=== PATIENT | female | born 1950 | race Caucasian/White ===

== ENCOUNTER 2019-07-03 11:23 | Outpatient (CLI) | payer MEDICARE, MEDICAID, SELFPAY ==
[2019-07-03 11:39] LABS: Basophils Absolute Auto 0.1 K/mm3 (0.0-0.1); Basophils Percent Auto 0.6 % (0.2-1.2); Eosinophils Absolute Auto 0.3 K/mm3 (0-0.3); Eosinophils Percent Auto 3.9 % (0-4.4); Hematocrit 25.2 % (37.0-47.0); Hemoglobin 7.4 g/dL (12.0-15.0); Immature Granulocyte Absolute 0.06 K/mm3 (0.00-0.031); Immature Granulocyte Percent A 0.7 % (0-0.5); Lymphocytes Absolute Auto 2.39 K/mm3 (0.9-3.2); Lymphocytes Percent Auto 29.3 % (18.3-44.2); Mean Corpuscular HGB Conc 29.4 g/dl (32-36); Mean Corpuscular Hemoglobin 26.8 pg (26-34); Mean Corpuscular Volume 91.3 fl (80-100); Mean Platelet Volume 10.4 fl (7.4-10.4); Monocytes Absolute Auto 0.8 K/mm3 (0.1-0.6); Monocytes Percent Auto 9.6 % (2.6-8.5); Neutrophils Absolute Auto 4.6 K/mm3 (1.3-6.7); Neutrophils Percent Auto 55.9 % (45.5-73.1); Platelet Count Result 430 k/mm3 (150-375); Red Blood Count 2.76 M/mm3 (4.2-5.4); Red Cell Distribution Width 15.6 % (11.5-14.5); White Blood Count 8.2 K/mm3 (4.5-10.0)
[2019-07-03 14:07] LABS: Iron 124 ug/dL (37-170)
[2019-07-03 14:17] LABS: Percent Iron Saturation 27 % (20-50)
== END 2019-07-03 11:24 | disposition home or self-care (01) ==
PROVIDERS: PCP Internal Medicine; Visit Provider Internal Medicine Hematology & Oncology
DX: D64.9 Anemia, unspecified (principal)
CPT/HCPCS: 36415; 82728; 83540; 83550; 84443; 85025

== ENCOUNTER 2021-10-27 08:57 | Outpatient (CLI) | payer MEDICARE, MEDICAID, SELFPAY ==
[2021-10-27 09:20] LABS: Hematocrit 37.2 % (37.0-47.0); Hemoglobin 11.4 g/dL (12.0-15.0); Mean Corpuscular HGB Conc 30.6 g/dl (32-36); Mean Corpuscular Hemoglobin 26.5 pg (26-34); Mean Corpuscular Volume 86.5 fl (80-100); Mean Platelet Volume 10.6 fl (7.4-10.4); Platelet Count Result 356 k/mm3 (150-375); White Blood Count 11.6 K/mm3 (4.5-10.0)
[2021-10-27 16:48] LABS: Anion Gap 11 mmol/L (8-16); Blood Urea Nitrogen 18 mg/dL (7-17); Calcium 9.7 mg/dL (8.4-10.2); Carbon Dioxide 27 mmol/L (22-30); Chloride 100 mmol/L (98-107); Estimated Glomerular Filt Rate > 60; Glucose 113 mg/dL (65-110); Potassium 4.6 mmol/L (3.4-5.0); Sodium 138 mmol/L (137-145)
[2021-10-27 16:52] LABS: Iron 73 ug/dL (37-170)
[2021-10-27 17:22] LABS: Percent Iron Saturation 16 % (20-50)
[2021-10-27 17:47] LABS: Ferritin 9.76 ng/mL (11.1-264)
== END 2021-10-27 08:58 | disposition home or self-care (01) ==
LOC: ANHLAB 09:00
PROVIDERS: Visit Provider Internal Medicine Hematology & Oncology
DX: D50.9 Iron deficiency anemia, unspecified (principal)
CPT/HCPCS: 36415; 80048; 82607; 82728; 83540; 83550; 85027

== ENCOUNTER 2023-06-07 16:57 | Emergency (ER) | payer MEDICARE, MEDICAID, SELFPAY ==
[2023-06-07] VITALS (8 sets, daily range): BP systolic 105–129; BP diastolic 63–98; PULSE 68–77; RESP 15–24; TEMP 36.6; O2SAT 95–99
--- NOTE | 2023-06-07 17:13 | ED.GENADULT ---
HPI - General Adult General Chief complaint: Unspecified <Patricia Henao PA-C - Last Filed: 06/07/23 17:18> Stated complaint: shaky <Patricia Henao PA-C - Last Filed: 06/07/23 17:18> Time Seen by Provider: 06/07/23 17:13 <Patricia Henao PA-C - Last Filed: 06/07/23 17:18> Focused HPI: 72 y/o F reports for evaluation for hand tremulousness for the past few weeks, worsening today. Pt states her hands tremble when she attempts to use her hands i.e. picking up objects, but do not tremble when she is resting. She reports intermittent numbness in her L 4th and 5th digits, otherwise denies numbness, vision changes, focal weakness, chest pain. Reports chronic dyspnea that is unchanged from baseline. States her PCP sent her here due to concerns for a stroke. GENERAL: Well-appearing, well-nourished, and in no acute distress. HEAD: Normocephalic, atraumatic. CHEST: Clear to auscultation. ?No respiratory distress. HEART: Regular rate and rhythm.? NEURO: ?Alert and oriented x3. CN 2-12 intact. No pronator drift. Intention tremors present when performing finger to nose testing. No tremors at rest. Strength 5/5 throughout. Patient screened in triage and initial orders placed.? ?Additional care and disposition to be based upon?diagnostic testing and treatment. <Patricia Henao PA-C - Last Filed: 06/07/23 17:18> Related Data Home medications: Home Medications Medication Instructions Recorded Confirmed alendronate 70 mg tablet 70 mg PO WEEKLY 03/03/19 09/06/22 aspirin 81 mg tablet,delayed 81 mg PO DAILY 03/03/19 09/06/22 release (Aspir-) atorvastatin 40 mg tablet 40 mg PO DAILY 03/03/19 09/06/22 docusate sodium 100 mg capsule 100 mg PO DAILY 03/03/19 09/06/22 (Dulcolax Stool Softener (docusate)) duloxetine 60 mg capsule,delayed 60 mg PO DAILY 03/03/19 09/06/22 release icosapent ethyl 1 gram capsule 2 g PO BID 03/03/19 09/06/22 (Vascepa) levothyroxine 150 mcg tablet 150 mcg PO DAILY 03/03/19 09/06/22 (Synthroid) lisinopril 10 mg tablet 20 mg PO DAILY 03/03/19 09/06/22 metformin 500 mg tablet 1,000 mg PO BID 03/03/19 09/06/22 ascorbic acid (vitamin C) 500 mg 1,000 mg PO DAILY 03/10/19 09/06/22 tablet acetaminophen 500 mg tablet 1,000 mg PO DAILY PRN Pain 09/06/22 09/06/22 (Acetaminophen Extra Strength) albuterol sulfate 90 mcg/actuation 2 puff inhalation QID PRN 09/06/22 09/06/22 aerosol inhaler Shortness Of Breath cholecalciferol (vitamin D3) 125 125 mcg PO DAILY 09/06/22 09/06/22 mcg (5,000 unit) tablet (Vitamin D3) cyanocobalamin (vitamin B-12) 1,000 mcg PO DAILY 09/06/22 09/06/22 1,000 mcg tablet,extended release (Vitamin B-12 ER) dapagliflozin propanediol 10 mg 10 mg PO DAILY 09/06/22 09/06/22 tablet exenatide microspheres 2 mg/0.85 2 mg subcut WEEKLY 09/06/22 09/06/22 mL subcutaneous auto-injector insulin degludec 200 unit/mL (3 unit subcut 09/06/22 mL) subcutaneous pen magnesium oxide 400 mg PO DAILY 09/06/22 09/06/22 mirabegron 50 mg tablet,extended 50 mg PO DAILY 09/06/22 09/06/22 release 24 hr pregabalin 100 mg capsule 100 mg PO TID 09/06/22 09/06/22 rivaroxaban 2.5 mg tablet 2.5 mg PO BID 09/06/22 09/06/22 <Patricia Henao PA-C - Last Filed: 06/07/23 17:18> Allergies/adverse reactions: Allergies Allergy/AdvReac Type Severity Reaction Status Date / Time No Known Allergies Allergy Mild Verified 06/07/23 17:12 <Patricia Henao PA-C - Last Filed: 06/07/23 17:18> [facility] Family History Family History: Family History (Updated 07/27/16 @ 23:56 by DOCTOR UNKNOWN) Father Acute myocardial infarction, Onset Age: 60 Patient's father is Mother Patient's mother is <Patricia Henao PA-C - Last Filed: 06/07/23 17:18> Social History Social History: Social History Smoking packs per day: 3 Smoking cigarettes per day: 60.0 Smoking status: Former smoker Tobacco type: cig
[2023-06-07 17:25] LABS: Basophils Absolute Auto 0.1 K/mm3 (0.0-0.1); Basophils Percent Auto 0.7 % (0.2-1.2); Eosinophils Absolute Auto 0.3 K/mm3 (0-0.3); Eosinophils Percent Auto 3.1 % (0-4.4); Hematocrit 34.9 % (37.0-47.0); Hemoglobin 10.7 g/dL (12.0-15.0); Immature Granulocyte Absolute 0.09 K/mm3 (0.00-0.031); Immature Granulocyte Percent A 0.9 % (0-0.5); Lymphocytes Absolute Auto 2.41 K/mm3 (0.9-3.2); Lymphocytes Percent Auto 25.2 % (18.3-44.2); Mean Corpuscular HGB Conc 30.7 g/dl (32-36); Mean Corpuscular Hemoglobin 28.1 pg (26-34); Mean Corpuscular Volume 91.6 fl (80-100); Mean Platelet Volume 11.6 fl (7.4-10.4); Monocytes Absolute Auto 1.1 K/mm3 (0.1-0.6); Monocytes Percent Auto 11.7 % (2.6-8.5); Neutrophils Absolute Auto 5.6 K/mm3 (1.3-6.7); Neutrophils Percent Auto 58.4 % (45.5-73.1); Platelet Count Result 317 k/mm3 (150-375); Red Blood Count 3.81 M/mm3 (4.2-5.4); Red Cell Distribution Width 14.6 % (11.5-14.5); White Blood Count 9.6 K/mm3 (4.5-10.0)
[2023-06-07 17:35] LABS: Alanine Aminotransferase 22 U/L (6-35); Albumin Level 4.5 g/dL (3.5-5.1); Alkaline Phosphatase 77 U/L (38-126); Anion Gap 9 mmol/L (8-16); Aspartate Amino Transferase 27 U/L (14-36); Bilirubin,Total 0.4 mg/dL (0.2-1.3); Blood Urea Nitrogen 21 mg/dL (7-17); Calcium 9.1 mg/dL (8.4-10.2); Carbon Dioxide 23 mmol/L (22-30); Chloride 106 mmol/L (98-107); Estimated CRCL calculation 34 ml/min; Estimated Glomerular Filt Rate 44; Glucose 147 mg/dL (65-110); Magnesium 2.5 mg/dL (1.6-2.3); Potassium 5.4 mmol/L (3.4-5.0); Sodium 138 mmol/L (137-145)
[2023-06-07] MEDS: SODIUM CHLORIDE 0.9% IV 1,000 ML 999 ML IV CONT (23:05)
== END 2023-06-08 00:36 | disposition home or self-care (01) ==
PROVIDERS: Physician Assistant; Emergency Provider Emergency Medicine; PCP Internal Medicine
DX: R25.1 Tremor, unspecified (principal); Z87.891 Personal history of nicotine dependence
CPT/HCPCS: 36415; 80053; 83735; 85025; 96360; 99284; J7030

== ENCOUNTER 2024-08-13 10:56 | Outpatient (CLI) | payer MEDICARE, MEDICAID, SELFPAY ==
--- NOTE | ~2024-08-13 | XR_ITS ---
[id number] Ordering provider: Mckenna Carroll, History: . STAT READ . Comparison: None. FINDINGS: VERTEBRAL BODIES: Minimal anterolisthesis at the level of C4-C5. Otherwise, Normal height and alignme nt. No visible fracture or subluxation. The dens is intact. Degenerative changes of the spine. DISK SPACES: Well maintained. Multilevel facet degenerative disease. Multilevel uncovertebral joint o steoarthritic changes. PARASPINOUS SOFT TISSUES: No prevertebral soft tissue swelling. IMPRESSION: No acute osseous abnormality cervical spine. Multilevel degenerative disc disease. Reviewed, dictated and finalized at location A.
--- NOTE | ~2024-08-13 | XR_ITS ---
3 VIEWS THORACIC SPINE Ordering provider: Mckenna Carroll, History: . STAT READ, FALL, PAIN IN BACK . Comparison: None. FINDINGS: VERTEBRAL BODIES: Compression fracture with loss of volume of about 50% and T9 and T11 which may be a cute or chronic. MRI evaluation advised. Otherwise, Normal height and alignment. No visible fracture or subluxation. Degenerative changes of the spine. DISK SPACES: Multilevel degenerative disc disease. SOFT TISSUES: Atherosclerotic changes of the aorta. IMPRESSION: Compression fracture of T9 and T11 which may be acute or chronic. MRI evaluation advised. Otherwise, No acute osseous abnormality of the thoracic spine. Reviewed, dictated and finalized at location A. IMPRESSION: Compression fracture of T9 and T11 which may be acute or chronic. MRI evaluatio n advised. Otherwise, No acute osseous abnormality of the thoracic spine.
--- OUTSIDE RECORDS SUMMARY | 2024-08-13 12:31 | XMS_ITS | Clinical Summary ---
Author Organization [facility] Address [address] [place] [id number] Care Team Providers Care Registered Nurse Hh Case Manager Name Role Phone Ashleigh Carroll MD Primary Care Provide r Allergies No known active allergies Medications atorvastatin (LIPITOR) 40 mg tablet atorvastatin 40 mg tablet take one tablet by mouth once a day Active DULoxetine DR (CYMBALTA) 60 mg capsule duloxetine 60 mg capsule,delayed release take one capsule by mouth once a day Active cholecalcifero l (VITAMIN D3) 5,000 unit tablet vitamin d 5000 iu Ac tive acetaminophen 500 mg capsule acetaminophen 500 mg Active docusate sodium (COLACE) 100 mg capsule Active alendronate (FOSAMAX) 70 mg tablet alendronate 70 mg tablet take one tablet by mouth once a week Active albuterol HFA (VENTOLIN HFA) 90 mcg/actuation inhaler every 4 hours Active umeclidinium-v ilanterol (ANORO ELLIPTA) 62.5-25 mcg/actuation blister with device Active ferrous sulfate 325 mg (65 mg of elemental iron) tabletIndicati ons:Iron Deficiency Anemia Take 1 tablet (325 mg total) by mouth daily with breakfast Active Farxiga 10 mg tablet Take 1 tablet (10 mg total) by mouth daily 12/10/19 20 Active dihydroergotam ine (MIGRANAL) 0.5 mg/pump act. (4 mg/mL) nasal spray Active TRESIBA 200 unit/mL (3 mL) pen for injection Inject 0.17 mL (34 Units total) under the skin every evening 05/21/19 23 Active insulin degludec (TRESIBA) 100 unit/mL (3 mL) pen for injection Inject 0.34 mL (34 Units total) under the skin every evening 10/08/19 Active Xarelto 2.5 mg tablet Take 1 tablet (2.5 mg total) by mouth 2 (two) times a day 10/08/19 Active vitamins A and D capsule 01/21/20 Active Alcohol Pads pads, medicated TEST 2 TIMES A DAY A ctive aspirin 81 mg enteric coated tablet 04/22/18 70 Active OneTouch Ultra Test strip Active OneTouch Ultra2 Meter misc as directed Active carboxymethylc ellulose sodium (THERATEARS) 0.25 % ophthalmic solution Active clotrimazole 1 % cream Active diflorasone (PSORCON) 0.05 % ointment Active econazole 1 % cream econazole 1% cream 06/30/19 Active Safety Lancets 28 gauge misc TEST 2 TIMES A DAY Active lancing device misc 10/14/19 Active mirabegron ER (Myrbetriq) 50 mg tablet extended release 24 hr Take 1 tablet (50 mg total) by mouth every morning Active BD Ultra-Fine Short Pen Needle 31 gauge x 5/16 needle USE WITH TRESIBA ONCE DAILY 04/19/20 23 Active pen needle, diabetic 31 gauge x 3/16 needle BD Ultra-Fine Mini Pen Needle 31 gauge x 3/16 Active True Comfort Safety Pen Needle 32 gauge x 5/32 needle USE TO INJECT ONCE DAILY 05/17/19 24 Active solifenacin (VESIcare) 5 mg tablet Take 1 tablet (5 mg total) by mouth daily Active albuterol HFA (PROVENTIL HFA,VENTOLIN HFA,PROAIR HFA) 90 mcg/actuation inhaler Inhale 2 puffs every 4 (four) hours as needed Active umeclidinium-v ilanteroL (ANORO ELLIPTA) 62.5-25 mcg/actuation blister with device daily Active Dexcom G7 Sensor deviceIndicati ons:Type 2 diabetes mellitus with hyperglycemia, with long-term current use of insulin (HCC) Change sensor every 10 days 9 each 3 01/30/20 24 Active levothyroxine (SYNTHROID) 150 mcg tablet 1 tablet 6 days a week 90 tablet 06/10/19 25 Active glipiZIDE (GLUCOTROL) 5 mg tabletIndicati ons:Type 2 diabetes mellitus with hyperglycemia, with long-term current use of insulin ([facility]) TAKE ONE (1) TABLET BY MOUTH TWICE DAILY (BEFORE BREAKFAST AT 9AM & LUNCH AT NOON) *NEW PRESCRIPTION REQUEST* 180 tablet 07/09/19 25 Active Bydureon BCise 2 mg/0.85 mL auto-injectorI ndications:Typ e 2 diabetes mellitus with hyperglycemia, with long-term current use of insulin ([facility]) INJECT 2MG SUBCUTANEOUSLY ONCE WEEKLY ON SATURDAY *NEW PRESCRIPTION REQUEST* 10.2 mL 07/09/19 25 Active Vascepa 1 gram capsule TAKE TWO (2) CAPSULES BY MOUTH TWICE DAILY *NEW PRESCRIPTION REQUEST* 360 capsule 07/09/19 25 Active metFORMIN XR (GLUCOPHAGE XR) 500 mg 24 hr tabletIndicati ons:Type 2 diabetes mellitus with hyperglycemia, with long-term current use of insulin ([facility]) TAKE ONE (1) TABLET BY MOUTH TWICE DAILY (AFTER BREAKFAST @ 9AM & DINNER AT 5PM) *NEW PRESCRIPTION REQUEST* 180 tablet 07/09/19 25 Active azithromycin (ZITHROMAX) 250 mg tablet TAKE 2 TABLETS BY MOUTH TODAY, THEN TAKE 1 TABLET DAILY FOR 4 DAYS DIRECTED 06/12/19 25 Active lisinopriL (PRINIVIL,ZEST RIL) 20 mg tablet TAKE ONE TABLET BY MOUTH IN THE MORNING DAILY AT 9 AM 07/04/19 25 Active pregabalin (LYRICA) 150 mg capsule Take 1 capsule (150 mg total) by mouth nightly 90 capsule 2 07/16/19 25 Active pregabalin (LYRICA) 150 mg capsule Take 1 capsule (150 mg total) by mouth nightly 90 capsule 2 07/11/19 25 025 Discontin ued(Reord er) Active Problems Problem Noted Date Diagnosed Date Hypertension associated with type 2 diabetes doroteo litus 01/20/2024 Assessment & Plan (07/14/2024 3:24 PM CDT): Chronic problem. Controlled on current lisinopril 20mg daily. Assessment & Plan (05/11/2024 12:57 PM PHYTOPATHOLOGIST): Chronic problem. Controlled on current lisinopril 10mg daily. Assessment & Plan (01/20/2024 3:10 PM CDT): Chronic problem. Controlled on current lisinopril 10mg daily. Will update labs today. Does not mychart. Verified phone #/address to contact re: results. Hyperlipidemia associated with type 2 diabetes elisha hong 01/20/2024 Assessment & Plan (07/14/2024 3:24 PM CDT): Chronic problem. Currently taking Atorvastatin 80mg & vascepa 2gm bid Last lipid panel: 01/20/24 LDL=51, SP=291. Assessment & Plan (05/11/2024 12:57 PM PHYTOPATHOLOGIST): Chronic problem. Currently taking Atorvastatin 40mg & vascepa 2gm bid Last lipid panel: 01/20/24 LDL=51, ZL=701. Assessment & Plan (01/20/2024 3:11 PM CDT): Chronic problem. Currently taking Atorvastatin 40mg & vascepa 2gm bid No lipid panel on file. Will update labs today. Does not mychart. Verified phone #/address to contact re: results. Type 2 diabetes mellitus wit h hyperglycemia, with long-term current use of insulin 07/18/2023 Assessment & Plan (07/14/2024 3:38 PM CDT): Chronic problem. A1c uncontrolled but improved from 10.1% 05/11/24 to now 8.2%. Increase Tresiba from 29 units to 32 units daily. Current medications: Metformin XR 1000mg twice daily with meals (increased by Dr Bustillos [facility]) Glipizide 5mg twice daily with meals Farxiga 10mg daily Bydureon 2mg weekly Tresiba 32 units daily UTD on labs. DM eye exam JENNIFER fall 2022; 02/2024 appt [facility] in [place] on [address] 2nd request letter sent to get copy of report from last year. Discussed with Leah Mariee: Strive for regular exercise (30min most days) and diet (get at least 4-5 servings of fruit and veggies daily, avoid processed foods, increase lean protein intake and decrease carb portions as well as fruit juices, regular soda & desserts). Watch carbs and simple sugars. Check the blood sugar: Dexcom G7. Check the feet daily for skin breakdown and infection. Assessment & Plan (05/11/2024 1:57 PM PHYTOPATHOLOGIST): Chronic problem. A1c uncontrolled & greatly worsened from 6.1% 01/20/24 to now 10.1%. Too high. Will make below changes: -increase tresiba from 24 units to 29 units. -add metformin XR 500mg twice daily with meals Current medications: Metformin XR 500mg twice daily with meals Glipizide 5mg twice daily with meals Farxiga 10mg daily Bydureon 2mg weekly UTD on labs. DM eye exam JENNIFER fall 2022; 02/2024 appt [facility] [place] [facility]. Letter sent to get copy of report from last year. Discussed with Leah Mariee: Strive for regular exercise (30min most days) and diet (get at least 4-5 servings of fruit and veggies daily, avoid processed foods, increase lean protein intake and decrease carb portions as well as fruit juices, regular soda & desserts). Watch carbs and simple sugars. Check the blood sugar: Dexcom G7. Check the feet daily for skin breakdown and infection. Assessment & Plan (01/20/2024 3:29 PM CDT): Chronic problem. A1c at goal & greatly improved from 9.5% 07/18/23 to now 6.1%. Too many lows. Will make below changes: -decrease tresiba from 34 units to 29 units. -glimepiride only once daily Current medications: Metformin XR 1000mg twice daily with meals Glimepiride 5mg with breakfast Bydureon 2mg weekly Tresiba 29 units daily Will update labs today. Will update labs today. Does not mychart. Verified phone #/address to contact re: results. DM eye exam JENNIFER fall 2022; 02/2024 appt [facility] in [place] on [address] Letter sent to get copy of report from last year. Discussed with Leah Mariee: Strive for regular exercise (30min most days) and diet (get at least 4-5 servings of fruit and veggies daily, avoid processed foods, increase lean protein intake and decrease carb portions as well as fruit juices, regular soda & desserts). Watch carbs and simple sugars. Check the blood sugar: Dexcom G. Check the feet daily for skin breakdown and infection. Assessment & Plan (07/18/2023 4:51 PM CDT): Chronic, uncontrolled, worsening Restart Bydureon 2 mg weekly Restart metformin a 1000 mg twice a day Restart glimepiride 5 mg Lower Tresiba to 40 units daily I advised the patient to call me in 2 weeks to let us know how glucoses are doing Continue CGM with Dexcom Tremor 06/19/2023 Diabetic polyneuropathy asso ciated with type 2 diabetes mellitus 02/22/2023 Assessment & Plan (07/14/2024 3:23 PM CDT): Chronic problem. Currently taking Lyrica 150mg qhs. Reviewed foot care; needs to lotion daily. Aware to check feet nightly, not to go barefoot. Assessment & Plan (05/11/2024 12:57 PM PHYTOPATHOLOGIST): Chronic problem. Currently taking Lyrica 150mg qhs. Reviewed foot care; needs to lotion daily. Aware to check feet nightly, not to go barefoot. Assessment & Plan (01/20/2024 3:29 PM CDT): Chronic problem. Currently taking Lyrica 150mg qhs. Reviewed foot care; needs to lotion daily. Aware to check feet nightly, not to go barefoot. Assessment & Plan (02/22/2023 10:25 AM CDT): Foot care was discussed Continue Lyrica Low back pain 01/15/2023 Leukocytosis 10/16/2022 Pain in joint of left shoulder 10/16/2022 Foot callus 09/11/2022 Increased frequency of urination 09/10/2022 Hyperkalemia 08/10/2022 Proteinuria 06/18/2022 Dystrophia unguium 06/11/2022 Pain in toe 06/11/2022 Lesion of bladder 03/18/2022 Urinary incontinence 03/18/2022 Glycosuria 02/05/2022 Urge incontinence of urine 02/05/2022 Primary localized osteoarthrosis of shoulder reg ion 01/24/2022 Chronic hepatitis C virus infection 07/17/2021 Neuropathy 06/25/2021 Contusion of left shoulder 05/29/2021 Impingement syndrome of left shoulder region 10/2021 Osteoarthritis 05/29/2021 Dry skin 03/23/2021 Ganglion cyst of right foot 12/20/2020 Pain in right foot 12/16/2020 Change in voice 06/21/2020 Nicotine dependence 06/21/2020 Chronic obstructive pulmonary disease 12/10/2019 Lung mass 12/10/2019 Vitamin D deficiency 12/10/2019 Iron deficiency anemia 03/03/2019 Overview (07/01/2023): b12 normal Anemia 07/28/2018 Sleep apnea 07/21/2018 Shortness of breath 07/21/2018 Hypertriglyceridemia 07/21/2018 Primary hypertension 07/21/2018 Hypothyroidism 07/21/2018 Assessment & Plan (07/14/2024 3:27 PM CDT): Chronic problem. Currently taking levothyroxine 150 mcg 6 days/wk since 01/2024. Aware to take 1st thing in morning, 30-60 minutes before food/drink/other medications. Assessment & Plan (05/11/2024 12:58 PM PHYTOPATHOLOGIST): Chronic problem. Currently taking levothyroxine 150 mcg 6 days/wk since 01/2024. Aware to take 1st thing in morning, 30-60 minutes before food/drink/other medications. will repeat TFTs today. Will update labs today. Does not mychart. Verified phone #/address to contact re: results. Assessment & Plan (01/21/2024 3:50 PM CDT): Chronic problem. Currently taking levothyroxine 150 mcg daily. Aware to take 1st thing in morning, 30-60 minutes before food/drink/other medications. Last TSH=13.40. will repeat TFTs today. Will update labs today. Does not mychart. Verified phone #/address to contact re: results. Assessment & Plan (07/18/2023 4:52 PM CDT): Chronic, stable Update TFTs Continue levothyroxine Obesity 07/21/2018 Coronary artery disease invo lving [place] coronary artery of [place] heart without angina pectoris 07/14/2018 Resolved Problems Problem Noted Date Diagnosed Date Resolved Date Neuropathy due to type 2 diabetes mellitus 06/24/2019 01/20/2024 Type 2 diabetes mellitus without complication 07/22/19 19 01/20/2024 Assessment & Plan (02/22/2023 10:25 AM CDT): Hba1c was Lab Results Component Value Date HGBA1C 6.6 02/21/2023 today, indicating adequate DM control with hypoglycemia Goal Hba1c and blood glucose explained Diet and exercise were advised Prevention and treatment of hyypoglcyemia were discussed with the patient Blood glucose monitoring : start CGM with DEXCOM G7 Adjustment to medications: Lower the Tresiba to 45 units at bedtime Stay on Metformin, Glucotrol , Bydureon and Farxiga, same . Encounters Date Type Department Care Team Description 07/15/2024 Telephone [facility] [address] [phone] Patito Oglesby NP 07/14/2024 3:00 PM CDT Office Visit [facility] Diabetes and Endocrinology [address] [place] [phone] Patito Oglesby NP Type 2 diabetes mellitus with hyperglycemia, with long-term current use of insulin (HCC) (Primary Dx); Hypertension associated with type 2 diabetes mellitus (HCC); Hyperlipidemia associated with type 2 diabetes mellitus (HCC); Diabetic polyneuropathy associated with type 2 diabetes mellitus (HCC); Hypothyroidism, unspecified type 07/09/2024 Telephone [facility] Diabetes and Endocrinology [address] [place] [phone] Patito Oglesby NP Med Refill (Pregabalin ) 06/09/2024 Telephone [facility] Diabetes and Endocrinology [address] [place] [phone] Patito Oglesby NP Med Management ([facility]) 06/02/2024 Telephone [facility] Group Diabetes and Endocrinology [facility] [place] [address] Patito Oglesby NP [facility] new Rx request from Last 3 Months Immunizations Immunization Administration Dates Next Due Influenza, Trivalent, High D ose, Split, Preservative Free, Intramuscular 01/25/2018 Pneumococcal Conjugate PCV 13 01/27/2018 Surgical History Surgery Date Site/Laterality Comments HYSTERECTOMY COLONOSCOPY BLADDER SURGERY Medical History Medical History Date Comments Diabetes mellitus (HCC) Bronchitis Asthma Anemia Arthritis Osteoporosis Hypertension Osteoarthritis Hyperlipidemia Family History Medical History Relation Name Comments Lung cancer Brother Heart attack Father No Known Problems Mother No Known Problems Sister Relation Name Status Comments Brother Alive Father Mother Alive Sister Alive Social History Tobacco Use Types Packs/Day Years Used Date Smoking Tobacco: Former Cigarettes 3 35 0 07/01/1968 - 07/02/2003 Smokeless Tobacco: Never Tobacco Cessation:Counseling Given: Not Answered Alcohol Use Standard Drinks/Week Comments Not Currently 0 (1 standard drink = 0.6 oz pur e alcohol) Comments Unknown Sex and Gender Information Value Date Recorded Sex Assigned at Not on file Legal Sex Female 9:38 AM PHYTOPATHOLOGIST Gender Identity Not on file Sexual Orientation Not on file 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 Not on file Not o n file Not on file Obstetrics History Last Filed Vital Signs Vital Sign Reading Time Taken Comments Blood Pressure 118/60 07/14/2024 3:14 PM CDT Pulse 80 07/14/2024 3:14 PM CDT Temperature 37 C (98.6 F) 05/11/2024 2:47 PM PHYTOPATHOLOGIST Respiratory Rate 18 07/14/2024 3:14 PM CDT Oxygen Saturation 97% 05/11/2024 2:47 PM PHYTOPATHOLOGIST Inhaled Oxygen Concentration - - Weight 76.2 kg (168 lb) 07/14/2024 3:14 PM CDT Height 149.9 cm (4' 11.02 ) 07/14/2024 3:14 PM C DT Body Mass Index 33.91 07/14/2024 3:14 PM CDT Plan of Treatment Health Maintenance Due Date Last Done Comments Colon Cancer Screening-Colonoscopy 1948 Depression Screening 1948 Fall Risk Assessment 1950 Dilated Eye Exam 1948 Hepatitis B Screening 1966 Well Visit 65+ 2013 Covid-19 Vaccine (2023-2 5 season) 2023 01/22/2023, 03/25/2021, 07/31/2020, Additional history exists Hemoglobin A1C 01/14/2025 07/14/2024, 04/23, 01/20/2024, Additional history exists Albumin Creatinine Ratio, Urine 01/19/2025 Foot Exam 01/19/2025 01/20/2024 Lipid Panel 01/19/2025 01/20/2024 eGFR 01/19/2025 01/20/2024 Osteoporosis Screening-Bone Density Scan 02/28/2025 02/28/2023, 12/12/2020 DTaP/Tdap/Td Vaccine (3 - Td or Tdap) 03/20/2028 03/20/2018, 09/07/2013 Pneumococcal vaccine 65+ Completed 018, 03/20/2018, 01/27/2018, Additional history exists Hepatitis C Screening Completed 07/17/2021 Zoster Vaccine Completed 10/14/2023, 07/21, 03/11/2013 Influenza Vaccine Completed 01/21/2024, , 02/01/2022, Additional history exists Procedures Procedure Name Priority Date/Time Associated Diagnosis Comments POCT GLUCOSE Routine 07/14/2024 3:18 PM CDT Type 2 diabetes mellitus with hyperglycemia, with long-term current use of insulin (HCC) POCT HEMOGLOBIN A1C Routine 07/14/2024 3 :18 PM CDT Type 2 diabetes mellitus with hyperglycemia, with long-term current use of insulin (HCC) EGFR Routine 01/20/2024 12:00 PM CDT Type 2 diabetes mellitus with hyperglycemia, with long-term current use of insulin (HCC) Hypertension associated with type 2 diabetes mellitus (HCC) LIPID PANEL Routine 01/20/2024 12:00 PM CDT Type 2 diabetes mellitus with hyperglycemia, with long-term current use of insulin (HCC) Hyperlipidemia associated with type 2 diabetes mellitus (HCC) ALBUMIN CREATININE RATIO, URINE Routine 01/20/2024 12:00 PM CDT Type 2 diabetes mellitus with hyperglycemia, with long-term current use of insulin (HCC) from Last 3 Months or Most Recently Relevant to Health Maintenance Results * (ABNORMAL) POCT hemoglobin A1c (07/14/2024 3:18 PM CDT) Hemoglobin A1C, POC 8.2 4.0 - 5.6 % Blood 07/14/2024 3:18 PM CDT us Patito Oglesby NP POINT OF CARE TEST ORDERA BLES Final Result * (ABNORMAL) POCT glucose (07/14/2024 3:18 PM CDT) Glucose Blood, POC 184 mg/dL Blood 07/14/2024 3:18 PM CDT us Patito Oglesby NP POINT OF CARE TEST ORDERA BLES Final Result * (ABNORMAL) eGFR (01/20/2024 12:00 PM CDT) eGFR 38(L) >=60 mL/min/1. 73 m2 Comment: Interpretive Data Reference Interval Normal >/= 90 mL/min/1.73m2 Mildly decreased* 60 - 89 mL/min/1.73m2 Mildly to moderately decreased 45 - 59 mL/min/1.73m2 Moderately to severely decreased 30 - 44 mL/min/1.73m2 Severely decreased 15 - 29 mL/min/1.73m2 Kidney Failure < 15 mL/min/1.73m2 *Relative to young adult level Estimated glomerular filtration rate is determined by the 2020 CKD-EPI equation recommended by the National Kidney Foundation (A Unifying Approach to GFR Estimation: Recommendations of the NKF-ASK Task Force on Reassessing the Inclusion of Race in Diagnosing Kidney Disease, JASN 2020). The CKD-EPI equation should not be used for patients with unstable renal function and has not been validated in children and those over 70. Current interpretive data was last reviewed 2021. Blood 01/20/2024 12:0 0 PM CDT 01/20/2024 9:28 PM CDT Patito Oglesby CLOCK AND WATCH ASSEMBLER LAB BLOOD ORDERABLES Yennifer l Result Performing Organization Address [facility] de Phone Number MAIDA [id number] [address] [place] [address] * Albumin Creatinine Ratio, Urine (01/20/2024 12:00 PM CDT) Albumin Ur 20.1 mg/L Comment: Interpretive Data No reference range established. Current interpretive data was last revised 2018. Creatinine Ur 83.1 mg/dL [facility] Comment: Interpretive Data No reference range established. Current interpretive data was last revised 2018. Albumin Creatinine Ratio, Ur 24 1 - 29 mg/g [facility] Urine 01/20/2024 12:0 0 PM CDT 01/20/2024 9:21 PM CDT Patito Oglesby NP LAB URINE ORDERABLES Yennifer l Result Performing Organization Address [facility] de Phone Number [facility] [id number] [place] [address] * (ABNORMAL) Lipid panel (01/20/2024 12:00 PM CDT) Cholesterol 110 30 - 199 mg/dL Comment: Interpretive Data Ages < or = 19 years Acceptable: <170 mg/dL Borderline high: 170-199 mg/dL High: >or= 200 mg/dL Ages > or = 20 years Desirable: <200 mg/dL Borderline high: 200-239 mg/dL High: >or= 240 mg/dL Literature References: 1. Expert Panel on Integrated Guidelines for Cardiovascular Health and Risk Reduction in Children and Adolescents. Pediatrics 2011;128:S213 2. NCEP Expert Panel. Circulation 2004;110:227 Current Interpretive Data was last revised on 2017. Triglycerides 180(H) <=149 mg/dL [facility] Comment: Interpretive Data Ages < or = 9 years Acceptable: <75 mg/dL Borderline high: 75-99 mg/dL High: >or= 100 mg/dL Ages 10 to 20 years Acceptable: <90 mg/dL Borderline high: 90-129 mg/dL High: >or= 130 mg/dL Ages > or = 20 years Desirable: <150 mg/dL Borderline high: 150-199 mg/dL High: 200-499 mg/dL Very high: >or= 499 mg/dL Literature References: 1. Expert Panel on Integrated Guidelines for Cardiovascular Health and Risk Reduction in Children and Adolescents. Pediatrics 2011;128:S213 2. NCEP Expert Panel. Circulation 2004;110:227 Current Interpretive Data was last revised on 2017. HDL 29(L) >=40 mg/dL [facility] Comment: Interpretive Data Ages < or = 19 years Acceptable: >45 mg/dL Borderline low: 40-45 mg/dL Low: <40 mg/dL Ages > or = 20 years Desirable: >or= 60 mg/dL Low: <40 mg/dL Literature References: 1. Expert Panel on Integrated Guidelines for Cardiovascular Health and Risk Reduction in Children and Adolescents. Pediatrics 2011;128:S213 2. NCEP Expert Panel. Circulation 2003;110:227 Current Interpretive Data was last revised on 2017. LDL, calculated 51 <=129 mg/dL [facility] Comment: Interpretive Data Ages < or = 19 years Acceptable: <110 mg/dL Borderline high: 110-129 mg/dL High: >or= 130 mg/dL Ages > or = 20 years Optimal: <100 mg/dL Near optimal: 100-129 mg/dL Borderline high: 130-159 mg/dL High: >160 mg/dL Calculated using the Hammad LDL-C estimating equation. This equation was implemented on 2023. Prior to this date LDL-C was estimated using the Friedewald equation. Literature References: 1. Expert Panel on Integrated Guidelines for Cardiovascular Health and Risk Reduction in Children and Adolescents. Pediatrics 2011;128:S213 2. NCEP Expert Panel. Circulation 2004;110:227 3. Hammad Hugo et al. MYESHA Cardiol. 2019August 20;5(5):540-548. doi: 10.1001/[email or web address] Current Interpretive Data was last revised on 2023. Non-HDL Cholesterol 81 mg/dL [facility] Comment: Interpretive Data Ages < or = 19 years Acceptable: <120 mg/dL Borderline high: 120-144 mg/dL High: >145 mg/dL Ages > or = 20 years When triglycerides are >200 mg/dL, Non-HDL cholesterol is a secondary target of therapy with treatment goals that are 30 mg/dL greater than the LDL cholesterol target. Literature References: 1. Expert Panel on Integrated Guidelines for Cardiovascular Health and Risk Reduction in Children and Adolescents. Pediatrics 2011;128:S213 2. NCEP Expert Panel. Circulation 2004;110:227 Current Interpretive Data was last revised on 2017. Chol/HDL ratio 4 [facility] CONTR[facility]AS Blood 01/20/2024 12:0 0 PM CDT 01/20/2024 9:21 PM CDT us Patito Oglesby NP LAB BLOOD ORDERABLES Yennifer l Result [facility] [id number] [address] Department [place] [address] from Last 3 Months or Most Recently Relevant to Health Maintenance Insurance [employer] MEDICARE PPO [facility] Address: [address] [address] [place] [address] [facility] Care Teams Registered Nurse Hh Case Manager Relationship Specialty Start Date End Date Ashleigh Carroll MD PCP - General Internal Medicine 07/14/18
--- OUTSIDE RECORDS SUMMARY | 2024-08-13 12:31 | XMS_ITS | CONTINUITY OF CARE DOCUMENT ---
Author Name john lopez Address Unknown Organization [facility] Address [address] [address] [place] [address] Phone [phone] Care Team Providers Care Clinical Immunologist Name Role Phone Everton MULLIGAN, Juanpablo Unavailable [phone] MARY WARE MD Unavailable MARY WARE MD Unavailable PROBLEMS Condition Status Date Provider Notes Hypertriglyceridemia active Nazario De Luna Anemia, iron deficiency active Nazario jimenez MD b12 normal Shortness of breath active Amanda Barry NP Orthopnea completed - Nazario Collier MD Diabetes mellitus active Juanpablo Toscano MD Hypercholesterolemia active Juanpablo Toscano MD Tobacco use quit active Juanpablo Toscano MD Sleep apnea - on CPAP active Juanpablo Toscano MD Claudication completed - Juanpablo Toscano MD Obesity active Juanpablo Toscano MD Abnormal EKG completed - Nazario Collier MD Hypertension active Juanpablo Toscano MD Hypothyroidism active Juanpablo Toscano MD CAD - PCI/SO dRCA 08/2018 active Juanpablo mackay MD PVD active Juanpablo Toscano MD Preoperative cardiovascular examination completed - Nazario Collier MD COPD active Nazario Collier MD covid 19;pos igg active Nazario Collier MD Diastolic dysfunction completed - Juanpablo Toscano MD Vitamin D deficiency active Nazario De Luna Lung nodule active Nazario Collier MD Screening completed - Juanpablo Toscano MD 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 completed - Juanpablo Toscano MD Abnormal cardiovascular stre ss test completed - Juanpablo Toscano MD ENCOUNTERS Date Type Provider Location Encounter Diag nosis - In-person encounter Office Visit Juanpablo Toscano MD [facility] - In-person encounter Office Visit Juanpablo Toscano MD [facility] - In-person encounter Office Visit Juanpablo Toscano MD [facility] - In-person encounter Office Visit Juanpablo Toscano MD [facility] CAD - PCI/SO dRCA 08/2018 - In-person encounter Office Visit Juanpablo Toscano MD [facility] - In-person encounter Office Visit Juanpablo Toscano MD [facility] - In-person encounter Office Visit Juanpablo Toscano MD [facility] - In-person encounter Office Visit Juanpablo Toscano MD [facility] - In-person encounter Office Visit Juanpablo Toscano MD [facility] Abnormal cardiovascular stress test - In-person encounter Office Visit Juanpablo Toscano MD [facility] Diastolic dysfunctionScreeningOther senior care (current) drug therapy - In-person encounter Office Visit Nazario Collier MD [facility] Shortness of breath - In-person encounter Office Visit Nazario Collier MD [facility] Shortness of breathOrthopneaAbnormal EKGPreoperative cardiovascular examinationCOPDcovid 19;pos iggVitamin D deficiencyLung nodule - In-person encounter Office Visit Nazario Collier MD [facility] - In-person encounter Office Visit Juanpablo Toscano MD [facility] ClaudicationPVD - In-person encounter Office Visit Juanpablo Toscano MD [facility] - In-person encounter Office Visit Juanpablo Toscano MD [facility] Diabetes mellitusHypercholesterolemiaTobacco use quitSleep apnea - on CPAPObesityHypertensionHypothyroidism VITAL SIGNS Date Observation Value Provider Body Mass Index (Ratio) 33.59 kg/m2 Shady Wong blood pressure, diastolic 70 mm[Hg] Christina fantasma Cole blood pressure, systolic 124 mm[Hg] Bibi castillo Cole oxygen saturation, oximetry 96 % Jovanna Cole pulse rate 85 /min Jovanna Cole respiratory rate E&M 14 /min Jovanna Cole weight E&M 172 [lb_av] Jovanna Cole height E&M 60 [in_i] Jovanna Cole blood pressure, cuff size regular An fantasma Cole Body Mass Index (Ratio) 35.11 kg/m2 Shady Wong blood pressure, cuff size regular Gene Sargent blood pressure, diastolic 66 mm[Hg] Ta bitha Sargent blood pressure, systolic 118 mm[Hg] Tab itha Arie oxygen saturation, oximetry 96 % Kailey Sargent respiratory rate E&M 12 /min Kailey Sargent pulse rate 91 /min Kailey Sargent weight E&M 179.8 [lb_av] Kailey Sargent height E&M 60 [in_i] Kailey Sargent Body Mass Index (Ratio) 34.17 kg/m2 Chasidy Toscano MD blood pressure, diastolic 60 mm[Hg] Monik hewittLogkeon blood pressure, systolic 124 mm[Hg] Mila Machucaogkeon blood pressure, cuff size regular Ja rret blood pressure, diastolic 60 mm[Hg] Ja rret blood pressure, systolic 124 mm[Hg] Jar ret pulse rate 78 /min Perez y oxygen saturation, oximetry 96 % Perez respiratory rate E&M 16 /min Perez weight E&M 175 [lb_av] Perez y height E&M 60 [in_i] Perez y Body Mass Index (Ratio) 34.37 kg/m2 Chasidy Toscano MD blood pressure, cuff size regular Ke rri Enrriqueuenenfeldsherif blood pressure, diastolic 70 mm[Hg] Ke rri Gruenenfelder blood pressure, systolic 122 mm[Hg] Ker ri Isaaknecubaeldsherif oxygen saturation, oximetry 97 % Rocio Jenna respiratory rate E&M 12 /min Rocio G shellyenecubaeldsherif pulse rate 83 /min Rocio Gruenenfe lder weight E&M 176 [lb_av] Rocio Enrriqueuenenfe lder height E&M 60 [in_i] Rocio Enrriqueuenenfe lder Body Mass Index (Ratio) 33.90 kg/m2 Chasidy Toscano MD blood pressure, diastolic -1 mm[Hg] Monik hewittLogkeon blood pressure, systolic 120 mm[Hg] Mila Machucaogic blood pressure, diastolic 61 mm[Hg] St kylie Hernandez blood pressure, systolic 120 mm[Hg] Judit garcia David oxygen saturation, oximetry 97 % Jerilyn David pulse rate 89 /min Jerilyn David respiratory rate E&M 16 /min Jerilyn Ellie michel weight E&M 173.6 [lb_av] Jerilyn David height E&M 60 [in_i] Jerilyn David Body Mass Index (Ratio) 33.20 kg/m2 Chasidy Toscano MD blood pressure, cuff size large Fl lenore Hernandez blood pressure, diastolic 70 mm[Hg] Perla grover Hernandez blood pressure, systolic 136 mm[Hg] [facility] marty David oxygen saturation, oximetry 96 % Yanet Hernandez pulse rate 90 /min Yanet de luna respiratory rate E&M 16 /min Juana Hernandez weight E&M 170 [lb_av] Yanet de luna height E&M 60 [in_i] Yanet de luna Body Mass Index (Ratio) 33.20 kg/m2 Chasidy Toscano MD blood pressure, cuff size regular Pa ris [place] blood pressure, diastolic 67 mm[Hg] Pa ris Leland blood pressure, systolic 115 mm[Hg] Par is [place] oxygen saturation, oximetry 96 % Jyoti [place] respiratory rate E&M 16 /min Jyoti H driss pulse rate 95 /min Jyoti [place]eland weight E&M 170 [lb_av] Jyoti [place] height E&M 60 [in_i] Jyoti Leland Body Mass Index (Ratio) 33.20 kg/m2 Shady Wong blood pressure, diastolic 70 mm[Hg] Monik nkLogic blood pressure, systolic 138 mm[Hg] Mila kLogic blood pressure, cuff size regular Cy fern Davis blood pressure, diastolic 70 mm[Hg] Easton Davis blood pressure, systolic 138 mm[Hg] Marianne pitt Davis oxygen saturation, oximetry 93 % Amanda Davis pulse rate 88 /min Amandayoandy mcpherson respiratory rate E&M 16 /min Amanda Davis weight E&M 170 [lb_av] Amanda Greco [place] height E&M 60 [in_i] Amanda Greco [place] Body Mass Index (Ratio) 34.56 kg/m2 Chasidy Toscano MD blood pressure, cuff size regular Easton shirley Davis blood pressure, diastolic 70 mm[Hg] Easton shirley Davis blood pressure, systolic 134 mm[Hg] Marianne pitt Davis oxygen saturation, oximetry 96 % Amanda Davis pulse rate 61 /min Amandayoandy [place] respiratory rate E&M 16 /min Amanda Davis weight E&M 177 [lb_av] Amanda [place] height E&M 60 [in_i] Amanda Angus ky Body Mass Index (Ratio) 33.98 kg/m2 Chasidy Toscano MD blood pressure, cuff size regular Cy fern Ryan blood pressure, diastolic 77 mm[Hg] Easton shirley Davis blood pressure, systolic 142 mm[Hg] Marianne yoandy Ryan oxygen saturation, oximetry 94 % Amanda Ryan pulse rate 90 /min Amanda Angus ky respiratory rate E&M 90 /min Amanda Davis weight E&M 174 [lb_av] Amanda Campbel l height E&M 60 [in_i] Amanda Campbel l Body Mass Index (Ratio) 34.95 kg/m2 Get Collier MD blood pressure, cuff size large Ke rri Enrriqueuenecody blood pressure, diastolic 80 mm[Hg] Ke rri Enrriqueuenenfeldsherif blood pressure, systolic 160 mm[Hg] Yolande ri Jenna oxygen saturation, oximetry 97 % Rocio Jenna respiratory rate E&M 16 /min Rocio Samy matteldsherif pulse rate 86 /min Rocio Yamila lder weight E&M 179 [lb_av] Rocio Isaaknecubae lder height E&M 60 [in_i] Rocio Isaaknenfe lder Body Mass Index (Ratio) 34.95 kg/m2 Get rob Collier MD blood pressure, diastolic 67 mm[Hg] To nsha Senior blood pressure, systolic 138 mm[Hg] Ton sha Senior oxygen saturation, oximetry 94 % Tonsha Senior respiratory rate E&M 16 /min Tonsha Senior pulse rate 98 /min Tonsha Senior weight E&M 179 [lb_av] Tonsha Senior height E&M 60 [in_i] Tonsha Senior Body Mass Index (Ratio) 34.37 kg/m2 Get Collier MD blood pressure, diastolic 67 mm[Hg] Cy fern Davis blood pressure, systolic 131 mm[Hg] Marianne thitony Davis pulse rate 83 /min Amanda Selwynbel l oxygen saturation, oximetry 97 % Amanda Davis respiratory rate E&M 16 /min Amanda Davis blood pressure, cuff size regular Cy fern Davis weight E&M 176 [lb_av] Amandayoandy Greco l height E&M 60 [in_i] Amanda Greco l temperature site temporal Honey Tank sley temperature E&M 96.4 [degF] Honey Tanks arron Body Mass Index (Ratio) 36.32 kg/m2 Chasidy Toscano MD blood pressure, diastolic 60 mm[Hg] Er ica Jaun blood pressure, systolic 110 mm[Hg] Kasie brooks Jaun blood pressure, resting Yes Juan C Zamorano oxygen saturation, oximetry 98 % Annmarie Zamorano pulse rate 104 /min Annmarie Horn weight E&M 186 [lb_av] Annmarie Horn height E&M 60 [in_i] Annmarie Horn Body Mass Index (Ratio) 33.59 kg/m2 Chasidy Toscano MD blood pressure, cuff size regular Cr ирина Diaz blood pressure, diastolic 80 mm[Hg] Cr ирина Diaz blood pressure, systolic 130 mm[Hg] Cry filipe Diaz oxygen saturation, oximetry 97 % Madina Diaz respiratory rate E&M 17 /min Madina Diaz pulse rate 93 /min Madina alston weight E&M 172 [lb_av] Madina alston height E&M 60 [in_i] Madina alston Body Mass Index (Ratio) 34.37 kg/m2 Darren Singh blood pressure, cuff size regular Cy ntmariano Davis blood pressure, diastolic 70 mm[Hg] Cy ntrachaela Ryan blood pressure, systolic 122 mm[Hg] Marianne yoandy Davis oxygen saturation, oximetry 98 % Amanda Davis respiratory rate E&M 16 /min Amandayoandy Davis pulse rate 89 /min Amanda mcpherson height E&M 60 [in_i] Amanda mcpherson weight E&M 176 [lb_av] Amanda mcpherson ALLERGIES No Known Drug Allergies RESULTS Date Observation Value Provider Reference Range Interpretation Location prothrombin time (patient) 11.1 s [facility] 9.1-12.0 5 international normalized ratio (INR) 1.0 [facility] 0.9-1.2 5 lipoprotein, beta, serum, point, quantitative, calculated 63 mg/dL [facility] 0-99 5 HDL cholesterol, serum 40 mg/dL [facility] >39 5 triglyceride, serum, random 124 mg/dL [facility] 0-149 5 cholesterol, serum 125 mg/dL [facility] [phone]/02/0 5 calcium, serum 10.8 mg/dL [facility] 8.7-10.3 High 5 carbon dioxide, venous blood 23 mmol/L [facility] 20-29 5 chloride, serum 97 mmol/L [facility] 96-106 5 potassium, serum 4.6 mmol/L [facility] 3.5-5.2 5 sodium, serum 140 mmol/L [facility] [phone]/02/0 5 urea nitrogen/creatinine ratio, serum 21 [facility] 12-28 5 eGFR if 85 mL/min/{1 .73_m2} [facility] >59 5 eGFR if not 73 mL/min/{1 .73_m2} [facility] >59 5 creatinine, serum 0.81 mg/dL [facility] 0.57-1.00 5 urea nitrogen, blood 17 mg/dL [facility] 8-27 5 blood glucose, random 142 mg/dL [facility] 65-99 High 5 basophil count, absolute 0.1 x10E3/uL [facility] 0.0-0.2 5 Eosinophil Absolute Count 0.3 X10E3/UL [facility] 0.0-0.4 5 monocyte count, blood, automated 1.3 X10E3/UL [facility] 0.1-0.9 High 5 lymphocyte count, blood, automated 3.5 X10E3/UL [facility] 0.7-3.1 High 5 Absolute Neutrophils 9.6 X10E3/UL [facility] 1.4-7.0 High 5 basophils as percent of blood leukocytes 1 % [facility] Not Estab. 5 eosinophils as percent of blood leukocytes 2 % [facility] Not Estab. 5 monocytes as percent of blood leukocytes 9 % [facility] Not Estab. 5 lymphocytes as percent of blood leukocytes 23 % [facility] Not Estab. 5 neutrophils as percent of blood leukocytes 64 % [facility] Not Estab. 5 platelet count 526 X10E3/UL [facility] 150-450 High 5 red blood cell distribution width 13.1 % [facility] 11.7-15.4 5 mean corpuscular hemoglobin concentration, RBC 32.1 G/DL [facility] 31.5-35.7 5 mean corpuscular hemoglobin, RBC 26.6 pg [facility] 26.6-33.0 5 mean corpuscular volume, RBC 83 fL [facility] 79-97 5 hematocrit, blood 34.6 % [facility] 34.0-46.6 5 hemoglobin, blood 11.1 g/dL [facility] 11.1-15.9 5 erythrocyte (RBC) count 4.18 X10E6/UL [facility] 3.77-5.28 5 leukocyte count, blood 14.9 X10E3/UL [facility] 3.4-10.8 High 4 ferritin, serum 16 ng/mL [facility] 15-150 4 iron saturation percent, serum 11 % [facility] 15-55 Low 4 iron, serum 43 ug/dL [facility] 27-139 4 iron binding capacity, unsaturated 335 ug/dL [facility] [phone]/01/1 4 iron binding capacity, total 378 ug/dL [facility] 659-097 1350/01/1 4 lipoprotein, beta, serum, point, quantitative, calculated 51 mg/dL [facility] 0-99 4 HDL cholesterol, serum 32 mg/dL [facility] >39 Low 4 triglyceride, serum, random 286 mg/dL [facility] 0-149 High 4 cholesterol, serum 127 mg/dL [facility] 134-164 9128/01/1 4 basophil count, absolute 0.1 x10E3/uL [facility] 0.0-0.2 4 Eosinophil Absolute Count 0.3 X10E3/UL [facility] 0.0-0.4 4 monocyte count, blood, automated 1.1 X10E3/UL [facility] 0.1-0.9 High 4 lymphocyte count, blood, automated 2.7 X10E3/UL [facility] 0.7-3.1 4 Absolute Neutrophils 7.0 X10E3/UL [facility] 1.4-7.0 4 basophils as percent of blood leukocytes 1 % [facility] Not Estab. 4 eosinophils as percent of blood leukocytes 3 % [facility] Not Estab. 4 monocytes as percent of blood leukocytes 9 % [facility] Not Estab. 4 lymphocytes as percent of blood leukocytes 24 % [facility] Not Estab. 4 neutrophils as percent of blood leukocytes 62 % [facility] Not Estab. 4 platelet count 390 X10E3/UL [facility] 110-299 8760/01/1 4 red blood cell distribution width 13.3 % [facility] 11.7-15.4 4 mean corpuscular hemoglobin concentration, RBC 32.1 G/DL [facility] 31.5-35.7 4 mean corpuscular hemoglobin, RBC 27.3 pg [facility] 26.6-33.0 4 mean corpuscular volume, RBC 85 fL [facility] 79-97 4 hematocrit, blood 32.4 % [facility] 34.0-46.6 Low 4 hemoglobin, blood 10.4 g/dL [facility] 11.1-15.9 Low 4 erythrocyte (RBC) count 3.81 X10E6/UL [facility] 3.77-5.28 4 leukocyte count, blood 11.1 X10E3/UL [facility] 3.4-10.8 High 4 alanine aminotransferase (SGPT), serum 19 1/L [facility] 0-32 4 aspartate aminotransferase (SGOT), serum 21 1/L [facility] 0-40 4 alkaline phosphatase, serum 85 1/L [facility] 39-117 4 bilirubin, serum, total 0.2 mg/dL [facility] 0.0-1.2 4 albumin/globulin ratio, serum 1.3 [facility] 1.2-2.2 4 globulin, serum 3.1 [facility] 1.5-4.5 4 albumin, serum 4.1 g/dL [facility] 3.7-4.7 4 protein, total, serum 7.2 g/dL [facility] 6.0-8.5 4 calcium, serum 9.6 mg/dL [facility] 8.7-10.3 4 carbon dioxide, venous blood 24 mmol/L [facility] 20-29 4 chloride, serum 99 mmol/L [facility] 96-106 4 potassium, serum 3.9 mmol/L [facility] 3.5-5.2 4 sodium, serum 142 mmol/L [facility] 302-554 4203/01/1 4 urea nitrogen/creatinine ratio, serum 18 [facility] 12-28 4 eGFR if 105 mL/min/{1 .73_m2} [facility] >59 4 eGFR if not 92 mL/min/{1 .73_m2} [facility] >59 4 creatinine, serum 0.61 mg/dL [facility] 0.57-1.00 4 urea nitrogen, blood 11 mg/dL [facility] 8-27 4 blood glucose, random 134 mg/dL [facility] 65-99 High 1 ferritin, serum 27 ng/mL [facility] 15-150 1 B-12, serum 833 pg/mL [facility] 232-1245 1 iron saturation percent, serum 14 % [facility] 15-55 Low 1 iron, serum 69 ug/dL [facility] 27-139 1 iron binding capacity, unsaturated 426 ug/dL [facility] 118-369 High 1 iron binding capacity, total 495 ug/dL [facility] 250-450 High 1 lipoprotein, beta, serum, point, quantitative, calculated 66 mg/dL [facility] 0-99 1 very low density lipoproteins 68 mg/dL [facility] 5-40 High 1 HDL cholesterol, serum 33 mg/dL [facility] >39 Low 1 triglyceride, serum, random 340 mg/dL [facility] 0-149 High 1 cholesterol, serum 167 mg/dL [facility] 091-585 7914/08/2 1 alanine aminotransferase (SGPT), serum 14 1/L [facility] 0-32 1 aspartate aminotransferase (SGOT), serum 11 1/L [facility] 0-40 1 alkaline phosphatase, serum 58 1/L [facility] 39-117 1 bilirubin, serum, total <0.2 mg/dL [facility] 0.0-1.2 1 albumin/globulin ratio, serum 1.5 [facility] 1.2-2.2 1 globulin, serum 3.0 [facility] 1.5-4.5 1 albumin, serum 4.6 g/dL [facility] 3.7-4.7 1 protein, total, serum 7.6 g/dL [facility] 6.0-8.5 1 calcium, serum 10.3 mg/dL [facility] 8.7-10.3 1 carbon dioxide, venous blood 24 mmol/L [facility] 20-29 1 chloride, serum 92 mmol/L [facility] 96-106 Low 1 potassium, serum 4.6 mmol/L [facility] 3.5-5.2 1 sodium, serum 135 mmol/L [facility] 343-105 5446/08/2 1 urea nitrogen/creatinine ratio, serum 21 [facility] 12-28 1 eGFR if 71 mL/min/{1 .73_m2} [facility] >59 1 eGFR if not 61 mL/min/{1 .73_m2} [facility] >59 1 creatinine, serum 0.94 mg/dL [facility] 0.57-1.00 1 urea nitrogen, blood 20 mg/dL [facility] 8-27 1 blood glucose, random 292 mg/dL [facility] 65-99 High 1 basophil count, absolute 0.1 x10E3/uL [facility] 0.0-0.2 1 Eosinophil Absolute Count 0.4 X10E3/UL [facility] 0.0-0.4 1 monocyte count, blood, automated 1.0 X10E3/UL [facility] 0.1-0.9 High 1 lymphocyte count, blood, automated 3.0 X10E3/UL [facility] 0.7-3.1 1 Absolute Neutrophils 6.1 X10E3/UL [facility] 1.4-7.0 1 basophils as percent of blood leukocytes 1 % [facility] Not Estab. 1 eosinophils as percent of blood leukocytes 4 % [facility] Not Estab. 1 monocytes as percent of blood leukocytes 9 % [facility] Not Estab. 1 lymphocytes as percent of blood leukocytes 28 % [facility] Not Estab. 1 neutrophils as percent of blood leukocytes 56 % [facility] Not Estab. 1 platelet count 448 X10E3/UL [facility] 368-867 7349/08/2 1 red blood cell distribution width 13.7 % [facility] 11.7-15.4 1 mean corpuscular hemoglobin concentration, RBC 31.5 G/DL [facility] 31.5-35.7 1 mean corpuscular hemoglobin, RBC 27.5 pg [facility] 26.6-33.0 1 mean corpuscular volume, RBC 87 fL [facility] 79-97 1 hematocrit, blood 33.7 % [facility] 34.0-46.6 Low 1 hemoglobin, blood 10.6 g/dL [facility] 11.1-15.9 Low 1 erythrocyte (RBC) count 3.86 X10E6/UL [facility] 3.77-5.28 1 leukocyte count, blood 10.6 X10E3/UL [facility] 3.4-10.8 2 prothrombin time (patient) 10.9 s [facility] 9.1-12.0 2 international normalized ratio (INR) 1.0 [facility] 0.8-1.2 2 basophil count, absolute 0.1 x10E3/uL [facility] 0.0-0.2 2 Eosinophil Absolute Count 0.3 X10E3/UL [facility] 0.0-0.4 2 monocyte count, blood, automated 1.1 X10E3/UL [facility] 0.1-0.9 High 2 lymphocyte count, blood, automated 2.7 X10E3/UL [facility] 0.7-3.1 2 Absolute Neutrophils 5.3 X10E3/UL [facility] 1.4-7.0 2 basophils as percent of blood leukocytes 1 % [facility] Not Estab. 2 eosinophils as percent of blood leukocytes 3 % [facility] Not Estab. 2 monocytes as percent of blood leukocytes 12 % [facility] Not Estab. 2 lymphocytes as percent of blood leukocytes 28 % [facility] Not Estab. 2 neutrophils as percent of blood leukocytes 56 % [facility] Not Estab. 2 platelet count 387 X10E3/UL [facility] 150-379 High 2 red blood cell distribution width 18.0 % [facility] 12.3-15.4 High 2 mean corpuscular hemoglobin concentration, RBC 28.7 G/DL [facility] 31.5-35.7 Low 2 mean corpuscular hemoglobin, RBC 23.6 pg [facility] 26.6-33.0 Low 2 mean corpuscular volume, RBC 82 fL [facility] 79-97 2 hematocrit, blood 34.1 % [facility] 34.0-46.6 2 hemoglobin, blood 9.8 g/dL [facility] 11.1-15.9 Low 2 erythrocyte (RBC) count 4.15 X10E6/UL [facility] 3.77-5.28 2 leukocyte count, blood 9.5 X10E3/UL [facility] 3.4-10.8 2 pro brain natriuretic peptide 17 pg/mL [facility] 0-301 2 D-dimer quantitative mcg/mL 0.34 MG/L FEU [facility] 0.00-0.49 HISTORY OF MEDICATION USE Medication Status Instructions Dates Provider Indications Com ments Xarelto 2.5 mg tablet active TAKE 1 TABLET BY MOUTH TW[facility] XARELTO 2.5 MG TABLET completed TAKE 1 TABLET BY MOUTH TWICE A DAY - Hermes Morales Faralyssaga 10 mg tablet active TAKE 1 TABLET BY MOUTH EVERY DAY Tereza Brenner atorvastatin 40 mg tablet active TAKE 1 TABLET BY MOUTH EVERY DAY Rosa Elena Carmichael icosapent ethyl 1 gram capsule active TAKE 2 CAPSULES BY MOUTH TWICE DAILY Marla Fierro RN icosapent ethyl 1 gram capsule completed Take 2 capsule by mouth twice a day - Marla Fierro RN icosapent ethyl 1 gram capsule completed TAKE 2 CAPSULES BY MOUTH TWICE DAILY - Rocio West atorvastatin 40 mg tablet completed Take 1 tablet by mouth once a day - Tereza Brenner Bydureon BCise 2 mg/0.85 mL auto-injector active Amanda Davis lisinopril 20 mg tablet active Take 1 tablet by mouth once a day Amanda Davis naproxen 375 mg tablet active Take 1 tablet by mouth twice a day Amanda Davis Vascepa 1 gram capsule completed Take 2 capsule by mouth twice a day - Chastity Nathan Ventolin HFA 90 mcg/actuation HFA aerosol inhaler active as directed Rocio Osunajoselo Alavert 10 mg tablet,disintegra ting active once a day Rocio Jenna DERMAREST PSORIASIS SHAMPOO active as needed Rocio Osunaangelessherif VASCEPA 1 GM ORAL CAPSULE completed 2 capsules by mouth twice daily [facility] Coupon Code: BIN# [id number], PCN# [id number], GRP# [id number], ID# [id number] - Juanpablo Toscano MD Farxiga 10 mg tablet completed Take 1 tablet by mouth once a day - Tereza Walteriz VASCEPA 1 GM ORAL CAPSULE completed 2 capsules by mouth twice daily [facility] Coup[employer] Code: BIN# [id number], PCN# [id number], GRP# [id number], ID# [id number] - Nazario Collier MD Xarelto 2.5 mg tablet completed Take 1 tablet by mouth twice a day TAKE 1 TABLET BY MOUTH TWICE A DAY - Rosa Elena Carmichael VITAMIN C PLUS 1000 MG TABS active Take 1 tablet once a day Amanda Davis TRESIBA FLEXTOUCH SOLUTION PEN-INJECTOR active Inject 60 unit once a day Rocio West VANCOMYCIN HCL 250 MG ORAL CAPSULE completed take 1 cap daily - Nazario Collier MD #180, 30 days supply, Filled 06/30/2019 econazole 1% cream active Apply as needed Amanda Davis #850, 35 days supply, Filled 06/30/2019 oxybutynin chloride 5 mg tablet extended release 24hr active 1 tablet once a day Mikkifrancisco Michellehold Synthroid 150 mcg tablet active 1 tablet once a day Mikki hold CLOPIDOGREL BISULFATE 75 MG ORAL TABLET completed TAKE ONE TABLET DAILY - Juanpablo Toscano MD #90, 90 days supply, Prescribed by DALE RAMIREZ, Filled 09/11/2018 aspirin 81 mg tablet,delayed release (DR/EC) active Take 1 tablet by mouth once a day Mikki Barbara #2, 30 days supply, Filled 09/16/2018 VICTOZA SOLUTION PEN-INJECTOR completed Inject 12 mg once a day - Rocio West atorvastatin 40 mg tablet completed Take 1 tablet once a day - Amanda Barry NP FENOFIBRATE 160 MG ORAL TABLET completed ONE TAB. DAILY - Nazario Collier MD Stool Softener (docusate autumn) 240 mg capsule active Take 1 tablet once a day as needed Amanda Davis ferrous sulfate 325 mg (65 mg iron) tablet active 3 once a day Rocio eWst metformin 500 mg tablet active 2 twice a day Rocio West cholecalciferol (vitamin D3) 25 mcg (1,000 unit) capsule active Take 1 tablet once a day Amanda Davis gabapentin 300 mg capsule active Take 1 capsule three times a day Amanda Davis alendronate 70 mg tablet active Take 1 tablet once a week Amanda Daivs Anoro Ellipta 62.5-25 mcg/actuation blister with device active Take 1 puff once a day Amanda Davis LEVOXYL 125 MCG ORAL TABLET completed TAke 1 tablet once a day - Amanda Davis lisinopril 2.5 mg tablet completed Take 1 tablet once a day - Amanda Davis duloxetine 60 mg capsule,delayed release(DR/EC) active Take 1 capsule once a day Amanda Davis cyanocobalamin (vitamin B-12) 1,000 mcg capsule active Take 1 tablet once a day Amanda Davis LANTUS SOLOSTAR 100 UNIT/ML SUBCUTANEOUS SOLUTION PEN-INJECTOR completed Inject 46 units daily - Rocio West acetaminophen 500 mg tablet active Take 1 tablet once a day Amanda Davis SOCIAL HISTORY Date Observation Value Provider smoking, year quit 2003 Nicolás formerly [facility] smoking history, tot al pack/day 3 Nicolás Hall cigarette use yes Nicolás Hall smoking status Former smoker Nicolás Hall smoking, year quit 2003 Nicolás formerly [facility] smoking history, tot al pack/day 3 Nicolás Hallt cigarette use yes Nicolás Wong smoking status Former smoker Nicolás Wong smoking, year quit 2003 Juanpablo pagan MD smoking history, tot al pack/day 3 Juanpablo Toscano MD cigarette use yes Juanpablo Toscano MD smoking status Former smoker Juanpablo Galarza ra, MD social history reviewed E&M revi ewed - no changes required Juanpablo Toscano MD social history E&M S moking History: Lynne reyes is a former smoker. Juanpablo Toscano MD social history reviewed E&M revi ewed - no changes required Juanpablo Toscano MD smoking, year quit 2003 Rocio young smoking history, tot al pack/day 3 Rocio West cigarette use yes Rocio Jean elder smoking status Former smoker Rocio brinkelder social history E&M S moking History: Lynne reyes is a former smoker. Juanpablo Toscano MD social history reviewed E&M revi ewed - no changes required Juanpablo Toscano MD smoking, year quit 2003 Jerilyn Tai is smoking history, tot al pack/day 3 Jerilyn Hernandez cigarette use yes Jerilyn Hernandez smoking status Former smoker Jerilyn Hernandez social history E&M S moking History: Lynne reyes is a former smoker. Juanpablo Toscano MD social history reviewed E&M revi ewed - no changes required Juanpablo Toscano MD smoking, year quit 2003 Yanet David smoking history, tot al pack/day 3 Yanet Hernandez cigarette use yes Yanet Cheema shayy smoking status Former smoker Yanet pizarro social history reviewed E&M revi ewed - no changes required Juanpablo Toscano MD smoking, year quit 2003 Jyoti beckham smoking history, tot al pack/day 3 Jyoti Riversron cigarette use yes Jyoti Riversron smoking status Former smoker Jyoti Riversron social history E&M S moking History: Lynne reyes is a former smoker. Nicolás Wong social history reviewed E&M revi ewed - no changes required Nicolás Wong smoking status Former smoker Juanpablo Galarza ra, MD smoking, year quit 2003 Amanda burgos smoking history, tot al pack/day 3 Amanda Davis cigarette use yes Amanda fermin social history E&M S moking History: Lynne reyes is a former smoker. Juanpablo Toscano MD social history reviewed E&M revi ewed - no changes required Juanpablo Toscano MD smoking, year quit 2003 Amanda burgos smoking history, tot al pack/day 3 Amanda Davis cigarette use yes Amandatony fermin smoking status Former smoker Amanda Selwyn steward social history E&M S moking History: Lynne reyes is a former smoker. Juanpablo Toscano MD social history reviewed E&M revi ewed - no changes required Juanpablo Toscano MD smoking, year quit 2003 Amanda burgos smoking history, tot al pack/day 3 Amanda Davis cigarette use yes Amanda fermin smoking status Former smoker Amanda Selwyn steward smoking, year quit 2003 Rocio Keron young smoking history, tot al pack/day 3 Rocio Isaaknenfelder cigarette use yes Rocio Osunamaria luisanf elder smoking status Former smoker Rocio Osunamaria luisa nfelder quit smoking, stage quit Nazario lebron MD social history E&M S moking History: Lynne reyes is a former smoker. Nazario Collier MD smoking, year quit 2004 Tonsha Mo ss smoking history, tot al pack/day 3 Tonsha Senior cigarette use yes Tonsha Senior smoking status Former smoker Tonsha Senior smoking, year quit 2004 Amanda burgos smoking history, tot al pack/day 3 Amanda Davis cigarette use yes Amanda fermin smoking status Former smoker Amanda Selwyn steward number of grandchildren Juanpablo Toscano MD social history E&M S moking History: Lynne reyes is a former smoker. Juanpablo Toscano MD smoking, year quit 2003 Annmarie Pak smoking history, tot al pack/day 3 Annmarie MarshallMakedaKory cigarette use yes Annmarie AshfordKory smoking status Former smoker Annmarie mendoza-Kory social history reviewed E&M revi ewed - no changes required Annmarie CarlosKory social history E&M S moking History: Lynne reyes is a former smoker. Juanpablo Toscano MD social history reviewed E&M revi ewed - no changes required Juanpablo Toscano MD cigarette use yes Madina Berg ms smoking status Former smoker Madina Aragon iams social history reviewed E&M revi ewed - no changes required Juanpablo Toscano MD social history E&M Smoking Histo ry: Lynne reyes is a former smoker. Juanpablo Toscano MD smoking history, tot al pack/day 3 Juanpablo Toscano MD smoking, year quit 2004 Amanda burgos cigarette use yes Amanda Thomas smoking status Former smoker Amanda steward FUNCTIONAL STATUS Date Observation Value Provider HRA, CV Assess/Plan, Angina (inactive) Management Plan continue current therapy Nicolás Wong HRA, CV Assess/Plan, Angina (inactive) Management Plan continue current therapy Nicolás Wong HRA, CV Assess/Plan, Angina (inactive) Management Plan continue current therapy Juanpablo Toscano MD HRA, CV Assess/Plan, Angina (inactive) Management Plan continue current therapy Juanpablo Toscano MD HRA, CV Assess/Plan, Angina (inactive) Management Plan continue current therapy Juanpablo Toscano MD HRA, CV Assess/Plan, Angina (inactive) Management Plan continue current therapy Juanpablo Toscano MD HRA, CV Assess/Plan, Angina (inactive) Management Plan continue current therapy Nicolás Wong HRA, CV Assess/Plan, Angina (inactive) Management Plan continue current therapy Juanpalbo Toscano MD HRA, CV Assess/Plan, Angina (inactive) Management Plan continue current therapy Juanpablo Toscano MD HRA, CV Assess/Plan, Angina (inactive) Management Plan continue current therapy Nazario Collier MD HRA, CV Assess/Plan, Angina (inactive) Management Plan continue current therapy Juanpablo Toscano MD HRA, CV Assess/Plan, Angina (inactive) Management Plan continue current therapy Juanpablo Toscano MD FAMILY HISTORY Family Member Condition Father Family History of Co ngestive Heart Failure: Father Family History of CV A or Stroke: Mother Family History of Hy pertension: Mother Family History of CV A or Stroke: INSURANCE PROVIDERS Payer name Policy type / Coverage type Rice red republican ID [employer] COMPLETE CARE [id number] (PPO C-SNP) [employer] insurance [email or web address] [id number] [facility] Medicaid 1 [id number] ADVANCE DIRECTIVES Name Date DISCUSSED - NO DECISION MADE TREATMENT PLAN Date Name Performer [id number],S, H er updated medication list for this problem includes: Icosapent Ethyl 1 Gram Capsule (Icosapent ethyl) ..... Take 2 capsules by mouth twice daily Atorvastatin 40 Mg Tablet (Atorvastatin) ..... Take 1 tablet by mouth once a day Juanpablo Toscano MD [id number],S, T he patient is using CPAP on a regular basis. The patient has been benefiting from therapy and should continue use. Juanpablo Toscano MD [id number],S, Juanpablo Galarza ra, MD [id number],S, B P today: 124/60 P rior BP: 122/70 (08/27/2022) H er updated medication list for this problem includes: Lisinopril 20 Mg Tablet (Lisinopril) ..... Take 1 tablet by mouth once a day Aspirin 81 Mg Tablet,delayed Release (dr/ec) (Aspirin) ..... Take 1 tablet by mouth once a day Juanpablo Toscano MD [id number],B, Juanpablo Galarza ra, MD [id number],S, Juanpablo Galarza ra, MD [id number],S, H er updated medication list for this problem includes: Lisinopril 20 Mg Tablet (Lisinopril) ..... Take 1 tablet by mouth once a day Aspirin 81 Mg Tablet,delayed Release (dr/ec) (Aspirin) ..... Take 1 tablet by mouth once a day Juanpablo Toscano MD [id number],S, Juanpablo Galarza ra, MD [id number],S, Juanpablo Galarza ra, MD [id number],S, Juanpablo Galarza ra, MD [id number],S, Juanpablo Galarza ra, MD [id number],S, H er updated medication list for this problem includes: Atorvastatin 40 Mg Tablet (Atorvastatin) ..... Take 1 tablet by mouth once a day Icosapent Ethyl 1 Gram Capsule (Icosapent ethyl) ..... Take 2 capsule by mouth twice a day Juanpablo Toscano MD [id number],S, T he patient is using CPAP on a regular basis. The patient has been benefiting from therapy and should continue use. Juanpablo Toscano MD [id number],S, B P today: 122/70 P rior BP: 120/-1 (02/26/2022) Her updated medication list for this problem includes: Lisinopril 20 Mg Tablet (Lisinopril) ..... Take 1 tablet by mouth once a day Aspirin 81 Mg Tablet,delayed Release (dr/ec) (Aspirin) ..... Take 1 tablet by mouth once a day Juanpablo Toscano MD [id number],S, H er updated medication list for this problem includes: Lisinopril 20 Mg Tablet (Lisinopril) ..... Take 1 tablet by mouth once a day Aspirin 81 Mg Tablet,delayed Release (dr/ec) (Aspirin) ..... Take 1 tablet by mouth once a day Juanpablo Toscano MD [id number],W, Juanpablo Galarza ra, MD [id number],S, Juanpablo Galarza ra, MD [id number],S, H er updated medication list for this problem includes: Icosapent Ethyl 1 Gram Capsule (Icosapent ethyl) ..... Take 2 capsules by mouth twice daily Atorvastatin 40 Mg Tablet (Atorvastatin) ..... Take 1 tablet by mouth once a day Juanpablo Toscano MD [id number],S, H er updated medication list for this problem includes: Lisinopril 20 Mg Tablet (Lisinopril) ..... Take 1 tablet by mouth once a day Aspirin 81 Mg Tablet,delayed Release (dr/ec) (Aspirin) ..... Take 1 tablet by mouth once a day Juanpablo Toscano MD [id number],S, H er updated medication list for this problem includes: Lisinopril 20 Mg Tablet (Lisinopril) ..... Take 1 tablet by mouth once a day Aspirin 81 Mg Tablet,delayed Release (dr/ec) (Aspirin) ..... Take 1 tablet by mouth once a day BP today: 120/61 P rior BP: 136/70 (11/27/2021) Juanpablo Toscano MD [id number],S, H er updated medication list for this problem includes: Farxiga 10 Mg Tablet (Dapagliflozin) ..... Take 1 tablet by mouth once a day Bydureon Bcise 2 Mg/0.85 Ml Auto-injector (Exenatide microspheres) Lisinopril 20 Mg Tablet (Lisinopril) ..... Take 1 tablet by mouth once a day Aspirin 81 Mg Tablet,delayed Release (dr/ec) (Aspirin) ..... Take 1 tablet by mouth once a day Metformin 500 Mg Tablet (Metformin) ..... 2 twice a day Juanpablo Toscano MD [id number],S, H er updated medication list for this problem includes: Ventolin Hfa 90 Mcg/actuation Hfa Aerosol Inhaler (Albuterol sulfate) ..... As directed Anoro Ellipta 62.5-25 Mcg/actuation Blister With Device (Umeclidinium-vilanterol) ..... Take 1 puff once a day Juanpablo Toscano MD [id number],SJuanpablo ra, MD [id number],S, H er updated medication list for this problem includes: Farxiga 10 Mg Tablet (Dapagliflozin) ..... Take 1 tablet by mouth once a day Bydureon Bcise 2 Mg/0.85 Ml Auto-injector (Exenatide microspheres) Lisinopril 20 Mg Tablet (Lisinopril) ..... Take 1 tablet by mouth once a day Aspirin 81 Mg Tablet,delayed Release (dr/ec) (Aspirin) ..... Take 1 tablet by mouth once a day Metformin 500 Mg Tablet (Metformin) ..... 2 twice a day Juanpablo Toscano MD [id number],SJuanpablo ra, MD [id number],S, B P today: 136/70 P rior BP: 115/67 (06/05/2021) Her updated medication list for this problem includes: Lisinopril 20 Mg Tablet (Lisinopril) ..... Take 1 tablet by mouth once a day Aspirin 81 Mg Tablet,delayed Release (dr/ec) (Aspirin) ..... Take 1 tablet by mouth once a day Juanpablo Toscano MD [id number],S, H er updated medication list for this problem includes: Lisinopril 20 Mg Tablet (Lisinopril) ..... Take 1 tablet by mouth once a day Aspirin 81 Mg Tablet,delayed Release (dr/ec) (Aspirin) ..... Take 1 tablet by mouth once a day Juanpablo Toscano MD [id number],S, H er updated medication list for this problem includes: Icosapent Ethyl 1 Gram Capsule (Icosapent ethyl) ..... Take 2 capsules by mouth twice daily Atorvastatin 40 Mg Tablet (Atorvastatin) ..... Take 1 tablet by mouth once a day Juanpablo Toscano MD [id number],S, T he patient is using CPAP on a regular basis. The patient has been benefiting from therapy and should continue use. Juanpablo Toscano MD [id number],S, H er updated medication list for this problem includes: Farxiga 10 Mg Tablet (Dapagliflozin) ..... Take 1 tablet by mouth once a day Bydureon Bcise 2 Mg/0.85 Ml Auto-injector (Exenatide microspheres) Lisinopril 20 Mg Tablet (Lisinopril) ..... Take 1 tablet by mouth once a day Aspirin 81 Mg Tablet,delayed Release (dr/ec) (Aspirin) ..... Take 1 tablet by mouth once a day Metformin 500 Mg Tablet (Metformin) ..... 2 twice a day Juanpalbo Toscano MD [id number],S, H er updated medication list for this problem includes: Atorvastatin 40 Mg Tablet (Atorvastatin) ..... Take 1 tablet once a day Vascepa 1 Gram Capsule (Icosapent ethyl) ..... Take 2 capsule by mouth twice a day Juanpablo Toscano MD [id number],S, Juanpablo Galarza ra, MD [id number],B, H er updated medication list for this problem includes: Lisinopril 20 Mg Tablet (Lisinopril) ..... Take 1 tablet by mouth once a day Aspirin 81 Mg Tablet,delayed Release (dr/ec) (Aspirin) ..... Take 1 tablet by mouth once a day BP today: 115/67 P rior BP: 138/70 (02/27/2021) Labs Reviewed: C reat: 0.81 (05/27/2020) C hol: 125 (05/27/2020) HDL: 40 (05/27/2020) Juanpablo Toscano MD [id number],S, H er updated medication list for this problem includes: Synthroid 150 Mcg Tablet (Levothyroxine) ..... 1 tablet once a day Juanpablo Toscano MD [id number],S, H er updated medication list for this problem includes: Lisinopril 20 Mg Tablet (Lisinopril) ..... Take 1 tablet by mouth once a day Aspirin 81 Mg Tablet,delayed Release (dr/ec) (Aspirin) ..... Take 1 tablet by mouth once a day Juanpablo Toscano MD [id number],S, Juanpablo Galarza ra, MD [id number],S, Juanpablo Galarza ra, MD [id number],B, H er updated medication list for this problem includes: Lisinopril 20 Mg Tablet (Lisinopril) ..... Take 1 tablet by mouth once a day Aspirin 81 Mg Tablet,delayed Release (dr/ec) (Aspirin) ..... Take 1 tablet by mouth once a day Juanpablo Toscano MD [id number],S, T he following medications were removed from the medication list: Lisinopril 2.5 Mg Tablet (Lisinopril) ..... Take 1 tablet once a day Her updated medication list for this problem includes: Lisinopril 2.5 Mg Tablet (Lisinopril) ..... Take 1 tablet once a day Aspirin 81 Mg Tablet,delayed Release (dr/ec) (Aspirin) ..... Take 1 tablet by mouth once a day Nicolás Wong [id number],S, H er updated medication list for this problem includes: Ventolin Hfa 90 Mcg/actuation Hfa Aerosol Inhaler (Albuterol sulfate) ..... As directed Anoro Ellipta 62.5-25 Mcg/actuation Blister With Device (Umeclidinium-vilanterol) ..... Take 1 puff once a day Nicolás Wong [id number],S, H er updated medication list for this problem includes: Lisinopril 2.5 Mg Tablet (Lisinopril) ..... Take 1 tablet once a day Aspirin 81 Mg Tablet,delayed Release (dr/ec) (Aspirin) ..... Take 1 tablet by mouth once a day BP today: 138/70 P rior BP: 134/70 (07/25/2020) Nicolás Hall [id number],S, Nicolás [facility] [id number],S, T he following medications were removed from the medication list: Lisinopril 2.5 Mg Tablet (Lisinopril) ..... Take 1 tablet once a day Her updated medication list for this problem includes: Lisinopril 2.5 Mg Tablet (Lisinopril) ..... Take 1 tablet once a day Aspirin 81 Mg Tablet,delayed Release (dr/ec) (Aspirin) ..... Take 1 tablet by mouth once a day Nicolás Hall [id number],S, Nicolás [facility] Cardiology:This visi t has been a part of the consistent, comprehensive, and ongoing management of the chronic medical condition(s) listed above for the patient. Her updated medication list for this problem includes: Atorvastatin 40 Mg Tablet (Atorvastatin) ..... Take 1 tablet by mouth every day Icosapent Ethyl 1 Gram Capsule (Icosapent ethyl) ..... Take 2 capsules by mouth twice daily Nicolás [facility]: B P today: 124/70 P rior BP: 118/66 (08/26/2023) Labs Reviewed: C reat: 0.81 (05/27/2020) C hol: 125 (05/27/2020) HDL: 40 (05/27/2020) LDL: 63 (05/27/2020) T (05/27/2020) Her updated medication list for this problem includes: Lisinopril 20 Mg Tablet (Lisinopril) ..... Take 1 tablet by mouth once a day Aspirin 81 Mg Tablet,delayed Release (dr/ec) (Aspirin) ..... Take 1 tablet by mouth once a day Nicolás [facility] Nicolás [facility]:This visi t has been a part of the consistent, comprehensive, and ongoing management of the chronic medical condition(s) listed above for the patient. Her updated medication list for this problem includes: Atorvastatin 40 Mg Tablet (Atorvastatin) ..... Take 1 tablet by mouth every day Icosapent Ethyl 1 Gram Capsule (Icosapent ethyl) ..... Take 2 capsules by mouth twice daily [facility]:This visi t has been a part of the consistent, comprehensive, and ongoing management of the chronic medical condition(s) listed above for the patient. Her updated medication list for this problem includes: Lisinopril 20 Mg Tablet (Lisinopril) ..... Take 1 tablet by mouth once a day Aspirin 81 Mg Tablet,delayed Release (dr/ec) (Aspirin) ..... Take 1 tablet by mouth once a day [facility]: H er updated medication list for this problem includes: Farxiga 10 Mg Tablet (Dapagliflozin propanediol) ..... Take 1 tablet by mouth every day Bydureon Bcise 2 Mg/0.85 Ml Auto-injector (Exenatide microspheres) Lisinopril 20 Mg Tablet (Lisinopril) ..... Take 1 tablet by mouth once a day Aspirin 81 Mg Tablet,delayed Release (dr/ec) (Aspirin) ..... Take 1 tablet by mouth once a day Metformin 500 Mg Tablet (Metformin) ..... 2 twice a day [facility]iology: H er updated medication list for this problem includes: Atorvastatin 40 Mg Tablet (Atorvastatin) ..... Take 1 tablet by mouth every day Icosapent Ethyl 1 Gram Capsule (Icosapent ethyl) ..... Take 2 capsules by mouth twice daily [facility]: B P today: 118/66 P rior BP: 124/60 (02/25/2023) Labs Reviewed: C reat: 0.81 (05/27/2020) C hol: 125 (05/27/2020) HDL: 40 (05/27/2020) LDL: 63 (05/27/2020) T (05/27/2020) Her updated medication list for this problem includes: Lisinopril 20 Mg Tablet (Lisinopril) ..... Take 1 tablet by mouth once a day Aspirin 81 Mg Tablet,delayed Release (dr/ec) (Aspirin) ..... Take 1 tablet by mouth once a day Nicolás Wong Cardiology: H er updated medication list for this problem includes: Lisinopril 20 Mg Tablet (Lisinopril) ..... Take 1 tablet by mouth once a day Aspirin 81 Mg Tablet,delayed Release (dr/ec) (Aspirin) ..... Take 1 tablet by mouth once a day Nicolás Wong Cardiology: H er updated medication list for this problem includes: Icosapent Ethyl 1 Gram Capsule (Icosapent ethyl) ..... Take 2 capsules by mouth twice daily Atorvastatin 40 Mg Tablet (Atorvastatin) ..... Take 1 tablet by mouth once a day Juanpablo Toscano MD Cardiology: T he patient is using CPAP on a regular basis. The patient has been benefiting from therapy and should continue use. Juanpablo Toscano MD Cardiology [facility]: B P today: 124/60 P rior BP: 122/70 (08/27/2022) H er updated medication list for this problem includes: Lisinopril 20 Mg Tablet (Lisinopril) ..... Take 1 tablet by mouth once a day Aspirin 81 Mg Tablet,delayed Release (dr/ec) (Aspirin) ..... Take 1 tablet by mouth once a day Juanpablo Toscano MD Cardiology [facility]: H er updated medication list for this problem includes: Lisinopril 20 Mg Tablet (Lisinopril) ..... Take 1 tablet by mouth once a day Aspirin 81 Mg Tablet,delayed Release (dr/ec) (Aspirin) ..... Take 1 tablet by mouth once a day Juanpablo Toscano MD Cardiology [facility]: H er updated medication list for this problem includes: Atorvastatin 40 Mg Tablet (Atorvastatin) ..... Take 1 tablet by mouth once a day Icosapent Ethyl 1 Gram Capsule (Icosapent ethyl) ..... Take 2 capsule by mouth twice a day Juanpablo Toscano MD Cardiology: T he patient is using CPAP on a regular basis. The patient has been benefiting from therapy and should continue use. Juanpablo Toscano MD Cardiology: B P today: 122/70 P rior BP: 120/-1 (02/26/2022) Her updated medication list for this problem includes: Lisinopril 20 Mg Tablet (Lisinopril) ..... Take 1 tablet by mouth once a day Aspirin 81 Mg Tablet,delayed Release (dr/ec) (Aspirin) ..... Take 1 tablet by mouth once a day Juanpablo Toscano MD Cardiology: H er updated medication list for this problem includes: Lisinopril 20 Mg Tablet (Lisinopril) ..... Take 1 tablet by mouth once a day Aspirin 81 Mg Tablet,delayed Release (dr/ec) (Aspirin) ..... Take 1 tablet by mouth once a day Juanpablo Toscano MD Cardiology [facility] Cardiology: H er updated medication list for this problem includes: Icosapent Ethyl 1 Gram Capsule (Icosapent ethyl) ..... Take 2 capsules by mouth twice daily Atorvastatin 40 Mg Tablet (Atorvastatin) ..... Take 1 tablet by mouth once a day Juanpablo Toscano MD Cardiology: H er updated medication list for this problem includes: Lisinopril 20 Mg Tablet (Lisinopril) ..... Take 1 tablet by mouth once a day Aspirin 81 Mg Tablet,delayed Release (dr/ec) (Aspirin) ..... Take 1 tablet by mouth once a day Juanpablo Toscano MD Cardiology: H er updated medication list for this problem includes: Lisinopril 20 Mg Tablet (Lisinopril) ..... Take 1 tablet by mouth once a day Aspirin 81 Mg Tablet,delayed Release (dr/ec) (Aspirin) ..... Take 1 tablet by mouth once a day BP today: 120/61 P rior BP: 136/70 (11/27/2021) Juanpablo Toscano MD Cardiology: H er updated medication list for this problem includes: Farxiga 10 Mg Tablet (Dapagliflozin) ..... Take 1 tablet by mouth once a day Bydureon Bcise 2 Mg/0.85 Ml Auto-injector (Exenatide microspheres) Lisinopril 20 Mg Tablet (Lisinopril) ..... Take 1 tablet by mouth once a day Aspirin 81 Mg Tablet,delayed Release (dr/ec) (Aspirin) ..... Take 1 tablet by mouth once a day Metformin 500 Mg Tablet (Metformin) ..... 2 twice a day Juanpablo Toscano MD Cardiology: H er updated medication list for this problem includes: Ventolin Hfa 90 Mcg/actuation Hfa Aerosol Inhaler (Albuterol sulfate) ..... As directed Anoro Ellipta 62.5-25 Mcg/actuation Blister With Device (Umeclidinium-vilanterol) ..... Take 1 puff once a day Juanpablo Toscano MD Cardiology [facility] Cardiology: H er updated medication list for this problem includes: Farxiga 10 Mg Tablet (Dapagliflozin) ..... Take 1 tablet by mouth once a day Bydureon Bcise 2 Mg/0.85 Ml Auto-injector (Exenatide microspheres) Lisinopril 20 Mg Tablet (Lisinopril) ..... Take 1 tablet by mouth once a day Aspirin 81 Mg Tablet,delayed Release (dr/ec) (Aspirin) ..... Take 1 tablet by mouth once a day Metformin 500 Mg Tablet (Metformin) ..... 2 twice a day Juanpablo Toscano MD Cardiology [facility] Cardiology: B P today: 136/70 P rior BP: 115/67 (06/05/2021) Her updated medication list for this problem includes: Lisinopril 20 Mg Tablet (Lisinopril) ..... Take 1 tablet by mouth once a day Aspirin 81 Mg Tablet,delayed Release (dr/ec) (Aspirin) ..... Take 1 tablet by mouth once a day Juanpablo Toscano MD Cardiology: H er updated medication list for this problem includes: Lisinopril 20 Mg Tablet (Lisinopril) ..... Take 1 tablet by mouth once a day Aspirin 81 Mg Tablet,delayed Release (dr/ec) (Aspirin) ..... Take 1 tablet by mouth once a day Juanpablo Toscano MD Cardiology: H er updated medication list for this problem includes: Icosapent Ethyl 1 Gram Capsule (Icosapent ethyl) ..... Take 2 capsules by mouth twice daily Atorvastatin 40 Mg Tablet (Atorvastatin) ..... Take 1 tablet by mouth once a day Juanpablo Toscano MD Cardiology: T he patient is using CPAP on a regular basis. The patient has been benefiting from therapy and should continue use. Juanpablo Toscano MD Cardiology: H er updated medication list for this problem includes: Farxiga 10 Mg Tablet (Dapagliflozin) ..... Take 1 tablet by mouth once a day Bydureon Bcise 2 Mg/0.85 Ml Auto-injector (Exenatide microspheres) Lisinopril 20 Mg Tablet (Lisinopril) ..... Take 1 tablet by mouth once a day Aspirin 81 Mg Tablet,delayed Release (dr/ec) (Aspirin) ..... Take 1 tablet by mouth once a day Metformin 500 Mg Tablet (Metformin) ..... 2 twice a day Juanpablo Toscano MD Cardiology: H er updated medication list for this problem includes: Atorvastatin 40 Mg Tablet (Atorvastatin) ..... Take 1 tablet once a day Vascepa 1 Gram Capsule (Icosapent ethyl) ..... Take 2 capsule by mouth twice a day Juanpablo Toscano MD Cardiology Juanpablo De Luna Cardiology: H er updated medication list for this problem includes: Lisinopril 20 Mg Tablet (Lisinopril) ..... Take 1 tablet by mouth once a day Aspirin 81 Mg Tablet,delayed Release (dr/ec) (Aspirin) ..... Take 1 tablet by mouth once a day BP today: 115/67 P rior BP: 138/70 (02/27/2021) Labs Reviewed: C reat: 0.81 (05/27/2020) C hol: 125 (05/27/2020) HDL: 40 (05/27/2020) Juanpablo Toscano MD Cardiology: H er updated medication list for this problem includes: Synthroid 150 Mcg Tablet (Levothyroxine) ..... 1 tablet once a day Juanpablo Toscano MD Cardiology: H er updated medication list for this problem includes: Lisinopril 20 Mg Tablet (Lisinopril) ..... Take 1 tablet by mouth once a day Aspirin 81 Mg Tablet,delayed Release (dr/ec) (Aspirin) ..... Take 1 tablet by mouth once a day Juanpablo Toscano MD Cardiology Juanpablo De Luna Cardiology Juanpablo De Luna Cardiology: H er updated medication list for this problem includes: Lisinopril 20 Mg Tablet (Lisinopril) ..... Take 1 tablet by mouth once a day Aspirin 81 Mg Tablet,delayed Release (dr/ec) (Aspirin) ..... Take 1 tablet by mouth once a day Juanpablo Toscano MD Cardiology follow up : T he following medications were removed from the medication list: Lisinopril 2.5 Mg Tablet (Lisinopril) ..... Take 1 tablet once a day Her updated medication list for this problem includes: Lisinopril 2.5 Mg Tablet (Lisinopril) ..... Take 1 tablet once a day Aspirin 81 Mg Tablet,delayed Release (dr/ec) (Aspirin) ..... Take 1 tablet by mouth once a day Nicolás Wong Cardiology follow up : H er updated medication list for this problem includes: Ventolin Hfa 90 Mcg/actuation Hfa Aerosol Inhaler (Albuterol sulfate) ..... As directed Anoro Ellipta 62.5-25 Mcg/actuation Blister With Device (Umeclidinium-vilanterol) ..... Take 1 puff once a day Nicolás Wong Cardiology follow up : H er updated medication list for this problem includes: Lisinopril 2.5 Mg Tablet (Lisinopril) ..... Take 1 tablet once a day Aspirin 81 Mg Tablet,delayed Release (dr/ec) (Aspirin) ..... Take 1 tablet by mouth once a day BP today: 138/70 P rior BP: 134/70 (07/25/2020) Nicolás Wong Cardiology follow up Nicolás Wong Cardiology follow up : T he following medications were removed from the medication list: Lisinopril 2.5 Mg Tablet (Lisinopril) ..... Take 1 tablet once a day Her updated medication list for this problem includes: Lisinopril 2.5 Mg Tablet (Lisinopril) ..... Take 1 tablet once a day Aspirin 81 Mg Tablet,delayed Release (dr/ec) (Aspirin) ..... Take 1 tablet by mouth once a day Nicolás Wong Cardiology follow up Nicolás Wong Cardiology follow up : H er updated medication list for this problem includes: Vascepa 1 Gm Oral Capsule (Icosapent ethyl) ..... 2 capsules by mouth twice daily universal coupon code: bin# [id number], pcn# cn, grp# [email or web address], id# [id number] Atorvastatin Calcium 40 Mg Oral Tablet (Atorvastatin calcium) ..... Take 1 tablet daily Juanpablo Toscano MD Cardiology follow up : T he patient is using CPAP on a regular basis. The patient has been benefiting from therapy and should continue use. Juanpablo Toscano MD Cardiology follow up : A 1c 6.4%. per PCP Her updated medication list for this problem includes: Farxiga 10 Mg Oral Tablet (Dapagliflozin propanediol) ..... One tab by mouth daily reduces cardiovascular and heart failure hospitalizations Tresiba Flextouch Solution Pen-injector (Insulin degludec sopn) ..... Inject 60 units daily Aspirin Ec Low Dose 81 Mg Oral Tablet Delayed Release (Aspirin) ..... Take one tablet by mouth once daily Victoza Solution Pen-injector (Liraglutide sopn) ..... Inject 12 mg once daily Metformin Hcl 500 Mg Oral Tablet (Metformin hcl) ..... 2 [place] twice a day Lisinopril 2.5 Mg Oral Tablet (Lisinopril) ..... Take 1 tab daily Juanpablo Toscano MD Cardiology follow up : L DL 63, TG 124 may 2020 Her updated medication list for this problem includes: Vascepa 1 Gm Oral Capsule (Icosapent ethyl) ..... 2 capsules by mouth twice daily universal coupon code: bin# [id number], pcn# cn, grp# [email or web address], id# [id number] Atorvastatin Calcium 40 Mg Oral Tablet (Atorvastatin calcium) ..... Take 1 tablet daily Juanpablo Toscano MD Cardiology follow up : p er PCP o n oral iron supps Juanpabol Toscano MD Cardiology follow up : B P today: 134/70 P rior BP: 142/77 (05/23/2020) Her updated medication list for this problem includes: Aspirin Ec Low Dose 81 Mg Oral Tablet Delayed Release (Aspirin) ..... Take one tablet by mouth once daily Lisinopril 2.5 Mg Oral Tablet (Lisinopril) ..... Take 1 tab daily Juanpablo Toscano MD Cardiology follow up : C ATH CONCLUSIONS 05/2020 1 . Atherosclerotic coronary artery disease with mild calcification without significant obstruction of the LAD, mild plaque in the circumflex artery, widely patent distal RCA stent without any new high grade obstructive stenoses. 2 . Normal LV systolic function EF 60%. 3 . Trace MR. 4 . Elevated LVEDP consistent with diastolic dysfunction or noncompliant left ventricle. Her updated medication list for this problem includes: Aspirin Ec Low Dose 81 Mg Oral Tablet Delayed Release (Aspirin) ..... Take one tablet by mouth once daily Lisinopril 2.5 Mg Oral Tablet (Lisinopril) ..... Take 1 tab daily Juanpablo Toscano MD Cardiology follow up : H er updated medication list for this problem includes: Farxiga 10 Mg Oral Tablet (Dapagliflozin propanediol) ..... One tab by mouth daily reduces cardiovascular and heart failure hospitalizations Tresiba Flextouch Solution Pen-injector (Insulin degludec sopn) ..... Inject 60 units daily Aspirin Ec Low Dose 81 Mg Oral Tablet Delayed Release (Aspirin) ..... Take one tablet by mouth once daily Victoza Solution Pen-injector (Liraglutide sopn) ..... Inject 12 mg once daily Metformin Hcl 500 Mg Oral Tablet (Metformin hcl) ..... 2 [place] twice a day Lisinopril 2.5 Mg Oral Tablet (Lisinopril) ..... Take 1 tab daily Juanpablo Toscano MD Cardiology follow up Juanpablo mcnulty MD Cardiology follow up Juanpablo mcnulty MD Cardiology follow up : T he patient is using CPAP on a regular basis. The patient has been benefiting from therapy and should continue use. Juanpablo Toscano MD Cardiology follow up : B P today: 142/77 P rior BP: 160/80 (05/04/2020) Her updated medication list for this problem includes: Aspirin Ec Low Dose 81 Mg Oral Tablet Delayed Release (Aspirin) ..... Take one tablet by mouth once daily Lisinopril 2.5 Mg Oral Tablet (Lisinopril) ..... Take 1 tab daily Juanpablo Toscano MD Cardiology follow up Juanpablo mcnulty MD Cardiology follow up : H er updated medication list for this problem includes: Aspirin Ec Low Dose 81 Mg Oral Tablet Delayed Release (Aspirin) ..... Take one tablet by mouth once daily Lisinopril 2.5 Mg Oral Tablet (Lisinopril) ..... Take 1 tab daily Juanpablo Toscano MD chart maintenance Nazario Collier MD :nml d Nazario Collier MD Cardiology Nazario Collier MD Cardiology: H er updated medication list for this problem includes: Aspirin Ec Low Dose 81 Mg Oral Tablet Delayed Release (Aspirin) ..... Take one tablet by mouth once daily Lisinopril 2.5 Mg Oral Tablet (Lisinopril) ..... Take 1 tab daily Nazario Collier MD Cardiology Nazario Collier MD Cardiology:start farxoxgta Getemmanuel urrutia Amira MULLIGAN Cardiology: T he following medications were removed from the medication list: Vascepa 1 Gm Oral Capsule (Icosapent ethyl) ..... 2 capsules by mouth twice daily universal coupon code: bin# [id number], pcn# [email or web address], grp# [email or web address], id# [id number] Her updated medication list for this problem includes: Atorvastatin Calcium 40 Mg Oral Tablet (Atorvastatin calcium) ..... Take 1 tablet daily Nazario Collier MD Cardiology: H er updated medication list for this problem includes: Synthroid 150 Mcg Oral Tablet (Levothyroxine sodium) ..... One tab. daily Nazario Collier MD Cardiology:old stents for comple te, fu nuc neg Nazario Collier MD Cardiology Nazario Collier MD Cardiology:mild byu shira Nazario lebron MD Cardiology:7 Nazario Collier MD Cardiology:The patie nt is between 55-77 years old and has smoked at least 30 pack years. The patient is either a current smoker or has quit within the past 15 years. T he patient is recommended to have low dose CT scan for lung cancer screening. Has been counseled regarding the importance of tobacco cessation and abstinence. Shared decision making during this office visit included discussion of the benefits and harms of screening, possible future recommendations of follow-up diagnostic testing, and total amount of radiation exposure. The patient was recommended to have annual low dose CT scan for lung cancer screening and is willing to undergo diagnosis and treatment. Nazario Collier MD Cardiology:Check PFTs Amanda vo NP Cardiology:BP is con trolled H er updated medication list for this problem includes: Aspirin Ec Low Dose 81 Mg Oral Tablet Delayed Release (Aspirin) ..... Take one tablet by mouth once daily Lisinopril 2.5 Mg Oral Tablet (Lisinopril) ..... Take 1 tab daily Amanda Woods NP Cardiology:Stable. H er updated medication list for this problem includes: Aspirin Ec Low Dose 81 Mg Oral Tablet Delayed Release (Aspirin) ..... Take one tablet by mouth once daily Lisinopril 2.5 Mg Oral Tablet (Lisinopril) ..... Take 1 tab daily W ill add Vascepa and Xarelto 2.5mg bid Amanda Woods NP Cardiology:HgA1C at 6.0. PCP manages. H er updated medication list for this problem includes: Tresiba Flextouch Solution Pen-injector (Insulin degludec sopn) ..... Inject 52 units daily Aspirin Ec Low Dose 81 Mg Oral Tablet Delayed Release (Aspirin) ..... Take one tablet by mouth once daily Victoza Solution Pen-injector (Liraglutide sopn) ..... Inject 1.2 mg once daily Metformin Hcl 500 Mg Oral Tablet (Metformin hcl) ..... Take 1 tablet 2 times a day Lisinopril 2.5 Mg Oral Tablet (Lisinopril) ..... Take 1 tab daily Lantus Solostar 100 Unit/ml Subcutaneous Solution Pen-injector (Insulin glargine) ..... Inject 46 units daily Amanda Woods NP Cardiology:6 Nazario Collier MD Cardiology: ellie yun claudication sxs Juanpablo Toscano MD Cardiology: L DL 56. on lipitor 40mg daily Juanpablo Toscano MD Cardiology Juanpablo De Luna Cardiology: B P today: 110/60 P rior BP: 130/80 (09/30/2018) Her updated medication list for this problem includes: Aspirin Ec Low Dose 81 Mg Oral Tablet Delayed Release (Aspirin) ..... Take one tablet by mouth once daily Lisinopril 10 Mg Oral Tablet (Lisinopril) ..... Take 1 tablet once a day Juanpablo Toscano MD Cardiology: S /p SO dRCA on 09/10 for 90% stenosis found on cath after positive stress test. may stop plavix as she is 6 months out from procedure c ontinue ASA ellie yun CP. SOB going <50 ft or going up 1-2 flights of stairs c heck stress test Her updated medication list for this problem includes: Clopidogrel Bisulfate 75 Mg Oral Tablet (Clopidogrel bisulfate) ..... Take one tablet daily Aspirin Ec Low Dose 81 Mg Oral Tablet Delayed Release (Aspirin) ..... Take one tablet by mouth once daily Lisinopril 10 Mg Oral Tablet (Lisinopril) ..... Take 1 tablet once a day Juanpablo Toscano MD Cardiology: c heck regadenoson stress test prior to clearance. pt is SOB Juanpablo Toscano MD Cardiology: P t. complains of cramping in calf with ambulation. SHIRA BLE on 08/06 showed very mild disease above the knees bilaterally, mild-possibly moderate disease of right PIER MASTER. Unlikely the cause of leg pain. Advised to increase exercise. Juanpablo Toscano MD Cardiology: L DL 56. on lipitor 40mg daily Juanpablo Toscano MD Cardiology: A 1c 7. Her updated medication list for this problem includes: Aspirin Ec Low Dose 81 Mg Oral Tablet Delayed Release (Aspirin) ..... Take one tablet by mouth once daily Victoza Solution Pen-injector (Liraglutide sopn) ..... Inject 1.2 mg once daily Metformin Hcl 500 Mg Oral Tablet (Metformin hcl) ..... Take 1 tablet 4 times daily Lisinopril 10 Mg Oral Tablet (Lisinopril) ..... Take 1 tablet once a day Lantus Solostar 100 Unit/ml Subcutaneous Solution Pen-injector (Insulin glargine) ..... Inject 46 units daily Juanpablo Toscano MD Cardiology: Echo 08/08 revealed EF 55%, stage 1 diastolic dysfunction, no significant valvular disease. Juanpablo Toscano MD Cardiology: B P today: 130/80 P rior BP: 122/70 (07/21/2018) Her updated medication list for this problem includes: Aspirin Ec Low Dose 81 Mg Oral Tablet Delayed Release (Aspirin) ..... Take one tablet by mouth once daily Lisinopril 10 Mg Oral Tablet (Lisinopril) ..... Take 1 tablet once a day Juanpablo Toscano MD Cardiology: S /p SO dRCA on 09/10 for 90% stenosis found on cath after positive stress test. Continues on ASA/plavix. She remains mildly fatigued but denies CP, SOB. Juanpablo Toscano MD Cardiology: H as hx of sleep apnea and uses a CPAP. Juanpablo Toscano MD Cardiology New Patient :3 PPD sm oking hx. Quit in 2003. Juanpablo Toscano MD Cardiology New Patie nt :On Metformin, Victoza and Lantus. Will request recent bloodwork results from her primary care physician. Juanpablo Toscano MD Cardiology New Patie nt :Atorvastatin was recently increased per patient. Will request recent bloodwork results from her primary care physician. Juanpablo Toscano MD Cardiology New Patie nt :Has hx of sleep apnea and uses a CPAP. Juanpablo Toscano MD Cardiology New Patie nt :She is scheduled for PFT's and to see a claims account manager. Recent chest CT showed coronary artery calcifications. Will check proBNP, DDimer and schedule echo and regadenosine myoview scan. Juanpablo Toscano MD Cardiology New Patie nt :Complains of pain in her calves after walking about half a block. Will check arterial duplex. Juanpablo Toscano MD Date Name LIPID PANEL Complete Echo PROTHROMBIN TIME WIT H INR LIPID PANEL CBC (INCLUDES DIFF/P LT) BASIC METABOLIC PANE L W/EGFR Cardiac Cath - Left - [facility] Stress Regadenoson Low Dose Lung CT COMPREHENSIVE METABO LIC PANEL, W/EGFR IRON AND TOTAL IRON BINDING CAPACITY FERRITIN CBC (INCLUDES DIFF/P LT) D-DIMER, QUANTITATIV E PROBNP, N TERMINAL Complete Echo CT Chest without con trast CXR- PA/Lat VITAMIN B12 Vitamin D, 25-Hydrox y COMPREHENSIVE METABO LIC PANEL, W/EGFR CBC (INCLUDES DIFF/P LT) IRON AND TOTAL IRON BINDING CAPACITY FERRITIN Covid Antibody Igg LIPID PANEL Carotid Duplex Bilat eral DLCO - 85636 FRC - 37564 FVC - 65392 DLCO - 84929 FRC - 36015 FVC - 32822 Carotid Duplex Bilat eral Stress Regadenoson PROTHROMBIN TIME WIT H INR CBC (INCLUDES DIFF/P LT) D-DIMER, QUANTITATIV E PROBNP, N TERMINAL D-DIMER, QUANTITATIV E TSH, 3RD GENERATION W/REFLEX TO FT4 PROBNP, N TERMINAL LIPID PANEL CBC (INCLUDES DIFF/P LT) BASIC METABOLIC PANE L W/EGFR Arterial Duplex Bi-L ower EX Stress Regadenoson Complete Echo HISTORY OF PROCEDURES Procedure Date Procedure Name Provider Procedure Notes S tatus Complex e/m visit add on Juanpablo Toscano MD completed EKG Juanpablo Toscano MD complet ed EKG Juanpablo Toscano MD complet ed EKG Juanpablo Toscano MD complet ed Spirometry Juanpablo Toscano MD complet ed FVC / MVV with bronchodilator - 24970 Juanpablo Toscano MD completed FRC - 06114 Juanpablo Toscano MD comple heather SpO2 w/o 6min walk/titration Juanpablo Toscano MD completed SVC - 67267 Juanpablo Toscano MD comple heather DLCO - 17810 Juanpablo Toscano MD compl eted Counseling LDCT Nazario Collier MD com pleted FVC / MVV with bronchodilator - 47999 Nazario Collier MD completed BLOOD COUNT HEMOGLOBIN aNzario Collier MD completed FRC - 21447 Nazario Collier MD complet ed SpO2 w/o 6min walk/titration Nazario Collier MD completed DLCO - 26687 Nazario Collier MD comple heather EKG Nazario Collier MD complete d Regadenoson, 4 units Juanpablo Toscano MD completed Cardiolite, 2 units Juanpablo Toscano MD completed SPECT Images Juanpablo Toscano MD compl eted Stress EKG Juanpablo Toscano MD complet ed Regadenoson, 4 units Juanpablo Toscano MD completed Cardiolite, 2 units Juanpablo Toscano MD completed SPECT Images Mikel Waddell MD compl eted Stress EKG Mikel Waddell MD complet ed EKG Juanpablo Toscano MD complet ed
--- OUTSIDE RECORDS SUMMARY | 2024-08-13 12:32 | XMS_ITS | Referral Summary ---
Author Organization [facility] Address [address] [place] [phone] Care Team Providers Care Industrial Garage Servicer Name Role Phone Ashleigh Carroll MD Primary Care Provide r Encounters Date Type Department Care Team Description 07/15/2024 Telephone [facility] [address] [phone] Patito Oglesby NP 07/14/2024 3:00 PM CDT Office Visit [facility] Diabetes and Endocrinology [address] [place] [phone] Patito Oglesby NP Type 2 diabetes mellitus with hyperglycemia, with long-term current use of insulin (HCC) (Primary Dx); Hypertension associated with type 2 diabetes mellitus (HCC); Hyperlipidemia associated with type 2 diabetes mellitus (HCC); Diabetic polyneuropathy associated with type 2 diabetes mellitus (HCC); Hypothyroidism, unspecified type 07/09/2024 Telephone [facility] Diabetes [facility] Endocrinology [address] [place] [phone] Patito Oglesby NP Med Refill (Pregabalin ) 06/09/2024 Telephone [facility] Diabetes and Endocrinology [address] [place] [phone] Patito Oglesby NP Med Management (SelectRx) 06/02/2024 Telephone [facility] Diabetes and Endocrinology [address] [place] [phone] Schleeper, Patito R., MODEL MAKER FIREARMS Select Rx new Rx request from Last 3 Months Allergies No known active allergies Medications atorvastatin [...] total) under the skin every evening 10/08/19 20 Active Xarelto 2.5 mg tablet Take 1 tablet (2.5 mg total) by mouth 2 (two) times a day 10/08/19 20 Active vitamins A and D capsule 01/21/20 19 Active Alcohol Pads pads, medicated TEST 2 TIMES A DAY A ctive aspirin 81 mg enteric coated tablet 04/22/18 70 Active OneTouch Ultra Test strip Active OneTouch Ultra2 Meter mis as directed Active carboxymethylc ellulose sodium (THERATEARS) 0.25 % ophthalmic solution Active clotrimazole 1 % cream Active diflorasone (PSORCON) 0.05 % ointment Active econazole 1 % cream econazole 1% cream 06/30/19 Active Safety Lancets 28 gauge misc TEST 2 TIMES A DAY Active lancing device misc 10/14/19 20 Active mirabegron ER (Myrbetriq) 50 mg tablet [...] with long-term current use of insulin (HCC) TAKE ONE (1) TABLET BY MOUTH TWICE DAILY (BEFORE BREAKFAST AT 9AM & LUNCH AT NOON) *NEW PRESCRIPTION REQUEST* 180 tablet 07/09/19 25 Active Bydureon BCise 2 mg/0.85 mL auto-injectorI ndications:Typ e 2 diabetes mellitus with hyperglycemia, with long-term current use of insulin (HCC) INJECT 2MG SUBCUTANEOUSLY ONCE WEEKLY ON SATURDAY *NEW PRESCRIPTION REQUEST* 10.2 mL 07/09/19 25 Active Vascepa 1 gram capsule TAKE TWO (2) CAPSULES BY MOUTH TWICE DAILY *NEW PRESCRIPTION REQUEST* 360 capsule 07/09/19 25 Active metFORMIN XR (GLUCOPHAGE XR) 500 mg 24 hr tabletIndicati ons:Type 2 diabetes mellitus with hyperglycemia, with long-term current use of insulin (HCC) TAKE ONE (1) TABLET BY MOUTH TWICE DAILY (AFTER BREAKFAST @ 9AM & DINNER AT 5PM) *NEW PRESCRIPTION REQUEST* 180 tablet 10 07/09/19 25 Active azithromycin (ZITHROMAX) 250 mg [...] Hypertension associated with type 2 diabetes doroteo kim 01/20/2024 Assessment & Plan (07/14/2024 3:24 PM CDT): Chronic problem. Controlled on current lisinopril 20mg daily. Assessment & Plan (05/11/2024 12:57 PM CONTACT LENS TECHNICIAN): Chronic problem. Controlled on current lisinopril 10mg daily. Assessment & Plan (01/20/2024 3:10 PM CDT): Chronic problem. Controlled on current lisinopril 10mg daily. Will update labs today. [facility] phone #/address to contact re: results. Hyperlipidemia associated with type 2 diabetes elisha hong 01/20/2024 Assessment & Plan (07/14/2024 3:24 PM CDT): Chronic problem. Currently taking Atorvastatin 80mg & vascepa 2gm bid Last lipid panel: 01/20/24 LDL=51, CF=940. Assessment & Plan (05/11/2024 12:57 PM CONTACT LENS TECHNICIAN): Chronic problem. Currently taking Atorvastatin 40mg & vascepa 2gm bid Last lipid panel: 01/20/24 LDL=51, TF=477. Assessment & Plan (01/20/2024 3:11 PM CDT): [...] twice daily with meals (increased by Dr Apollo marley) Glipizide 5mg twice daily with meals Farxiga 10mg daily Bydureon 2mg weekly Tresiba 32 units daily UTD on labs. DM eye exam JENNIFER fall 2022; 02/2024 appt [facility] in [address] 2nd request letter sent to get [...] infection. Assessment & Plan (05/11/2024 1:57 PM CONTACT LENS TECHNICIAN): Chronic problem. A1c uncontrolled & greatly worsened [...] eye exam JENNIFER fall 2022; 02/2024 appt [facility] in [address] Letter sent to get copy of [...] exam JENNIFER fall 2022; 02/2024 appt [facility] [place] [facility]. Letter sent to get copy of report [...] barefoot. Assessment & Plan (05/11/2024 12:57 PM CONTACT LENS TECHNICIAN): Chronic problem. Currently taking Lyrica 150mg qhs. [...] medications. Assessment & Plan (05/11/2024 12:58 PM CONTACT LENS TECHNICIAN): Chronic problem. Currently taking levothyroxine 150 mcg [...] Obesity 07/21/2018 Coronary artery disease invo lving pic[place]une coronary artery of picayune heart without angina pectoris 07/14/2018 Resolved Problems [...] Glucotrol , Bydureon and Farxiga, same . 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 Not on file Not o n file Not on file Last Filed Vital Signs Vital Sign Reading Time Taken Comments Blood Pressure 118/60 07/14/2024 3:14 PM CDT Pulse 80 07/14/2024 3:14 PM CDT Temperature 37 C (98.6 F) 05/11/2024 2:47 PM CONTACT LENS TECHNICIAN Respiratory Rate 18 07/14/2024 3:14 PM CDT Oxygen Saturation 97% 05/11/2024 2:47 PM CONTACT LENS TECHNICIAN Inhaled Oxygen Concentration - - Weight 76.2 kg (168 lb) 07/14/2024 3:14 PM CDT Height 149.9 cm (4' 11.02 ) 07/14/2024 3:14 PM C DT Body Mass Index 33.91 07/14/2024 3:14 PM CDT Plan of Treatment Not on file Procedures Procedure Name Priority Date/Time Associated Diagnosis [...] POCT hemoglobin A1c (07/14/2024 3:18 PM CDT) Pathologist [facility] Hemoglobin A1C, POC 8.2 4.0 - 5.6 % Blood 07/14/2024 3:18 PM CDT us Patito Oglesby NP POINT OF CARE TEST ORDERA BLES Final Result * (ABNORMAL) POCT glucose (07/14/2024 3:18 PM CDT) [facility] Glucose Blood, POC 184 mg/dL Blood 07/14/2024 3:18 PM CDT us Patito Oglesby NP POINT OF CARE TEST ORDERA BLES Final Result * (ABNORMAL) eGFR (01/20/2024 12:00 PM CDT) Pathologist [facility] eGFR 38(L) >=60 mL/min/1. 73 m2 Comment: [...] 0 PM CDT 01/20/2024 9:28 PM CDT us Patito Oglesby MODEL MAKER FIREARMS LAB BLOOD ORDERABLES Yennifer l Result Performing Organization Address [facility] Co de Phone Number MAIDA [id number] [email or web address] [place] [address] * Albumin Creatinine Ratio, Urine (01/20/2024 12:00 PM CDT) Albumin Ur 20.1 mg/L Comment: Interpretive Data No reference range established. Current interpretive data was last revised 2018. Creatinine Ur 83.1 mg/dL [facility] Comment: Interpretive Data No reference range established. Current interpretive data was last revised 2018. Albumin Creatinine Ratio, Ur 24 1 - 29 mg/g MAIDA Urine 01/20/2024 12:0 0 PM CDT 01/20/2024 9:21 PM CDT us Patito Oglesby NP LAB URINE ORDERABLES Yennifer l Result Performing Organization Address City/[facility] Co de Phone Number MAIDA [address] [email or web address] [place], [place] [id number] * (ABNORMAL) Lipid panel (01/20/2024 12:00 PM [...] on 2017. LDL, calculated 51 <=129 mg/dL [facility] Comment: Interpretive Data Ages < or = [...] NCEP Expert Panel. Circulation 2004;110:227 3. Hammad M et al. MYESHA Cardiol. 2020 August 20;5(5):540-548. doi: 10.1001/jamacardio.2020.0013 Current Interpretive Data was [...] 9:21 PM CDT Patito Oglesby NP LAB BLOOD ORDERABLES Yennifer l Result MAIDA CONTRERAS [id number] Department [place] [address] from Last 3 Months or Most Recently Relevant to Health Maintenance Insurance [employer] CHOICE MEDICARE PPO IDPA [facility] MEDICARE ADVANTAGE IDPA Care Teams Industrial Garage Servicer Relationship Specialty Start Date End Date Ashleigh Carroll MD PCP - General Internal Medicine 07/14/18
--- OUTSIDE RECORDS SUMMARY | 2024-08-13 12:32 | XMS_ITS | Clinical Summary ---
Author Organization [facility] Address [address] [place] [id number] Care Team Providers Care Musical Instruments Assembler Name Role Phone Unavailable Primary Care Provider Unavailabl e Social History Tobacco Use Types Packs/Day Years Used Date Smoking Tobacco: Never Assessed Comments Unknown Sex and Gender Information Value Date Recorded Sex Assigned at Not on file Legal Sex Female 7:48 PM CDT Gender Identity Not on file Sexual Orientation Not on file Last Filed Vital Signs Vital Sign Reading Time Taken Comments Blood Pressure 126/64 06/13/2016 9:51 AM CONSERVATION POLICY ANALYST Pulse 80 06/13/2016 9:51 AM CONSERVATION POLICY ANALYST Temperature - - Respiratory Rate - - Oxygen Saturation - - Inhaled Oxygen Concentration - - Weight 81.6 kg (180 lb) 06/13/2016 9:51 AM CONSERVATION POLICY ANALYST Height 149.9 cm (4' 11 ) 06/13/2016 9:51 AM CONSERVATION POLICY ANALYST Body Mass Index 36.36 06/13/2016 9:51 AM CONSERVATION POLICY ANALYST Plan of Treatment Health Maintenance Due Date Last Done Comments Colorectal Cancer Screening Colonoscopy (10 Years) 1948 Hepatitis C 1966 DTaP, Tdap and Td Vaccines ( 1 - Tdap) 10/13/1967 Pneumococcal Vaccine: 50+ Ye ars (1 of 1 - PCV) 1998 Zoster Vaccines (1 of 2) 1998 Dexa Scan (General) 2013 RSV Immunization or 60+ Years (1 - 1-dose 75+ series) 10/13/2023 COVID-19 Vaccine ( - 2023-2 5 season) 2023 Meningococcal B Vaccine Aged Out No l onger eligible based on patient's age to complete this topic Meningococcal Vaccine Aged Out No jarocho marycruz eligible based on patient's age to complete this topic RSV Immunizations Under 20 Months Aged Out No longer eligible based on patient's age to complete this topic
== END 2024-08-13 10:57 | disposition home or self-care (01) ==
PROVIDERS: PCP Internal Medicine; Visit Provider Internal Medicine
DX: S22.070A Wedge compression fracture of T9-T10 vertebra, initial encounter for closed fracture (principal); S22.080A Wedge compression fracture of T11-T12 vertebra, initial encounter for closed fracture; X58.XXXA Exposure to other specified factors, initial encounter; M50.30 Other cervical disc degeneration, unspecified cervical region
CPT/HCPCS: 72040; 72070

== ENCOUNTER 2024-08-24 14:42 | Outpatient (CLI) | payer MEDICARE, MEDICAID, SELFPAY ==
--- NOTE | ~2024-08-24 | MR_ITS ---
MRI of the thoracic spine Clinical History: Back pain Technique: Axial T2-weighted and gradient images, and sagittal T1-weighted, T2-weighted, and STIR marta ges were acquired. Findings: There is acute mild to moderate T9 compression fracture, with loss of height, hypointense f racture line probably present, and diffuse marrow edema. There is chronic minimal compression fractur e deformity of T11, mild loss of height but no marrow edema. No other bone marrow signal abnormality evident. There is multilevel mild degenerative disc narrowing in the thoracic spine. No significant disc bulge or herniation seen at any thoracic level. No spinal canal stenosis or cord compression identified in the thoracic spine. Neural foramina are preserved throughout the thoracic spine. No abnormal signal seen in the spinal cord. No epidural mass or collection seen. Paravertebral soft t issues are unremarkable. Impression: Acute T9 compression fracture, as detailed above. Chronic minimal T11 compression fracture. Reviewed, dictated and finalized at [facility]. Impression: Acute T9 compression fracture, as detailed above. Chronic minimal T11 compression fracture.
--- OUTSIDE RECORDS SUMMARY | 2024-08-24 15:22 | XMS_ITS | Referral Summary ---
Author Organization [facility] Address [address] [place] [phone] Care Team Providers Care Count Room Clerk Name Role Phone Ashleigh Carroll MD Primary Care Provide r Encounters Date Type Department Care Team Description 07/15/2024 Telephone [facility] [address] [phone] Patito Oglesby NP 07/14/2024 3:00 PM CDT Office Visit [facility] Diabetes and Endocrinology [address] [place] [phone] Patito Oglesby NP Type 2 diabetes mellitus with hyperglycemia, with long-term current use of insulin (HCC) (Primary Dx); Hypertension associated with type 2 diabetes mellitus (HCC); Hyperlipidemia associated with type 2 diabetes mellitus (HCC); Diabetic polyneuropathy associated with type 2 diabetes mellitus (HCC); Hypothyroidism, unspecified type 07/09/2024 Telephone [facility] Diabetes [facility] Endocrinology [address] [place] [phone] Patito Oglesby NP Med Refill (Pregabalin ) 06/09/2024 Telephone [facility] Diabetes and Endocrinology [address] [place] [phone] Patito Oglesby NP Med Management ([facility]) 06/02/2024 Telephone [facility] Diabetes and Endocrinology [address] [place] [phone] Schleeper, Patito R., PLANT ECOLOGIST [facility] new Rx request from Last [...] tablet (10 mg total) by mouth daily Active dihydroergotam ine (MIGRANAL) 0.5 mg/pump act. (4 mg/mL) nasal spray Active TRESIBA 200 unit/mL (3 mL) pen for injection Inject 0.17 mL (34 Units total) under the skin every evening 023 Active insulin degludec (TRESIBA) 100 unit/mL (3 mL) pen for injection Inject 0.34 mL (34 Units total) under the skin every evening Active Xarelto 2.5 mg tablet Take 1 tablet (2.5 mg total) by mouth 2 (two) times a day Active vitamins A and D capsule 019 Active Alcohol Pads pads, medicated TEST 2 TIMES A DAY Active aspirin 81 mg enteric coated tablet 970 Active OneTouch Ultra Test strip Active OneTouch Ultra2 [facility] as directed Active carboxymethylc ellulose sodium (THERATEARS) 0.25 % ophthalmic solution Active clotrimazole 1 % cream Active diflorasone (PSORCON) 0.05 % ointment Active econazole 1 % cream econazole 1% cream Active Safety Lancets 28 gauge misc TEST 2 TIMES A DAY Active lancing device misc Active mirabegron ER (Myrbetriq) 50 mg tablet extended release 24 hr Take 1 tablet (50 mg total) by mouth every morning Active BD Ultra-Fine Short Pen Needle 31 gauge x 5/16 needle USE WITH TRESIBA ONCE DAILY 023 Active pen needle, diabetic 31 gauge x 3/16 needle BD Ultra-Fine Mini Pen Needle 31 gauge x 3/16 Active True Comfort Safety Pen Needle 32 gauge x 5/32 needle USE TO INJECT ONCE DAILY 024 Active solifenacin (VESIcare) 5 mg tablet Take [...] sensor every 10 days 9 each 3 Active glipiZIDE (GLUCOTROL) 5 mg tabletIndicati ons:Type 2 diabetes mellitus with hyperglycemia, with long-term current use of insulin (HCC) TAKE ONE (1) TABLET BY MOUTH TWICE DAILY (BEFORE BREAKFAST AT 9AM & LUNCH AT NOON) *NEW PRESCRIPTION REQUEST* 180 tablet 025 Active Bydureon BCise 2 mg/0.85 mL auto-injectorI ndications:Typ e 2 diabetes mellitus with hyperglycemia, with long-term current use of insulin ([facility]) INJECT 2MG SUBCUTANEOUSLY ONCE WEEKLY ON SATURDAY *NEW PRESCRIPTION REQUEST* 10.2 mL 025 Active Vascepa 1 gram capsule TAKE TWO (2) CAPSULES BY MOUTH TWICE DAILY *NEW PRESCRIPTION REQUEST* 360 capsule 025 Active metFORMIN XR (GLUCOPHAGE XR) 500 mg 24 hr tabletIndicati ons:Type 2 diabetes mellitus with hyperglycemia, with long-term current use of insulin (HCC) TAKE ONE (1) TABLET BY MOUTH TWICE DAILY (AFTER BREAKFAST @ 9AM & DINNER AT 5PM) *NEW PRESCRIPTION REQUEST* 180 tablet 10 025 Active azithromycin (ZITHROMAX) 250 mg tablet TAKE 2 TABLETS BY MOUTH TODAY, THEN TAKE 1 TABLET DAILY FOR 4 DAYS DIRECTED 025 Active lisinopriL (PRINIVIL,ZEST RIL) 20 mg tablet TAKE ONE TABLET BY MOUTH IN THE MORNING DAILY AT 9 AM 025 Active pregabalin (LYRICA) 150 mg capsule Take 1 capsule (150 mg total) by mouth nightly 90 capsule 2 025 Active levothyroxine (SYNTHROID) 150 mcg tabletIndicati ons:Hypothyroi dism, unspecified type Take 1 tablet (150 mcg total) by mouth 6 (six) times a week 72 tablet 1 025 2025 Active levothyroxine (SYNTHROID) 150 mcg tablet 1 tablet 6 days a week 90 tablet 025 2024 Discontinued levothyroxine (SYNTHROID) 150 mcg tablet TAKE 1 TABLET BY MOUTH SIX TIMES A WEEK 66 tablet 11 025 2024 Discontinued(R zora) Active Problems Problem Noted Date Diagnosed Date Hypertension associated with type 2 diabetes doroteo kim 01/20/2024 Assessment & Plan (07/14/2024 3:24 PM CDT): Chronic problem. Controlled on current lisinopril 20mg daily. Assessment & Plan (05/11/2024 12:57 PM CONCERT PROMOTER): Chronic problem. Controlled on current lisinopril 10mg [...] 2gm bid Last lipid panel: 01/20/24 LDL=51, QL=377. Assessment & Plan (05/11/2024 12:57 PM CONCERT PROMOTER): Chronic problem. Currently taking Atorvastatin 40mg & vascepa 2gm bid Last lipid panel: 01/20/24 LDL=51, QM=437. Assessment & Plan (01/20/2024 3:11 PM CDT): [...] eye exam JENNIFER fall 2022; 02/2024 appt [facility] in [place] on [address] 2nd request letter sent to get [...] infection. Assessment & Plan (05/11/2024 1:57 PM CONCERT PROMOTER): Chronic problem. A1c uncontrolled & greatly worsened [...] eye exam JENNIFER fall 2022; 02/2024 appt [facility] [place] [facility]. Letter sent to get copy of [...] eye exam JENNIFER fall 2022; 02/2024 appt [facility] in [place] on [facility]. Letter sent to get copy of [...] CGM with Dexcom Tremor 06/19/2023 Diabetic polyneuropathy assrandall ciated with type 2 diabetes mellitus 02/22/2023 Assessment & Plan (07/14/2024 3:23 PM CDT): Chronic problem. Currently taking Lyrica 150mg qhs. Reviewed foot care; needs to lotion daily. Aware to check feet nightly, not to go barefoot. Assessment & Plan (05/11/2024 12:57 PM CONCERT PROMOTER): Chronic problem. Currently taking Lyrica 150mg qhs. [...] medications. Assessment & Plan (05/11/2024 12:58 PM CONCERT PROMOTER): Chronic problem. 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 Not on file Not o n file Not on file Last Filed Vital Signs Vital Sign Reading Time Taken Comments Blood Pressure 118/60 07/14/2024 3:14 PM CDT Pulse 80 07/14/2024 3:14 PM CDT Temperature 37 C (98.6 F) 05/11/2024 2:47 PM CONCERT PROMOTER Respiratory Rate 18 07/14/2024 3:14 PM CDT Oxygen Saturation 97% 05/11/2024 2:47 PM CONCERT PROMOTER Inhaled Oxygen Concentration - - Weight 76.2 [...] 07/14/2024 3:18 PM CDT us Patito Oglesby PLANT ECOLOGIST POINT OF CARE TEST ORDERA BLES Final Result * (ABNORMAL) POCT glucose (07/14/2024 3:18 PM CDT) Glucose Blood, POC 184 mg/dL Blood 07/14/2024 3:18 PM CDT us Patito Oglesby PLANT ECOLOGIST POINT OF CARE TEST ORDERA BLES Final [...] PM CDT 01/20/2024 9:28 PM CDT us Patitoclinton Oglesby NP LAB BLOOD ORDERABLES Yennifer l Result Performing Organization Address [facility] de Phone Number MAIDA CONTRERAS [id number] [address] * Albumin Creatinine Ratio, Urine (01/20/2024 12:00 PM CDT) Albumin Ur 20.1 mg/L Comment: Interpretive Data No reference range established. Current interpretive data was last revised 2018. Creatinine Ur 83.1 mg/dL MAIDA Comment: Interpretive Data No reference range established. Current interpretive data was last revised 2018. Albumin Creatinine Ratio, Ur 24 1 - 29 mg/g MAIDA Urine 01/20/2024 12:0 0 PM CDT 01/20/2024 9:21 PM CDT Patito Oglesby NP LAB URINE ORDERABLES Yennifer l Result Performing Organization Address City/[facility] Co de Phone Number MAIDA [address] [place] [address] * (ABNORMAL) Lipid panel (01/20/2024 12:00 PM CDT) [facility] Signature Cholesterol 110 30 - 199 mg/dL Comment: [...] on 2017. Triglycerides 180(H) <=149 mg/dL MAIDA CONTRERAS Comment: Interpretive Data Ages [...] on 2017. HDL 29(L) >=40 mg/dL MAIDA CONTRERAS Comment: Interpretive Data Ages [...] 2017. LDL, calculated 51 <=129 mg/dL MAIDA CONTRERAS Comment: Interpretive Data Ages [...] Patito Oglesby NP LAB BLOOD ORDERABLES Yennifer mcpherson Result MAIDA CONTRERAS [address] Department [place] [address] from Last 3 Months or Most Recently Relevant to Health Maintenance Insurance [employer] CHOICE MEDICARE PPO IDPA [facility] MEDICARE ADVANTAGE [facility] MEDICARE ADVANTAGE IDPA Care Teams Count Room Clerk Relationship Specialty Start Date End Date Ashleigh Carroll MD PCP - General Internal Medicine 07/14/18
--- OUTSIDE RECORDS SUMMARY | 2024-08-24 15:22 | XMS_ITS | Clinical Summary ---
Author Organization [facility] Address [address] [place] [address] Care Team Providers Care General Operations Agent Name Role Phone Mckenna Carroll MD Primary Care Provider Source Comments [facility],non-owned Affiliates and Associated Physician Practices is amultiple site organization consisting of ambulatory clinics and hospital sitesin [place], [place], [place] and [place]. This disclosure is being madepursuant to the Care Everywhere program and may not contain all information available regarding this patient. Last updated 18.[facility] Allergies No known active allergies Medications * Be aware that medications may not be up to date on this document. Alwaysverify current medications with the patient. gabapentin (NEURONTIN) 300 MG capsule Take 300 mg by mouth 3 times daily Active glipiZIDE (GLUCOTROL) 5 MG tablet Take 5 mg by mouth daily before breakfast Active ferrous sulfate 325 (65 FE) MG tablet Take 325 mg by mouth once daily Active fesoterodine CR 24hr (TOVIAZ) 4 MG tablet Take 4 mg by mouth once daily Active fluticasone diskus (FLOVENT DISKUS) 100 MCG/BLIST inhaler Inhale 1 puff by mouth 2 times daily Rinse mouth after use. Active cyanocobalamin (VITAMIN B-12) 1000 MCG tablet Take 1,000 mcg by mouth once daily Active DULoxetine (CYMBALTA) 60 MG capsule Take 60 mg by mouth once daily Active alendronate (FOSAMAX) 70 MG tablet Take 70 mg by mouth every 7 days before meal Take in morning with full glass of water on empty stomach and remain upright for 30 min Active atorvastatin (LIPITOR) 40 MG tablet Take 40 mg by mouth at bedtime Active Cholecalcifero l 5000 units Active liraglutide (VICTOZA) 18 MG/3ML pen Inject 1.2 mg subcutaneously once daily Active icosapent ethyl (VASCEPA) 1 g capsule Take 1 g by mouth 2 times daily with morning and evening meal Active umeclidinium-v ilanterol (ANORO ELLIPTA) 62.5-25 MCG/INH inhaler Inhale 1 puff by mouth once daily Active levothyroxine (LEVOXYL) 125 MCG tablet Take 127 mcg by mouth daily before breakfast Active lisinopril (PRINIVIL; ZESTRIL) 10 MG tablet Take 10 mg by mouth once daily Active aspirin (ASPIRIN) 81 MG chew tablet Take 1 tablet by mouth once daily 9 Active clopidogrel (PLAVIX) 75 MG tablet Take 1 tablet by mouth once daily 90 tablet 4 9 Active metFORMIN (GLUCOPHAGE) 500 MG tablet Take 1 tablet by mouth 2 times daily with morning and evening meal 9 Active Active Problems Problem Noted Date Diagnosed Date Coronary artery disease invo lving nulato coronary artery of [place] heart without angina pectoris 09/10/2018 Social History Tobacco Use Types Packs/Day Years Used Date Smoking Tobacco: Former Cigarettes Smokeless Tobacco: Never Comments Unknown Sex and Gender Information Value Date Recorded Sex Assigned at Not on file Legal Sex Female 4:21 AM [employer] Gender Identity Not on file Sexual Orientation Not on file Last Filed Vital Signs Vital Sign Reading Time Taken Comments Blood Pressure 130/66 09/11/2018 11:16 AM CDT Pulse 82 09/11/2018 12:56 PM CDT Temperature 37 C (98.6 F) 09/11/2018 11:16 AM CDT Respiratory Rate 18 09/11/2018 11:16 AM CDT Oxygen Saturation 97% 09/11/2018 11:16 AM CDT Inhaled Oxygen Concentration - - Weight 78.9 kg (174 lb) 09/10/2018 11:59 AM CDT Height 152.4 cm (5') 09/10/2018 11:59 AM CDT Body Mass Index 33.98 09/10/2018 11:59 AM CDT Plan of Treatment Health Maintenance Due Date Last Done Comments BONE DENSITY TESTING 1950 [place] (AGES 45-75) - COL ON CA SCREENING 1948 COLON MONITORING 1948 COLONOSCOPY - COLON CA SCREENING 1948 CT COLONOGRAPHY - COLON CA SCREENING 1950 Colorectal Cancer Screening 1948 FIT - COLON CA SCREENING 1948 FLEX SIG - COLON CA SCREENING 1948 MAMMOGRAM 1950 HEPATITIS C SCREENING 10/08/1966 DTAP/TDAP/TD VACCINES (1 - Tdap) 10/13/1967 PNEUMOCOCCAL VACCINE 50+ (1 of 1 - PCV) 1998 ZOSTER VACCINE (1 of 2) 1998 Respiratory Syncytial Virus (RSV) Vaccine Pt: or over 60 yrs (1 - 1-dose 75+ series) 10/13/2023 COVID-19 VACCINE (1 - 2023-2 5 season) 2023 DEPRESSION SCREENING 04/22/2024 INFLUENZA VACCINE (Season Ended) 2024 HEPATITIS B VACCINE Aged Out No longe r eligible based on patient's age to complete this topic HIB VACCINE Aged Out No longer eligi ble based on patient's age to complete this topic HPV VACCINE Aged Out No longer eligi ble based on patient's age to complete this topic MENINGOCOCCAL (Group B) VACC INE SHARED DECISION-MAKING Aged Out No longer eligibl e based on patient's age to complete this topic MENINGOCOCCAL GROUPS A/C/Y/W VACCINE Aged Out No longer eligible b ased on patient's age to complete this topic Insurance MEDICAID [place]ENEFIT - [place] Advance Directives * Full Code (Latest Code Status on File) Date Activated Date Inactivated Comments 09/10/2018 2:05 PM 09/11/2018 4:45 PM Care Teams General Operations Agent Relationship Specialty Start Date End Date Mckenna Carroll MD [address] [id number] PCP - General Internal Medicine 09/03/18
--- OUTSIDE RECORDS SUMMARY | 2024-08-24 15:22 | XMS_ITS | Clinical Summary ---
Author Organization [facility] Address [address] [place] [address] Care Team Providers Care Chain Saw Operator Name Role Phone Mckenna Carroll MD Primary Care Provider [phone] Medications alendronate (FOSAMAX) 35 MG tablet Take 1 tablet (35 mg total) by mouth 1 (one) time per week 12 tablet 1 01/02/20 23 Active Tresiba FlexTouch 100 UNIT/ML injection INJECT 24 UNITS SUBCUTANEOUSLY AT NIGHT 30 mL 2 05/15/19 25 Active metFORMIN (GLUCOPHAGE) 1000 MG tablet TAKE 1 TABLET BY MOUTH IN THE MORNING AND 1 TABLET IN THE EVENING WITH MEALS 200 tablet 2 08/04/19 25 Active metFORMIN (GLUCOPHAGE) 1000 MG tablet Take 1 tablet (1,000 mg total) by mouth in the morning and 1 tablet (1,000 mg total) in the evening. Take with meals. 180 tablet 1 05/26/19 25 2024 Discontinued Active Problems Problem Noted Date Diagnosed Date Hypertensive chronic kidney disease, malignant, with chronic kidney disease stage I through stage IV, or unspecified 07/15/2024 Encounters Date Type Department Care Team Description 08/03/2024 Refill [facility] [employer] [facility], [facility] [address] [facility] [address] [place] [phone] Wade Bustillos DO from Last 3 Months Social History Tobacco Use Types Packs/Day Years Used Date Smoking Tobacco: Former Smokeless Tobacco: Never Alcohol Use Standard Drinks/Week Comments Never 0 (1 standard drink = 0.6 oz pur e alcohol) Comments Unknown Sex and Gender Information Value Date Recorded Sex Assigned at Not on file Legal Sex Female 2:53 PM EDT Gender Identity Not on file Sexual Orientation Not on file Last Filed Vital Signs Vital Sign Reading Time Taken Comments Blood Pressure 110/60 05/26/2024 2:39 PM CONTINUOUS PICKLING LINE PICKLER Pulse 68 05/26/2024 2:39 PM [employer]UOUS [employer] Temperature 36.1 C (97 F) 05/26/2024 2:39 PM CONTINUOUS [employer] P[employer]ER Respiratory Rate 18 05/26/2024 2:39 PM CONTINUOUS [employer] P[employer] Oxygen Saturation 97% 05/26/2024 2:39 PM CONTINUOUS P[employer]LING [employer] PICK[employer]ER Inhaled Oxygen Concentration - - Weight 75.7 kg (166 lb 14.4 oz) 05/26/2024 2:39 PM CONTINUOUS P[employer]LING [employer] PICKLER Height 152.4 cm (5') 04/10/2022 2:01 PM CONTINUOUS PICKLING [employer] PICKLER Body Mass Index 32.6 04/10/2022 2:01 PM CONTINUOUS PICKLING [employer] PICKLER Plan of Treatment Upcoming Encounters Date Type Department Care Team (Late st Contact Info) Description 09/01/2024 1:00 PM CDT Office Visit [facility], [facility] [address] [facility] [address] [place] [phone] [place] [address] [place] [address] [address] [place] [address] Health Maintenance Due Date Last Done Comments Breast Cancer Screening 1950 Colorectal Cancer Screening: Annual FOBT 1997 Colorectal Cancer Screening: Sigmoidoscopy 1997 Hepatitis B Vaccine (1 of 3 - Risk 3-dose series) 2008 Diabetes: Ophthalmology Exam 09/15/2020 Diabetes: Pedal Pulse Checked 09/15/2020 Diabetes: Sensory Foot Exam 09/15/2020 Diabetes: Visual Foot Exam 09/15/2020 Diabetes: Hemoglobin A1C 10/14/202407/14/ 025, 05/11/2024, 01/20/2024, Additional history exists Colorectal Cancer Screening: Colonoscopy 02/18/2029 02/18/2019 Pneumococcal Vaccine: 50+ Years Completed 03/20/2018, 01/27/2018, 10/13/2015 Influenza Vaccine Completed 01/21/2024, , 02/18/2019, Additional history exists Insurance Medicaid [place] UHC Medicare Care Teams Chain Saw Operator Relationship Specialty Start Date End Date Mckenna Carroll MD [address] [facility], [address] [place] [address] PCP - General Internal Medicine 01/24/21
--- OUTSIDE RECORDS SUMMARY | 2024-08-24 15:22 | XMS_ITS | Clinical Summary ---
Author Organization [facility] Kristen alston [facility] Address [address] [place] [address] Care Team Providers Care Certified Registered Nurse Practitioner Name Role Phone Mckenna Carroll MD Primary Care Provider Allergies No known active allergies Medications aspirin (ECOTRIN EC) 81 mg Tablet, Delayed Release (E.C.) Take 81 mg by mouth daily. Active clopidogrel (PLAVIX) 75 mg Tablet Take 75 mg by mouth. Active alendronate (FOSAMAX) 70 mg tablet Take 70 mg by mouth every 7 days. empty stomach before other meds,with 8oz of water, stay upright 30 min Active atorvastatin (LIPITOR) 40 mg tablet Take 40 mg by mouth daily at bedtime. Active DULoxetine (CYMBALTA) 60 mg Capsule, Delayed Release(E.C.) Take 60 mg by mouth daily. Active ferrous fumarate (FERRETTS) 325 mg (106 mg iron) Tablet Take 325 mg by mouth. 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 60 Tablet 2 01/30/20 19 Active lancets (ACCU-CHEK SOFTCLIX LANCETS) Accu-Chek Softclix Lancets Active aspirin 1 mg/mL Suspension aspirin low dose 81mg ec Active alcohol (BD Single Use Swabs Regular) Pads, Medicated BD Alcohol Swabs Act nettie Insulin Ripton, Disposable, (BD ULTRA-FINE MINI PEN NEEDLE) 31 gauge x 3/16 Needle BD Ultra-Fine Mini Pen Needle 31 gauge x 3/16 Active gum/pva/dental adhesive (SUPER DENTURE ADHESIVE DT) 01/21/20 19 Active denture cleanser (EFFERVESCENT DENTURE CLEANSR DT) 01/21/20 19 Active loratadine 10 mg Capsule loratadine 10mg Act nettie Carboxymethylc ellulose Sodium (LUBRICANT EYE DROPS) 0.25 % solution lubricant eye drops as needed Active metFORMIN (GLUCOPHAGE XR) 500 mg Extended Release 24 hour tablet metformin ER 500 mg tablet,extended release 24 hr Active Vitamins A & D Capsule 01/21/20 Active Blood-Glucose Meter (TRUE METRIX AIR GLUCOSE METER) True Metrix Air Glucose Meter use to test blood sugar twice a day E11.9 Active albuterol HFA 90 mcg inhaler every 4 hours. Active ammonium lactate (LAC-HYDRIN) 12 % Lotion ammonium lactate 12 % lotion APPLY TO BOTH FEET DAILY NEEDED Active pantoprazole (PROTONIX) 40 mg Tablet, Delayed Release (E.C.) pantoprazole 40 mg tablet,delayed release Active gentamicin (GARAMYCIN) 0.1 % Cream gentamicin 0.1 % topical cream Active vancomycin (VANCOCIN) 250 mg Capsule vancomycin 250 mg capsule Active artificial tears,hypromel lose, 0.5 % solution 1 Drop by Ophthalmic route. Active ascorbic acid, vitamin C, (Vitamin C) 100 mg Tablet Vitamin C 1 Tablet Daily Active cholecalcifero l, vitamin D3, 5,000 unit vitamin d 5000 iu A ctive TRUE METRIX GLUCOSE TEST STRIP Strip 08/10/19 20 Active ferrous sulfate 325 mg (65 mg iron) tablet Take by mouth. Activ e traMADoL (ULTRAM) 50 mg tablet 12/02/19 20 Active Xarelto 2.5 mg Tablet 10/09/19 20 Active Lancing Device 10/14/19 20 Active glipiZIDE (GLUCOTROL) 5 mg tablet glipizide 5 mg tablet Active Vitamins A & D Capsule vitamin d 5000 iu 1T PO QD Active acetaminophen (TYLENOL) 500 mg tablet acetaminophen 500 mg Active dapagliflozin (Farxiga) 10 mg Tablet Farxiga 10 mg tablet 0 20 Active diflorasone (PSORCON) 0.05 % Ointment diflorasone 0.05 % topical ointment PRN Active Dihydroergotam ine 0.5 mg/pump act. (4 mg/mL) [place], Non-Aerosol dihydroergotamine 0.5 mg/pump act. (4 mg/mL) nasal spray Active docusate calcium (Stool Softener, docusate autumn,) 240 mg capsule [employer] STOOL SOFTENER CAPSULE 07/22/19 19 Active fluticasone propionate (FLONASE) 50 mcg/spray [place], Suspension nasal inhaler fluticasone propionate 50 mcg/actuation nasal spray,suspension Active icosapent ethyL (Vascepa) 1 gram Capsule Take by mouth. 05/05/19 21 Active cyanocobalamin , vitamin B-12, 1,000 mcg Capsule Take by mouth. 07/22/19 19 Active liraglutide (Victoza 2-Gurinder) 0.6 mg/0.1 mL (18 mg/3 mL) VICTOZA SOLUTION PEN-INJECTOR 07/22/19 19 Active insulin degludec (Tresiba FlexTouch U-100) 100 unit/mL pen syringe TRESIBA FLEXTOUCH SOLUTION PEN-INJECTOR 10/08/19 20 Active lisinopriL (PRINIVIL) 20 mg tablet 12/20/19 21 Active econazole (SPECTAZOLE) 1 % Cream econazole 1% cream 06/30/19 20 Active Bydureon BCise 2 mg/0.85 mL Auto-Injector 12/19/19 21 Active pregabalin (LYRICA) 100 mg Capsule TAKE 1 CAPSULE BY MOUTH THREE TIMES A DAY BEFORE MEALS 05/21/19 23 Active Myrbetriq 50 mg Extended Release 24 hour tablet Take 50 mg by mouth daily in the morning. 06/23/19 23 Active Dexcom G7 Sensor Device PER HEAD OF HOUSEKEEPING INSTRUCTIONS, CHANGE SENSOR EVERY 10 DAYS 06/11/19 24 Active Active Problems Problem Noted Date Diagnosed Date Iron deficiency anemia 03/03/2019 Encounters Date Type Department Care Team Description 07/08/2024 External Device Data ST[facility] ABSTRACTION Provider, Abstract 06/27/2024 External Device Data [facility] ABSTRACTION Provider, Abstract 06/26/2024 External Device Data [facility] ABSTRACTION Provider, Abstract 06/23/2024 External Device Data [facility] ABSTRACTION Provider, Abstract 06/09/2024 External Device Data [facility] ABSTRACTION Provider, Abstract from Last 3 Months Family History Medical History Relation Name Comments Cancer Brother 2 Heart Disease Brother 2 Heart Disease Brother 4 Diabetes Brother 5 Heart Disease Brother 5 Heart Disease Father Heart Disease Mother Diabetes Sister 1 Heart Disease Sister 1 Relation Name Status Comments Brother 1 Alive Brother 2 Brother 3 Alive Brother 4 Brother 5 Alive Brother 6 Alive Brother 7 Alive Father Mother Alive Sister 1 Alive Sister 2 Alive Sister 3 Alive Social History Tobacco Use Types Packs/Day Years Used Date Smoking Tobacco: Never Smokeless Tobacco: Never Tobacco Cessation:Counseling Given: Not Answered Alcohol Use Standard Drinks/Week Comments Never 0 (1 standard drink = 0.6 oz pur e alcohol) Comments No Sex and Gender Information Value Date Recorded Sex Assigned at Not on file Legal Sex Female 11:57 AM CDT Gender Identity Not on file Sexual Orientation Not on file Last Filed Vital Signs Vital Sign Reading Time Taken Comments Blood Pressure 115/60 12/19/2023 11:21 AM CDT Pulse 76 12/19/2023 11:21 AM CDT Temperature 36.3 C (97.3 F) 12/19/2023 11:21 AM CDT Respiratory Rate 18 12/19/2023 11:21 AM CDT Oxygen Saturation 96% 12/19/2023 11:21 AM CDT Inhaled Oxygen Concentration - - Weight 75.8 kg (167 lb) 12/19/2023 11:21 AM CDT Height 154.9 cm (5' 1 ) 10/27/2021 8:31 AM CDT Body Mass Index 31.55 10/27/2021 8:31 AM CDT Plan of Treatment Upcoming Encounters Date Type Department Care Team (Late st Contact Info) Description 09/28/2024 2:30 PM CDT Office Visit [facility] H[facility]ology - [place] [address] [facility] [address] [place] [address] César Giraldo MD [address] [facility] [address] [place] [address] Health Maintenance Due Date Last Done Comments DIABETES ANNUAL FOOT EXAM 1966 DIABETES ANNUAL RETINAL EXAM 1966 DIABETES MICROALBUMIN ANNUAL SCREEN 1966 FIT-DNA Q 3 years 1993 FIT/FOBT Q 1 year 1993 Flex Sig/CT Colonography Q 5 years 1993 LDL CHOLESTEROL ANNUAL 09/24/2020 09/25/2019 RSV VACCINE (60+ or ) (1 - 1-dose 75+ series) 10/13/2023 INFLUENZA VACCINE (#1) 2023 , 02/01/2022, 03/06/2021, Additional history exists COVID-19 Vaccine ( - 2023-2 5 season) 2023 03/25/2021, 07/31/2020, 07/05/2020 DIABETES HBA1C Q 6 MONTHS 01/18/2024 07/18/2023, 05/2022 OSTEOPOROSIS SCREENING 02/29/2028 02/28/2023, 2020 DTAP/TDAP/TD VACCINES (3 - T d or Tdap) 03/20/2028 03/20/2018, 09/07/2013 COLORECTAL SCREENING 01/18/2031 01/18/2021, 02/19/20 Colorectal Cancer Screening 01/18/2031 PNEUMOCOCCAL VACCINE 50+ YEARS Completed 1 05/20/2017, 01/27/2018, 10/13/2015 ZOSTER VACCINE Completed 10/14/2023, 07/21, 03/11/2013 Procedures Procedure Name Priority Date/Time Associated Diagnosis Comments LIPID PANEL Routine 09/25/2019 from Last 3 Months or Most Recently Relevant to Health Maintenance Results * LIPID PANEL (09/25/2019) Blood us Abstract Provider CHEMISTRY ORDERABLES Edited Re sult - Final NON [facility] from Last 3 Months or Most Recently Relevant to Health Maintenance Insurance [facility] [id number] MEDICAID [place] Care Teams Certified Registered Nurse Practitioner Relationship Specialty Start Date End Date Mckenna Carroll MD PCP - General Internal Medicine 01/12/19
--- OUTSIDE RECORDS SUMMARY | 2024-08-24 15:22 | XMS_ITS | Clinical Summary ---
Author Organization [facility] Address [address] [place] [address] Care Team Providers Care Appeals Board Referee Name Role Phone Unavailable Primary Care Provider [...] Comments Blood Pressure 126/64 06/13/2016 9:51 AM BENZENE WASHER Pulse 80 06/13/2016 9:51 AM BENZENE WASHER Temperature - - Respiratory Rate - - Oxygen Saturation - - Inhaled Oxygen Concentration - - Weight 81.6 kg (180 lb) 06/13/2016 9:51 AM BENZENE WASHER Height 149.9 cm (4' 11 ) 06/13/2016 9:51 AM BENZENE WASHER Body Mass Index 36.36 06/13/2016 9:51 AM BENZENE WASHER Plan of Treatment Health Maintenance Due Date Last Done Comments Colorectal Cancer Screening Colonoscopy (10 Years) 1950 Hepatitis C 1966 DTaP, Tdap and Td Vaccines ( 1 - Tdap) 10/13/1967 03/20/2018, 09/07/2013 Pneumococcal Vaccine: 50+ Years (1 of 1 - PCV) 1998 03/20/2018, 01/27/2018, 10/13/2015 Zoster Vaccines (1 of 2) 1998 024, 08/08/2023, 03/11/2013 Dexa Scan (General) 2013 RSV Immunization or 60+ Years (1 - 1-dose 75+ series) 10/13/2023 01/22/2023 COVID-19 Vaccine ( - 2023-2 5 season) 2023 03/25/2021, 07/31/2020, 07/05/2020 Meningococcal B Vaccine Aged Out No l onger eligible based on patient's age to complete this topic Meningococcal Vaccine Aged Out No jarocho marycruz eligible based on patient's age to complete this topic RSV Immunizations Under 20 Months Aged Out No longer eligible b ased on patient's age to complete this topic
--- OUTSIDE RECORDS SUMMARY | 2024-08-24 15:22 | XMS_ITS | CONTINUITY OF CARE DOCUMENT ---
Author Name john lopez Address Unknown Organization [facility] Address [address] [place] [address] Phone [phone] Care Team Providers Care Control Room Helper Name Role Phone Everton MULLIGAN, Juanpablo Unavailable [phone] MARY WARE MD Unavailable MARY WARE [...] Screening completed - Juanpablo Toscano MD Other half-way (current) dr ug therapy completed - Juanpablo Toscano MD Abnormal cardiovascular stre ss test completed - Juanpablo Toscano MD ENCOUNTERS Date Type Provider Location Encounter Diag nosis - In-person encounter Office Visit Juanpablo Toscano MD [facility] - In-person encounter Office Visit Juanpablo Toscano MD [facility] - In-person encounter Office Visit Juanpablo Toscano MD [facility] - In-person encounter Office Visit Juanpablo Toscano MD [facility] CAD - PCI/OS dRCA 08/2018 - In-person encounter Office Visit Juanpablo Toscano MD [facility] - In-person encounter Office Visit Juanpablo Toscano MD [facility] - In-person encounter Office Visit Juanpablo Toscano MD [facility] - In-person encounter Office Visit Juanpablo Toscano MD [facility] - In-person encounter Office Visit Juanpablo Toscano MD [facility] Abnormal cardiovascular stress test - In-person encounter Office Visit Juanpablo Toscano MD [facility] Diastolic dysfunctionScreeningOther half-way (current) drug therapy - In-person encounter Office Visit Nazario Collier MD [facility] Shortness of breath - In-person encounter Office Visit Nazario Collier MD [facility] Shortness of breathOrthopneaAbnormal EKGPreoperative cardiovascular examinationCOPDcovid 19;pos iggVitamin D deficiencyLung nodule - In-person encounter Office Visit Nazario Collier MD [facility] - In-person encounter Office Visit Juanpablo Toscano MD [facility] ClaudicationPVD - In-person encounter Office Visit Juanpablo Toscano MD [facility] - In-person encounter Office Visit Juanpablo Toscano MD [facility] Diabetes mellitusHypercholesterolemiaTobacco use quitSleep apnea - [...] Toscano MD blood pressure, cuff size large Or lenore Hernandez blood pressure, diastolic 70 mm[Hg] Perla grover Hernandez blood pressure, systolic 136 mm[Hg] [facility] marty David oxygen saturation, oximetry 96 % Yanet Hernandez pulse rate 90 /min Yanet de luna respiratory rate E&M 16 /min Juana Hernnadez weight E&M 170 [lb_av] Yanet de luna height E&M 60 [in_i] Yanet de luna Body Mass Index (Ratio) 33.20 kg/m2 Chasidy Toscano MD blood pressure, cuff size regular Pa ris [place] blood pressure, diastolic 67 mm[Hg] Pa ris [place] blood pressure, systolic 115 mm[Hg] Par is Leland oxygen saturation, oximetry 96 % Jyoti [place] respiratory rate E&M 16 /min Jyoti H driss pulse rate 95 /min Jyoti [place] weight E&M 170 [lb_av] Jyoti [place] height E&M 60 [in_i] Jyoti [place] Body [...] Madina Diaz pulse rate 93 /min Madina aslton weight E&M 172 [lb_av] Madina alston height [...] 0-149 5 cholesterol, serum 125 mg/dL [employer] 513-241 3626/02/0 5 calcium, serum 10.8 mg/dL [facility] 8.7-10.3 High 5 carbon dioxide, venous blood 23 mmol/L [employer] 20-29 5 chloride, serum 97 mmol/L [employer] 96-106 5 potassium, serum 4.6 mmol/L [employer] 3.5-5.2 5 sodium, serum 140 mmol/L [employer] 091-408 2489/02/0 5 urea nitrogen/creatinine ratio, serum 21 [employer] [...] iron binding capacity, unsaturated 335 ug/dL [facility] 862-166 7493/01/1 4 iron binding capacity, total 378 ug/dL [facility] 803-882 4594/01/1 4 lipoprotein, beta, serum, point, quantitative, calculated 51 mg/dL [facility] 0-99 4 HDL cholesterol, serum 32 mg/dL [facility] >39 Low 4 triglyceride, serum, random 286 mg/dL [facility] 0-149 High 4 cholesterol, serum 127 mg/dL [facility] 237-476 4230/01/1 4 basophil count, absolute 0.1 x10E3/uL [facility] [...] Estab. 4 platelet count 390 X10E3/UL [facility] 751-680 5359/01/1 4 red blood cell distribution width 13.3 [...] 3.5-5.2 4 sodium, serum 142 mmol/L [employer] 717-550 5543/01/1 4 urea nitrogen/creatinine ratio, serum 18 [employer] [...] High 1 cholesterol, serum 167 mg/dL [facility] 440-605 4605/08/2 1 alanine aminotransferase (SGPT), serum 14 1/L [...] 3.5-5.2 1 sodium, serum 135 mmol/L [employer] 129-336 9550/08/2 1 urea nitrogen/creatinine ratio, serum 21 [employer] [...] Estab. 1 platelet count 448 X10E3/UL [employer] 137-018 2894/08/2 1 red blood cell distribution width 13.7 [...] 1 TABLET BY MOUTH TWICE [facility] XARELTO 2.5 MG TABLET completed TAKE [...] completed 2 capsules by mouth twice daily [employer] Coupon Code: BIN# [id number], PCN# CN, GRP# [id number], ID# [id number] - Juanpablo Toscano MD Farxiga 10 mg tablet completed Take 1 tablet by mouth once a day - Tereza Walteriz VASCEPA 1 GM ORAL CAPSULE completed 2 capsules by mouth twice daily [employer] Coupon Code: BIN# [id number], PCN# CN, GRP# ECVASCEPA, ID# [id number] - Nazario Collier MD Xarelto 2.5 mg [...] tablet active 3 once a day Rocio [place] metformin 500 mg tablet active 2 twice a day Rocio [place] cholecalciferol (vitamin D3) 25 mcg (1,000 unit) capsule active Take 1 tablet once a day Amanda Davis gabapentin 300 mg capsule active Take 1 capsule three times a day Amanda Davis alendronate 70 mg tablet active Take 1 tablet once a week Amanda Davis Anoro Ellipta 62.5-25 mcg/actuation blister with device [...] Value Provider smoking, year quit 2003 [facility], tot al pack/day 3 Nicol[facility] cigarette use yes Nicolás [facility] smoking status Former smoker [facility] smoking, year quit 2003 [facility] smoking [facility], tot al pack/day 3 Nicolás [...] Angina (inactive) Management Plan continue current therapy Nioclás Wong HRA, CV Assess/Plan, Angina (inactive) Management [...] Payer name Policy type / Coverage type [place] red republican ID UHC COMPLETE CARE [id number] (PPO C-SNP) Revl insurance [employer] [id number] [facility] Medicaid 1 [id number] ADVANCE DIRECTIVES Name Date DISCUSSED - NO DECISION MADE TREATMENT PLAN Date Name Performer [id number],S, H er updated medication list for this problem includes: Icosapent Ethyl 1 Gram Capsule (Icosapent ethyl) ..... Take 2 capsules by mouth twice daily Atorvastatin 40 Mg Tablet (Atorvastatin) ..... Take 1 tablet by mouth once a day Juanpablo Toscano MD [id number],S, T he patient is using CPAP on a regular basis. The patient has been benefiting from therapy and should continue use. Juanpablo Toscano MD [id number],S, Juanpablo Galarza ra, [place] [id number],S, B P today: 124/60 P rior BP: 122/70 (08/27/2022) H er updated medication list for this problem includes: Lisinopril 20 Mg Tablet (Lisinopril) ..... Take 1 tablet by mouth once a day Aspirin 81 Mg Tablet,delayed Release (dr/ec) (Aspirin) ..... Take 1 tablet by mouth once a day Juanpablo Toscano MD [id number],B, Juanpablo Galarza ra, MD [id number],S, Juanpablo Galarza ra, MD [id number],S, H er updated medication list for this problem includes: Lisinopril 20 Mg Tablet (Lisinopril) ..... Take 1 tablet by mouth once a day Aspirin 81 Mg Tablet,delayed Release (dr/ec) (Aspirin) ..... Take 1 tablet by mouth once a day Juanpablo Toscano MD [id number],S, Juanpablo Galarza ra, MD [id number],S, Juanpablo Galarza ra, MD [id number],S, Juanpablo Galarza ra, [place] [id number],S, Juanpablo Galarza ra, MD [id number],S, H er updated medication list for this problem includes: Atorvastatin 40 Mg Tablet (Atorvastatin) ..... Take 1 tablet by mouth once a day Icosapent Ethyl 1 Gram Capsule (Icosapent ethyl) ..... Take 2 capsule by mouth twice a day Juanpablo Toscano MD [id number],S, T he patient is using CPAP on a regular basis. The patient has been benefiting from therapy and should continue use. Juanpablo Toscano MD [id number],S, B P today: 122/70 P rior BP: 120/-1 (02/26/2022) Her updated medication list for this problem includes: Lisinopril 20 Mg Tablet (Lisinopril) ..... Take 1 tablet by mouth once a day Aspirin 81 Mg Tablet,delayed Release (dr/ec) (Aspirin) ..... Take 1 tablet by mouth once a day Juanpablo Toscano MD [id number],S, H er updated medication list for this problem includes: Lisinopril 20 Mg Tablet (Lisinopril) ..... Take 1 tablet by mouth once a day Aspirin 81 Mg Tablet,delayed Release (dr/ec) (Aspirin) ..... Take 1 tablet by mouth once a day Juanpablo Toscano MD [id number],W, Juanpablo Galarza ra, MD [id number],S, Juanpablo Galraza ra, MD [id number],S, H er updated medication list for this problem includes: Icosapent Ethyl 1 Gram Capsule (Icosapent ethyl) ..... Take 2 capsules by mouth twice daily Atorvastatin 40 Mg Tablet (Atorvastatin) ..... Take 1 tablet by mouth once a day Juanpablo Toscano MD [id number],S, H er updated medication list for this problem includes: Lisinopril 20 Mg Tablet (Lisinopril) ..... Take 1 tablet by mouth once a day Aspirin 81 Mg Tablet,delayed Release (dr/ec) (Aspirin) ..... Take 1 tablet by mouth once a day Juanpablo Toscano MD [id number],S, H er updated medication list for this problem includes: Lisinopril 20 Mg Tablet (Lisinopril) ..... Take 1 tablet by mouth once a day Aspirin 81 Mg Tablet,delayed Release (dr/ec) (Aspirin) ..... Take 1 tablet by mouth once a day BP today: 120/61 P rior BP: 136/70 (11/27/2021) Juanpablo Toscano MD [id number],S, H er updated medication list for this [...] 2 twice a day Juanpablo Toscano MD [id number],S, H er updated medication list for this problem includes: Ventolin Hfa 90 Mcg/actuation Hfa Aerosol Inhaler (Albuterol sulfate) ..... As directed Anoro Ellipta 62.5-25 Mcg/actuation Blister With Device (Umeclidinium-vilanterol) ..... Take 1 puff once a day Juanpablo Toscano MD [id number],SJuanpablo ra, MD [id number],S, H er updated medication list for this [...] 2 twice a day Juanpablo Toscano MD [id number],SJuanpablo ra, MD [id number],S, B P today: 136/70 P rior BP: 115/67 (06/05/2021) Her updated medication list for this problem includes: Lisinopril 20 Mg Tablet (Lisinopril) ..... Take 1 tablet by mouth once a day Aspirin 81 Mg Tablet,delayed Release (dr/ec) (Aspirin) ..... Take 1 tablet by mouth once a day Juanpablo Toscano MD [id number],S, H er updated medication list for this problem includes: Lisinopril 20 Mg Tablet (Lisinopril) ..... Take 1 tablet by mouth once a day Aspirin 81 Mg Tablet,delayed Release (dr/ec) (Aspirin) ..... Take 1 tablet by mouth once a day Juanpablo Toscano MD [id number],S, H er updated medication list for this problem includes: Icosapent Ethyl 1 Gram Capsule (Icosapent ethyl) ..... Take 2 capsules by mouth twice daily Atorvastatin 40 Mg Tablet (Atorvastatin) ..... Take 1 tablet by mouth once a day Juanpablo Toscano MD [id number],S, T he patient is using CPAP on a regular basis. The patient has been benefiting from therapy and should continue use. Juanpablo oTscano MD [id number],S, H er updated medication list for this [...] 2 twice a day Juanpablo Toscano MD [id number],S, H er updated medication list for this problem includes: Atorvastatin 40 Mg Tablet (Atorvastatin) ..... Take 1 tablet once a day Vascepa 1 Gram Capsule (Icosapent ethyl) ..... Take 2 capsule by mouth twice a day Juanpablo Toscano MD [id number],S, Juanpablo Galarza ra, MD [id number],B, H er updated medication list for this problem includes: Lisinopril 20 Mg Tablet (Lisinopril) ..... Take 1 tablet by mouth once a day Aspirin 81 Mg Tablet,delayed Release (dr/ec) (Aspirin) ..... Take 1 tablet by mouth once a day BP today: 115/67 P rior BP: 138/70 (02/27/2021) Labs Reviewed: C reat: 0.81 (05/27/2020) C hol: 125 (05/27/2020) HDL: 40 (05/27/2020) Juanpablo Toscano MD [id number],S, H er updated medication list for this problem includes: Synthroid 150 Mcg Tablet (Levothyroxine) ..... 1 tablet once a day Juanpablo Toscano MD [id number],S, H er updated medication list for this problem includes: Lisinopril 20 Mg Tablet (Lisinopril) ..... Take 1 tablet by mouth once a day Aspirin 81 Mg Tablet,delayed Release (dr/ec) (Aspirin) ..... Take 1 tablet by mouth once a day Juanpablo Toscano MD [id number],S, Juanpablo Galarza ra, MD [id number],S, Juanpablo Galarza ra, MD [id number],B, H er updated medication list for this problem includes: Lisinopril 20 Mg Tablet (Lisinopril) ..... Take 1 tablet by mouth once a day Aspirin 81 Mg Tablet,delayed Release (dr/ec) (Aspirin) ..... Take 1 tablet by mouth once a day Juanpablo Toscano MD [id number],S, T he following medications were removed from the medication list: Lisinopril 2.5 Mg Tablet (Lisinopril) ..... Take 1 tablet once a day Her updated medication list for this problem includes: Lisinopril 2.5 Mg Tablet (Lisinopril) ..... Take 1 tablet once a day Aspirin 81 Mg Tablet,delayed Release (dr/ec) (Aspirin) ..... Take 1 tablet by mouth once a day Nicolás Wong [id number],S, H er updated medication list for this problem includes: Ventolin Hfa 90 Mcg/actuation Hfa Aerosol Inhaler (Albuterol sulfate) ..... As directed Anoro Ellipta 62.5-25 Mcg/actuation Blister With Device (Umeclidinium-vilanterol) ..... Take 1 puff once a day Nicolás Wong [id number],S, H er updated medication list for this problem includes: Lisinopril 2.5 Mg Tablet (Lisinopril) ..... Take 1 tablet once a day Aspirin 81 Mg Tablet,delayed Release (dr/ec) (Aspirin) ..... Take 1 tablet by mouth once a day BP today: 138/70 P rior BP: 134/70 (07/25/2020) Nicolás Hall [id number],S, Nicolás [facility] [id number],S, T he following medications were removed from the medication list: Lisinopril 2.5 Mg Tablet (Lisinopril) ..... Take 1 tablet once a day Her updated medication list for this problem includes: Lisinopril 2.5 Mg Tablet (Lisinopril) ..... Take 1 tablet once a day Aspirin 81 Mg Tablet,delayed Release (dr/ec) (Aspirin) ..... Take 1 tablet by mouth once a day Nicolás Hall [id number],S, Nicolás [facility] Cardiology:This visi t has been a part of the consistent, comprehensive, and ongoing management of the chronic medical condition(s) listed above for the patient. Her updated medication list for this problem includes: Atorvastatin 40 Mg Tablet (Atorvastatin) ..... Take 1 tablet by mouth every day Icosapent Ethyl 1 Gram Capsule (Icosapent ethyl) ..... Take 2 capsules by mouth twice daily Nicolás [facility] Cardiology: B P today: 124/70 P rior [...] tablet by mouth once a day Nicolás [facility] Cardiology Nicolás [facility] Cardiology:This visi t has been a part of the consistent, comprehensive, and ongoing management of the chronic medical condition(s) listed above for the patient. Her updated medication list for this problem includes: Atorvastatin 40 Mg Tablet (Atorvastatin) ..... Take 1 tablet by mouth every day Icosapent Ethyl 1 Gram Capsule (Icosapent ethyl) ..... Take 2 capsules by mouth twice daily [facility] Cardiology [facility] Cardiology:This visi t has been a part of the consistent, comprehensive, and ongoing management of the chronic medical condition(s) listed above for the patient. Her updated medication list for this problem includes: Lisinopril 20 Mg Tablet (Lisinopril) ..... Take 1 tablet by mouth once a day Aspirin 81 Mg Tablet,delayed Release (dr/ec) (Aspirin) ..... Take 1 tablet by mouth once a day [facility] Cardiology [facility] Cardiology [facility] Cardiology: H er updated medication list for [...] Tablet (Metformin) ..... 2 twice a day [facility] Cardiology: H er updated medication list for this problem includes: Atorvastatin 40 Mg Tablet (Atorvastatin) ..... Take 1 tablet by mouth every day Icosapent Ethyl 1 Gram Capsule (Icosapent ethyl) ..... Take 2 capsules by mouth twice daily [facility] Cardiology [facility] Cardiology [facility] Cardiology: B P today: 118/66 P rior [...] mouth twice daily universal coupon code: bin# [id number], pcn# cn, grp# [email or web address], id# [id number] Atorvastatin Calcium 40 Mg Oral Tablet (Atorvastatin [...] mouth twice daily universal coupon code: bin# [id number], pcn# cn, grp# [email or web address], id# [id number] Atorvastatin Calcium 40 Mg Oral Tablet (Atorvastatin calcium) ..... 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 Unlikely the cause of leg pain. Advised [...] scheduled for PFT's and to see a sap fico business analyst. Recent chest CT showed coronary artery calcifications. [...] PANEL Carotid Duplex Bilat eral DLCO - 31744 FRC - 52284 FVC - 66470 DLCO - 12084 FRC - 10453 FVC - 13840 Carotid Duplex Bilat eral Stress Regadenoson PROTHROMBIN [...] ed FVC / MVV with bronchodilator - 13150 Juanpablo Toscano MD completed FRC - 79884 Juanpablo Toscano MD comple heather SpO2 w/o 6min walk/titration Juanpablo Toscano MD completed SVC - 08664 Juanpablo Toscano MD comple heather DLCO - 81149 Juanpablo Toscano MD compl eted Counseling LDCT Nazario Collier MD com pleted FVC / MVV with bronchodilator - 88894 Nazario Collier MD completed BLOOD COUNT HEMOGLOBIN Nazario Collier MD completed FRC - 39865 Nazario Collier MD complet ed SpO2 w/o 6min walk/titration Nazario Collire MD completed DLCO - 68706 Nazario Collier MD comple heather EKG Nazario [...]
--- OUTSIDE RECORDS SUMMARY | 2024-08-24 15:22 | XMS_ITS | Clinical Summary ---
Author Organization [facility] Address [address] [place] [address] Care Team Providers Care Electrician Chief Name Role Phone Ashleigh Carroll MD Primary [...] tablet (10 mg total) by mouth daily 020 Active dihydroergotam ine (MIGRANAL) 0.5 mg/pump act. [...] day Active vitamins A and D capsule Active Alcohol Pads pads, medicated TEST 2 [...] 5/16 needle USE WITH TRESIBA ONCE DAILY Active pen needle, diabetic 31 gauge x 3/16 needle BD Ultra-Fine Mini Pen Needle 31 gauge x 3/16 Active True Comfort Safety Pen Needle 32 gauge x 5/32 needle USE TO INJECT ONCE DAILY Active solifenacin (VESIcare) 5 mg tablet Take [...] AT 5PM) *NEW PRESCRIPTION REQUEST* 180 tablet 025 Active azithromycin (ZITHROMAX) 250 mg tablet [...] daily. Assessment & Plan (05/11/2024 12:57 PM ACCOUNTING ADVISORY SERVICES MANAGER): Chronic problem. Controlled on current lisinopril 10mg [...] 2gm bid Last lipid panel: 01/20/24 LDL=51, HA=487. Assessment & Plan (05/11/2024 12:57 PM ACCOUNTING ADVISORY SERVICES MANAGER): Chronic problem. Currently taking Atorvastatin 40mg & vascepa 2gm bid Last lipid panel: 01/20/24 LDL=51, TC=850. Assessment & Plan (01/20/2024 3:11 PM CDT): [...] eye exam JENNIFER fall 2022; 02/2024 appt [facility] in [place] on [address] 2nd request letter sent to get [...] infection. Assessment & Plan (05/11/2024 1:57 PM ACCOUNTING ADVISORY SERVICES MANAGER): Chronic problem. A1c uncontrolled & greatly worsened [...] eye exam JENNIFER fall 2022; 02/2024 appt [facility] in [place] on [address] Letter sent to get copy of [...] eye exam JENNIFER fall 2022; 02/2024 appt [facility] in [place] on [address] Letter sent to get copy of [...] barefoot. Assessment & Plan (05/11/2024 12:57 PM ACCOUNTING ADVISORY SERVICES MANAGER): Chronic problem. Currently taking Lyrica 150mg qhs. [...] medications. Assessment & Plan (05/11/2024 12:58 PM ACCOUNTING ADVISORY SERVICES MANAGER): Chronic problem. Currently taking levothyroxine 150 mcg [...] Obesity 07/21/2018 Coronary artery disease invo lving [place] coronary artery of [place] heart without angina pectoris 07/14/2018 Resolved Problems [...] Type Department Care Team Description 07/15/2024 Telephone [facility] [address] [address] Patito Oglesby NP 07/14/2024 3:00 PM CDT Office Visit [facility] Diabetes and Endocrinology [address] [place] [address] Patito Oglesby NP Type 2 diabetes mellitus with hyperglycemia, with long-term current use of insulin (HCC) (Primary Dx); Hypertension associated with type 2 diabetes mellitus (HCC); Hyperlipidemia associated with type 2 diabetes mellitus (HCC); Diabetic polyneuropathy associated with type 2 diabetes mellitus (HCC); Hypothyroidism, unspecified type 07/09/2024 Telephone [facility] Diabetes and Endocrinology [address] [place] [address] Patito Oglesby, QUYEN Med Refill (Pregabalin ) 06/09/2024 Telephone [facility] Diabetes and Endocrinology [address] [place] [phone] Patito Oglesby, QUYEN Med Management (SelectRx) 06/02/2024 Telephone [facility] Diabetes and Endocrinology [address] [place] [phone] Patito Oglesby, QUYEN Select Rx new Rx request from Last [...] on file Legal Sex Female 9:38 AM ACCOUNTING ADVISORY SERVICES MANAGER Gender Identity Not on file Sexual Orientation Not on file 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 Start 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 Not on file Not o n file Not on file Obstetrics History Last Filed Vital Signs Vital Sign Reading Time Taken Comments Blood Pressure 118/60 07/14/2024 3:14 PM CDT Pulse 80 07/14/2024 3:14 PM CDT Temperature 37 C (98.6 F) 05/11/2024 2:47 PM ACCOUNTING ADVISORY SERVICES MANAGER Respiratory Rate 18 07/14/2024 3:14 PM CDT Oxygen Saturation 97% 05/11/2024 2:47 PM ACCOUNTING ADVISORY SERVICES MANAGER Inhaled Oxygen Concentration - - Weight 76.2 [...] hemoglobin A1c (07/14/2024 3:18 PM CDT) Pathologist [facility] Hemoglobin A1C, POC 8.2 4.0 - 5.6 % Blood 07/14/2024 3:18 PM CDT us Patito Oglesby REGIONAL EDUCATION COORDINATOR POINT OF CARE TEST ORDERA BLES Final Result * (ABNORMAL) POCT glucose (07/14/2024 3:18 PM CDT) Pathologist [facility] Glucose Blood, POC 184 mg/dL Blood 07/14/2024 [...] CDT 01/20/2024 9:28 PM CDT Patito Oglesby REGIONAL EDUCATION COORDINATOR LAB BLOOD ORDERABLES Yennifer l Result Performing Organization Address [facility] Co de Phone Number MAIDA CONTRERAS [address] [place] [address] * Albumin Creatinine Ratio, Urine (01/20/2024 12:00 PM CDT) Albumin Ur 20.1 mg/L Comment: Interpretive Data No reference range established. Current interpretive data was last revised 2018. Creatinine Ur 83.1 mg/dL [facility] Comment: Interpretive Data No reference range established. Current interpretive data was last revised 2018. Albumin Creatinine Ratio, Ur 24 1 - 29 mg/g [facility] Urine 01/20/2024 12:0 0 PM CDT 01/20/2024 9:21 PM CDT Patito Oglesby REGIONAL EDUCATION COORDINATOR LAB URINE ORDERABLES Yennifer l Result Performing Organization Address [facility] Co de Phone Number GRADYATTILA [address] [place] [address] * (ABNORMAL) Lipid panel (01/20/2024 12:00 PM [...] mg/dL High: >160 mg/dL Calculated using the Cueva LDL-C estimating equation. This equation was implemented [...] revised on 2017. Chol/HDL ratio 4 MAIDA Blood 01/20/2024 12:0 0 PM CDT 01/20/2024 9:21 PM CDT us Patito Oglesby NP LAB BLOOD ORDERABLES Yennifer mcpherson Result MAIDA [id number] [place] [address] from Last 3 Months or Most Recently Relevant to Health Maintenance Insurance [employer] CHOICE MEDICARE PPO IDPA IDPA Care Teams Electrician Chief Relationship Specialty Start Date End Date Ashleigh Carroll MD PCP - General Internal Medicine 07/14/18
== END 2024-08-24 14:43 | disposition home or self-care (01) ==
PROVIDERS: PCP Internal Medicine; Visit Provider Internal Medicine
DX: S22.070A Wedge compression fracture of T9-T10 vertebra, initial encounter for closed fracture (principal); S22.080A Wedge compression fracture of T11-T12 vertebra, initial encounter for closed fracture; X58.XXXA Exposure to other specified factors, initial encounter
CPT/HCPCS: 72146

== ENCOUNTER 2024-12-01 15:09 | Outpatient (CLI) | payer MEDICARE, MEDICAID, SELFPAY ==
--- OUTSIDE RECORDS SUMMARY | 2024-12-01 15:30 | XMS_ITS | Clinical Summary ---
Author Organization [facility] Kristen alston [facility] Address [address] [place] [address] Care Team Providers Care Painter Airbrush Name Role Phone Mckenna Carroll MD Primary [...] Take 60 mg by mouth daily. Active SYNTHROID 150 mcg tablet Take 1 Tablet (150 mcg) by mouth daily chartered accountant. 60 Tablet 2 01/30/20 19 Active lancets (ACCU-CHEK SOFTCLIX LANCETS) Accu-Chek Softclix Lancets Active aspirin 1 mg/mL Suspension aspirin low dose 81mg ec Active alcohol (BD Single Use Swabs Regular) Pads, Medicated BD Alcohol Swabs Act nettie Insulin [place], Disposable, (BD ULTRA-FINE MINI PEN NEEDLE) 31 gauge x 3/16 Needle BD Ultra-Fine Mini Pen Needle 31 gauge x 3/16 Active gum/pva/dental adhesive (SUPER DENTURE ADHESIVE DT) 01/21/20 Active denture cleanser (EFFERVESCENT DENTURE CLEANSR DT) 01/21/20 19 Active loratadine 10 mg Capsule loratadine 10mg Act nettie Carboxymethylc ellulose Sodium (LUBRICANT EYE DROPS) 0.25 % solution lubricant eye drops as needed Active metFORMIN (GLUCOPHAGE XR) 500 mg Extended Release 24 hour tablet metformin ER 500 mg tablet,extended release 24 hr Active Vitamins A & D Capsule 01/21/20 19 Active Blood-Glucose Meter (TRUE METRIX AIR GLUCOSE [...] GLUCOSE TEST STRIP Strip 08/10/19 20 Active traMADoL (ULTRAM) 50 mg tablet 12/02/19 20 [...] Dihydroergotam ine 0.5 mg/pump act. (4 mg/mL) [place], Non-Aerosol dihydroergotamine 0.5 mg/pump act. (4 mg/mL) nasal spray Active docusate calcium (Stool Softener, docusate autumn,) 240 mg capsule [employer] STOOL SOFTENER CAPSULE 07/22/19 19 Active fluticasone propionate (FLONASE) 50 mcg/spray [place], Suspension nasal inhaler fluticasone propionate 50 mcg/actuation [...] 23 Active Dexcom G7 Sensor Device PER RAG CUTTING MACHINE FEEDER INSTRUCTIONS, CHANGE SENSOR EVERY 10 DAYS 06/11/19 24 Active ferrous sulfate 325 mg (65 mg iron) tablet Take 1 Tablet (325 mg) by mouth 3 times daily. 270 Tablet 1 10/20/19 25 Active Active Problems Problem Noted Date Diagnosed Date Iron deficiency anemia 03/03/2019 Encounters Date Type Department Care Team Description 12/01/2024 Orders Only [facility] Oncology and Hematology - [place] [address] [place] [address] César Giraldo MD 11/30/2024 Orders Only [facility] Oncology and Hematology - [place] [address] [place] [address] César Giraldo MD 11/27/2024 Orders Only [facility] Oncology and Hematology - [place] [address] [place] [address] César Giraldo MD 11/27/2024 Telephone [facility] Oncology and Hematology [place] [address] [place] [address] César Giraldo MD labs for appt 11/04/2024 External Device Data STL ABSTRACTION Provider, Abstract 11/03/2024 External Device Data STL ABSTRACTION Provider, Abstract 10/19/2024 Refill [facility] Oncology and Hematology - [place] [address] [place] [address] César Giraldo MD 10/13/2024 External Device Data STL ABSTRACTION Provider, Abstract 10/06/2024 External Device Data STL ABSTRACTION Provider, Abstract 09/15/2024 External Device Data STL ABSTRACTION Provider, Abstract 09/10/2024 External Device Data STL ABSTRACTION Provider, Abstract 09/09/2024 External Device Data STL ABSTRACTION Provider, Abstract 09/08/2024 External Device Data STL ABSTRACTION Provider, Abstract [...] 11:21 AM CDT Height 154.9 cm (5' 1) 10/27/2021 8:31 AM CDT Body Mass Index 31.55 10/27/2021 8:31 AM CDT Plan of Treatment Upcoming Encounters Date Type Department Care Team (Late st Contact Info) Description 12/07/2024 2:30 PM CDT Office Visit [facility] Oncology and Hematology - [place] [address] [facility] [address] [place] [address] César Giraldo MD [address] [facility] [address] [place] [address] Health Maintenance Due Date Last Done Comments DIABETES ANNUAL FOOT EXAM 1966 DIABETES ANNUAL RETINAL EXAM 1966 DIABETES MICROALBUMIN ANNUAL SCREEN 1966 LDL CHOLESTEROL ANNUAL 09/24/2020 09/25/2019 RSV VACCINE (60+ or ) (1 - 1-dose 75+ series) 10/13/2023 COVID-19 Vaccine (2023-2 5 season) 2023 03/25/2021, 07/31/2020, 07/05/2020 DIABETES HBA1C Q 6 MONTHS 01/18/2024 07/18/2023, 05/2022 [place] ([place]) Preventative Visit/Annual Wellness Visit 04/22/2024 INFLUENZA VACCINE (#1) 2024 , 02/01/2022, 03/06/2021, Additional history exists OSTEOPOROSIS SCREENING 02/29/2028 02/28/2023, 2020 DTAP/TDAP/TD VACCINES (3 - T d or Tdap) 03/20/2028 03/20/2018, 09/07/2013 PNEUMOCOCCAL VACCINE 50+ YEARS Completed 1 05/20/2017, 01/27/2018, 10/13/2015 COLORECTAL SCREENING Discontinued 01/18/2021, 02/19/20 Colorectal Cancer Screening Discontinued ZOSTER VACCINE Completed 10/14/2023, 07/21, 03/11/2013 FIT-DNA Q 3 years Discontinued FIT/FOBT Q 1 year Discontinued Flex Sig/CT Colonography Q 5 years Discontinued Procedures Procedure Name Priority Date/Time Associated Diagnosis Comments COMPREHENSIVE METABOLIC PANEL Routine 11/27/2024 2:59 PM CDT CBC WITH DIFFERENTIAL Routine 11/27/2024 2:57 PM CDT FERRITIN Routine 11/27/2024 12:49 PM CDT COMPREHENSIVE METABOLIC PANEL Routine 11/27/2024 10:15 AM CDT LIPID PANEL Routine 09/25/2019 from Last 3 Months or Most Recently Relevant to Health Maintenance Results * COMPREHENSIVE METABOLIC PANEL (11/27/2024 2:59 PM CDT) Only the most recent of2 resultswithin the time period is included. Blood César Giraldo MD CHEMISTRY ORDERABLES Final Resu lt * CBC WITH DIFFERENTIAL (11/27/2024 2:57 PM CDT) Blood César Giraldo MD HEMATOLOGY ORDERABLES Final Res ult * FERRITIN (11/27/2024 12:49 PM CDT) Blood César Giraldo MD CHEMISTRY ORDERABLES Final Resu lt * LIPID PANEL (09/25/2019) Blood Abstract Provider CHEMISTRY ORDERABLES Edited Re sult - Final NON [facility] from Last 3 Months or Most Recently Relevant to Health Maintenance [place] [address] [place] [id number] [place] [id number] MEDICAID [place] Care Teams Painter Airbrush Relationship Specialty Start Date End Date Mckenna Carroll MD PCP - General Internal Medicine 01/12/19
--- OUTSIDE RECORDS SUMMARY | 2024-12-01 15:31 | XMS_ITS | Clinical Summary ---
Author Organization [facility] Address [address] [place] [address] Care Team Providers Care Electrical Linesworker Name Role Phone Mckenna Carroll MD Primary Care Provider [phone] Medications alendronate (FOSAMAX) 35 MG tablet Take 1 tablet (35 mg total) by mouth 1 (one) time per week 12 tablet 1 3 Active Tresiba FlexTouch 100 UNIT/ML injection INJECT 24 UNITS SUBCUTANEOUSLY AT NIGHT 30 mL 2 5 Active metFORMIN (GLUCOPHAGE) 1000 MG tablet TAKE 1 TABLET BY MOUTH IN THE MORNING AND 1 TABLET IN THE EVENING WITH MEALS 200 tablet 2 5 Active Active Problems Problem Noted Date Diagnosed Date Hypertensive chronic kidney disease, malignant, with chronic kidney disease stage I through stage IV, or unspecified 07/15/2024 Encounters Date Type Department Care Team Description 09/30/2024 Documentation Only [facility], [address] [address] Wade Bustillos DO from Last 3 Months [...] Comments Blood Pressure 110/60 05/26/2024 2:39 PM SKATESMAN Pulse 68 05/26/2024 2:39 PM SKATESMAN Temperature 36.1 C (97 F) 05/26/2024 2:39 PM SKATESMAN Respiratory Rate 18 05/26/2024 2:39 PM SKATESMAN Oxygen Saturation 97% 05/26/2024 2:39 PM SKATESMAN Inhaled Oxygen Concentration - - Weight 75.7 kg (166 lb 14.4 oz) 05/26/2024 2:39 PM SKATESMAN Height 152.4 cm (5') 04/10/2022 2:01 PM SKATESMAN Body Mass Index 32.6 04/10/2022 2:01 PM SKATESMAN Plan of Treatment Upcoming Encounters Date Type Department Care Team (Late st Contact Info) Description 01/12/2025 1:30 PM CDT Office Visit [facility], [facility] [address] [facility] [address] [place] [address] Wade Bustillos DO [address] [facility] [address] [place] [address] Health Maintenance Due Date Last Done Comments Hepatitis B Vaccine (1 of 3 - Risk 3-dose series) 2008 Diabetes: Ophthalmology Exam 09/15/2020 Diabetes: Pedal Pulse Checked 09/15/2020 Diabetes: Sensory Foot Exam 09/15/2020 Diabetes: Visual Foot Exam 09/15/2020 Influenza Vaccine (#1) 2024 4, 02/02/2020, 02/18/2019, Additional history exists Diabetes: Hemoglobin A1C 01/27/2025 072 025, 07/14/2024, 05/11/2024, Additional history exists Pneumococcal Vaccine: 50+ Years Completed 03/20/2018, 01/27/2018, 10/13/2015 Colorectal Cancer Screening: Colonoscopy Discontinued 02/18/2019 Insurance Medicaid [place] [facility] Medicare Care Teams Electrical Linesworker Relationship Specialty Start Date End Date Mckenna Carroll MD [address] [facility], [address] [place] [address] PCP - General Internal Medicine 01/24/21
--- OUTSIDE RECORDS SUMMARY | 2024-12-01 15:31 | XMS_ITS | Encounter Summary ---
Author Organization [facility] [id number] [facility] Address [address] [place] [address] Care Team Providers Care Issuing Operator Name Role Phone Mckenna Carroll MD Primary Care Provider Encounter Details Date Type Department Care Team (Late Contact Info) Description 12/01/2024 Orders Only [facility] Oncology and Hematology - [place] [address] [place] [address] César Giraldo MD [address] [place] [address] Social History Tobacco Use Types Packs/Day Years Used Date Smoking Tobacco: Never Smokeless Tobacco: Never Alcohol Use Standard Drinks/Week Comments Never 0 (1 standard drink = 0.6 oz pur e alcohol) Comments No Sex and Gender Information Value Date Recorded Sex Assigned at Not on file Legal Sex Female 11:57 AM CDT Gender Identity Not on file Sexual Orientation Not on file documented as of this encounter Plan of Treatment Upcoming Encounters Date Type Department Care Team (Late st Contact Info) Description 12/07/2024 2:30 PM CDT Office Visit [facility] Oncology and Hematology - [place] [address] [place] [address] César Giraldo MD [address] [place] [address] documented as of this encounter Procedures Procedure Name Priority Date/Time Associated Diagnosis Comments COMPREHENSIVE METABOLIC PANEL Routine 11/27/2024 10:15 AM CDT documented in this encounter Results * COMPREHENSIVE METABOLIC PANEL (11/27/2024 10:15 AM CDT) Blood César Giraldo MD CHEMISTRY ORDERABLES Final Resu lt documented in this encounter Visit Diagnoses Not on filedocumented in this encounter Care Teams Issuing Operator Relationship Specialty Start Date End Date Mckenna Carroll MD PCP - General Internal Medicine 01/12/19 documented as of this encounter
--- OUTSIDE RECORDS SUMMARY | 2024-12-01 15:31 | XMS_ITS | Encounter Summary ---
Author Organization [facility] Address [address] [place] [address] Care Team Providers Care Inside Sales Account Executive Name Role Phone Mckenna Carroll MD Primary Care Provider Encounter Details Date Type Department Care Team (Late Contact Info) Description 11/27/2024 Orders Only [facility] Oncology and Hematology - [place] [address] [place] [address] César Giraldo MD [address] [place] [address] Social History Tobacco Use Types [...] Description 12/07/2024 2:30 PM CDT Office Visit [facility] Oncology and Hematology - [place] [address] [place] [address] César Giraldo MD [address] [place] [address] documented as of this encounter Procedures Procedure Name Priority Date/Time Associated Diagnosis Comments FERRITIN Routine 11/27/2024 12:49 PM CDT documented in this encounter Results * FERRITIN (11/27/2024 12:49 PM CDT) Blood César Giraldo MD CHEMISTRY ORDERABLES Final Resu lt documented in this encounter Visit Diagnoses Not on filedocumented in this encounter Care Teams Inside Sales Account Executive Relationship Specialty Start Date End Date Mckenna Carroll MD PCP - General Internal Medicine 01/12/19 documented as of this encounter
--- OUTSIDE RECORDS SUMMARY | 2024-12-01 15:31 | XMS_ITS | Clinical Summary ---
Author Organization [facility] Address [address] [place] [address] Care Team Providers Care High School Professional Name Role Phone Unavailable Primary Care Provider [...] Comments Blood Pressure 126/64 06/13/2016 9:51 AM SALES AND PRODUCTION MANAGER Pulse 80 06/13/2016 9:51 AM SALES AND PRODUCTION MANAGER Temperature - - Respiratory Rate - - Oxygen Saturation - - Inhaled Oxygen Concentration - - Weight 81.6 kg (180 lb) 06/13/2016 9:51 AM SALES AND PRODUCTION MANAGER Height 149.9 cm (4' 11) 06/13/2016 9:51 AM SALES AND PRODUCTION MANAGER Body Mass Index 36.36 06/13/2016 9:51 AM SALES AND PRODUCTION MANAGER Plan of Treatment Upcoming Encounters Date Type Department Care Team (Late st Contact Info) Description 02/18/2025 2:00 PM CDT [facility] [address] [facility], [address] [place] [address] Amanda Barillas APRN [address] [facility] [address] [place] [address] Health Maintenance Due Date Last Done Comments Hepatitis C 1968 Dexa Scan (General) 2013 COVID-19 Vaccine (2023-2 5 season) 2023 03/25/2021, 07/31/2020, 07/05/2020 PHQ-2 (Physician Eek) 04/22/2024 DTaP, Tdap and Td Vaccines ( 3 - Td or Tdap) 03/20/2028 03/20/2018, 09/07/2013 Pneumococcal Vaccine: 50+ Years Completed 03/20/2018, 01/27/2018, 10/13/2015 RSV Immunization or 60+ Years Completed 01/22/2023 Zoster Vaccines Completed 10/14/2023, 08/08/2023, 03/11/2013 Meningococcal B Vaccine Aged Out No l onger eligible based on patient's age to complete this topic Meningococcal Vaccine Aged Out No jarocho marycruz eligible based on patient's age to complete this topic RSV Immunizations Under 20 Months Aged Out No longer eligible b ased on patient's age to complete this topic Insurance [address]
--- OUTSIDE RECORDS SUMMARY | 2024-12-01 15:31 | XMS_ITS | Clinical Summary ---
Author Organization [facility] Address [address] [facility] [place] [address] Care Team Providers Care Obstetrics/Gynecology Nurse Name Role Phone Mckenna Carroll MD Primary Care Provider Source Comments [facility],non-owned Affiliates and Associated Physician Practices is amultiple site organization consisting of ambulatory clinics and hospital sitesin [place], [place], [place] and [place]. This disclosure is being madepursuant to the Care Everywhere program and may not contain all information available regarding this patient. 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 09/10/2018 Social History Tobacco Use Types Packs/Day Years Used Date Smoking Tobacco: Former Cigarettes Smokeless Tobacco: Never Comments Unknown Sex and Gender Information Value Date Recorded Sex Assigned at Not on file Legal Sex Female 4:21 AM HEAD OF SALES AND MARKETING Gender Identity Not on file Sexual Orientation [...] Last Done Comments BONE DENSITY TESTING 1950 HEPATITIS C SCREENING 10/08/1966 DTAP/TDAP/TD VACCINES (1 - Tdap) 10/13/1967 PNEUMOCOCCAL VACCINE 50+ (1 of 1 - PCV) 1998 ZOSTER VACCINE (1 of 2) 1998 Respiratory Syncytial Virus (RSV) Vaccine Pt: or over 60 yrs (1 - 1-dose 75+ series) 10/13/2023 COVID-19 VACCINE (1 - 2023-2 5 season) 2023 DEPRESSION SCREENING 04/22/2024 INFLUENZA VACCINE (#1) 2024 HEPATITIS B VACCINE Aged Out No [...] 2:05 PM 09/11/2018 4:45 PM Care Teams Obstetrics/Gynecology Nurse Relationship Specialty Start Date End Date Mckenna Carroll MD [address] [facility] [address] [place] [address] PCP - General Internal Medicine 09/03/18
--- OUTSIDE RECORDS SUMMARY | 2024-12-01 15:31 | XMS_ITS | Encounter Summary ---
Author Organization [facility] [employer] [facility] Address [address] [place] [address] Care Team Providers Care Provisioning Specialist Name Role Phone Mckenna Carroll MD Primary Care Provider Encounter Details Date Type Department Care Team (Late Contact Info) Description 11/30/2024 Orders Only [facility] Oncology and Hematology - [address] [place] [address] César Giraldo MD [address] [place] [address] Social History Tobacco Use Types [...] Description 12/07/2024 2:30 PM CDT Office Visit [facility] Oncology and Hematology - [address] [place] [address] César Giraldo MD [address] [place] [address] documented as of this encounter Procedures Procedure Name Priority Date/Time Associated Diagnosis Comments COMPREHENSIVE METABOLIC PANEL Routine 11/27/2024 2:59 PM CDT CBC WITH DIFFERENTIAL Routine 11/27/2024 2:57 PM CDT documented in this encounter Results * COMPREHENSIVE METABOLIC PANEL (11/27/2024 2:59 PM CDT) Blood us César Giraldo MD CHEMISTRY ORDERABLES Final Resu lt * CBC WITH DIFFERENTIAL (11/27/2024 2:57 PM CDT) Blood us César Giraldo MD HEMATOLOGY ORDERABLES Final Res ult documented in this encounter Visit Diagnoses Not on filedocumented in this encounter Care Teams Provisioning Specialist Relationship Specialty Start Date End Date Mckenna Carroll MD PCP - General Internal Medicine 01/12/19 documented as of this encounter
--- OUTSIDE RECORDS SUMMARY | 2024-12-01 15:31 | XMS_ITS | Clinical Summary ---
Author Organization [facility] Address [address] [place] [id number] Care Team Providers Care Collection Development Librarian Name Role Phone Ashleigh Carroll MD Primary Care Provide r Joao Eller MD Unavailable Juanpablo Toscano MD Unavailable [phone] Itzel Dixon NP Unavailable [phone] Allergies No known active allergies Medications atorvastatin (LIPITOR) 40 mg tablet atorvastatin 40 mg tablet take one tablet by mouth once a day Active DULoxetine DR (CYMBALTA) 60 mg capsule duloxetine 60 mg capsule,delayed release take one capsule by mouth once a day Active cholecalciferol (VITAMIN D3) 5,000 unit tablet vitamin d 5000 iu Ac tive acetaminophen 500 mg capsule acetaminophen 500 mg Active docusate sodium (COLACE) 100 mg capsule Active alendronate (FOSAMAX) 70 mg tablet alendronate 70 mg tablet take one tablet by mouth once a week Active albuterol HFA (VENTOLIN HFA) 90 mcg/actuation inhaler every 4 hours Active ferrous sulfate 325 mg (65 mg of elemental iron) tabletIndicatio ns:Iron Deficiency Anemia Take 1 tablet (325 mg total) by mouth daily with breakfast Active Farxiga 10 mg tablet Take 1 tablet (10 mg total) by mouth daily 0 Active dihydroergotami ne (MIGRANAL) 0.5 mg/pump act. (4 mg/mL) nasal spray Active TRESIBA 200 unit/mL (3 mL) pen for injection Inject 0.17 mL (34 Units total) under the skin every evening 3 Active insulin degludec (TRESIBA) 100 unit/mL (3 mL) pen for injection Inject 0.34 mL (34 Units total) under the skin every evening 0 Active Xarelto 2.5 mg tablet Take 1 tablet (2.5 mg total) by mouth 2 (two) times a day 0 Active aspirin 81 mg enteric coated tablet 0 Active OneTouch Ultra Test strip Active OneTouch Ultra2 Meter misc as directed Active carboxymethylce llulose sodium (THERATEARS) 0.25 % ophthalmic solution Active Safety Lancets 28 gauge misc TEST 2 TIMES A DAY Active lancing device misc 0 Active mirabegron ER (Myrbetriq) 50 mg tablet extended release 24 hr Take 1 tablet (50 mg total) by mouth every morning Active BD Ultra-Fine Short Pen Needle 31 gauge x 5/16 needle USE WITH TRESIBA ONCE DAILY 3 Active pen needle, diabetic 31 gauge x 3/16 needle BD Ultra-Fine Mini Pen Needle 31 gauge x 3/16 Active True Comfort Safety Pen Needle 32 gauge x 5/32 needle USE TO INJECT ONCE DAILY 4 Active solifenacin (VESIcare) 5 mg tablet Take 1 tablet (5 mg total) by mouth daily Active albuterol HFA (PROVENTIL HFA,VENTOLIN HFA,PROAIR HFA) 90 mcg/actuation inhaler Inhale 2 puffs every 4 (four) hours as needed Active glipiZIDE (GLUCOTROL) 5 mg tabletIndicatio ns:Type 2 diabetes mellitus with hyperglycemia, with long-term current use of insulin (HCC) TAKE ONE (1) TABLET BY MOUTH TWICE DAILY (BEFORE BREAKFAST AT 9AM & LUNCH AT NOON) *NEW PRESCRIPTION REQUEST* 180 tablet 10 5 Active Vascepa 1 gram capsule TAKE TWO (2) CAPSULES BY MOUTH TWICE DAILY *NEW PRESCRIPTION REQUEST* 360 capsule 5 Active metFORMIN XR (GLUCOPHAGE XR) 500 mg 24 hr tabletIndicatio ns:Type 2 diabetes mellitus with hyperglycemia, with long-term current use of insulin (HCC) TAKE ONE (1) TABLET BY MOUTH TWICE DAILY (AFTER BREAKFAST @ 9AM & DINNER AT 5PM) *NEW PRESCRIPTION REQUEST* 180 tablet 10 5 Active lisinopriL (PRINIVIL,ZESTR IL) 20 mg tablet TAKE ONE TABLET BY MOUTH IN THE MORNING DAILY AT 9 AM 5 Active pregabalin (LYRICA) 150 mg capsule Take 1 capsule (150 mg total) by mouth nightly 90 capsule 2 5 Active levothyroxine (SYNTHROID) 150 mcg tabletIndicatio ns:Hypothyroidi sm, unspecified type Take 1 tablet (150 mcg total) by mouth 6 (six) times a week 72 tablet 1 5 026 Active semaglutide (OZEMPIC) 1 mg/dose (4 mg/3 mL) pen injector injectionIndica tions:type 2 diabetes mellitus Inject 1 mg under the skin once a week 9 mL 3 5 026 Active blood-glucose sensor (Dexcom G7 Sensor) deviceIndicatio ns:Type 2 diabetes mellitus with hyperglycemia, with long-term current use of insulin (HCC) CHANGE SENSOR EVERY 10 DAYS *NEW PRESCRIPTION REQUEST* 9 each 5 Active alcohol swabs (Alcohol Prep Pads) pads, medicated USE 1 PAD TOPICALLY UP TO THREE TIMES A DAY WHILE INJECTING INSULIN AND TESTING BLOOD SUGARS *NEW PRESCRIPTION REQUEST* 100 each 5 Active ammonium lactate (LAC-HYDRIN) 12 % lotion (12 %) Active clopidogreL (PLAVIX) 75 mg tablet Take by mouth Active cyanocobalamin (Vitamin B-12) 1,000 mcg tablet Take by mouth Active cyclobenzaprine (FLEXERIL) 10 mg tablet TAKE 1 TABLET BY MOUTH EVERY DAY NEEDED FOR 15 DAYS 5 Active econazole nitrate 1 % cream (1 %) Active hydrOXYzine (ATARAX) 25 mg tablet Take by mouth 4 times daily Active Synvisc-One 48 mg/6 mL syringe Acti ve loratadine (CLARITIN) 10 mg tablet Take by mouth daily Active simvastatin (Zocor) 80 mg tablet Take by mouth daily Active traMADoL (ULTRAM) 50 mg tablet Take by mouth Active aspirin 81 mg chewable tablet CHEW ONE TABLET BY MOUTH DAILY AT 9 AM 5 Active atorvastatin (LIPITOR) 80 mg tablet 5 Active OneTouch Delica Plus Lancet 30 gauge misc USE TO TEST BLOOD GLUCOSE TWICE A DAY 5 Active Active Problems Problem Noted Date Diagnosed Date Thoracic compression fracture, closed, initial e ncounter 09/23/2024 Compression fracture of T9 vertebra 09/23/2024 Age-related osteoporosis wit h current pathological fracture with routine healing 09/23/2024 Hypertension associated with type 2 diabetes doroteo litus 01/20/2024 Assessment & Plan (10/27/2024 1:49 PM CDT): Chronic problem. Controlled on current lisinopril 20mg daily. Will update labs. Does not mychart. Verified phone #/address to contact re: results. Assessment & Plan (07/14/2024 3:24 PM CDT): Chronic problem. Controlled on current lisinopril 20mg daily. Assessment & Plan (05/11/2024 12:57 PM BUTTON CLAMPER): Chronic problem. Controlled on current lisinopril 10mg daily. Assessment & Plan (01/20/2024 3:10 PM CDT): Chronic problem. Controlled on current lisinopril 10mg daily. Will update labs today. Does not mychart. Verified phone #/address to contact re: results. Hyperlipidemia associated with type 2 diabetes elisha hong 01/20/2024 Assessment & Plan (10/27/2024 1:48 PM CDT): Chronic problem. Currently taking Atorvastatin 80mg & vascepa 2gm bid Last lipid panel: 01/20/24 LDL=51, XX=646. Will update labs. Does not mychart. Verified phone #/address to contact re: results. Assessment & Plan (07/14/2024 3:24 PM CDT): Chronic problem. Currently taking Atorvastatin 80mg & vascepa 2gm bid Last lipid panel: 01/20/24 LDL=51, FX=466. Assessment & Plan (05/11/2024 12:57 PM BUTTON CLAMPER): Chronic problem. Currently taking Atorvastatin 40mg & vascepa 2gm bid Last lipid panel: 01/20/24 LDL=51, RX=330. Assessment & Plan (01/20/2024 3:11 PM CDT): Chronic problem. Currently taking Atorvastatin 40mg & vascepa 2gm bid No lipid panel on file. Will update labs today. Does not mychart. Verified phone #/address to contact re: results. Type 2 diabetes mellitus wit h hyperglycemia, with long-term current use of insulin 07/18/2023 Assessment & Plan (10/27/2024 2:05 PM CDT): Chronic problem. A1c at goal & improved from 8.2% 07/14/24 to now 6.7%. No changes at this time. Discussed diet, need to continue to watch closely (had been off diet for 2-3 weeks). Blood sugars have been up lately when compared to A1c. Current medications: Metformin XR 1000mg twice daily with meals (increased by Dr Bustillos renal) Glipizide 5mg twice daily with meals Farxiga 10mg daily Bydureon 2mg weekly, will switch to Ozempic 1mg weekly when Bydureon out Tresiba 32 units daily Will update labs. Does not mychart. Verified phone #/address to contact re: results. DM eye exam 02/20[facility] [place] [facility] [address] 2nd request letter sent to get [...] skin breakdown and infection. Assessment & Plan (07/14/2024 3:38 PM CDT): [...] eye exam JENNIFER fall 2022; 02/20[facility] [place] [facility] [address] 2nd request letter sent to get [...] infection. Assessment & Plan (05/11/2024 1:57 PM BUTTON CLAMPER): Chronic problem. A1c uncontrolled & greatly worsened [...] eye exam JENNIFER fall 2022; 02/2024 [facility] [place] [facility] [address] Letter sent to get copy of [...] fall 2022; 02/2024 appt [facility] in [place] on [address] Letter sent to get copy of [...] 2 diabetes mellitus 02/22/2023 Assessment & Plan (10/27/2024 1:48 PM CDT): Chronic problem. Currently taking Lyrica 150mg qhs. Reviewed foot care; needs to lotion daily. Aware to check feet nightly, not to go barefoot. Assessment & Plan (07/14/2024 3:23 PM CDT): Chronic problem. Currently taking Lyrica 150mg qhs. Reviewed foot care; needs to lotion daily. Aware to check feet nightly, not to go barefoot. Assessment & Plan (05/11/2024 12:57 PM BUTTON CLAMPER): Chronic problem. Currently taking Lyrica 150mg qhs. [...] hypertension 07/21/2018 Hypothyroidism 07/21/2018 Assessment & Plan (10/27/2024 1:49 PM CDT): Chronic problem. Currently taking levothyroxine 150 mcg 6 days/wk since 01/2024. Aware to take 1st thing in morning, 30-60 minutes before food/drink/other medications. Will update labs. Does not mychart. Verified phone #/address to contact re: results. Assessment & Plan (07/14/2024 3:27 PM CDT): Chronic problem. Currently taking levothyroxine 150 mcg 6 days/wk since 01/2024. Aware to take 1st thing in morning, 30-60 minutes before food/drink/other medications. Assessment & Plan (05/11/2024 12:58 PM BUTTON CLAMPER): Chronic problem. Currently taking levothyroxine 150 mcg [...] Obesity 07/21/2018 Coronary artery disease invo lving [place] coronary artery of [place] heart without angina pectoris 07/14/2018 Resolved Problems [...] Encounters Date Type Department Care Team Description 10/28/2024 Results Follow-Up [facility] Diabetes and Endocrinology [address] [place] [phone] Patito Oglesby NP T4, free, TSH, Lipid panel, Additional followed-up results: 3 10/27/2024 2:15 PM CDT Lab [facility] at [address] [phone] 10/27/2024 2:14 PM CDT - 10/27/2024 11:59 PM CDT Hospital Encounter [address] [address] Hypothyroidism, unspecified type; Type 2 diabetes mellitus with hyperglycemia, with long-term current use of insulin (HCC); Hyperlipidemia associated with type 2 diabetes mellitus (HCC); Hypertension associated with type 2 diabetes mellitus (HCC) Discharge Disposition: Discharge to home or self care 10/27/2024 1:30 PM CDT Office Visit [facility] Medical [facility] Diabetes and Endocrinology [address] [place] [phone] Patito Oglesby NP Type 2 diabetes mellitus with hyperglycemia, with long-term current use of insulin (HCC) (Primary Dx); Hypertension associated with type 2 diabetes mellitus (HCC); Hyperlipidemia associated with type 2 diabetes mellitus (HCC); Diabetic polyneuropathy associated with type 2 diabetes mellitus (HCC); Hypothyroidism, unspecified type 10/07/2024 1:00 PM CDT - 10/07/2024 11:59 PM CDT Hospital Encounter [facility] [address] [place] [phone] Itzel Dixon NP Compression fracture of T9 vertebra with routine healing, subsequent encounter (Primary Dx); Primary hypertension Discharge Disposition: Discharge to home or self care 09/28/2024 7:49 AM CDT - 09/28/2024 11:59 PM CDT Hospital Encounter [facility] [address] [place] [phone] Joao Eller MD Closed wedge compression fracture of T9 vertebra with routine healing, subsequent encounter [S22.070D] (Primary Dx); Compression fracture of body of thoracic vertebra (HCC) Discharge Disposition: Discharge to home or self care 09/28/2024 Telephone [facility] [address] [place] [phone] Chelsea Amanda 09/24/2024 Telephone [facility] Diabetes [facility] Endocrinology [address] [place] [phone] Patito Oglesby, QUYEN Med Management 09/23/2024 2:30 PM CDT - 09/23/2024 11:59 PM CDT Hospital Encounter [facility] [address] [place] [phone] Joao Eller MD Compression fracture of T9 vertebra, initial encounter (HCC) (Primary Dx); Thoracic compression fracture, closed, initial encounter (HCC); Age-related osteoporosis with current pathological fracture with routine healing Discharge Disposition: Discharge to home or self care 09/11/2024 Telephone [facility] Diabetes [facility] Endocrinology [address] [place] [phone] Patito Oglesby NP Med Management (Refugio Estrada) from Last 3 Months Immunizations Immunization Administration Dates Next Due Influenza, Trivalent, High D ose, Split, Preservative Free, Intramuscular 01/25/2018 Pneumococcal Conjugate PCV 13 01/27/2018 Surgical History Surgery Date Site/Laterality Comments HYSTERECTOMY partial COLONOSCOPY BLADDER SURGERY Medical History Medical History Date Comments Diabetes mellitus (HCC) Bronchitis Asthma Anemia Arthritis Osteoporosis Hypertension Osteoarthritis Hyperlipidemia Mid back pain Family History Medical History Relation Name Comments Lung cancer Brother Heart attack Father Carmelo cardiac Father Carmelo No Known Problems Mother Shelli No Known Problems Sister Relation Name Status Comments Brother Alive Father Carmelo Mother Shelli Sister Alive Social History Tobacco Use Types Packs/Day Years Used Date Smoking Tobacco: Former Cigarettes 3 35 0 07/01/1968 - 07/02/2003 Passive Smoke Exposure: Past Smokeless Tobacco: Never Comments:Quit over 20 years ago Alcohol Use Standard Drinks/Week Comments Not Currently 0 (1 standard drink = 0.6 oz pur e alcohol) Comments No Sex and Gender Information Value Date Recorded Sex Assigned at Not on file Legal Sex Female 9:38 AM BUTTON CLAMPER Gender Identity Not on file Sexual Orientation Not on file 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 Not on file Not o n file Not on file Obstetrics History Last Filed Vital Signs Vital Sign Reading Time Taken Comments Blood Pressure 102/54 10/27/2024 1:21 PM CDT Pulse 76 10/27/2024 1:21 PM CDT Temperature 36.8 C (98.2 F) 09/28/2024 8:06 AM CDT Respiratory Rate 16 10/27/2024 1:21 PM CDT Oxygen Saturation 99% 10/07/2024 1:06 PM CDT Inhaled Oxygen Concentration - - Weight 76.2 kg (168 lb) 10/27/2024 1:21 PM CDT Height 152.4 cm (5') 10/27/2024 1:21 PM CDT Body Mass Index 32.81 10/27/2024 1:21 PM CDT Plan of Treatment Health Maintenance Due Date Last Done Comments Depression Screening 1950 Dilated Eye Exam 1950 Hepatitis B Screening 1966 Well Visit 65+ 2013 Covid-19 Vaccine (2023-2 5 season) 2023 01/22/2023, 03/25/2021, 07/31/2020, Additional history exists Influenza Vaccine (#1) 2024 , 01/22/2023, 02/01/2022, Additional history exists Osteoporosis Screening-Bone Density Scan 02/28/2025 02/28/2023, 12/12/2020 Hemoglobin A1C 04/29/2025 10/27/2024, 06/21, 05/11/2024, Additional history exists Fall Risk Assessment 10/07/2025 10/07/2024 Albumin Creatinine Ratio, Urine 10/27/2025 , 01/20/2024 Foot Exam 10/27/2025 10/27/2024, 01/20/2024 Lipid Panel 10/27/2025 10/27/2024, 01/20/2024 eGFR 10/27/2025 10/27/2024, 01/20/2024 DTaP/Tdap/Td Vaccine (3 - Td or Tdap) 03/20/2028 03/20/2018, 09/07/2013 Pneumococcal vaccine 65+ Completed 018, 03/20/2018, 01/27/2018, Additional history exists Hepatitis C Screening Completed 07/17/2021 Zoster Vaccine Completed 10/14/2023, 07/21, 03/11/2013 Medical Devices Implanted Type Area Bradder Device Identifier Shelf Expiration Date Model / Serial / Lot [employer] Cement Vertebral Augmentation Kit Kyphon Xpede [id number] - [id number] Implanted:Qty: 1 on 09/28/2024 at [facility] Physician Office Building 2 [employer] [id number] / / Procedures Procedure Name Priority Date/Time Associated Diagnosis Comments EGFR Routine 10/27/2024 2:14 PM CDT Type 2 diabetes mellitus with hyperglycemia, with long-term current use of insulin (HCC) Hypertension associated with type 2 diabetes mellitus (HCC) ALBUMIN CREATININE RATIO, URINE Routine 10/27/2024 2:14 PM CDT Type 2 diabetes mellitus with hyperglycemia, with long-term current use of insulin (HCC) COMPREHENSIVE METABOLIC PANEL Routine 10/27/2024 2:14 PM CDT Type 2 diabetes mellitus with hyperglycemia, with long-term current use of insulin (HCC) Hypertension associated with type 2 diabetes mellitus (HCC) LIPID PANEL Routine 10/27/2024 2:14 PM CDT Type 2 diabetes mellitus with hyperglycemia, with long-term current use of insulin (HCC) Hyperlipidemia associated with type 2 diabetes mellitus (HCC) TSH Routine 10/27/2024 2:14 PM CDT Hypothyroidism, unspecified type T4, FREE Routine 10/27/2024 2:14 PM CDT Hypothyroidism, unspecified type POCT GLUCOSE Routine 10/27/2024 1:25 PM CDT Type 2 diabetes mellitus with hyperglycemia, with long-term current use of insulin (HCC) POCT HEMOGLOBIN A1C Routine 10/27/2024 1 :25 PM CDT Type 2 diabetes mellitus with hyperglycemia, with long-term current use of insulin (HCC) PAIN MGMT IMAGING KYPHOPLASTY THORACIC Schedule Routine, Read Routine (OP Routine) 09/28/2024 11:15 AM CDT Compression fracture of body of thoracic vertebra (HCC) from Last 3 Months Results * (ABNORMAL) eGFR (10/27/2024 2:14 PM CDT) eGFR 41(L) >=60 mL/min/1. 73 m2 Comment: Interpretive Data [...] interpretive data was last reviewed 2021. Blood 10/27/2024 2:14 PM CDT 10/27/2024 8:29 PM CDT us Patito Oglesby NP LAB BLOOD ORDERABLES Yennifer mcpherson Result [facility] [address] Department [place] [address] * Albumin Creatinine Ratio, Urine (10/27/2024 2:14 PM CDT) Albumin Ur <12.0 mg/L Comment: Interpretive Data No reference range established. Current interpretive data was last revised 2018. Creatinine Ur 36.2 mg/dL MAIDA Comment: Interpretive Data No reference range established. Current interpretive data was last revised 2018. Albumin Creatinine Ratio, Ur See Comment 1 - 29 MAIDA Comment:Unable to calculate Urine 10/27/2024 2:14 PM CDT 10/27/2024 8:10 PM CDT us Patito Radha Oglesby [employer] LAB URINE ORDERABLES Yennifer l Result Performing Organization Address [facility] Co de Phone Number MAIDA CONTRERAS [address] [facility] [address] * TSH (10/27/2024 2:14 PM CDT) Pathologist [facility] Thyroid Stimulating Hormone 0.66 0.30 - 4.20 mcIUnit/mL Blood 10/27/2024 2:14 PM CDT 10/27/2024 8:10 PM CDT us Patito Radha Oglesby [employer] LAB BLOOD ORDERABLES Yennifer l Result Performing Organization Address [facility] Co de Phone Number MAIDA [address] [facility] [address] * T4, free (10/27/2024 2:14 PM CDT) Pathologist [facility] Free T4 1.28 0.90 - 1.70 ng/dL Blood 10/27/2024 2:14 PM CDT 10/27/2024 8:10 PM CDT us Patitoclinton Oglesby NP LAB BLOOD ORDERABLES Yennifer l Result Performing Organization Address [facility] Co de Phone Number MAIDA [address] [facility] [address] * (ABNORMAL) Lipid panel (10/27/2024 2:14 PM CDT) [facility] Signature Cholesterol 104 30 - 199 mg/dL Comment: Interpretive Data [...] Data was last revised on 2017. Triglycerides 254(H) <=149 mg/dL MAIDA Comment: Interpretive Data Ages [...] Data was last revised on 2017. HDL 28(L) >=40 mg/dL MA[facility] CONTRERAS Comment: Interpretive Data [...] was last revised on 2017. LDL, calculated 37 <=129 mg/dL [facility] CONTRERAS Comment: Interpretive Data [...] was last revised on 2023. Non-HDL Cholesterol 76 mg/dL MAIDA CONTRERAS Comment: Interpretive Data Ages [...] last revised on 2017. Chol/HDL ratio 4 [facility] Blood 10/27/2024 2:14 PM CDT 10/27/2024 8:10 PM CDT us Patito Oglesby NP LAB BLOOD ORDERABLES Yennifer ky Result [facility] [address] Department [place] [address] * (ABNORMAL) Comprehensive metabolic panel (10/27/2024 2:14 PM CDT) Sodium 135 135 - 145 mmol/L Potassium, pl 5.4(H) 3.3 - 4.9 mmol/L [facility] Chloride 100 97 - 110 mmol/L [facility] CO2 21(L) 22 - 32 mmol/L [facility] Anion gap 14 2 - 15 mmol/L [facility] BUN 32(H) 6 - 25 mg/dL [facility] Creatinine 1.35(H) 0.60 - 1.10 mg/dL [facility] Glucose 146 70 - 199 mg/dL [facility] Comment: Interpretive Data Fasting glucose >/= 126 mg/dl is diagnostic for diabetes. Fasting is defined as no caloric intake for at least 8 hours. Fasting glucose between 100 mg/dl to 125 mg/dl is diagnostic of prediabetes. In a patient with classic symptoms of hyperglycemia or hyperglycemic crisis, a random glucose >/= 200 mg/dl is diagnostic for diabetes. In the absence of unequivocal hyperglycemia, results should be confirmed by repeat testing. The classification and Diagnosis of Diabetes Diabetes Care 2021; 46: S19-S40. Current interpretive data was last revised 2022. Calcium 9.2 8.5 - 10.3 mg/dL [facility] Bilirubin, total 0.3 0.1 - 1.2 mg/dL [facility] Protein, pl 7.5 6.5 - 8.5 g/dL [facility] Albumin 4.2 3.5 - 5.0 g/dL [facility] Alk phos 83 40 - 130 Units/L [facility] ALT 16 7 - 45 Units/L [facility] AST 18 10 - 45 Units/L [facility] Blood 10/27/2024 2:14 PM CDT 10/27/2024 8:10 PM CDT Patito Oglesby [employer] LAB BLOOD ORDERABLES Yennifer l Result [facility] [address] Department [place] [address] * (ABNORMAL) POCT hemoglobin A1c (10/27/2024 1:25 PM CDT) Hemoglobin A1C, POC 6.7(A) 4.0 - 5.6 % Blood 10/27/2024 1:25 PM CDT us Patito Oglesby [employer] POINT OF CARE TEST ORDERA BLES Final Result * (ABNORMAL) POCT glucose (10/27/2024 1:25 PM CDT) Glucose Blood, POC 223 Normal Fasting 70 - 100, Random <200 mg/dL Blood 10/27/2024 1:25 PM CDT us Patito Oglesby [employer] POINT OF CARE TEST ORDERA BLES Final Result * Imaging Kyphoplasty Thoracic ([id number]) (09/28/2024 11:15 AM CDT) Narrative [facility] - 09/28/2024 11:45 AM CDT The images from this study are not interpreted by Radiology. Please refer to the physician's procedure / OR operative note. us Joao Eller MD IMG PAIN MGMT PROCEDU RES Final Result [facility] from Last 3 Months Insurance [employer]IC[employer] PPO Member Subscriber Plan / Payer (Ef fective 2018-Present) Name:Leah Mariee Relation to Subscriber:Self Name:Leah Mariee Payer ID:[id number] (NAIC) Type:MEDICARE RISK OTHER Address: [address] [facility] MEDICARE ADVANTAGE [facility] MEDICARE ADVANTAGE IDPA Care Teams Collection Development Librarian Relationship Specialty Start Date End Date Ashleigh Carroll MD PCP - General Internal Medicine 07/14/18 [place] [id number] [facility] [address] [id number] [place] [address] Consulting Physician Pain Management 09/23/24 [place] [address] [facility] [address] [place] [address] Consulting Physician Cardiology 09/23/24 [place] [address] [facility] [address] [place] [address] Nurse Practitioner Bead Inspector 10/07/24
[2024-12-01 16:29] LABS: Iron 54 ug/dL (37-170)
[2024-12-01 16:39] LABS: Percent Iron Saturation 13 % (20-50)
== END 2024-12-01 15:10 | disposition home or self-care (01) ==
LOC: ANHLAB 15:10
PROVIDERS: PCP Internal Medicine; Visit Provider Internal Medicine Hematology & Oncology
DX: D64.9 Anemia, unspecified (principal)
CPT/HCPCS: 36415; 83540; 83550

== ENCOUNTER 2025-01-25 17:03 | Observation (INO) | payer MEDICARE, MEDICAID, SELFPAY ==
[2025-01-25] VITALS (15 sets, daily range): BP systolic 87–114; BP diastolic 39–84; PULSE 65–74; RESP 16–21; TEMP 36.6; O2SAT 96–100
--- OUTSIDE RECORDS SUMMARY | 2025-01-25 17:06 | XMS_ITS | Clinical Summary ---
Author Organization [facility] Address [address] [place] [id number] Care Team Providers Care Heel Scorer Name Role Phone Ashleigh Carroll MD Primary Care Provide r Joao Eller MD Unavailable [phone] Juanpablo Toscano MD Unavailable [phone] Itzel Dixon NP Unavailable [phone] Allergies No known active allergies Medications atorvastatin [...] MORNING DAILY AT 9 AM 5 Active levothyroxine (SYNTHROID) 150 mcg tabletIndicatio [...] BLOOD SUGARS *NEW PRESCRIPTION REQUEST* 100 each 11 5 Active ammonium lactate (LAC-HYDRIN) 12 % [...] BLOOD GLUCOSE TWICE A DAY 5 Active pregabalin (LYRICA) 150 mg capsuleIndicati ons:Type 2 diabetes mellitus with hyperglycemia, with long-term current use of insulin (HCC) TAKE ONE (1) CAPSULE BY MOUTH NIGHTLY 90 capsule 3 5 Active Active Problems Problem Noted Date [...] daily. 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 Controlled on current lisinopril 10mg [...] 2gm bid Last lipid panel: 01/20/24 LDL=51, XR=923. Will update labs. Does not mychart. Verified phone #/address to contact re: results. Assessment & Plan (07/14/2024 3:24 PM CDT): Chronic problem. Currently taking Atorvastatin 80mg & vascepa 2gm bid Last lipid panel: 01/20/24 LDL=51, HX=238. 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 Currently taking Atorvastatin 40mg & vascepa 2gm bid Last lipid panel: 01/20/24 LDL=51, ZH=007. Assessment & Plan (01/20/2024 3:11 PM CDT): [...] re: results. DM eye exam 02/2024 appt [facility] in [place] on [address] 2nd request letter sent to get [...] eye exam JENNIFER fall 2022; 02/2024 appt [facility]. 2nd request letter sent to get copy [...] infection. Assessment & Plan (05/11/2024 1:57 PM PRODUCTION FINISHER): Chronic problem. A1c uncontrolled & greatly worsened [...] eye exam JENNIFER fall 2022; 02/2024 appt [facility] in [place] on [address] Letter sent to get copy of [...] fall 2022; 02/2024 appt [facility] in [place] on [address] Letter sent to get copy of [...] barefoot. 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 Currently taking Lyrica 150mg qhs. [...] medications. Assessment & Plan (05/11/2024 12:58 PM PRODUCTION FINISHER): Chronic problem. Currently taking levothyroxine 150 mcg [...] Obesity 07/21/2018 Coronary artery disease invo lving [place] coronary artery of [place] heart without angina pectoris 07/14/2018 Resolved [...] Encounters Date Type Department Care Team Description 12/23/2024 Telephone [facility] [id number] [place] [address] [address] [address] Dom De León MD 10/28/2024 Results Follow-Up [facility] Diabetes [facility] Endocrinology [address] [place] [phone] Patito Oglesby NP T4, free, TSH, Lipid panel, Additional followed-up results: 3 10/27/2024 2:15 PM CDT Lab [facility] Outpatient Lab at [address] [phone] 10/27/2024 2:14 PM CDT - 10/27/2024 11:59 PM CDT Hospital Encounter [facility] [id number] [place] [id number] Hypothyroidism, unspecified type; Type 2 diabetes mellitus with hyperglycemia, with long-term current use of insulin (HCC); Hyperlipidemia associated with type 2 diabetes mellitus (HCC); Hypertension associated with type 2 diabetes mellitus (HCC) Discharge Disposition: Discharge to home or self care 10/27/2024 1:30 PM CDT Office Visit [facility] Diabetes [facility] Endocrinology [address] [place] [phone] Patito Oglesby NP Type 2 diabetes mellitus with hyperglycemia, with long-term current use of insulin (HCC) (Primary Dx); Hypertension associated with type 2 diabetes mellitus (HCC); Hyperlipidemia associated with type 2 diabetes mellitus (HCC); Diabetic polyneuropathy associated with type 2 diabetes mellitus (HCC); Hypothyroidism, unspecified type from Last 3 Months Immunizations Immunization Administration Dates Next Due Influenza, Trivalent, High D ose, Split, Preservative Free, Intramuscular 01/25/2018 Pneumococcal Conjugate PCV 13 01/27/2018 Surgical History Surgery Date Site/Laterality Comments HYSTERECTOMY partial COLONOSCOPY BLADDER SURGERY Medical History Medical History Date Comments Diabetes mellitus Bronchitis Asthma Anemia Arthritis Osteoporosis Hypertension Osteoarthritis [...] on file Legal Sex Female 9:38 AM PRODUCTION FINISHER Gender Identity Not on file Sexual Orientation Not on file 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 Start Date Job End Date 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 Physician Office Building 2 [employer] CX01B [...] of insulin (HCC) from Last 3 Months Results * (ABNORMAL) eGFR (10/27/2024 2:14 PM CDT) [facility] eGFR 41(L) >=60 mL/min/1. 73 m2 Comment: [...] of Race in Diagnosing Kidney Disease, JASN 202). The CKD-EPI equation should not be used for patients with unstable renal function and has not been validated in children and those over 70. Current interpretive data was last reviewed 2021. Blood 10/27/2024 2:14 PM CDT 10/27/2024 8:29 PM CDT us Patitoclinton Oglesby BRICK CHIMNEY SUPERVISOR LAB BLOOD ORDERABLES Yennifer l Result Performing Organization Address [facility] Co de Phone Number MAIDA [phone] [address] [facility] [place] [address] * Albumin Creatinine Ratio, Urine (10/27/2024 2:14 PM CDT) Albumin Ur <12.0 mg/L Comment: Interpretive Data No reference range established. Current interpretive data was last revised 2018. Creatinine Ur 36.2 mg/dL MAIDA CONTRERAS Comment: Interpretive Data No reference range established. Current interpretive data was last revised 2018. Albumin Creatinine Ratio, Ur See Comment 1 - 29 MAIDA Comment:Unable to calculate Urine 10/27/2024 2:14 PM CDT 10/27/2024 8:10 PM CDT us Patitoclinton Oglesby BRICK CHIMNEY SUPERVISOR LAB URINE ORDERABLES Yennifer l Result Performing Organization Address [facility] Co de Phone Number GRADYATTILA [address] [address] [facility] [place] [address] * TSH (10/27/2024 2:14 PM CDT) Pathologist [facility] Thyroid Stimulating Hormone 0.66 0.30 - 4.20 mcIUnit/mL Blood 10/27/2024 2:14 PM CDT 10/27/2024 8:10 PM CDT us Patitoclinton Oglesby BRICK CHIMNEY SUPERVISOR LAB BLOOD ORDERABLES Yennifer l Result Performing Organization Address [facility] Co de Phone Number GRADYATTILA [address] [address] [facility] [place] [place] [address] * T4, free (10/27/2024 2:14 PM CDT) Pathologist [facility] Free T4 1.28 0.90 - 1.70 ng/dL Blood 10/27/2024 2:14 PM CDT 10/27/2024 8:10 PM CDT us Patito Oglesby NP LAB BLOOD ORDERABLES Yennifer mcpherson Result MAIDA CONTRERAS [address] [address] [facility] [place] [address] * (ABNORMAL) Lipid panel (10/27/2024 2:14 PM CDT) Cholesterol 104 30 - 199 mg/dL Comment: [...] on 2017. Triglycerides 254(H) <=149 mg/dL MAIDA CONTRERAS Comment: Interpretive Data [...] 2017. Chol/HDL ratio 4 MAIDA CONTRERAS Blood 10/27/2024 2:14 PM CDT 10/27/2024 8:10 PM CDT us Patito Oglesby NP LAB BLOOD ORDERABLES Yennifer mcpherson Result MAIDA CONTRERAS [address] [address] [facility] [place] [address] * (ABNORMAL) Comprehensive metabolic panel (10/27/2024 2:14 [...] classification and Diagnosis of Diabetes Diabetes Care 202; 46: S19-S40. Current interpretive data was last [...] NP LAB BLOOD ORDERABLES Yennifer l Result [facility] [address] [address] Department [place] [address] * (ABNORMAL) POCT hemoglobin A1c (10/27/2024 1:25 PM CDT) Hemoglobin A1C, POC 6.7(A) 4.0 - 5.6 % Blood 10/27/2024 1:25 PM CDT us Patitoclinton Oglesby BRICK CHIMNEY SUPERVISOR POINT OF CARE TEST ORDERA BLES Final Result * (ABNORMAL) POCT glucose (10/27/2024 1:25 PM CDT) Glucose Blood, POC 223 Normal Fasting 70 - 100, Random <200 mg/dL Blood 10/27/2024 1:25 PM CDT us Patitoclinton Oglesby BRICK CHIMNEY SUPERVISOR POINT OF CARE TEST ORDERA BLES Final Result from Last 3 Months Insurance [employer] CHOICE MEDICARE PPO IDPA [facility] MEDICARE ADVANTAGE [facility] MEDICARE ADVANTAGE IDPA Care Teams Heel Scorer Relationship Specialty Start Date End Date Ashleigh Carroll MD PCP - General Internal Medicine 07/14/18 [place] [address] [facility] [address] [place] [address] Consulting Physician Pain Management 09/23/24 [place] [address] [facility] [address] [place] [address] Consulting Physician Cardiology 09/23/24 [place] [address] [facility] [address] [place] [address] Nurse Practitioner Youth Counselor 10/07/24
--- OUTSIDE RECORDS SUMMARY | 2025-01-25 17:06 | XMS_ITS | Clinical Summary ---
Author Organization [facility] Kristen alston Formerly [facility] Address [address] [facility] [place] [address] Care Team Providers Care Fire Inspector Name Role Phone Mckenna Carroll MD Primary [...] 1 Tablet (150 mcg) by mouth daily is technician. 60 Tablet 2 01/30/20 19 Active lancets (ACCU-CHEK SOFTCLIX LANCETS) Accu-Chek Softclix Lancets Active aspirin 1 mg/mL Suspension aspirin low dose 81mg ec Active alcohol (BD Single Use Swabs Regular) Pads, Medicated BD Alcohol Swabs Act nettie Insulin [place], Disposable, (BD ULTRA-FINE MINI PEN NEEDLE) 31 [...] Dihydroergotam ine 0.5 mg/pump act. (4 mg/mL) [place], Non-Aerosol dihydroergotamine 0.5 mg/pump act. (4 mg/mL) nasal spray Active docusate calcium (Stool Softener, docusate autumn,) 240 mg capsule [facility] STOOL SOFTENER CAPSULE 07/22/19 19 Active fluticasone propionate (FLONASE) 50 mcg/spray [place], Suspension nasal inhaler fluticasone propionate 50 mcg/actuation nasal spray,suspension Active icosapent ethyL (Vascepa) 1 gram Capsule Take by mouth. 05/05/19 21 Active cyanocobalamin , vitamin B-12, 1,000 mcg Capsule Take by mouth. 07/22/19 19 Active insulin degludec (Tresiba FlexTouch U-100) 100 unit/mL pen syringe TRESIBA FLEXTOUCH SOLUTION PEN-INJECTOR 10/08/19 20 Active lisinopriL (PRINIVIL) 20 mg tablet 12/20/19 21 Active econazole (SPECTAZOLE) 1 % Cream econazole 1% cream 06/30/19 20 Active pregabalin (LYRICA) 100 mg Capsule TAKE 1 CAPSULE BY MOUTH THREE TIMES A DAY BEFORE MEALS 05/21/19 23 Active Myrbetriq 50 mg Extended Release 24 hour tablet Take 50 mg by mouth daily in the morning. 06/23/19 23 Active Dexcom G7 Sensor Device PER TILE PICKER INSTRUCTIONS, CHANGE SENSOR EVERY 10 DAYS 06/11/19 24 Active ferrous sulfate 325 mg (65 mg iron) tablet Take 1 Tablet (325 mg) by mouth 3 times daily. 270 Tablet 1 10/20/19 25 Active Ozempic 1 mg/dose (4 mg/3 mL) Pen Injector INJECT 1MG SUBCUTANEOUSLY ONCE WEEKLY 09/01/19 25 Active Active Problems Problem Noted Date Diagnosed Date Iron deficiency anemia 03/03/2019 Encounters Date Type Department Care Team Description 01/12/2025 External Device Data STL ABSTRACTION Provider, Abstract 01/05/2025 External Device Data STL ABSTRACTION Provider, Abstract 12/07/2024 2:30 PM CDT Office Visit [facility] - [place] [address] [place] [address] César Giraldo MD Chronic anemia (Primary Dx) 12/02/2024 Orders Only [facility] [place] [address] [place] [address] César Giraldo MD 12/01/2024 Orders Only [facility] [place] [address] [place] [address] César Giraldo MD 11/30/2024 Orders Only [facility] [place] [address] [place] [address] César Giraldo MD 11/27/2024 Orders Only [facility] [place] [address] [place] [address] César Giraldo MD 11/27/2024 Telephone [facility] [place] [address] [place] [address] César Giraldo MD labs for appt 11/04/2024 [...] Reading Time Taken Comments Blood Pressure 110/60 12/07/2024 2:02 PM CDT Pulse 97 12/07/2024 2:02 PM CDT Temperature 36.3 C (97.4 F) 12/07/2024 2:02 PM CDT Respiratory Rate 16 12/07/2024 2:02 PM CDT Oxygen Saturation 95% 12/07/2024 2:02 PM CDT Inhaled Oxygen Concentration - - Weight 76.5 kg (168 lb 9.6 oz) 12/07/2024 2:02 P M CDT Height 154.9 cm (5' 1) 10/27/2021 8:31 AM CDT Body Mass Index 31.86 10/27/2021 8:31 AM CDT Plan of Treatment Upcoming Encounters Date Type Department Care Team (Late st Contact Info) Description 06/10/2025 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 Office Visit [facility] - [place] [address] [facility] [address] [place] [address] César Giraldo MD [address] [facility] [address] [place] [address] Health Maintenance Due Date Last Done Comments DIABETES ANNUAL RETINAL EXAM 1968 DIABETES MICROALBUMIN ANNUAL SCREEN 1968 LDL CHOLESTEROL ANNUAL 09/24/2020 09/25/2019 RSV VACCINE (60+ or ) (1 - 1-dose 75+ series) 10/13/2023 INFLUENZA VACCINE (#1) 2024 , 01/22/2023, 02/01/2022, Additional history exists COVID-19 Vaccine (2024-2 6 season) 2024 01/22/2023, 03/25/2021, 07/31/2020, Additional history exists DIABETES HBA1C Q 6 MONTHS 04/29/20252024, 07/18/2023, 02/21/2023 DIABETES ANNUAL FOOT EXAM 10/27/2025 10/27/2024 OSTEOPOROSIS SCREENING 02/29/2028 02/28/2023, 2020 DTAP/TDAP/TD VACCINES [...] Procedure Name Priority Date/Time Associated Diagnosis Comments IRON, TIBC, AND PERCENT SATURATION Routine 12/01/2024 12:17 PM CDT COMPREHENSIVE METABOLIC PANEL Routine 11/27/2024 2:59 PM CDT CBC WITH DIFFERENTIAL Routine 11/27/2024 2:57 PM CDT FERRITIN Routine 11/27/2024 12:49 PM CDT COMPREHENSIVE METABOLIC PANEL Routine 11/27/2024 10:15 AM CDT LIPID PANEL Routine 09/25/2019 from Last 3 Months or Most Recently Relevant to Health Maintenance Results * IRON, TIBC, AND PERCENT SATURATION (12/01/2024 12:17 PM CDT) Blood César Giraldo MD CHEMISTRY ORDERABLES Final Resu lt * COMPREHENSIVE METABOLIC PANEL (11/27/2024 2:59 PM [...] Most Recently Relevant to Health Maintenance Insurance [facility] [id number] MED[place] Care Teams Fire Inspector Relationship Specialty Start Date End Date Mckenna Carroll MD PCP - General Internal Medicine 01/12/19
--- OUTSIDE RECORDS SUMMARY | 2025-01-25 17:07 | XMS_ITS | Data Portability ---
Author Organization [place] [facility], Main Office Address [address] [place] [address] Care Team Providers Care Paper Machine Back Tender Name Role Phone MARY CARROLL Primary Care Provider MARY CARROLL Referring Provider JEREMY OGLESBY Printing Sales Representative XOCHITL GIRALDO [employer] Charter Bus Driver WADE MARTINEZ Printed Circuit Board Reworker MAX BREWSTER Business Solutions Analyst JENNY TOSCANO Senior Java Web Application Developer Assessment Encounter Date Assessment Date Assessment LastModified by Organization Details LastModified Time 08/25/2024 08/25/2024 73-year-old patient presents today for Synvisc 1 injection. Previously saw her for right shoulder osteoarthritis. She was not a candidate for cortisone injections due to her uncontrolled diabetes and high blood sugar at time of appointment. She then had a fall onto the left side and had increased pain in the shoulder and back. Imaging from before and after the fall were reviewed, no new fracture seen. She states she is currently being worked up by a demolition specialist because it was found that she broke her back when she fell. This has stopped her from attending physical therapy, but she has been working on shoulder exercises on her own at home and states they are very helpful. Physical exam: Tenderness with palpitation of posterior shoulder. Can forward abduct to 120, lateral abduct to 100 without pain. Sensation intact. Synvisc one injection was brought in today by patient from specialty pharmacy. It was given without issue. We can see her back in 6-8 weeks to check her progress and see if we can restart PT. She is in agreement with this plan. Not available 08/26/2024 22:24:11 09/22/2024 09/22/2024 06/11/2022: A1C 7.0 Urine micro alb 26.7H TSH/FT4: WNL CMP: BUN 20 Lipids: TG 185 CBC: WBC 11.0, H/H 10.2/33.7 08/13/2022: K 5.4 2022: H/H 9.5/32.6 TG 216 Gluc 153 01/08/2023: A1C 6.9 K 5.4, gluc 108, BUN 22, GFR 52 TG 298 Urine micro alb 32.7 H/H 10.5/34.3 02/25/2023: K 4.7 05/14/2022: Gluc 159, BUN 24, GFR 56 A1C 6.2 TG 196 Urine micro alb: 53.0 H/H 10.3/33.7 06/07/2023: Maxx ER Gluc 147, K 5.4, BUN 21, Cr 1.20, GFR 44 H/H 10.7/34.9 06/10/2023: Gluc 392, BUN 20, Cr 1.02, GFR 53 10/17/2023: A1C 6.1 Urine micro alb 23.8 TSH 0.055L, FT4 1.88 K 6.1, BUN 28, GFR 42 TG 204 H/H 10.2/32.8 03/02/2024: TSH 0.123L, FT4 1.65 Urine micro alb 23.6 Gluc 59 TG 232 WBC 11.7, H/H 10.6/34.4 04/23/2024: A1C 8.2 Gluc 366, BUN 28, Cr 1.07, GFR 50 TG 504 Not available 09/22/2024 17:14:00 10/20/2024 10/20/2024 73-year-old patient presents for follow up after Synvisc 1 injection into the right shoulder. She states she is doing well, 0/10 pain. She states she also has better movement of the arm. She recently underwent spine surgery for a fracture so has been unable to attend PT, but states she feels good and does not want to go back. Physical exam: No tenderness with palpitation of shoulder. 130/30/back pocket. No pain with movement. 5/5 rotator cuff strength. We discussed that she may get synvisc injections ever 6 months if needed. We provided her with shoulder exercises to work on at home. She will return as needed for pain. Not available 10/20/2024 16:11:41 11/10/2024 11/10/2024 This note is dictated and transcribed by [employer]. Registered Sales Assistant variances may occur. Despite proofreading, typographical errors may occur. Occasional wrong-word or '[id number]' substitutions may have occurred due to the inherent limitations of voice recording. Read the chart carefully and recognize, using context, where substitutions have occurred. [email or web address] Not available 11/11/2024 13:39:26 12/03/2024 12/03/2024 06/11/2022: A1C 7.0 Urine micro alb 26.7H TSH/FT4: WNL CMP: BUN 20 Lipids: TG 185 CBC: WBC 11.0, H/H 10.2/33.7 08/13/2022: K 5.4 2022: H/H 9.5/32.6 TG 216 Gluc 153 01/08/2023: A1C 6.9 K 5.4, gluc 108, BUN 22, GFR 52 TG 298 Urine micro alb 32.7 H/H 10.5/34.3 02/25/2023: K 4.7 05/14/2022: Gluc 159, BUN 24, GFR 56 A1C 6.2 TG 196 Urine micro alb: 53.0 H/H 10.3/33.7 06/07/2023: Maxx ER Gluc 147, K 5.4, BUN 21, Cr 1.20, GFR 44 H/H 10.7/34.9 06/10/2023: Gluc 392, BUN 20, Cr 1.02, GFR 53 10/17/2023: A1C 6.1 Urine micro alb 23.8 TSH 0.055L, FT4 1.88 K 6.1, BUN 28, GFR 42 TG 204 H/H 10.2/32.8 03/02/2024: TSH 0.123L, FT4 1.65 Urine micro alb 23.6 Gluc 59 TG 232 WBC 11.7, H/H 10.6/34.4 04/23/2024: A1C 8.2 Gluc 366, BUN 28, Cr 1.07, GFR 50 TG 504 11/27/2024: A1C 6.5 K 5.4H, Gluc 162, BUN 35, Cr 1.41, GFR 36 TG 260 H/H 9.5/31.2 Not available 12/03/2024 16:30:41 Plan of Treatment Reminders Order Date Submit Date Provider Last Modified By Organization Details Last Modified Time Details Appointments Establish ed Patient 15 2024 03:15P Bethel Brewster DPM Not available Not available Not available Any 15 2024 01:15P Bethel ludwig MD Not available Not available Not available Follow Up 2025 01:30P Bethel Lozano MD Not available Not available Not available Lab vitamin B12 + folate, serum or blood [address] (Lab), [address] [place], [address], 12/03/2024 16:39:48 lipid panel, serum [address] (Lab), [address] [place], [address], 12/03/2024 16:39:48 CBC w/ auto diff [address] (Lab), [address] [place], [address], 12/03/2024 16:39:49 CMP, serum or plasma [address] (Lab), [address] [place], [address], 12/03/2024 16:39:49 TSH, serum or plasma [address] (Lab), [address] [place], [address], 12/03/2024 16:39:50 potassium , serum or plasma [address] (Lab), [address] [facility] [address], [place], [address], 12/03/2024 16:39:50 vitamin D, 25-hydrox y, total, serum [address] (Lab), [address] [place], [address], 12/03/2024 16:39:50 glycohemo globin, total, blood [address] (Lab), [address] [place], [address], 12/03/2024 16:39:49 microalbu min, urine [address] (Lab), [address] [place], [address], 12/03/2024 16:39:49 vitamin B12 + folate, serum or blood [address] (Lab), [address] [place], [address], 09/22/2024 17:24:10 lipid panel, serum 2024 025 [facility] (Lab), [address] [place], [address], 11/27/2024 11:56:24 CBC w/ auto diff 2024 025 [facility] (Lab), [address] [place], [address], 11/27/2024 11:35:37 CMP, serum or plasma 2024 025 [facility] (Lab), [address] [place], [address], 11/27/2024 11:56:40 TSH, serum or plasma 2024 025 [facility] (Lab), [address] [place], [address], 11/27/2024 13:20:44 vitamin D, 25-hydrox y, total, serum [email or web address]Lab), [address] [place], [address], 09/22/2024 17:24:12 glycohemo globin, total, blood 2024 025 [facility] (Lab), [address] [place], [address], 11/27/2024 12:44:59 microalbu min, urine 2024 025 [facility] (Lab), [address] [place], [address], 11/27/2024 12:10:16 Referral nephrolog ist referral - Please call patient to schedule an appointme nt. Thank you. 2024 025 [place], [address], [address], [place], [address], 12/08/2024 09:56:02 podiatris t referral - Please call patient to schedule an appointme nt. Thank you 2024 025 RJ Brewster DPM, [address] [facility], [facility] [address], [place], [address], 12/08/2024 10:40:33 cardiolog ist referral - Please call patient to schedule an appointme nt. Thank you. 2024 025 [email or web address] Jenny Hugo [place], [address], [address], [place], [address], 12/08/2024 10:16:56 nephrolog ist referral - Please call patient to schedule an appointme nt. Thank you. 2024 025 [email or web address] [place], [address], [address], [place], [address], 12/29/2024 14:55:56 podiatris t referral - Please call patient to schedule an appointme nt. Thank you 2024 025 [email or web address] Max Brewster DPM, [address] [facility], [address], [place], [address], 12/24/2024 12:13:28 cardiolog ist referral - Please call patient to schedule an appointme nt. Thank you. 2024 025 [email or web address] Jenny Hugo [place], [address], [address], [place], [address], 12/29/2024 14:55:54 Procedures injection /aspirati on joint/bur sa (PROC) 2024 025 [email or web address] In-Office Order, Internal Use Only DO Not Attach Compendium DO Not Attach Compendium, Do Not Delete/merge, [id number] 08/26/2024 11:18:37 Surgeries None recorded. Imaging None recorded. Medication Orders None recorded. Patient Targets Encounter Date Encounter Id Patient Goals Patient Target Last Modified By Organization Details Last Modified Time 12/03/2024 [id number] diet, exercise, bladder , memory exercise, smoking/alc ohol intake, home safety Not available 12/02/2024 08:25:09 Patient Instructions Encounter Date Encounter Id Patient Instructions Last Modified By Organization Details Last Modified Time 12/03/2024 [id number] dementia rating scale-2* [email or web address] 2 Not available 12/03/2024 16:38:28 multi-dimensiona l health assessment questionnaire* [email or web address] 2 Not available 12/03/2024 16:38:12 care plan* dianna 2 Not available 12/03/2024 16:38:33 advance directiv es: care instructions dianna 2 Not available 12/03/2024 16:38:12 advance care planning: care instructions dianna 2 Not available 12/03/2024 16:38:13 [place] Advance Directives dianna 2 Not available 12/03/2024 16:38:12 Personalized a lt Plan and Screening Recommendations Advance Directives - Do you have one? Yes You have indicated that you are capable of preparing your advance care directive Advance Directives - Do we have your advance directive on file in your health record? Yes Primary Prevention/Interven tion (prevents or decreases the chance of common diseases from occurring) Smoking Risk: Non Smoker Alcohol Misuse Screening: Negative Weight: Appropriate Physical activity: Need more exercise/physical activity Nutrition: Average Fall Risk (screened today): High Vaccines Pneumococcal: Recommended today Influenza: Recommended today Chronic Disease Risks Stroke: Active diagnosis, Continue current treatment plan Heart Attack: Active diagnosis, Continue current treatment plan Clogging of the Arteries: Active diagnosis, Continue current treatment plan Diabetes: High Risk Active diagnosis, Continue current treatment plan Secondary Prevention/Interven tion (detects treatable diseases before they may cause symptoms, disability, or ) Breast Cancer Screening with mammogram: No screening necessary Cervical/Uterine/Ov liz Cancer Screening: No screening necessary Osteoporosis Screening: Recommended today Date Screening Last Performed: Colon Cancer Screening: No screening necessary due in 3 years Date Screening Last Performed: Eye Disease Screening: Recommended today Dementia Risk: Low Depression Screening: Negative Active diagnosis, Continue current treatment plan Not available 12/03/2024 15:40:18 Reason for Referral Senior Java Web Application Developer Referral for Co ronary arteriosclerosis Please call patient to schedule an appointment. Thank you. Referring Physician: Mary Carroll, Internal Medicine, Encounter Date: 09/22/2024 Business Solutions Analyst Referral for Type 2 diabetes mellitus without complication Please call patient to schedule an appointment. Thank you Referring Physician: Mary Carroll, Internal Medicine, Encounter Date: 09/22/2024 Printed Circuit Board Reworker Referral for Pr oteinuria Please call patient to schedule an appointment. Thank you. Referring Physician: Mary Carroll Internal Medicine, Encounter Date: 09/22/2024 Senior Java Web Application Developer Referral for Co ronary arteriosclerosis Please call patient to schedule an appointment. Thank you. Referring Physician: Mary Carroll Internal Medicine, Encounter Date: 12/03/2024 Business Solutions Analyst Referral for Type 2 diabetes mellitus without complication Please call patient to schedule an appointment. Thank you Referring Physician: Mary Carroll Internal Medicine, Encounter Date: 12/03/2024 Printed Circuit Board Reworker Referral for Pr oteinuria Please call patient to schedule an appointment. Thank you. Referring Physician: Mary Carroll Internal Medicine, Encounter Date: 12/03/2024 Results Created Date Observation Date Name Description Value Unit Range Abnormal Flag Note LastModifiedBy Organization Detail LastModifiedTime 08/11/19 25 XR, shoul terri, 2 or more view No observ ation record ed. [email or web address] [facility] [address], [address], [place], [address], 08/10/2024 14:50:32 08/14/19 25 08/13/2024 XR, cervi autumn spine , 2 or 3 view No observ ation record ed. [address], [address], 08/13/2024 12:41:31 08/14/19 25 08/13/2024 XR, thora cic spine , 2 view No observ ation record ed. [address], [address], 08/13/2024 12:45:28 08/26/19 25 08/24/2024 MRI, thora cic spine , w/o contr ast No observ ation record ed. [address], [place], [address], 08/25/2024 07:38:38 Result Notes None recorded. Problems Name Problem SNOMED Code Status Onset Date Resolution Date Notes Provider Name and Address Organization Details Recorded Time Chronic obstructi ve pulmonary disease 74352978 Completed 202010/27/2020 Mary jimenez MD [address] [facility], [facility] [address], [place], [address] , [facility] 5 14:41:41 Ex-cigare tte smoker 094321749 Active 2020 Not Available [facility] 3 14:19:19 Nicotine dependenc e 41164652 Completed 202006/22/2020 Not Available [facility] 3 02:51:00 Neuropath y due to type 2 diabetes mellitus 99939800155 9106 Active 2020 Not Available [facility] 3 14:19:19 Ganglion cyst of right foot 28620598317 31611 Active 2020 Not Available [facility] 3 14:19:19 Impingeme nt syndrome of left shoulder region 00180740940 9104 Active 2021 Not Available [facility] 3 14:19:19 Chronic hepatitis C 911255810 Active 2021 Not Available [facility] 3 14:19:19 Localized , primary osteoarth ritis of the shoulder region 509047635 Active 2021 Not Available [facility] 3 14:19:19 Urge incontine nce of urine 66628863 Active 2021 Not Available [facility] 3 14:19:19 Anemia 793725674 Active 2022 Not Available [facility] 3 14:19:19 Hypertrig lyceridem ia 411578649 Active 2022 Not Available [facility] 3 14:19:19 Vitamin D deficienc y 94823702 Active 2022 Not Available [facility] 3 14:19:19 Hypothyro idism 65198394 Active 2022 Not Available [facility] 3 14:19:19 Obstructi ve sleep apnea syndrome 75297161 Active 2022 Not Available [facility] 3 14:19:19 Essential hypertens ion 12268405 Active 2022 Not Available [facility] 3 14:19:19 Coronary arteriosc lerosis 11498010 Active 2022 Not Available [facility] 3 14:19:19 Diabetes mellitus 42229824 Active 2022 Not Available [facility] 3 14:19:19 Tremor 51134444 Active 2023 Mary jimenez MD [address], [address], [place], [address] , [facility] 4 14:13:26 Ingrowing nail of toe of right foot 02538266633 875485 Active 2023 Max Brewster DPM [address], [address], [place], [address] , [facility] 4 13:44:47 Chronic kidney disease 410191698 Active 2023 Mary jimenez MD [address], [address], [place], [address] , [facility] 4 18:03:34 Low back pain 977137726 Active 2024 Mercy Russell Khang null, [facility] 5 16:34:13 Dystrophi a unguium 68634335 Active 2024 Max Brewster DPM [address], [address], [place], [address] , [facility] 5 16:40:28 Diabetic on insulin 023514691 Active 2024 Max Brewster DPM [address], [address], [place], [address] , [facility] 5 16:40:46 Backache 659056018 Active 2024 Mary jimenez MD [address], [address], [place], [address] , [facility] 5 10:37:09 Type 2 diabetes mellitus without complicat ion 052712466 Active 2024 Mary jimenez MD [address], [address], [place], [address] , [facility] 5 14:41:41 Pain of left shoulder joint 88164712268 201226 Active 2024 Mary jimenez MD [address], [address], [place], [address] , [facility] 5 14:41:41 Neuropath y 063783443 Active 2024 Mary jimenez MD [address], [address], [place], [address] , [facility] 5 14:41:41 Hyperlipi demia 68257355 Active 2024 Mary jimenez MD [address], [address], [place], [address] , [facility] 5 14:41:41 Urinary incontine nce 062119643 Active 2024 Mary jimenez MD [address], [address], [place], [address] , [facility] 5 14:41:41 Chronic obstructi ve pulmonary disease 73699735 Active 2024 Mary jimenez MD [address], [address], [place], [address] , [facility] 5 14:41:41 Leukocyto sis 237774777 Active 2024 aMry jimenez MD [address] [facility], [address], [place], [address] , [facility] 5 14:41:41 Proteinur ia 59937101 Active 2024 Mary jimenez MD [address] [facility], [address], [place], [address] , [facility] 5 14:41:41 Pain of right shoulder joint 57920710768 032272 Active 2024 Mary jimenez MD [address] [facility], [address], [place], [address] , [facility] [employer] [facility] 5 14:41:42 Localized , primary osteoarth ritis of the shoulder region 924136711 Active 2024 Tracie Mariscal DIVORCE MEDIATORKhang arreaga, [facility] 5 14:30:50 Closed fracture thoracic vertebra 666797424 Active 2024 Mercy Russell RMKhang arreaga, [facility] 5 10:55:49 Compressi on fracture of thoracic spine 928896035 Active 2024 Mercy Russell RMKhang arreaga, [facility] 5 10:57:30 Type 2 diabetes mellitus 91614087 Active 2024 DEMETRIO Corona, [facility] 5 15:23:24 Hyperkale melanie 12990290 Active 2024 Mary jimenez MD [address] [facility], [address], [place], [address] , [facility] 5 16:29:17 Notes:Medical History: Depre ssion/Anxiety Migraine headaches Bilateral hearing loss/tinnitus Rhinitis with postnasal drip Eosinophils 270/uL IgE 34 Iu/mL 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 Procedures Surgical History Date Name Laterality Status Provider Name and Address Organization Details Recorded Time 12/04/19 25 Medicare Wellness CPT Code, subsequent completed Jeremy Desirae [facility] 12/02/2024 08:24:59 11/11/19 25 Nail Debridement completed Max Brewster DPM [address], [address], [place], [address], [employer] [facility] 11/11/2024 13:39:21 08/26/19 25 Synvisc Injection completed Abena Nicholson, LAND MANAGEMENT SUPERVISOR [address], [address], [place], [address], [employer] [facility] 08/26/2024 22:24:51 08/12/19 25 Nail Debridement completed Max Brewster DPM [address], [address], [place], [address], [employer] 08/11/2024 16:40:12 05/12/19 25 Nail Debridement completed Max Brewster DPM [address], [address], [place], [address], [employer] 06/18/2024 09:20:25 03/03/20 24 Nail Debridement completed Max Brewster DPM [address], [address], [place], [address], [employer] 03/03/2024 15:49:08 12/05/19 24 Nail Debridement completed Max Brewster DPM [address], [address], [place], [address], [employer] [facility] 12/05/2023 14:03:30 09/26/19 24 Nail Debridement completed Max Brewster DPM [address], [address], [place], [address], [facility] 09/26/2023 13:32:41 07/23/19 24 Medicare Wellness CPT Code, subsequent completed Liseth Denise [place] [facility] 07/23/2023 13:17:30 06/27/19 24 Nail Debridement completed Max Brewster DPM [address], [place], [address], [facility] 06/27/2023 13:44:36 03/28/20 23 Nail Debridement completed Max Brewster DPM [address], [address], [place], [address], [facility] 03/28/2023 13:57:20 03/28/20 23 Callus Debridement 2-4 completed MANISH Mc, [address], [place], [address], [facility] 03/28/2023 13:57:14 12/19/19 23 Nail Debridement completed MANISH Mc, [address], [place], [address], [facility] 12/18/2022 12:31:00 12/19/19 23 Callus Debridement, One completed Max Brewster DPM [address], [place], [address], [facility] 12/18/2022 12:30:54 09/12/19 23 Nail Debridement completed Max Brewster DPM [address], [place], [address], [facility] 09/11/2022 11:50:31 09/12/19 23 Callus Debridement, One completed Max Brewster DPM [address], [place], [address], [facility] 09/11/2022 11:50:39 01/19/20 21 Date of Last Colonoscopy completed Not Available [facility] 06/20/2022 02:44:31 12/13/19 21 Most Recent Bone Density completed Not Available [facility] 06/20/2022 02:44:32 05/25/19 20 Hernia Repair completed Not Available [facility] 2022 02:44:34 02/19/20 19 Colonoscopy with biopsy completed Not Available [facility] 06/20/2022 02:44:34 09/11/19 19 Stent Placement completed Not Available [facility] 0304/2022 02:44:34 Hysterectomy completed Not Available [facility] 06/20/2022 02:44:34 colonoscopy completed Not Available [facility] 06/20/2022 02:44:34 Imaging Results None recorded. Procedure Notes None recorded. Medical Equipment None Reported. Allergies No known drug allergies Medications Name Sig Start Date Stop Date Status Note LastModified by Organization Details LastModified Time alcohol pads 70 % pads 08/04 completed Not Available Not Available Not Available pure comfort safety pen needle 32g x 4mm 32g x 4 mm misc 08/04 completed Not Available Not Available Not Available new customer packet NEW CUSTOMER PACKET completed Not Available Not Available Not Available true comfort safety pen needles 32g x 4mm 32g x 4 mm [facility] 08/04 completed Not Available Not Available Not Available cyclobenz aprine 10 mg tablet TAKE ONE TABLET BY MOUTH EVERY DAY NEEDED FOR 10 DAYS active Not Available Not Available No t Available atorvasta tin 40 mg tablet TAKE 1 TABLET BY MOUTH EVERY DAY 05/28 completed Not Available Not Available Not Available atorvasta tin 80 mg tablet TAKE 1 TABLET BY MOUTH EVERY DAY active Not Available Not Available No t Available prednison e 10 mg tablet 02/01 completed Not Available Not Available Not Available naproxen 375 mg tablet 04/25 completed Not Available Not Available Not Available dihydroer gotamine 0.5 mg/pump act. (4 mg/mL) nasal spray active Not Available Not Available Not Available ammonium lactate 12 % lotion 07/31 completed Not Available Not Available Not Available sulfameth oxazole 400 mg-trimet hoprim 80 mg tablet Take 1 tablet every day by oral route for 21 days. 06/11 completed Not Available Not Available Not Available lisinopri l 20 mg tablet TAKE 1 TABLET BY MOUTH EVERY MORNING AT 9AM active Not Available Not Available No t Available alendrona te 70 mg tablet TAKE 1 TABLET BY MOUTH ONCE WEEKLY *SIT UPRIGHT FOR 30 MINUTES AFTER DOSE AND DRINK WITH A FULL GLASS OF WATER* 2024 active Not Available Not Available Not Avai lable Zithromax Z-Gurinder 250 mg tablet TAKE 2 TABLETS (500 MG) BY ORAL ROUTE ONCE DAILY FOR 1 DAY THEN 1 TABLET (250 MG) BY ORAL ROUTE ONCE DAILY FOR 4 DAYS 06/14 completed Not Available Not Available Not Available clopidogr el 75 mg tablet TAKE ONE TABLET DAILY 05/19 completed Not Available Not Available Not Available ciproflox acin 500 mg tablet TAKE 1 TABLET BY MOUTH EVERY 12 HOURS FOR 7 DAYS completed Not Available Not Available Not Available sulfameth oxazole 800 mg-trimet hoprim 160 mg tablet Take 1 tablet every 12 hours by oral route for 7 days. 06/11 completed Not Available Not Available Not Available aspirin 81 mg tablet,de layed release Take 1 tablet every day by oral route. 09/22 completed Not Available Not Available Not Available tramadol 50 mg tablet active Not Available Not Available Not Available triamcino lone acetonide 0.1 % topical cream 03/19 completed Not Available Not Available Not Available lidocaine -prilocai ne 2.5 %-2.5 % topical cream active Not Available Not Available Not Available Synthroid 175 mcg tablet TAKE 1 TABLET BY MOUTH DAILY IN THE MORNING 01/15 completed stopped by Claudy Not Available Not Available Not Available meloxicam 7.5 mg tablet TAKE 1 TABLET BY MOUTH EVERY DAY NEEDED active Not Available Not Available No t Available alendrona te 35 mg tablet completed Not Available Not Available Not Available oxycodone -acetamin ophen 5 mg-325 mg tablet TAKE 1 TABLET EVERY FOUR HOURS PTN FOR SEVERE PAIN 05/19 completed Not Available Not Available Not Available rifampin 300 mg capsule Take 1 capsule every day by oral route. 05/30 completed Not Available Not Available Not Available alprazola m 0.25 mg tablet Take 1 tablet by oral route as directed . 11/09 completed Not Available Not Available Not Available potassium chloride ER 20 mEq tablet,ex tended release(p art/cryst ) Take 2 tablets every day by oral route for 5 days. active Not Available Not Available No t Available Kenalog 10 mg/mL suspensio n for injection In office injectio n administ ered by the provider 02/01 completed [facility]: [id number] 08-09 Not Available Not Available Not Available econazole nitrate 1 % topical cream 08/18 completed Not Available Not Available Not Available lisinopri l 10 mg tablet Take 1 tablet every day by oral route. 03/[address] Marni carballo Not Available Not Available Not Available levothyro xine 150 mcg tablet TAKE 1 TABLET BY MOUTH SIX TIMES A WEEK active Not Available Not Available No t Available vancomyci n 250 mg capsule 06/30 completed Not Available Not Available Not Available gabapenti n 300 mg capsule TAKE 1 CAPSULE BY MOUTH 3 TIMES DAILY. NO ALCOHOL, DRIVING OR OTHER SEDATING MEDICATI ONS. active Not Available Not Available No t Available lidocaine HCl 2 % mucosal solution APPLY 5-10 ML TO THE MOUTH OR THROAT 4 TIMES A DAY NEEDED (GARGLE AND SPIT) FOR UP TO 5 DAYS 06/14 completed Not Available Not Available Not Available gentamici n 0.1 % topical cream 05/19 completed Not Available Not Available Not Available aspirin 81 mg chewable tablet CHEW ONE TABLET BY MOUTH DAILY AT 9 AM active Not Available Not Available No t Available albuterol sulfate HFA 90 mcg/actua tion aerosol inhaler INHALE 2 PUFFS EVERY 4 HOURS NEEDED active Not Available Not Available No t Available oxybutyni n chloride 5 mg tablet TAKE 1 TABLET BY MOUTH DAILY 01/15 completed Is on myrbetri q Not Available Not Available Not Available metformin ER 500 mg tablet,ex tended release 24 hr TAKE 1 TABLET BY MOUTH TWICE DAILY AFTER BREAKFAS T AT 9AM AND DINNER AT 5PM active Not Available Not Available No t Available clotrimaz ole 1 % topical cream active Not Available Not Available Not Available lisinopri l 2.5 mg tablet Take 1 tablet daily 09/08 completed Not Available Not Available Not Available loratadin e 10 mg tablet Take 1 tablet every day by oral route. 2020 active Not Available Not Available Not Avai lable glipizide 5 mg tablet TAKE 1 TABLET BY MOUTH TWICE DAILY BEFORE BREAKFAS T AT 9AM AND LUNCH AT NOON active Not Available Not Available No t Available difloraso ne 0.05 % topical ointment active Not Available Not Available Not Available iron 325 mg (65 mg iron) tablet Take 3 tablets every day by oral route. 2020 active Not Available Not Available Not Avai lable lancing device active Not Available Not Available Not Available Alcohol Prep Pads USE 1 PAD TOPICALL Y UP TO THREE TIMES A DAY WHILE INJECTIN G INSULIN AND TESTING BLOOD SUGARS active Not Available Not Available No t Available duloxetin e 60 mg capsule,d elayed release TAKE 1 CAPSULE BY MOUTH EVERY DAY, NO ALCOHOL/ DRIVING/ OTHER SEDATING MEDS active Not Available Not Available No t Available solifenac in 5 mg tablet TAKE 1 TABLET BY MOUTH EVERY DAY active Not Available Not Available No t Available pregabali n 100 mg capsule TAKE 1 CAPSULE BY MOUTH THREE TIMES A DAY BEFORE MEALS 01/15 completed Not Available Not Available Not Available pregabali n 150 mg capsule TAKE ONE (1) CAPSULE BY MOUTH NIGHTLY active Not Available Not Available No t Available albuterol sulfate prn 04/25 completed Not Available Not Available Not Available lidocaine (PF) 10 mg/mL (1 %) injection solution In office injectio n administ ered by the provider 05/30 completed [facility]: 0409-427 10-06 Not Available Not Available Not Available metformin ER 500 mg 24 hr tablet,ex tended release (gastric retention ) active Not Available Not Available Not Available fenofibra te nanocryst allized 145 mg tablet TAKE ONE TABLET DAILY active Not Available Not Available No t Available peg 3350-elec trolytes 236 gram-22.7 4 gram-6.74 gram-5.86 gram solution 03/30 completed Not Available Not Available Not Available Lantus Solostar U-100 Insulin 100 unit/mL (3 mL) subcutane ous pen 08/18 completed Not Available Not Available Not Available Synvisc-O ne 48 mg/6 mL intra-art icular syringe active Not Available Not Available Not Available ropivacai ne (PF) 5 mg/mL (0.5 %) injection solution Take 16 mg by injectio n route. 02/01 completed Not Available Not Available Not Available Myrbetriq 25 mg tablet,ex tended release Take 1 tablet every day by oral route for 90 days. active Not Available Not Available No t Available Myrbetriq 50 mg tablet,ex tended release TAKE 1 TABLET BY MOUTH EVERY DAY active Not Available Not Available No t Available Victoza 2-Gurinder 0.6 mg/0.1 mL (18 mg/3 mL) subcutane ous pen injector INJECT 1.2MG SUBCUTAN EOUSLY EVERY DAY active Not Available Not Available No t Available Vascepa 1 gram capsule TAKE 2 CAPSULES BY MOUTH TWICE DAILY active Not Available Not Available No t Available Safety Lancets 28 gauge TEST 2 TIMES A DAY 08/04 completed Not Available Not Available Not Available Farxiga 10 mg tablet TAKE 1 TABLET BY MOUTH EVERY DAY active Not Available Not Available No t Available Anoro Ellipta 62.5 mcg-25 mcg/actua tion powder for inhalatio n Inhale 1 puff every day by inhalati on route as directed for 30 days. active Not Available Not Available No t Available Biofreeze (menthol) PRN 11/09 completed Not Available Not Available Not Available Stiolto Respimat 2.5 mcg-2.5 mcg/actua tion solution for inhalatio n Inhale 2 puffs every day by inhalati on route. 12/08 completed Managed by Pulm Not Available Not Available Not Available Tresiba FlexTouch U-200 insulin 200 unit/mL (3 mL) subcutane ous pen INJECT 60 UNITS UNDER THE SKIN ONCE DAILY AT BEDTIME active Not Available Not Available No t Available Tresiba FlexTouch U-100 insulin 100 unit/mL (3 mL) subcutane ous pen 03/03 completed Not Available Not Available Not Available Droplet Pen Needle 31 gauge x 3/16 10/17 completed Not Available Not Available Not Available Bydureon BCise 2 mg/0.85 mL subcutane ous auto-inje ctor INJECT 2 MG SUBCUTAN EOUSLY ONCE WEEKLY ON SATURDAY active Not Available Not Available No t Available Xarelto 2.5 mg tablet TAKE ONE (1) TABLET BY MOUTH TWICE DAILY active Not Available Not Available No t Available OneTouch Delica Plus Lancet 33 gauge USE TO TEST BLOOD GLUCOSE TWICE A DAY active Not Available Not Available No t Available OneTouch Delica Plus Lancet 30 gauge USE TO TEST TWICE DAILY *NEW PRESCRIP TION REQUEST* active Not Available Not Available No t Available Voltaren Arthritis Pain 07/22 completed Not Available Not Available Not Available Ozempic 1 mg/dose (4 mg/3 mL) subcutane ous pen injector INJECT 1MG SUBCUTAN EOUSLY ONCE WEEKLY active Not Available Not Available No t Available BinaxNOW COVID-19 Ag Self Test kit USE DIRECTED 02/01 completed Not Available Not Available Not Available Dexcom G7 Sensor device USE TO MONITOR BLOOD SUGAR. CHANGE SENSOR EVERY 10 DAYS active Not Available Not Available No t Available Pure Comfort Safety Pen Needle 32 gauge x 5/32 USE TO INJECT ONCE DAILY 08/04 completed Not Available Not Available Not Available Contour Plus Test Strip USE TO TEST BLOOD SUGAR TWICE A DAY active Not Available Not Available No t Available Contour Plus Blue Meter USE TO TEST BLOOD SUGAR TWICE A DAY active Not Available Not Available No t Available Ultra-Fin e Pen Needle 31 gauge x 5/16 USE WITH TRESIBA ONCE DAILY active Not Available Not Available No t Available Vitals Date Recorded Body height Body mass index (BMI) Body weight Provider Name and Address Organization Details Last Updated DateTime 08/25/2024 152.4 cm 32.4 kg/m2 85013.33 g 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[employer] 08/25/2024 14:28:08 Date Recorded Body height Body mass index (BMI) Body weight Body temperature Heart rate Oxygen saturation Oxygen saturation in Arterial blood by Pulse oximetry Pain severity - 0-10 verbal numeric rating [Score] - Reported Systolic And Diastolic Provider Name and Address Organization Details Last Updated DateTime 5 152.4 cm 32.8 kg/m2 04818.5 2 g 97 [degF] 80 /min 96 % 96 % 5 114/58 mm[Hg] Marla Sierra MA [employer] 16:13:12 Date Recorded Body height Body mass index (BMI) Body weight Provider Name and Address Organization Details Last Updated DateTime 10/20/2024 152.4 cm 32.4 kg/m2 72789.33 g 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[employer] 10/20/2024 14:20:09 Date Recorded Body height Body mass index (BMI) Body weight Heart rate Respiratory rate Oxygen saturation Oxygen saturation in Arterial blood by Pulse oximetry Systolic And Diastolic Provider Name and Address Organization Details Last Updated DateTime 5 152.4 cm 32.4 kg/m2 48859.3 3 g 91 /min 14 /min 98 % 98 % 113/59 mm[Hg] Ayleen Francisco [place] [facility] [facility] 5 16:36:15 Date Recorded Body height Body mass index (BMI) Body weight Respiratory rate Body temperature Heart rate Oxygen saturation Oxygen saturation in Arterial blood by Pulse oximetry Systolic And Diastolic Provider Name and Address Organization Details Last Updated DateTime 5 152.4 cm 31.2 kg/m2 98129.7 8 g 16 /min 97 [degF] 95 /min 98 % 98 % 100/56 mm[Hg] Jeremy Merrill [place] [facility] [employer] [facility] 5 15:35:44 Social History Question Answer Notes LastModified by Organization Details LastModified Time Tobacco Smoking Status Former [facility] quit 2001 Not Available [facility] 06/20/[facility]22 02:39:13 Do You Have An Advance Directive? No Patient Declined Information Today, Stating She Already Has Some At Home. [id number] Information not available 06/20/2022 Are You Blind Or Do You Have Difficulty Seeing? No MIGRATION.185 [id number] Information not available 06/20/2022 What Is Your Level Of Caffeine Consumption? Heavy Patient Reported 2-3 Coffees A Day And 1-2 Sodas A Day. MIGRATION.329 [id number] Information not available 06/20/2022 How Much Tobacco Do You Chew? None MIGRATION.464 [id number] Information not available 06/20/2022 In The 14 Days Before Symptom Onset, Have You Had Close Contact With A Laboratory-conf irmed COVID-19 While That Case Was Ill? No MIGRATION.488 [id number] Information not available 06/20/2022 In The 14 Days Before Symptom Onset, Have You Had Close Contact With A Person Who Is Under Investigation For COVID-19 While That Person Was Ill? No MIGRATION.404 [id number] Information not available 06/20/2022 Are You Deaf Or Do You Have Serious Difficulty Hearing? Yes Hearing Aids MIGRATION.998 [id number] Information not available 06/20/2022 What Type Of Diet Are You Following? REGULAR MIGRATION.880 [id number] Information not available 06/20/2022 Which Illicit Or Recreational Drugs Have You Used? None MIGRATION.481 [id number] Information not available 06/20/2022 Do You Have An Electrostatic Air Filter? No MIGRATION.094 [id number] Information not available 06/20/2022 How Many Days Of Moderate To Strenuous Exercise, Like A Brisk Walk, Did You Do In The Last 7 Days? 0 MIGRATION.684 [id number] Information not available 06/20/2022 Have There Been Any Changes To Your Family Or Social Situation? No Patient's This Month. MIGRATION.906 [id number] Information not available 06/20/2022 What Is The Fluoride Status Of Your Home? Unknown MIGRATION.298 [id number] Information not available 06/20/2022 When Did You Quit Smoking? 16+yearssincelastc igarette MIGRATION.137 [id number] Information not available 06/20/2022 Are There Any Guns Present In Your Home? No MIGRATION.719 [id number] Information not available 06/20/2022 Do You Have A Humidifier? Yes MIGRATION.154 [id number] Information not available 06/20/2022 Do You Use Insect Repellent Routinely? No MIGRATION.799 [id number] Information not available 06/20/2022 Where Do You Live? SingleLevelHouse MIGRATION.430 [id number] Information not available 06/20/2022 Advance Directive- Providers Has Reviewed Directive And Consents To Follow Them (insert Provider Name With Any Objectives In Notes Field) No Information not available 07/23/2023 Presence Of Domestic Violence No Information not available 07/23/2023 Guns Present In The Home? No Information not available 07/23/2023 Are You Able To Care For Yourself? Yes Information not available 07/23/2023 Are You Blind Or Do Yo Have Difficulty Seeing? No Information not available 07/23/2023 Are You Deaf Or Do You Have Serious Difficulty Hearing? Yes Information not available 07/23/2023 General Stress Level? Low Information not available 07/23/2023 Do You Have A Medical Power Of Manager Of Data? No MIGRATION.556 [id number] Information not available 06/20/2022 Do You Have Moisture Problems In Your Home? No MIGRATION.169 [id number] Information not available 06/20/2022 What Was The Date Of Your Most Recent Tobacco Screening? 10/20/2024 [email or web address] Information not available 10/20/2024 What Is Your Current Pack Years? 30ormorepackyears MIGRATION.128 [id number] Information not available 06/20/2022 Do You Have Any Pets? No MIGRATION.718 [id number] Information not available 06/20/2022 What Is Your Relationship Status? MIGRATION.242 [id number] Information not available 06/20/2022 Do You Use Your Seat Belt Or Car Seat Routinely? Yes MIGRATION.764 [id number] Information not available 06/20/2022 Do You Have Smoke And Carbon Monoxide Detectors In Your Home? Yes MIGRATION.867 [id number] Information not available 06/20/2022 At What Age Did You Start Smoking Tobacco? 17 MIGRATION.508 [id number] Information not available 06/20/2022 Are You Passively Exposed To Smoke? No MIGRATION.536 [id number] Information not available 06/20/2022 Are There Any Smokers In Your House? No MIGRATION.012 [id number] Information not available 06/20/2022 How Much Tobacco Do You Smoke? No MIGRATION.654 [id number] Information not available 06/20/2022 What Types Of Sporting Activities Do You Participate In? None MIGRATION.923 [id number] Information not available 06/20/2022 Do You Use Sunscreen Routinely? No MIGRATION.421 [id number] Information not available 06/20/2022 Has Tobacco Cessation Counseling Been Provided? No MIGRATION.275 [id number] Information not available 06/20/2022 How Many Years Have You Smoked Tobacco? 34 MIGRATION.003 [id number] Information not available 06/20/2022 Have You Recently Traveled Abroad? No MIGRATION.982 [id number] Information not available 06/20/2022 Do You Have Difficulty Walking Or Climbing Stairs? No MIGRATION.301 [id number] Information not available 06/20/2022 Do You Have Any Dietary Restrictions? No MIGRATION.176 [id number] Information not available 06/20/2022 Sex: Female Functional Status Question Answer Note LastModified by Organizat ion Details LastModified Time Do you use any illicit or recreational drugs? No MIGRATION.[id number] Information not available 06/20/2022 Do you or have you ever used any other forms of tobacco or nicotine? No MIGRATION.[id number] Information not available 06/20/2022 What is your level of alcohol consumption? None MIGRATION.[id number] Information not available 06/20/2022 Are you currently employed? No [email or web address] Information not available 09/22/2024 Have you been exposed to chemicals or toxins? not that aware of [email or web address] Information not available 08/04/2024 Do you have transportation difficulties? No MIGRATION.[id number] Information not available 06/20/2022 Are you able to walk independently without assistance or assistive devices? YESWOREST MIGRATION.[id number] Information not available 06/20/2022 Do you have difficulty doing errands alone? No MIGRATION.[id number] Information not available 06/20/2022 Are you able to care for yourself independently? Yes MIGRATION.[id number] Information not available 06/20/2022 What is your occupation? retired MIGRATION.[id number] Information not available 06/20/2022 Do you have difficulty dressing, bathing, grooming, or toileting? Yes MIGRATION.[id number] Information not available 06/20/2022 What is your exercise level? Occasional MIGRATION.[id number] Information not available 06/20/2022 Mental Status Question Answer Note LastModified by Organizat ion Details LastModified Time Do you feel stressed (tense, restless, nervous, or anxious, or unable to sleep at night)? [id number] Information not available 07/23/2023 Do you have difficulty concentrating, remembering or making decisions? No MIGRATION.[id number] Information not available 06/20/2022 Family History Relationship Description Onset Age of this Age Resolved Age Notes LastModified by Organization Details LastModified Time Brother Heart disease MIGRATION.127 [id number] Not available 06/20/2022 02:44:38 Brother Diabetes mellitus MIGRATION.139 [id number] Not available 06/20/2022 02:44:38 Brother Malignant neoplasm of lung [email or web address] Not available 05/2023 15:09:27 Father Heart disease MIGRATION.006 [id number] Not available 06/20/2022 02:44:38 Maternal Uncle Diabetes mellitus [email or web address] Not available 2024 14:28:40 Medical History Condition Response NERVE DISEASE N CYSTITIS N BLINDNESS N RHEUMATIC FEVER N KIDNEY STONES N BLADDER PROBLEMS N MRSA N CARPAL TUNNEL SYNDROME N OTHER # 1 N POLIO N LUNG DISEASE/DISORDER Y HISTORY OF DRUG ABUSE N RADIATION / CHEMOTHERAPY N COPD Y Other # 2 N BLOOD DISEASES N EAR OR HEARING PROBLEMS Y MUMPS N SCHIZOPHRENIA N SHINGLES N DEPRESSION (INCLUDING POST ) Y BOWEL PROBLEMS N STROKE/TIA N ULCERS N BENIGN PROSTATIC HYPERPLASIA N HYPOTENSION N MYOCARDIAL INFARCTION N OBESITY N GERD/NAUSEA Y ANEURYSM N URINARY/BLADDER/KIDNEY PROBLEMS Y CORONARY ARTERY DISEASE (CAD) Y ADDICTION CONCERNS N Impotence N ENDOMETRIOSIS N USE OF BLOOD THINNERS Y SKIN PROBLEMS N EMPHYSEMA N GASTROINTESTINAL DISORDER N PERIPHERAL VASCULAR DISEASE N MUSCLE,JOINT OR BONE PROBLEMS N DVT N STOMACH ULCERS N GASTROINTESTINAL BLEEDING N BLOOD CLOTS N ASTHMA Y CATARACTS Y USE OF NSAIDS N CONCUSSION OR SPINAL TRAUMA N ERECTILE DYSFUNCTION N VARICOSITIES N GI PROBLEMS N Low Testosterone N NEUROPATHY Y INFERTILITY N AIDS/HIV N FRACTURES N CHEMOTHERAPY / RADIATION N LIVER DISEASE N MALE HYPOGONADISM N HYPERTENSION N Deficiency N TOURETTE'S N Metal allergy N ANXIETY DISORDER N BLOOD TRANSFUSION N ANEMIA/BLOOD DISORDER Y CHRONIC EAR INFECTIONS N BIPOLAR DISORDER N BRONCHITIS N OSTEOARTHRITIS N TUBERCULOSIS Y GLAUCOMA N FOOT PROBLEM N HEART VALVE DISORDERS N DIVERTICULITIS N SLEEP APNEA Y CHICKENPOX N ALLERGIES/HAYFEVER N INFECTIOUS DISEASE N PROSTATE N HEART ARRHYTHMIA N INSOMNIA N RHEUMATOID ARTHRITIS N HIGH CHOLESTEROL / HYPERLIPIDEMIA Y HYPERTHYROIDISM N EYE PROBLEMS N EDEMA N CHRONIC PAIN SYNDROME N HYPOTHYROIDISM N CONSTIPATION N CAROTID BLOCKAGE N BACK / NECK PROBLEMS Y ATHEROSCLEROSIS N BURSITIS N BREAST PROBLEMS N HERNIATED DISC N DIALYSIS N ECZEMA N FIBROMYALGIA N OSTEOPOROSIS Y ARTHRITIS Y PERIPHERAL NEUROPATHY N APPENDICITIS N DIABETES, TYPE Y BAD TEETH N ENT N HEARTBURN / REFLUX N AUTISM SPECTRUM DISORDER (ASD) N HEPATITIS / LIVER DISEASE Y GOUT N SLEEP DISORDER N ALZHEIMER'S DISEASE N Brain Problems N HERPES N DEMENTIA N SEIZURES/EPILEPSY N HEADACHES/MIGRAINES Y VASCULAR DISEASE N PACEMAKER N Blood Disorder N DIZZINESS N HEAD TRAUMA OR INJURY N KIDNEY DISEASE Y HEART DISEASE/HEART PROBLEMS Y MULTIPLE SCLEROSIS N CARDIAC ARRHYTHMIA N CANCER: SPECIFY N ANESTHESIA COMPLICATIONS N Gall Stones N ATRIAL FIBRILLATION N PULMONARY EMBOLISM N AUTOIMMUNE DISEASE N Gynecological History Statement/Question Response How many live births 3 Date of Last Mammogram 11/10/2021 Date of Last Colonoscopy 01/18/2021 Date of Last Mammogram Most Recent Bone Density 12/12/2020 Date of LMP Date of Last Pap Current Control Method Hysterectom y Obstetrics History GPAL:G 3 P 3 0 0 3 Type Value Multiple Births 0 Full Term 3 Induced 0 Spontaneous 0 Premature 0 Living 3 Ectopics 0 Total 3 Immunizations Vaccine Type Date Status Note Provider Nam e and Address Organization Details Recorded Time COVID-19, mRNA, LNP-S, PF, 30 mcg/0.3 mL dose 1 completed Liseth Clearwater [employer] [facility] 07/23/2023 13:12:30 COVID-19, mRNA, LNP-S, PF, 30 mcg/0.3 mL dose 1 completed Liseth Clearwater null, [facility] 07/23/2023 13:12:30 COVID-19, mRNA, LNP-S, PF, 30 mcg/0.3 mL dose 1 [facility] 13:12:30 Influenza, split virus, trivalent, preservative 0 completed Not Available [facility] 12/28/2022 03:26:36 Influenza, high-dose, quadrivalent, PF 2 completed Not Available [facility] 12/28/2022 03:26:36 Influenza, high-dose, quadrivalent, PF 1 completed Not Available [facility] 12/28/2022 03:26:36 pneumococcal polysaccharide PPV23 8 [facility] [employer] [facility] 07/23/2023 13:12:30 Tdap 4 completed [facility]23 13:12:30 Tdap 8 [facility] [employer] [facility] 07/23/2023 13:12:30 Pneumococcal conjugate PCV 13 6 completed [facility] [place] [facility] [employer] [facility] 07/23/2023 13:12:30 Pneumococcal conjugate PCV 13 8 completed [facility]eth [place] [facility] 07/[facility]23 13:12:30 zoster live 3 completed Lisethher Denise [facility] 07/23/2023 13:12:30 Influenza, high-dose, trivalent, PF 7 completed Liseth Clearwater [facility] 07/23/2023 13:12:30 Influenza, high-dose, trivalent, PF 8 completed Liseth Howie [facility] 07/23/2023 13:12:30 Influenza, high-dose, trivalent, PF 9 completed Liseth Howie [facility] 07/23/2023 13:12:30 Influenza, high-dose, trivalent, PF 5 completed Liseth Clearwater [facility] 07/23/2023 13:12:30 Influenza, split virus, trivalent, preservative 8 completed Lisethher Denise [facility] 07/23/2023 13:12:30 Influenza, split virus, quadrivalent, PF 0 completed Liseth Howie [facility] 07/23/2023 13:12:30 RSV, recombinant, protein subunit RSVpreF, adjuvant reconstituted, 0.5 mL, PF 3 completed [facility] Russell [facility] 07/23/2023 16:01:27 zoster recombinant 4 completed Mercy Russell RMA null, [facility] 09/23/2023 14:17:43 zoster recombinant 4 completed [facility] 10/22/2023 14:02:06 COVID-19, mRNA, LNP-S, PF, alex-sucrose, 30 mcg/0.3 mL 3 completed Not Available [employer] 12/03/2024 15:14:50 Influenza, high-dose, quadrivalent, PF 3 completed [facility] 01/22/2023 12:38:58 Influenza, high-dose, trivalent, PF 4 completed Mercy Russell, DEMETRIO arreaga, [place] - [facility] [place] [employer] [facility] 01/21/2024 15:27:17 Past Encounters Encounter ID Performer Location Encounter Start Date Encounter Closed Date Diagnosis/Indication Diagnosis SNOMED-CT Code Diagnosis ICD10 Code Diagnosis IMO Codes Diagnosis Note [id number] JAVIER Graf [facility] [address] [facility] [address] [place] [address] 06/30/2020 00:00:00 06/30/2020 11:55:19 [id number] Mary jimenez MD [facility] Internal Med [address] [address] 08/18/2020 00:00:00 08/18/2020 16:20:20 [id number] Sharyn Arevalo MD [facility] [address] [facility] [address] [place] [address] 08/19/2020 00:00:00 10/26/2020 08:13:09 [id number] Paul Lilly MD [facility] [address] [address] 08/23/2020 00:00:00 08/23/2020 10:22:15 [id number] S_Histor ic_Gateway _ATHENA_M IGRATION_ DEFAULT_1 _1 , 09/02/2020 00:00:00 09/12/2020 08:50:17 [id number] AHS_[facility] [place] [address] [address] 09/09/2020 00:00:00 09/09/2020 15:09:47 [id number] JAVIER Graf [facility] [address] [address] 09/20/2020 00:00:00 09/20/2020 11:36:07 [id number] Shahriar Lozano MD [facility] [address]mon[address] [address] 10/27/2020 00:00:00 10/27/2020 17:09:05 [id number] Shahriar Lozano MD S_GMSamy Pulmon[address] [address] 11/09/2020 00:00:00 11/09/2020 17:05:28 [id number] MD LEV sEpinoza IGRATION_ DEFAULT_1 _1 , 12/08/2020 00:00:00 12/08/2020 15:10:11 [id number] Mary jimenez MD S_GMG [address] [address] 12/15/2020 00:00:00 12/19/2020 14:07:31 [id number] S_Histor ic_Gateway _ATHENA_M IGRATION_ DEFAULT_1 _1 , 12/16/2020 00:00:00 12/20/2020 12:19:03 [id number] MD LEV Garcia IGRATION_ DEFAULT_1 _1 , 01/03/2021 00:00:00 01/03/2021 19:13:14 [id number] Shahriar Lozano MD S_GMG [address] [address] 03/06/2021 00:00:00 03/06/2021 12:47:45 [id number] Robles Guadarrama MD S_GMG [facility] [address] [place] [address] 03/07/2021 00:00:00 03/07/2021 17:24:53 [id number] S_Histor ic_Gateway _ATHENA_M IGRATION_ DEFAULT_1 _1 , 03/24/2021 00:00:00 03/28/2021 12:45:57 [id number] MD RACHEL Jaramillo_GMG [facility] [address] [place] [address] 03/28/2021 00:00:00 03/28/2021 16:29:04 [id number] MD LEV Espinoza IGRATION_ DEFAULT_1 _1 , 03/30/2021 00:00:00 03/30/2021 12:07:17 [id number] Robles Guadarrama MD S[facility] [address] [place] [address] 04/18/2021 00:00:00 04/18/2021 16:37:32 [id number] Shahriar Lozano MD [facility] [place] [address] [address] 04/25/2021 00:00:00 04/25/2021 14:06:57 [id number] Robles Guadarrama MD S[facility] [address] [place] [address] 05/30/2021 00:00:00 05/30/2021 09:26:42 [id number] Mary jimenez MD S_GMG Internal Med [facility] [address] [place] [address], [address] [address] 06/20/2021 00:00:00 06/20/2021 14:29:30 [id number] S_Histor ic_Gateway _ATHENA_M IGRATION_ DEFAULT_1 _1 , 07/21/2021 00:00:00 07/25/2021 10:31:03 [id number] MD LEV Espinoza IGRATION_ DEFAULT_1 _1 , 07/27/2021 00:00:00 07/27/2021 12:05:25 [id number] Mary jimenez MD S_GMG Internal Med [facility] [address] [place], [place] [address], [address] [address] 09/26/2021 00:00:00 09/26/2021 17:59:59 [id number] S_Histor ic_Gateway _ATHENA_M IGRATION_ DEFAULT_1 _1 , 10/20/2021 00:00:00 10/24/2021 11:31:39 [id number] Robles Guadarrama MD S[facility] [address] [place] [address] 10/24/2021 00:00:00 10/24/2021 16:53:33 [id number] Robles Guadarrama MD S_GMSamy [facility] [address] [place] [address] 01/24/2022 00:00:00 01/24/2022 15:31:58 [id number] S_Histor ic_Gateway _ATHENA_M IGRATION_ DEFAULT_1 _1 , 01/26/2022 00:00:00 01/29/2022 09:36:57 [id number] Mary jimenez MD S_GMG Internal Med [facility] [address] [place] [address] 02/01/2022 00:00:00 02/01/2022 14:07:52 [id number] Isaías Cortez MD S_GMG Urology [address] [place] [address] 02/05/2022 00:00:00 02/05/2022 10:56:12 [id number] Sharyn Arevalo MD S_[facility] [address] [place] [address] 02/08/2022 00:00:00 02/08/2022 14:17:51 [id number] Isaías Cortez MD S_GMG Urology [address] [place] [address] 1 03/19/2022 00:00:00 03/19/2022 10:32:25 [id number] Shahriar Lozano MD Alecia_GMG Pulmonolo [facility] [address] [place] [address] 04/26/2022 00:00:00 04/26/2022 12:55:52 [id number] Isaías Cortez MD S_GMG Urology [address] [place] [address] 06/11/2022 00:00:00 06/11/2022 12:19:19 [id number] Max Brewster DPM S_GMG Podiatry [place] [address] [facility] [address] [place] [address] 06/12/2022 00:00:00 06/12/2022 14:06:42 [id number] MD RACHEL Dahl_GMG Internal Med [facility] [address] [facility] [address] [place] [address] 06/19/2022 00:00:00 06/19/2022 15:59:40 [id number] MD LALITO EspinozaS_GMG Endo [place] [address] [place] [address] 06/21/2022 17:24:57 06/27/2022 15:27:01 Well controlled type 2 diabetes mellitus 966908791 E11.9 A1C 7%- continue on tresiba but due to lows patient advised to drop her dose down to 52 units at bedtime and continue to increase or decrease by 6 units every 3 days until fasting glucose 90-130 mg/dL. Continue on farxiga, metformin and bydureon 2 mg once weekly as she is tolerating well. Hypothyroidism 45831824 E03.9 TSH at 0.5 uIU/ml- will drop her dosage to 150 mcg once daily instead of alternatin g dose. She was reminded to take her synthroid on empty stomach with glass of water and wait one hour to eat or have her coffee in morning and up to 4 hours if ever taking any heartburn or reflux medication s to help optimize absorption . Discussed paleo like diet with restrictio n of GMOs to help with energy and to optimize absorption of vitamins and minerals and reduce inflammati on. Urinary incontinence 165 943753 R32 Continue on myrbetriq and refill per patient request-th is has helped tremendous ly with her incontinen ce. Spent up to 28 minutes preparing to see the patient (eg, review of tests), obtaining and/or reviewing separately obtained history, performing a medically appropriat e examinatio n and evaluation , counseling and educating the patient, ordering medication s, tests, along with documentin g clinical informatio n in the electronic health record, independen tly interpreti ng results and communicat ing results to the patient. RTC in 6 months. Patient was provided a handwritte n lab order which contains our fax number. If she chooses to go outside of the [facility] system to obtain labwork she was advised to provide our fax number and my informatio n to the lab she will be obtaining labwork from in order to have her labs properly forwarded over for me to review so there is no loss of follow up due to use of outside network. She was also advised to contact our clinic informing us that she has completed her labwork so we are aware we will need to reach out to the appropriat e laboratory to request her results be forwarded to us so I might have the ability to review and make further medical decision making in her case. She voiced understand ing. [id number] Shahriar Lozano MD S_G Pulmonolo gy [address] [address] 07/31/2022 11:57:14 08/01/2022 08:32:55 Obstructive sleep apnea syndrome 78441479 G47.33 [id number] Ezequiel Abreu NP S_G Urology [address] [place] [address] 09/10/2022 10:46:51 09/10/2022 11:20:54 Urge incontinence of urine 07017086 N39.41 Limit bladder irritants. Continue Myrbetriq. UA today negative for infection. Glucosuria --on Farxiga. Maintain good glycemic control. Plan for follow-up in 6 months. Increased frequency of urination 387184696 R35.0 [id number] Max Brewster DPM [facility] Podiatry [address] [address] 09/11/2022 11:08:18 09/11/2022 15:54:22 Neuropathy due to type 2 diabetes mellitus [id number] 82433 E11.40 L60.3 Z74.1 Patient educated on neuropathy , diabetes, diabetic diet, and daily foot exams. Patient is to check feet daily for new wounds, blisters, redness to prevent infection and ulceration s to the feet. Patient will return to clinic in 3 months for diabetic foot workup. Dystrophia unguium 22412 009 L60.3 Nails 1 through 10 were debrided with sharp mechanical debridemen t without incident. Nails were debrided and greater than 50% length and thickness where needed. Foot callus 772011260 L8 4 Debrided without incidentCo ntinue supportive shoe gearMonito r for wounds infection daily [id number] Mary jimenez MD [facility] Internal Med [facility] 15 [address] [facility], [facility] 15 [place] [address] 10/16/2022 15:17:16 10/16/2022 16:08:02 Screening - NAD 962103727 Z13.9 C-scope: 02/18/19: Dr Addison next in one yearC-scop e: 01/18/2021 : Next in 10 years PAP: 07/25/18: Jazmin Yen see Jazmin Wiggins LAND MANAGEMENT SUPERVISOR on 05/30/2020 Mammogram: 11/10/18: Neg 020: Neg 021: Neg 022: Neg DEXA: On alendronat e, DEXA 11/10/18, normalDEXA : 12/12/2020 : WNL Dr Isadora lucio, weekly get DEXA 0rdered 10/16/2022 UTD yearly flu shotGet Tdap if not doneUTD PCV #13 03/20/18, she did have the #23 as per her history also no record hereUTD on zostavax 03/11/13UT D on COVID 19 vaccine RTC 3 monthsGet labsER if worseShe did verbalize her understand ing of the above Essential hypertension 25702352 I10 On lisinopril 20 mg dailyDoes wellGet labs 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 343862161 E11.9 On metformin ER 500mg 2 tabs bidOn tresciba 52U dailyOn farxiga 10mg dailyOn bydureon weekly Does well Dr Arevalo, next apt 06/21/2022 Dr Dixon/ Dr Brewster Hyperlipidemia 06020142 E78.5 On atorvastat in 40mg dailyOn vascepaMor e diet and exercise is neededGet labs Coronary arteriosclerosis 12818059 I25.10 On ASA 81mg dailyNot on plavixOn xarelto 2.5mg bid filled by Dr Collier 05/23/2022 Stress test 05/17/2020 : reversible defect noted ECHO : Normal LV sx fx and EF 60% 06/01/2020 : Dr Toscano: Now to get [facility] on Tu06/13/2020 07/25/2020 : Dr Toscano, next apt in 6 months 02/28/2021 : Dr Toscano, next apt in 3 months 11/27/2021 : Dr Toscano, next in 3 months LDCT [facility] 05/23/[address] referral Chronic ob structive pulmonary disease 20748476 J44.[address] Loazno, next 08/05/2023 , get LDCT doneSeen for CPAP for DUYEN also Hypothyroidism 86604094 E03.9 On levothyrox ine 150mcgs Pm /Sat/ aysOn levothyrox ine 175mcgs dailyGiven by Dr Trevino [facility] labs Anemia 345373962 D64.[address] Giraldo Neuropathy 815869458 G62 .9 On duloxetine 60mg daily Not on gabapentin Does wellCan renew the medsHas seen Dr Brewster podiatry and next apt is on 12/18/2022 Urinary incontinence 165 781455 R32 On incontinen ce padsOn oxybutynin 5mg daily, will d/c this as this has not helped her, will start on myrbetriq 25mg daily, all side effects explained to her Also get a referral to urologyDoe s well OV 06/19/2022 :On myrbetriq 50mg dailyS/p bladder bxSees Ezequiel Abreu [employer] MANAGEMENT SUPERVISOR 09/10/2022 OV 10/16/2022 :On mybetriqKe ep apt with urology Alysha Abreu 03/11/2023 Pain of le ft shoulder joint 0278693940 5343273 M25.512 S/p fall in 11/2019Sam gabrielle Al Guadarrama Leukocytosis 717045762 D 72.829 Get a repeat CBC doneNeeds to see Dr Giraldo Proteinuria 72961488 R80 .9 Elevated calciumKee p the apt with Dr Martinez Bereavement 54369727 Z63 .4 Her diet this monthIs on duloxetine , not suicidal or homicidal, does not want any referrals or medication sStates that her daughter comes to help her daily at home Screening mammography 24 539497 Z12.31 Screening for osteoporosis 645311700 Z13.820 Screening for malignant neoplasm of respiratory tract 052201700 Z12.2 Z87.891 Get LDCT Adult heal th examination 097746874 Z00.00 Depression screening 171 591008 Z13.31 [id number] Max Brewster DPM [facility] Podiatry [place] [address] [facility] [address] [place] [address] 12/18/2022 12:02:58 12/18/2022 12:35:22 Dystrophia unguium 31569852 L60.3 nails debrided without incident Foot callus 744875569 L8 4 Debrided without incidentCo ntinue supportive shoe gearMonito r for wounds infection dailyrecom mend use of pumice stone daily with lotion Diabetes mellitus 489652 09 E11.9 continue with PCP recommenda tionsdaily foot exams to check for wounds infectionc ontinue supportive shoe gear [id number] Mary jimenez MD S_GMG Internal Med [facility] [address] [facility], [address] [place] [address] 01/15/2023 14:26:36 01/15/2023 15:57:40 Screening - NAD 519149073 Z13.9 C-scope: 02/18/19: Dr Addison next in one yearC-scop e: 01/18/2021 : Next in 10 years PAP: 07/25/18: Jazmin Yen see Jazmin Wiggins LAND MANAGEMENT SUPERVISOR on 05/30/2020 Mammogram: 11/10/18: Neg 020: Neg 021: Neg 022: Neg 023: Neg DEXA: On alendronat e, DEXA 11/10/18, normalDEXA : 12/12/2020 : WNL Dr Isadora lucio, weekly get DEXA 0rdered 10/16/2022 UTD yearly flu shotGet Tdap if not doneUTD PCV #13 03/20/18, she did have the #23 as per her history also no record hereUTD on zostavax 03/11/13UT D on COVID 19 vaccine RTC 3 monthsGet labsER if worseShe did verbalize her understand ing of the above Essential hypertension 91576040 I10 On lisinopril 20 mg dailyDoes wellGet labs 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 802997854 E11.9 On metformin ER 500mg 2 tabs bidOn tresciba 52U dailyOn farxiga 10mg dailyOn bydureon weekly Does well Dr Arevalo, next apt 06/21/2022 Dr Dixon/ Dr Brewster Hyperlipidemia 92679283 E78.5 On atorvastat in 40mg dailyOff vascepa, was told to stop this by Dr Martinez as per her hx today 01/15/2023 , agree with Dr Terrazas diet and exercise is neededGet labs Coronary arteriosclerosis 25921634 I25.10 On ASA 81mg dailyNot on plavixOn xarelto 2.5mg bid filled by Dr Collier 05/23/2022 Stress test 05/17/2020 : reversible defect noted ECHO 1: Normal LV sx fx and EF 60% 06/01/2020 : Dr Toscano: Now to get [facility] on 06/13/2020 07/25/2020 : Dr Toscano, next apt in 6 months 02/28/2021 : Dr Toscano, next apt in 3 months 11/27/2021 : Dr Toscano, next in 3 months LDCT [facility] 05/23/[address] referral Chronic ob structive pulmonary disease 39948339 J44.[address] Lozano, next 08/05/2023 , get LDCT doneSeen for CPAP for DUYEN also Hypothyroidism 57232249 E03.9 Now on levothyrox ine 150mcgs daily Given by Dr Trevino wellGet labs Anemia 904050403 D64.[address] Giraldo Neuropathy 826095321 G62 .9 On duloxetine 60mg daily Not on gabapentin Does wellCan renew the medsHas seen Dr Brewster podiatry and next apt is on 12/18/2022 Urinary incontinence 165 735991 R32 On incontinen ce padsOn oxybutynin 5mg daily, will d/c this as this has not helped her, will start on myrbetriq 25mg daily, all side effects explained to her Also get a referral to urologyDoe s well OV 06/19/2022 :On myrbetriq 50mg dailyS/p bladder bxSees Ezequiel Abreu LAND MANAGEMENT SUPERVISOR 09/10/2022 OV 10/16/2022 :On mybetriqKe ep apt with urology Alysha Abreu 03/11/2023 OV 01/15/2023 :Should not be on oxybutynin , only on the Myrbetriq Pain of le ft shoulder joint 1403015412 1060135 M25.512 S/p fall in 11/2019Sam gabrielle Guadarrama Leukocytosis 721181439 D 72.829 Get a repeat CBC doneNeeds to see Dr Giraldo Proteinuria 69294020 R80 .9 Elevated calciumKee p the apt with Dr Martinez Bereavement 61639209 Z63 .4 Her diet this month Is on duloxetine , not suicidal or homicidal, does not want any referrals or medication s States that her daughter comes to help her daily at home Screening for osteoporosis 162671631 Z13.820 Screening for malignant neoplasm of respiratory tract 887954989 Z12.[address] chest 11/08/2022 : See case Low back pain 104825327 M54.50 Has noted this for about a weekUA: 01/15/2023 : Leuk, +ve glucoseGet on ciproIf not better may need to get xrays, ER if worse Hyperkalemia 53175346 E8 7.5 Should only do LOW K foods, get another K level, if still elevated, may need to lower dose of the KASEY-I [id number] Max Brewster DPM [facility] Podiatry [place] [address] [facility] [address] [place] [address] 03/28/2023 11:08:04 03/28/2023 17:08:07 Diabetes mellitus 35624672 E11.9 continue with PCP recommenda tionsconti nue supportive shoe gearFollow -up in 3 months Dystrophia unguium 10932 009 L60.3 nails debrided without incident Foot callus 144226289 L8 4 e2Liorxnul without incidentCo ntinue supportive shoe gearMonito r for wounds infection dailyrecom mend use of pumice stone daily with lotion [id number] Mary jimenez MD S_GMG Internal Med [facility] [address] [facility], [address] [place] [address] 06/20/2023 14:01:10 06/20/2023 15:05:05 Screening - NAD 433368563 Z13.9 C-scope: 02/18/19: Dr Addison next in one yearC-scop e: 01/18/2021 : Next in 10 years PAP: 07/25/18: Jazmin Yen see Jazmin Wiggins LAND MANAGEMENT SUPERVISOR on 05/30/2020 Mammogram: 11/10/18: Neg 020: Neg 021: Neg 022: Neg 023: Neg DEXA: On alendronat e, DEXA 11/10/18, normalDEXA : 12/12/2020 : WNL Dr Isadora lucio, weekly get DEXA 0rdered 10/16/2022 DEXA: 02/28/2023 : Normal UTD yearly flu shotGet Tdap if not doneUTD PCV #13 03/20/18, she did have the #23 as per her history also no record hereUTD on zostavax 03/11/13UT D on COVID 19 vaccineCan do RSV vaccine RTC 1 month, and then in 4 monthsGet labsER if worseShe did verbalize her understand ing of the above Essential hypertension 97922950 I10 On lisinopril 20 mg dailyDoes wellGet labs 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 286470705 E11.9 Not on metformin ER 500mg 2 tabs bidOn tresciba 60U dailyOn farxiga 10mg dailyOn bydureon weekly, will restart the bydureon for now 06/20/2023 as her ACCU are in the 200-300sAd vised on the symptoms for LOW glucose, she has verbalized her understand ing for this, keep ACCU logsGet labs Dr Lucia De León 02/21/2023 Dr Dixon/ Dr Brewster Hyperlipidemia 33515472 E78.5 On atorvastat in 40mg dailyOff vascepa, was told to stop this by Dr Martinez as per her hx today 01/15/2023 , agree with Dr Terrazas diet and exercise is neededGet labs Coronary arteriosclerosis 65883183 I25.10 On ASA 81mg dailyNot on plavixOn xarelto 2.5mg bid filled by Dr Collier 05/23/2022 Stress test 05/17/2020 : reversible defect noted ECHO 1: Normal LV sx fx and EF 60% 06/01/2020 : Dr Toscano: Now to get [facility] on Tu06/13/2020 07/25/2020 : Dr Toscano, next apt in 6 months 02/28/2021 : Dr Toscano, next apt in 3 months 11/27/2021 : Dr Toscano, next in 3 months LDCT [facility] 05/23/[address] referral Chronic ob structive pulmonary disease 33388508 J44.[address] Lozano, next 08/05/2023 , get LDCT doneSeen for CPAP for DUYEN also Hypothyroidism 61593756 E03.9 Now on levothyrox ine 150mcgs daily Given by Dr Trevino [facility] labs Anemia 861374964 D64.[address] Giraldo Neuropathy 118778756 G62 .9 On duloxetine 60mg daily Not on gabapentin Does wellCan renew the medsHas seen Dr Brewster podiatry and next apt is on 12/18/2022 Urinary incontinence 165 681675 R32 On incontinen ce padsOn oxybutynin 5mg daily, will d/c this as this has not helped her, will start on myrbetriq 25mg daily, all side effects explained to her Also get a referral to urologyDoe s well OV 06/19/2022 :On myrbetriq 50mg dailyS/p bladder bxSees Ezequiel Abreu LAND MANAGEMENT SUPERVISOR 09/10/2022 OV 10/16/2022 :On mybetriqKe ep apt with urology Alysha Abreu 03/11/2023 OV 01/15/2023 :Should not be on oxybutynin , only on the Myrbetriq OV 06/20/2023 : On myrbetriq, Dr Clif Brooks MD 05/31/2023 Pain of le ft shoulder joint 8559254521 1322893 M25.512 S/p fall in 11/2019Sam gabrielle Guadarrama Leukocytosis 058217015 D 72.829 Get a repeat CBC doneNeeds to see Dr Giraldo Proteinuria 01452504 R80 .9 Elevated calciumKee p the apt with Dr Martinez Bereavement 55380268 Z63 .4 Her this month Is on duloxetine , not suicidal or homicidal, does not want any referrals or medication s States that her daughter comes to help her daily at home Screening for osteoporosis 004627651 Z13.820 Screening for malignant neoplasm of respiratory tract 529516201 Z12.[address] chest 11/08/2022 : See Tung Lozano 08/05/2023 Screening mammography 24 584395 Z12.31 Tremor 07588076 R25.1 Seen in the ER at [place] 06/07/2023 , d/cWill refer to Dr [place] neurology [id number] Max Brewster DPM [facility] Podiatry [place] [address] [facility] [address] [place] [address] 06/27/2023 11:26:25 06/27/2023 13:57:45 Diabetes mellitus 51888270 E11.9 continue with PCP recommenda tionsconti nue supportive shoe gearFollow -up in 3 months Dystrophia unguium 93848 009 L60.3 nails debrided without incident Ingrowing nail of toe of right foot 9786721769 3719357 L60.0 lateral right great toedebride d [id number] Mary jimenez MD [facility] Internal Med [facility] [address] [facility] [address] [place] [address] 07/23/2023 15:08:12 07/23/2023 15:59:32 Screening - NAD 732956808 Z13.9 C-scope: 02/18/19: Dr Addison next in one yearC-scop e: 01/18/2021 : Next in 10 years PAP: 07/25/18: Jazmin Yen see Jazmin Wiggins LAND MANAGEMENT SUPERVISOR on 05/30/2020 Mammogram: 11/10/18: Neg 020: Neg 021: Neg 022: Neg 023: Neg DEXA: On alendronat e, DEXA 11/10/18, normalDEXA : 12/12/2020 : WNL Dr Muir fosamax, weekly get DEXA 0rdered 10/16/2022 DEXA: 02/28/2023 : Normal UTD yearly flu shotGet Tdap if not doneUTD PCV #13 03/20/18, she did have the #23 as per her history also no record hereUTD on zostavax 03/11/13UT D on COVID 19 vaccineCan do RSV vaccine RTC in 3 monthsGet labsER if worseShe did verbalize her understand ing of the above Essential hypertension 58258618 I10 On lisinopril 20 mg dailyDoes wellGet labs 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 980993889 E11.9 Not on metformin ER 500mg 2 tabs bid, advised to not take this today 07/23/2023 , it was sent by Dr Arevalo but she is not practicing and must have be an auto refill On tresciba 34U dailyOn glipizide 5mg bid stared by Dr De León 07/18/2023 On farxiga 10mg dailyOn bydureon weekly, since 06/20/2023 as her ACCU are in the 200-300s Advised on the symptoms for LOW glucose, she has verbalized her understand ing for this, keep ACCU logsGet labs Dr Lucia De León 02/21/2023 Dr Dixon/ Dr Brewster Hyperlipidemia 07900109 E78.5 On atorvastat in 40mg dailyOff vascepa, was told to stop this by Dr Martinez as per her hx today 01/15/2023 , agree with Dr Terrazas diet and exercise is neededGet labs Coronary arteriosclerosis 42262547 I25.10 On ASA 81mg dailyNot on plavixOn xarelto 2.5mg bid filled by Dr Collier 05/23/2022 Stress test 05/17/2020 : reversible defect noted ECHO 1: Normal LV sx fx and EF 60% 06/01/2020 : Dr Toscano: Now to get LHC on 06/13/2020 07/25/2020 : Dr Toscano, next apt in 6 months 02/28/2021 : Dr Toscano, next apt in 3 months 11/27/2021 : Dr Toscano, next in 3 months LDCT [facility] 05/23/[address] referral Chronic ob structive pulmonary disease 21772305 J44.[address] Lozano, next 08/05/2023 , get LDCT doneSeen for CPAP for DUYEN also Hypothyroidism 14833348 E03.9 On levothyrox ine 150mcgs daily Given by Dr Trevino [facility] labs Anemia 650195175 D64.[address] Giraldo Neuropathy 499040829 G62 .9 On duloxetine 60mg daily Not on gabapentin Does wellCan renew the medsHas seen Dr Brewster podiatry and next apt is on 12/18/2022 Urinary incontinence 165 056309 R32 On incontinen ce padsOn oxybutynin 5mg daily, will d/c this as this has not helped her, will start on myrbetriq 25mg daily, all side effects explained to her Also get a referral to urologyDoe s well OV 06/19/2022 :On myrbetriq 50mg dailyS/p bladder bxSees Ezequiel Abreu LAND MANAGEMENT SUPERVISOR 09/10/2022 OV 10/16/2022 :On mybetriqKe ep apt with urology Alysha Abreu 03/11/2023 OV 01/15/2023 :Should not be on oxybutynin , only on the Myrbetriq OV 06/20/2023 : On myrbetriq, Dr Clif Brooks MD 05/31/2023 OV 07/23/2023 : Now on Solfenacin 5mg daily, given by Dr Brooks Pain of le ft shoulder joint [id number] 0419089 M25.512 S/p fall in 11/2019Sam gabrielle Guadarrama Leukocytosis 291168327 D 72.829 Get a repeat CBC doneNeeds to see Dr Giraldo Proteinuria 40087137 R80 .9 Elevated calciumKee p the apt with Dr Martinez Bereavement 61984755 Z63 .4 Her this month Is on duloxetine , not suicidal or homicidal, does not want any referrals or medication s States that her daughter comes to help her daily at home Screening for osteoporosis 245952081 Z13.820 Screening for malignant neoplasm of respiratory tract 414746138 Z12.[address] chest 11/08/2022 : See Tung Lozano 08/05/2023 Screening mammography 24 409797 Z12.31 Tremor 33383428 R25.1 Seen in the ER at [place] 06/07/2023 , d/cWill refer to Dr Birmingham neurology Dr Birmingham 07/01/2023 : Essential tremor, was told to take low dose primidone for the tremor, no med however given Adult [facility] examination 857965884 Z00.00 Screening for disorder 605937640 Z13.9 [id number] Shahriar Lozano MD [facility] [address] [place] [address] 0 08/05/2023 10:32:06 08/06/2023 08:31:08 Obstructive sleep apnea syndrome 64235855 G47.33 [id number] Max Brewster DPM [facility] Podiatry [facility] [address] [place] [address] 0 09/26/2023 11:45:35 09/27/2023 13:51:09 Ingrowing nail of toe of right foot [id number] 6997852 L60.0 lateral right great toedebride d Diabetes mellitus 483355 09 E11.9 continue with PCP oscara wallace pricee supportive shoe gearFollow -up in 3 months Dystrophia unguium 53971 009 L60.3 nails debrided without incident [id number] Mary jimenez MD [facility] Internal Med [facility] [address] [place] [address], [place] [address] 10/22/2023 13:54:33 10/22/2023 14:27:51 Screening - NAD 252507168 Z13.9 C-scope: 02/18/19: Dr Addison next in one yearC-scop e: 01/18/2021 : Next in 10 years PAP: 07/25/18: Jazmin Yen see Jazmin Wiggins LAND MANAGEMENT SUPERVISOR on 05/30/2020 Denies any complaints now Mammogram: 11/10/18: Neg 020: Neg 021: Neg 022: Neg 023: NegOrdered 10/22/2023 DEXA: On alendronat e, DEXA 11/10/18, normalDEXA : 12/12/2020 : WNL Dr Isadora lucio, weekly get DEXA 0rdered 10/16/2022 DEXA: 02/28/2023 : Normal UTD yearly flu shotGet Tdap if not doneUTD PCV #13 03/20/18, she did have the #23 as per her history also no record hereUTD on zostavax 03/11/13UT D on COVID 19 vaccineCan do RSV vaccine RTC in 3 monthsGet labsER if worseShe did verbalize her understand ing of the above Essential hypertension 71058182 I10 On lisinopril 20 mg dailyDoes wellGet labs 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 748562159 E11.9 Now on metformin ER 500mg 2 tabs bid, sent by Dr De León her endocrine MD 10/13/2023 On tresciba 34U dailyOn glipizide 5mg bid stared by Dr De León 07/18/2023 On farxiga 10mg dailyOn bydureon 2mg weekly, since 06/20/2023 as her ACCU are in the 200-300s Advised on the symptoms for LOW glucose, she has verbalized her understand ing for this, keep ACCU logsGet labs Dr Lucia De León 02/21/2023 Dr Dixon/ Dr Brewster Hyperlipidemia 60943098 E78.5 On atorvastat in 40mg dailyOn Vascepa restarted on 02/25/[address] Everton West diet and exercise is neededGet labs Coronary arteriosclerosis 23870323 I25.10 On ASA 81mg dailyNot on plavixOn xarelto 2.5mg bid filled by Dr Collier 05/23/2022 Stress test 05/17/2020 : reversible defect noted ECHO 1: Normal LV sx fx and EF 60% 06/01/2020 : Dr Toscano: Now to get C on 06/13/2020 07/25/2020 : Dr Toscano, next apt in 6 months 02/28/2021 : Dr Toscano, next apt in 3 months 11/27/2021 : Dr Toscano, next in 3 [id number]/2022: Dr Toscano, next in 3 months LDCT [facility] 05/23/[address] referral Chronic ob structive pulmonary disease 66450040 J44.[address] Lozano, next 08/05/2023 , get LDCT doneSeen for CPAP for DUYEN also Hypothyroidism 05791463 E03.9 On levothyrox ine 150mcgs daily [facility] Anemia 244618122 D64.[address] Giraldo Neuropathy 244986156 G62 .9 On duloxetine 60mg dailyNow on Lyrica 150mg bid started by Dr De León 10/14/2023 Not on gabapentin Does wellCan renew the medsHas seen Dr Brewster podiatry and next apt is on 12/18/2022 Urinary incontinence 165 761892 R32 On incontinen ce padsOn oxybutynin 5mg daily, will d/c this as this has not helped her, will start on myrbetriq 25mg daily, all side effects explained to her Also get a referral to urologyDoe s well OV 06/19/2022 :On myrbetriq 50mg dailyS/p bladder bxSees Ezequiel Abreu NP 09/10/2022 OV 10/16/2022 :On mybetriqKe ep apt with urology Alysha Abreu 03/11/2023 OV 01/15/2023 :Should not be on oxybutynin , only on the Myrbetriq OV 06/20/2023 : On myrbetriq, Dr Clif Brooks MD 05/31/2023 OV 07/23/2023 : Now on Solfenacin 5mg daily, given by Dr Kincaid 10/22/2023 : On solfenacin 5mg daily does well Pain of le ft shoulder joint 1551546966 4028594 M25.512 S/p fall in 11/2019Sam gabrielle Al Guadarrama Leukocytosis 715386506 D 72.829 Get a repeat CBC doneNeeds to see Dr Giraldo Proteinuria 44199971 R80 .9 Elevated calciumKee p the apt with Dr Martinez Bereavement 71555094 Z63 .4 Her this month Is on duloxetine , not suicidal or homicidal, does not want any referrals or medication s States that her daughter comes to help her daily at home Screening for osteoporosis 010929846 Z13.820 Screening for malignant neoplasm of respiratory tract 367075363 Z12.[address] chest 11/08/2022 : See caseDr Marta 08/05/2023 Screening mammography 24 800566 Z12.31 Tremor 13524408 R25.1 Seen in the ER at [place] 06/07/2023 , d/cWarnold refer to Dr Birmingham neurology Dr Birmingham 07/01/2023 : Essential tremor, was told to take low dose primidone for the tremor, no med however given Chronic ki dney disease 959048821 N18.[address] Martinez Hyperkalemia 26008357 E8 7.5 Should only do LOW K foods, get another K level, if still elevated, may need to lower dose of the KASEY-I [id number] aMx Brewster DPM [facility] [address] [facility] [address] [place] [address] 12/05/2023 12:27:29 12/05/2023 15:38:26 Diabetes mellitus 91683692 E11.9 continue with PCP recommenda tionsconti nue supportive shoe gearFollow -up in 3 months Dystrophia unguium 57310 009 L60.3 nails debrided without incident Ingrowing toenail 508126 009 L60.0 left great toenailSla nt back procedureW ill continue monitor [id number] Mary jimenez MD [facility] Internal Med [facility] [address] [facility], [facility] [address] [place] [address] 03/03/2024 13:46:45 03/03/2024 14:30:39 Screening - NAD 609552694 Z13.9 C-scope: 02/18/19: Dr Cyn mendoza in one yearC-scop e: 01/18/2021 : Next in 10 years PAP: 07/25/18: Jazmin Yen see Jazmin Wiggnis LAND MANAGEMENT SUPERVISOR on 05/30/2020 Denies any complaints now Mammogram: 11/10/18: Neg07 020: Neg 021: Neg 022: Neg 023: Neg 024: Neg DEXA: On alendronat e, DEXA 11/10/18, normalDEXA : 12/12/2020 : WNL Dr Isadora lucio, weekly get DEXA 0rdered 10/16/2022 DEXA: 02/28/2023 : Normal UTD yearly flu shotGet Tdap if not doneUTD PCV #13 03/20/18, she did have the #23 as per her history also no record hereUTD on zostavax 03/11/13UT D on COVID 19 vaccineCan do RSV vaccine RTC in 3 monthsGet labsER if worseShe did verbalize her understand ing of the above Essential hypertension 31445892 I10 Not on lisinopril 20 mg daily, stopped by nephrology Does wellGet labs 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 804351014 E11.9 Now on metformin ER 500mg 2 tabs bid, sent by Dr De León her endocrine MD 10/13/2023 On tresciba 24U daily, filled by Dr Martinez 02/18/2024 On glipizide 5mg bid stared by Dr De León 07/18/2023 On farxiga 10mg dailyOn bydureon 2mg weekly On metformin ER 500mg 2 tabs bid, given by Dr De León, will d/c this 03/03/2024 as she has noted 'cramping' with taking this and her glucse can be low Advised on the symptoms for LOW glucose, she has verbalized her understand ing for this, keep ACCU logsGet labs Dr Bren Dixon/ Dr Brewster Hyperlipidemia 61120856 E78.5 On ASAOn atorvastat in 40mg dailyOn Vascepa restarted on 02/25/[address] Everton DÍAZZara diet and exercise is neededGet labs Coronary arteriosclerosis 14798690 I25.10 On ASA 81mg dailyNot on plavixOn xarelto 2.5mg bid Stress test 05/17/2020 : reversible defect noted ECHO : Normal LV sx fx and EF 60% 06/01/2020 : Dr Toscano: Now to get LHC on 06/13/2020 07/25/2020 : Dr Toscano, next apt in 6 months 02/28/2021 : Dr Toscano, next apt in 3 months 11/27/2021 : Dr Toscano, next in 3 [id number]/2022: Dr Toscano, next in 3 months LDCT [facility] 05/23/[address] referral Chronic ob structive pulmonary disease 10868364 J44.[address] Lozano, next 08/05/2023 , get LDCT doneSeen for CPAP for DUYEN also Hypothyroidism 88446130 E03.9 On levothyrox ine 150mcgs daily Given by Dr Trevino [facility] labs Anemia 918944629 D64.[address] Giraldo Neuropathy 689854997 G62 .9 On duloxetine 60mg dailyNow on Lyrica 150mg bid started by Dr De León 10/14/2023 Not on gabapentin Does wellCan renew the medsHas seen Dr Brewster podiatry and next apt is on 12/18/2022 Urinary incontinence 165 376548 R32 On incontinen ce padsOn oxybutynin 5mg daily, will d/c this as this has not helped her, will start on myrbetriq 25mg daily, all side effects explained to her Also get a referral to urologyDoe s well OV 06/19/2022 :On myrbetriq 50mg dailyS/p bladder bxSees Ezequiel Abreu LAND MANAGEMENT SUPERVISOR 09/10/2022 OV 10/16/2022 :On mybetriqKe ep apt with urology Alysha Abreu 03/11/2023 OV 01/15/2023 :Should not be on oxybutynin , only on the Myrbetriq OV 06/20/2023 : On myrbetriq, Dr Clif Brooks MD 05/31/2023 OV 07/23/2023 : Now on Solfenacin 5mg daily, given by Dr Kincaid 10/22/2023 : On solfenacin 5mg daily does wellOV 03/03/2024 : On solfenacin 5mg daily Pain of le ft shoulder joint 7212139991 9279895 M25.512 S/p fall in 11/2019Sam gabrielle Guadarrama Leukocytosis 572072804 D 72.829 Get a repeat CBC doneNeeds to see Dr Giraldo Proteinuria 35583180 R80 .9 Elevated calciumKee p the apt with Dr Martinez Bereavement 79356369 Z63 .4 Her this month Is on duloxetine , not suicidal or homicidal, does not want any referrals or medication s States that her daughter comes to help her daily at home Screening for osteoporosis 842393585 Z13.820 Screening for malignant neoplasm of respiratory tract 205834076 Z12.[address] chest 11/08/2022 : See caseDr Marta 08/05/2023 Screening mammography 24 705948 Z12.31 Tremor 12800223 R25.1 Seen in the ER at [place] 06/07/2023 , d/cWarnold refer to Dr Birmingham neurology Dr Birmingham 07/01/2023 : Essential tremor, was told to take low dose primidone for the tremor, no med however given Chronic ki dney disease 519524383 N18.[address] Martinez [id number] Max Brewster DPM [facility] [address] [address] 03/03/2024 14:46:41 04/17/2024 12:56:24 Diabetes mellitus 79451607 E11.9 continue with PCP recommenda tionsconti nue supportive shoe gearFollow -up in 3 months Ingrowing toenail 391778 009 L60.0 right great toenailSla nt back procedureW ill continue monitor- if continues to be problemati c require partial matrixecto my right corner Chronic hepatitis C 1283 13910 B18.2 continue treatment per PCP [id number] Max Brewster DPM [facility] [address] [place] [address] 05/12/2024 15:20:19 06/19/2024 14:33:13 Diabetes mellitus 73234282 E11.9 continue with PCP recommenda tionsconti nue supportive shoe gearFollow -up in 3 months Dystrophia unguium 11745 009 L60.3 nails debrided without incident Ingrowing toenail 625146 009 L60.0 bilateral great toenail- debrided without incident no infectionW ill continue monitor- if continues to be problemati c require partial matrixecto my right corner [id number] Mary jimenez MD [facility] Internal Med [facility] [address] [facility], [place] [address] [place] [address] 05/28/2024 16:31:15 05/28/2024 17:36:02 Screening - NAD 032600391 Z13.9 C-scope: 02/18/19: Dr Addison next in one yearC-scop e: 01/18/2021 : Next in 10 years PAP: 07/25/18: Jazmin Yen see Jazmin Wiggins LAND MANAGEMENT SUPERVISOR on 05/30/2020 Denies any complaints now Mammogram: 11/10/18: Neg07/2 020: Neg07/11/21 021: Neg 022: Neg 023: Neg 024: Neg DEXA: On alendronat e, DEXA 11/10/18, normalDEXA : 12/12/2020 : WNL Dr Isadora lucio, weekly get DEXA 0rdered 10/16/2022 DEXA: 02/28/2023 : Normal UTD yearly flu shotGet Tdap if not doneUTD PCV #13 03/20/18, she did have the #23 as per her history also no record hereUTD on zostavax 03/11/13UT D on COVID 19 vaccineCan do RSV vaccine RTC in 3 monthsGet labsER if worseShe did verbalize her understand ing of the above Essential hypertension 37224128 I10 Not on lisinopril 20 mg daily, stopped by nephrology Does wellGet labs 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 361906913 E11.9 On metformin ER 500mg 2 tabs bidOn tresciba 24U daily, filled by Dr Martinez 02/18/2024 On glipizide 5mg bid stared by Dr De León 07/18/2023 On farxiga 10mg dailyOn bydureon 2mg weekly Advised on the symptoms for LOW glucose, she has verbalized her understand ing for this, keep ACCU logsGet labs Dr De León, is to see him and discuss the labs 05/27/2024 , sees Jeremy Dixon/ Dr Brewster Hyperlipidemia 65385853 E78.5 On ASAOn atorvastat in 40mg daily, will increase to 80mg dailyStop the VascepaMor e diet and exercise is neededGet labs Coronary arteriosclerosis 44213010 I25.10 On ASA 81mg dailyNot on plavixOn xarelto 2.5mg bid Stress test 05/17/2020 : reversible defect noted ECHO 1: Normal LV sx fx and EF 60% 06/01/2020 : Dr Toscano: Now to get C on 06/13/2020 07/25/2020 : Dr Toscano, next apt in 6 months 02/28/2021 : Dr Toscano, next apt in 3 months 11/27/2021 : Dr Toscano, next in 3 [id number]/2022: Dr Toscano, next in 3 months LDCT [facility] 05/23/[address] referral Chronic ob structive pulmonary disease 65313455 J44.[address] Lozano, next 08/04/2024 , get LDCT doneSeen for CPAP for DUYEN also Hypothyroidism 20859995 E03.9 On levothyrox ine 150mcgs daily Given by Dr Trevino [facility] labs Anemia 578103974 D64.[address] Giraldo Neuropathy 351758532 G62 .9 On duloxetine 60mg dailyOn Lyrica 150mg bid started by Dr De León 10/14/2023 Not on gabapentin Does wellCan renew the medsHas seen Dr Brewster podiatry and next apt is on 12/18/2022 Urinary incontinence 165 186360 R32 On incontinen ce padsOn oxybutynin 5mg daily, will d/c this as this has not helped her, will start on myrbetriq 25mg daily, all side effects explained to her Also get a referral to urologyDoe s well OV 06/19/2022 :On myrbetriq 50mg dailyS/p bladder bxSees Ezequiel Abreu LAND MANAGEMENT SUPERVISOR 09/10/2022 OV 10/16/2022 :On mybetriqKe ep apt with urology Alysha Abreu 03/11/2023 OV 01/15/2023 :Should not be on oxybutynin , only on the Myrbetriq OV 06/20/2023 : On myrbetriq, Dr Clif Brooks MD 05/31/2023 OV 07/23/2023 : Now on Solfenacin 5mg daily, given by Dr Kincaid 10/22/2023 : On solfenacin 5mg daily does wellOV 03/03/2024 : On solfenacin 5mg dailyOV 05/28/2024 : On solfenacin and Myrbetriq Pain of le ft shoulder joint 5572282918 6871128 M25.512 S/p fall in 11/2019Sam gabrielle Al Guadarrama Leukocytosis 901076478 D 72.829 Get a repeat CBC doneNeeds to see Dr Giraldo Proteinuria 95762330 R80 .9 Elevated calciumKee p the apt with Dr Martinez Bereavement 22983022 Z63 .4 Her this month Is on duloxetine , not suicidal or homicidal, does not want any referrals or medication s States that her daughter comes to help her daily at home Screening for osteoporosis 803380410 Z13.820 Screening for malignant neoplasm of respiratory tract 370871188 Z12.[address] chest 11/08/2022 : See caseDr Marta 08/05/2023 Tremor 45804334 R25.1 Seen in the ER at [place] 06/07/2023 , d/cWill refer to Dr Birmingham neurology Dr Birmingham 07/01/2023 : Essential tremor, was told to take low dose primidone for the tremor, no med however given Chronic ki dney disease 634453719 N18.[address] Martinez Pain of ri ght shoulder joint 5026818816 2591898 M25.261 [id number] John Zamorano MD [facility] [address], [address] [place] [address] 06/02/2024 14:10:20 06/02/2024 15:16:15 Pain of right shoulder joint 4471750573 6914183 M25.687 [id number] Shahriar Lozano MD [facility] [address] [place] [address] [address] [place] [address] 08/04/2024 09:31:34 08/05/2024 15:52:10 Obstructive sleep apnea syndrome 09908896 G47.33 [id number] John Zamorano MD [facility] [address] [place] [address], [address] [place] [address] 08/10/2024 11:12:23 08/10/2024 11:41:56 Localized, primary osteoarthritis of the shoulder region 096477400 M19.019 M19.530 [id number] Max Brewster DPM [facility] [address] [place] [address] 08/11/2024 16:17:57 08/12/2024 08:53:56 Diabetes mellitus 85974422 E11.9 continue with PCP oscara wallace nue supportive shoe gearFollow -up in 3 months Dystrophia unguium 12274 009 L60.3 nails debrided without incident Diabetic on insulin 1707 52053 Z79.4 [id number] Mary jimenez MD [facility] [address] [place] [address] 08/17/2024 16:01:54 08/17/2024 16:39:52 Screening - NAD 480938312 Z13.9 C-scope: 02/18/19: Dr Addison next in one yearC-scop e: 01/18/2021 : Next in 10 years PAP: 07/25/18: Jazmin Yen see Jazmin Wiggins LAND MANAGEMENT SUPERVISOR on 05/30/2020 Denies any complaints now Mammogram: 11/10/18: Neg 020: Neg 021: Neg 022: Neg 023: Neg 024: Neg DEXA: On alendronat e, DEXA 11/10/18, normalDEXA : 12/12/2020 : WNL Dr Isadora lucio, weekly get DEXA 0rdered 10/16/2022 DEXA: 02/28/2023 : Normal UTD yearly flu shotGet Tdap if not doneUTD PCV #13 03/20/18, she did have the #23 as per her history also no record hereUTD on zostavax 03/11/13UT D on COVID 19 vaccineCan do RSV vaccine RTC in 3 monthsGet labsER if worseShe did verbalize her understand ing of the above Essential hypertension 03324476 I10 Not on lisinopril 20 mg daily, stopped by nephrology Does wellGet labs 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 814768888 E11.9 On metformin ER 500mg 2 tabs bidOn tresciba 24U daily, filled by Dr Martinez 02/18/2024 On glipizide 5mg bid stared by Dr De León 07/18/2023 On farxiga 10mg dailyOn bydureon 2mg weekly Advised on the symptoms for LOW glucose, she has verbalized her understand ing for this, keep ACCU logsGet labs Dr De León, is to see him and discuss the labs 05/27/2024 , sees Jeremy Dixon/ Dr Mark Brewster next apt 11/10/2024 Hyperlipidemia 80298204 E78.5 On ASAOn atorvastat in 40mg daily, will increase to 80mg dailyStop the VascepaMor e diet and exercise is neededGet labs Coronary arteriosclerosis 33594897 I25.10 On ASA 81mg dailyNot on plavixOn xarelto 2.5mg bid Stress test 05/17/2020 : reversible defect noted ECHO : Normal LV sx fx and EF 60% 06/01/2020 : Dr Toscano: Now to get C on 06/13/2020 07/25/2020 : Dr Toscano, next apt in 6 months 02/28/2021 : Dr Toscano, next apt in 3 months 11/27/2021 : Dr Toscano, next in 3 [id number]/2022: Dr Toscano, next in 3 months LDCT [facility] 05/23/[address] referral Chronic ob structive pulmonary disease 85454503 J44.[address] Lozano, next 08/04/2024 , get LDCT doneSeen for CPAP for DUYEN also Dr Lozano 08/04/2024 Hypothyroidism 74114764 E03.9 On levothyrox ine 150mcgs daily Given by Dr Trevino wellGet labs Anemia 354805658 D64.[address] Giraldo Neuropathy 493948236 G62 .9 On duloxetine 60mg dailyOn Lyrica 150mg bid started by Dr De León 10/14/2023 Not on gabapentin Does wellCan renew the medsHas seen Dr Brewster podiatry and next apt is on 12/18/2022 Urinary incontinence 165 630080 R32 On incontinen ce pads S/p bladder bxSeen Ezequiel Abreu LAND MANAGEMENT SUPERVISOR On solfenacin and Myrbetriq Pain of le ft shoulder joint 7010287461 9343160 M25.512 S/p fall in 11/2019Sam gabrielle Blum PADr Guadarrama Leukocytosis 242135343 D 72.829 Get a repeat CBC doneNeeds to see Dr Giraldo Proteinuria 51585552 R80 .9 Elevated calciumKee p the apt with Dr Martinez Bereavement 21956076 Z63 .4 Her this month Is on duloxetine , not suicidal or homicidal, does not want any referrals or medication s States that her daughter comes to help her daily at home Screening for osteoporosis 509078036 Z13.820 Screening for malignant neoplasm of respiratory tract 180910933 Z12.[address] chest 11/08/2022 : See caseDr Marta 08/05/2023 Tremor 08594296 R25.1 Seen in the ER at [place] 06/07/2023 , d/cWill refer to Dr Birmingham neurology Dr Birmingham 07/01/2023 : Essential tremor, was told to take low dose primidone for the tremor, no med however given Chronic ki dney disease 311580140 N18.[address] Martinez Pain of ri ght shoulder joint 0869032284 2306757 M25.511 Abena Zuñiga LAND MANAGEMENT SUPERVISOR 08/10/2024 Low back pain 820497576 M54.50 Has noted this for about a weekUA: 01/15/2023 : Leuk, +ve glucoseGet on ciproIf not better may need to get xrays, ER if worse OV 08/17/2024 :S/p fallSee case 08/10/2024 S/p Xray T spine 08/13/2024 compressio n fractureS/ p X-ray C spine 08/13/2024 Refer to NSMRI orderedTLS O braceMelox icam and flexerill as needed all side effects explained [id number] John Zamorano MD [facility] [address] [facility], [address] [place] [address] 08/25/2024 14:21:28 08/25/2024 14:53:02 Pain of right shoulder joint 5611253640 7187916 M25.511 Localized, primary osteoarthritis of the shoulder region 710874519 M19.649 [id number] Mary jimenez MD [facility] Internal Med [facility] [address] [facility], [facility] [address] [place] [address] 09/22/2024 15:56:56 09/22/2024 17:27:09 Screening - NAD 365113324 Z13.9 C-scope: 02/18/19: Dr Addison next in one yearC-scop e: 01/18/2021 : Next in 10 years PAP: 07/25/18: Jazmin Yen see Jazmin Wiggins LAND MANAGEMENT SUPERVISOR on 05/30/2020 Denies any complaints now Mammogram: 11/10/18: Neg 020: Neg 021: Neg 022: Neg 023: Neg 024: NegDoes not want this at time, do SBE DEXA: On alendronat e, DEXA 11/10/18, normalDEXA : 12/12/2020 : WNL Dr Isadora lucio, weekly get DEXA 0rdered 10/16/2022 DEXA: 02/28/2023 : Normal UTD yearly flu shotGet Tdap if not doneUTD PCV #13 03/20/18, she did have the #23 as per her history also no record hereUTD on zostavax 11/20/13UT D on COVID 19 vaccineCan do RSV vaccine RTC in 3 monthsGet labsER if worseShe did verbalize her understand ing of the above Essential hypertension 26085505 I10 Not on lisinopril 20 mg daily, stopped by nephrology , will d/c this 09/22/2024 Does wellGet labs 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 [id number] E11.9 On metformin ER 500mg 2 tabs bidOn tresciba 24U daily, filled by Dr Martinez 02/18/2024 On glipizide 5mg bid stared by Dr De León 07/18/2023 On farxiga 10mg dailyOn Ozempic sent by Jeremy Oglesby NPNot on bydureon 2mg weekly Advised on the symptoms for LOW glucose, she has verbalized her understand ing for this, keep ACCU logsGet labs Dr De León, sees Jeremy Saldana Ramke/ Dr Mark Brewster next apt 11/10/2024 Hyperlipidemia 87332708 E78.5 On ASAOn atorvastat in 40mg daily, will increase to 80mg dailyStop the VascepaMor e diet and exercise is neededGet labs Coronary arteriosclerosis 16354181 I25.10 On ASA 81mg dailyNot on plavixOn xarelto 2.5mg bid Stress test 05/17/2020 : reversible defect noted ECHO : Normal LV sx fx and EF 60% 06/01/2020 : Dr Toscano: Now to get [facility] on 06/13/2020 07/25/2020 : Dr Toscano, next apt in 6 months 02/28/2021 : Dr Toscano, next apt in 3 months 11/27/2021 : Dr Toscano, next in 3 vfawet9109/2022: Dr Toscano, next in 3 months LDCT [facility] 05/23/[address] referral Chronic ob structive pulmonary disease 73986729 J44.[address] Lozano next 08/04/2024 , get LDCT doneSeen for CPAP for DUYEN also Dr Lozano 08/04/2024 Hypothyroidism 47847418 E03.9 On levothyrox ine 150mcgs daily Given by Dr Trevino [facility] labs Anemia 439028544 D64.[address] Giraldo Neuropathy 850534973 G62 .9 On duloxetine 60mg dailyOn Lyrica 150mg bid started by Dr De León 10/14/2023 Not on gabapentin Does wellCan renew the medsHas seen Dr Brewster podiatry and next apt is on 12/18/2022 Urinary incontinence 165 524971 R32 On incontinen ce pads S/p bladder bxSeen Ezequiel Abreu LAND MANAGEMENT SUPERVISOR On solfenacin and Myrbetriq Pain of le ft shoulder joint 2044232847 5323193 M25.512 S/p fall in 11/2019Sam gabrielle Blum PADr Guadarrama Leukocytosis 298838833 D 72.829 Get a repeat CBC doneNeeds to see Dr Giraldo Proteinuria 63657314 R80 .9 Elevated calciumKee p the apt with Dr Martinez Bereavement 82322732 Z63 .4 Her this month Is on duloxetine , not suicidal or homicidal, does not want any referrals or medication s States that her daughter comes to help her daily at home Screening for osteoporosis 756639855 Z13.820 Screening for malignant neoplasm of respiratory tract 856277251 Z12.[address] chest 11/08/2022 : See caseDr Marta 08/04/2021 6 Tremor 18487763 R25.1 Seen in the ER at [place] 06/07/2023 , d/cWill refer to Dr Birmingham neurology Dr Birmingham 07/01/2023 : Essential tremor, was told to take low dose primidone for the tremor, no med however given Chronic ki dney disease 960930114 N18.[address] Martinez Pain of ri ght shoulder joint 8120382781 8447121 M25.511 Abena Zuñiga LAND MANAGEMENT SUPERVISOR next apt 10/20/2024 Low back pain 625310388 M54.50 Has noted this for about a weekUA: 01/15/2023 : Leuk, +ve glucoseGet on ciproIf not better may need to get xrays, ER if worse OV 08/17/2024 :S/p fallSee case 08/10/2024 S/p Xray T spine 08/13/2024 compressio n fractureS/ p X-ray C spine 08/13/2024 Refer to NSMRI orderedTLS O braceMelox icam and flexerill as needed all side effects explained OV 09/22/2024 :MRI T spine: 08/24/2024 Now has her TLSO braceRefer red to NSOn flexerillO n meloxicamA dvised to not do any forward bending and heavy lifting, explained all the red flags for spinal fracture, ER if any symptoms worsen, needs to see NS ASH! [id number] John Zamorano MD [facility] [address] [facility], [address] [place] [address] 9 10/20/2024 14:10:47 10/20/2024 14:35:00 Pain of right shoulder joint 8418429506 8805257 M25.511 Localized, primary osteoarthritis of the shoulder region 049272223 M19.057 [id number] Max Brewster DPM [facility] [address] [facility] [address] [place] [id number] 11/10/2024 16:34:09 11/17/2024 10:35:49 Diabetes mellitus 02590740 E11.9 continue with PCP recommenda tionsconti nue supportive shoe gearFollow -up in 3 months Dystrophia unguium 11709 009 L60.3 nails debrided without incident [id number] Mary jimenez MD [facility] [address] [facility], [address] [place] [address] 12/03/2024 15:12:19 12/03/2024 16:40:31 Adult health examination 280929776 Z00.00 Screening for disorder 053416281 Z13.9 Screening - NAD 32865895 3 Z13.9 C-scope: 02/18/19: Dr Addison next in one yearC-scop e: 01/18/2021 : Next in 10 years PAP: 07/25/18: Jazmin Yen see Jazmin Wiggins LAND MANAGEMENT SUPERVISOR on 05/30/2020 Denies any complaints now Mammogram: 11/10/18: Neg/01/21 020: Neg 021: Neg 022: Neg 023: Neg 024: NegDoes not want this at time, do SBE DEXA: On alendronat e, DEXA 11/10/18, normalDEXA : 12/12/2020 : WNL Dr Isadora lucio, weekly get DEXA 0rdered 10/16/2022 DEXA: 02/28/2023 : Normal UTD yearly flu shotGet Tdap if not doneUTD PCV #13 03/20/18, she did have the #23 as per her history also no record hereUTD on zostavax 03/11/13UT D on COVID 19 vaccineCan do RSV vaccine RTC in 3 monthsGet labsER if worseShe did verbalize her understand ing of the above Essential hypertension 68597615 I10 Not on lisinopril 20 mg daily, stopped by nephrology , will d/c this 09/22/2024 Does wellGet labs 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 688255589 E11.9 On metformin ER 500mg 2 tabs bidOn tresciba 24U daily, filled by Dr Martinez 02/18/2024 On glipizide 5mg bid stared by Dr De León 07/18/2023 On farxiga 10mg dailyOn Ozempic sent by Jeremy Oglesby NPNot on bydureon 2mg weekly Advised on the symptoms for LOW glucose, she has verbalized her understand ing for this, keep ACCU logsGet labs Dr De León, sees Jeremy Dixon/ Dr Mark Brewster next apt 11/10/2024 Hyperlipidemia 91462110 E78.5 On ASAOn atorvastat in 80mg dailyStop the Vascepa, but was taking it advised to stop again 12/03/2024 More diet and exercise is neededGet labs Coronary arteriosclerosis 76761012 I25.10 On ASA 81mg dailyNot on plavixOn xarelto 2.5mg bid Stress test 05/17/2020 : reversible defect noted ECHO 1: Normal LV sx fx and EF 60% 06/01/2020 : Dr Toscano: Now to get [facility] on Tu06/13/2020 07/25/2020 : Dr Toscano, next apt in 6 months 02/28/2021 : Dr Toscano, next apt in 3 months 11/27/2021 : Dr Toscano, next in 3 /0 09/2022: Dr Toscano, next in 3 months LDCT [facility] 05/23/[address] referral Chronic ob structive pulmonary disease 84735287 J44.[address] Lozano, next 08/04/2024 , get LDCT doneSeen for CPAP for DUYEN also Dr Lozano 08/04/2024 Hypothyroidism 53933547 E03.9 On levothyrox ine 150mcgs daily Given by Dr Trevino [facility] labs Anemia 717519964 D64.[address] Giraldo Neuropathy 902977330 G62 .9 On duloxetine 60mg dailyOn Lyrica 150mg bid started by Dr De León 10/14/2023 Not on gabapentin Does wellCan renew the medsHas seen Dr Brewster podiatry and next apt is on 12/18/2022 Urinary incontinence 165 852132 R32 On incontinen ce pads S/p bladder bxSeen 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 chest 11/08/2022 : See caseDr Marta 08/04/2021 6 Tremor 34422724 R25.1 Seen in the ER at [place] 06/07/2023 , d/cWill refer to Dr Birmingham neurology Dr Birmingham 07/01/2023 : Essential tremor, was told to take low dose primidone for the tremor, no med however given Chronic ki dney disease 553469590 N18.[address] Martinez Pain of ri ght shoulder joint 6312321571 6823451 M25.511 Abena Zuñiga LAND MANAGEMENT SUPERVISOR 10/20/2024 , now is much better Low back pain 142404929 M54.50 Has noted this for about a weekUA: 01/15/2023 : Leuk, +ve glucoseGet on ciproIf not better may need to get xrays, ER if worse OV 08/17/2024 :S/p fallSee case 08/10/2024 S/p Xray T spine 08/13/2024 compressio n fractureS/ p X-ray C spine 08/13/2024 Refer to NSI orderedTLS O braceMelox icam and flexerill as needed all side effects explained OV 09/22/2024 :MRI T spine: 08/24/2024 Now has her TLSO braceRefer red to NSOn flexerillO n meloxicamA dvised to not do any forward bending and heavy lifting, explained all the red flags for spinal fracture, ER if any symptoms worsen, needs to see NS ASH! O V0 5:Off the braceS/p surgery done Dr Foss in [place], no more aptsDoes wellAdvise d to not do any forward bending and heavy lifting, explained all the red flags for spinal fracture, ER if any symptoms worsen, needs to see NS ASH! Hyperkalemia 02018654 E8 7.5 9805 Should only do LOW K foods, get another K level, if still elevated, may need to lower dose of the KASEY-I Health Concerns Section Related Observation LastModified by Organization Detai ls LastModified Time None Recorded Concern Status LastModified by Organization Details LastModified Time None Recorded Advance Directives Directive N: Patient declined informat ion today, stating she already has some at home. Payers Insurance Date Sequence Insurance Name Policy Number Policy Mccormack Covered Member ID Mccormack Member ID Guarantor Name 12/18/2024 1 [facility] (MEDICARE REPLACEMENT/A DVANTAGE - PPO) [id number] Leah Mariee [id number] Leah Mariee 12/02/2024 2 [place] Leah Mariee [id number] Leah Mariee Notes Date Note Type Note Provider Name and Address Organization Details Recorded Time 09/22/2024 text/html OV 06/24/18:Here to establish carePast PCP: Dr Marion, last apt 3 monthsHe retiredPast Hx:HTNDMIIHLDDepressi onHypothyroidismGERDR vicenteiewed social family and surgical historyShe is here to discuss the above, get labsShe is not very sure of her medications she does have a list but is not sure if she is taking all of themOV 07/08/18:Here for her routine 2 week visitIs doing wellDid do the labsHere with her husbandShe does have some fatigue OV 08/26/18:Here to discuss getting diabetic shoes, she did sse podiatry and needs to fill out his DME formShe also has had some nose bleed, none now OV 09/18/18:Here s/p hospitalization for stent placementShe is feeling well todayNo recent labs done OV 09/18/18:Here for her post hospital d/c last week for s/p coronary angioIs doing well nowShe does have a MWV today alsoNo new labsOV 01/06/19:Here for her routine careIs doing well, feels a little fatiguedDid do a CBC showed anemiaNo other labs doneShe is also to see Dr Dixon and get a boot as she broke her R footOV 01/20/19:Here for her 2 week aptShe did do the labsShe is feeling well at this timeShe does haveOV 02/05/19:Here for her apt s/p hosp for anemia, s/p 2 U PRBCShe is feeling well todayShe also did see Dr Webber now on ironOV 02/17/19:Here for her hospital follow upHer d/c diagnosis was acute cystitis and abd painSeen for abd pain and then she did see Dr Munoz yesterday and now has to get the hernia repairedShe is here for her flu shot alsoOV 03/26/19:Here for her routine aptShe did do the labsShe did see ENT no more bleeding from the noseShe is feeling much better and her ROS is negativeOV 04/28/2019:Here for her routine aptShe is doing wellShe did do the labs on 04/23/2019She has not yet heard back from Dr Munoz about her hernia surgeryOV 06/30/2019:Here for her routine aptShe did do the labsS/p hernia surgery and did have the nose bleed and this has resolvedNo more apt with ENTHer ROS is negativeOV 09/30/2019:Here for her routine aptShe has seen Dr Richmond and now get 3 tab of ironShe feels very Theodorealexandrea has done her labsOV 12/02/2019:ACV:S/p fall from step at her [facility] yesterday, landed on the face and 'passed out'Did have a bruise to the nose, and now has pain in the R leg and R knee and arielle shouldersThe pain is about 7-8/10 constant and is sharp, hurts to lift her arms and to also walkOV 02/02/2020:Here for her routine aptShe is doing wellShe did do the labsShe states that she was at her hindu and there were 7 people who tested positive for COVID 19, she denies any symptomsOV 05/19/2020:Here for her routine aptShe is c/o L>R shoulder pain since her fall last November, she is RHDShe cannot 'sleep' on the L side and raise the L armShe has done some labs with Dr Collier and has also done the stress test and Jose Rafael has apts with Dr Collier and with Dr Arevalo and Dr Giraldo cominig upOV 08/18/2020:Here for her routine aptShe feels Jeramy did do the labsShe is to see Dr Lilly for her shoulder and Dr Giraldo alsoOV 12/15/2020:Here for her routine aptShe is doing wellSalexandrea did do the labs on 07/25/2020he is also here for her MWVOV 06/20/2021:Here for her routine aptShe has done well since her last visitShe did do the labs on 06/13/2021V 09/26/2021:Here for routine aptShe is doing wellShe did do the labs on 2OV 02/01/2022:Here for her f/u apt, she is doing well, she did do the labs on 01/29/2022, she does state that her oxybutynin is not very helpful and she wants to change this medication for OAB to some other medication OV 06/19/2022:Here for her f/u apt, she is doing well today, she did see Dr Arevalo and also Dr Cortez the urologist OV 10/16/2022: Here for her f/u apt, she feels well, she did do the labs OV 01/15/2023: Here for her f/u apt, she c/o LBP, feels it could be a UTI, she did do the labs and has seen Dr Martinez, who changed her medications OV 06/20/2023: Here for her f/u apt, she is doing well today, seen in the ER for tremors, and d/c, she did do the labs, she states that the tremors are better, but she does notice them more when she is intending to do somethingShe has also noted that her sugars are running high OV 07/23/2023: Here for her f/u apt, she is doing well, she is also here for her MWV OV 10/22/2023: Here for her routine apt, she is doing well today, she did do the labsOV 03/03/2024: Here for her routine apt, she feels well today, she did do the labs on 03/02/2024 OV 05/28/2024: Here for her f/u apt, she is doing well today, did do the labs OV 08/17/2024: Here as she is having LBP and she did have xrays, no N/T or weakness in the LE or UE, no loss of bowel or bladder control OV 09/22/2024: Here for her f/u apt, she is doing well but has recently had a fall and fracture of the T vertebrae, now has a back brace and is to see NS, but states that she wants to see a NS in [place] as her friend is to get her a sooner apt Mary Carroll MD [address] [place] [address], [facility] [address], [place], [address], [facility] [employer] 09/22/2024 19:20:33 11/10/2024 text/html . Patient is a 74-year-old female who returns the office for diabetic foot care. Patient states overall she is doing well she denies any new complaints. Patient due to her obesity is unable to cut her toenails would like to have them cut. Max Brewster, DPM [address] [facility], [address], [place], [address], [facility] [employer] 11/11/2024 13:42:00 12/03/2024 text/html OV 06/24/18:Here to establish carePast PCP: Dr Marion, last apt 3 monthsHe retiredPast Hx:HTNDMIIHLDDepressi onHypothyroidismGERDR sada social family and surgical historyShe is here to discuss the above, get labsShe is not very sure of her medications she does have a list but is not sure if she is taking all of themOV 07/08/18:Here for her routine 2 week visitIs doing wellDid do the labsHere with her husbandShe does have some fatigue OV 08/26/18:Here to discuss getting diabetic shoes, she did sse podiatry and needs to fill out his DME formShe also has had some nose bleed, none now OV 09/18/18:Here s/p hospitalization for stent placementShe is feeling well todayNo recent labs done OV 09/18/18:Here for her post hospital d/c last week for s/p coronary angioIs doing well nowShe does have a MWV today alsoNo new labsOV 01/06/19:Here for her routine careIs doing well, feels a little fatiguedDid do a CBC showed anemiaNo other labs doneShe is also to see Dr Dixon and get a boot as she broke her R footOV 01/20/19:Here for her 2 week aptShe did do the labsShe is feeling well at this timeShe does haveOV 02/05/19:Here for her apt s/p hosp for anemia, s/p 2 U PRBCShe is feeling well todayShe also did see Dr Webber now on ironOV 02/17/19:Here for her hospital follow upHer d/c diagnosis was acute cystitis and abd painSeen for abd pain and then she did see Dr Munoz yesterday and now has to get the hernia repairedShe is here for her flu shot alsoOV 03/26/19:Here for her routine aptShe did do the labsShe did see ENT no more bleeding from the noseShe is feeling much better and her ROS is negativeOV 04/28/2019:Here for her routine aptShe is doing wellShe did do the labs on 04/23/2019She has not yet heard back from Dr Munoz about her hernia surgeryOV 06/30/2019:Here for her routine aptShe did do the labsS/p hernia surgery and did have the nose bleed and this has resolvedNo more apt with Yael ROS is negativeOV 09/30/2019:Here for her routine aptShe has seen Dr Richmond and now get 3 tab of ironShe feels very Jeramy has done her labsOV 12/02/2019:ACV:S/p fall from step at her [facility] yesterday, landed on the face and 'passed out'Did have a bruise to the nose, and now has pain in the R leg and R knee and arielle shouldersThe pain is about 7-8/10 constant and is sharp, hurts to lift her arms and to also walkOV 02/02/2020:Here for her routine aptShe is doing wellShe did do the labsShe states that she was at her hindu and there were 7 people who tested positive for COVID 19, she denies any symptomsOV 05/19/2020:Here for her routine aptShe is c/o L>R shoulder pain since her fall last November, she is RHDShe cannot 'sleep' on the L side and raise the L armShe has done some labs with Dr Collier and has also done the stress test and Jose Rafael has apts with Dr Collier and with Dr Arevalo and Dr Giraldo cominig upOV 08/18/2020:Here for her routine aptShe feels Jeramy did do the labsShe is to see Dr Lilly for her shoulder and Dr Giraldo alsoOV 12/15/2020:Here for her routine aptShe is doing wellShe did do the labs on 07/25/2020he is also here for her MWVOV 06/20/2021:Here for her routine aptShe has done well since her last visitShe did do the labs on 2OV 09/26/2021:Here for routine aptShe is doing wellShe did do the labs on 2OV 02/01/2022:Here for her f/u apt, she is doing well, she did do the labs on 01/29/2022, she does state that her oxybutynin is not very helpful and she wants to change this medication for OAB to some other medication OV 06/19/2022:Here for her f/u apt, she is doing well today, she did see Dr Arevalo and also Dr Cortez the urologist OV 10/16/2022: Here for her f/u apt, she feels well, she did do the labs OV 01/15/2023: Here for her f/u apt, she c/o LBP, feels it could be a UTI, she did do the labs and has seen Dr Martinez, who changed her medications OV 06/20/2023: Here for her f/u apt, she is doing well today, seen in the ER for tremors, and d/c, she did do the labs, she states that the tremors are better, but she does notice them more when she is intending to do somethingShe has also noted that her sugars are running high OV 07/23/2023: Here for her f/u apt, she is doing well, she is also here for her MWV OV 10/22/2023: Here for her routine apt, she is doing well today, she did do the labsOV 03/03/2024: Here for her routine apt, she feels well today, she did do the labs on 03/02/2024 OV 05/28/2024: Here for her f/u apt, she is doing well today, did do the labs OV 08/17/2024: Here as she is having LBP and she did have xrays, no N/T or weakness in the LE or UE, no loss of bowel or bladder control OV 09/22/2024: Here for her f/u apt, she is doing well but has recently had a fall and fracture of the T vertebrae, now has a back brace and is to see NS, but states that she wants to see a NS in [place] as her friend is to get her a sooner apt OV 12/03/2024: Here for her f/u apt, and her MWV, she feels well today Mary Carroll MD [address], [address], [place], [address], [facility] 12/17/2024 19:44:17 OBGyn Episode No OBEpisode recorded.
--- OUTSIDE RECORDS SUMMARY | 2025-01-25 17:07 | XMS_ITS | Clinical Summary ---
Author Organization [facility] Address [address] [place] [id number] Care Team Providers Care Screed Person Name Role Phone Unavailable Primary Care Provider [...] Comments Blood Pressure 126/64 06/13/2016 9:51 AM [employer] Pulse 80 06/13/2016 9:51 AM [employer] Temperature - - Respiratory Rate - - Oxygen Saturation - - Inhaled Oxygen Concentration - - Weight 81.6 kg (180 lb) 06/13/2016 9:51 AM [employer] Height 149.9 cm (4' 11) 06/13/2016 9:51 AM [employer] Body Mass Index 36.36 06/13/2016 9:51 AM [employer] Plan of Treatment Upcoming Encounters Date Type Department Care Team (Late st Contact Info) Description 02/18/2025 2:00 PM CDT Office Visit [facility] [address] [facility], [address] [place] [phone] Amanda Barillas APRN [address] [facility] [address] [place] [address] Health Maintenance Due Date Last Done Comments Hepatitis C 1968 Dexa Scan (General) 2013 PHQ-2 (Physician [place]) 04/22/2024 COVID-19 Vaccine ( season) 2024 03/25/2021, 07/31/2020, 07/05/2020 Influenza Adult (#1) 2025 01/21/2024, 02/02/2020, 01/23/2020, Additional history exists DTaP, Tdap and Td Vaccines (3 - Td or Tdap) 03/20/2028 03/20/2018, 09/07/2013 Pneumococcal Vaccine: 50+ Years Completed 03/20/2018, 01/27/2018, 10/13/2015 RSV Immunization or 60+ Years Completed 01/22/2023 Zoster Vaccines Completed 10/14/2023, 07/21, 03/11/2013 Meningococcal B Vaccine Aged Out No l onger eligible based on patient's age to complete this topic Meningococcal Vaccine Aged Out No jarocho marycruz eligible based on patient's age to complete this topic RSV Immunizations Under 20 Months Aged Out No longer eligible based on patient's age to complete this topic Insurance
--- OUTSIDE RECORDS SUMMARY | 2025-01-25 17:07 | XMS_ITS | Clinical Summary ---
Author Organization [facility] Address [address] [place] [address] Care Team Providers Care Telecommunication Systems Designer Name Role Phone Mckenna Carroll MD Primary Care Provider Source Comments [facility],non-owned Affiliates and Associated Physician Practices is amultiple site organization consisting of ambulatory clinics and hospital sitesin [place], [place], [place] and [place]. This disclosure is being madepursuant to the Care Everywhere program and may not contain all information available regarding this patient. 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
--- OUTSIDE RECORDS SUMMARY | 2025-01-25 17:07 | XMS_ITS | Clinical Summary ---
Author Organization [facility] Facility Address [address] [facility] [address] [place] [id number] Care Team Providers Care Hard Candy Batch Mixer Name Role Phone Mckenna Carroll MD Primary Care Provider [phone] Medications alendronate (FOSAMAX) 35 MG tablet Take 1 tablet (35 mg total) by mouth 1 (one) time per week 12 tablet 1 01/02/20 23 Active metFORMIN (GLUCOPHAGE) 1000 MG tablet TAKE 1 TABLET BY MOUTH IN THE MORNING AND 1 TABLET IN THE EVENING WITH MEALS 200 tablet 2 08/04/19 25 Active insulin degludec (Tresiba FlexTouch) 100 UNIT/ML injection Inject 25 Units under the skin 1 (one) time each day 30 mL 1 01/13/20 25 Active Tresiba FlexTouch 100 UNIT/ML injection INJECT 24 UNITS SUBCUTANEOUSLY AT NIGHT 30 mL 2 05/15/19 25 025 Discontin ued(Reord er (does not appear on AVS)) Active Problems Problem Noted Date Diagnosed Date Hypertensive chronic kidney disease, malignant, with chronic kidney disease stage I through stage IV, or unspecified 07/15/2024 Encounters Date Type Department Care Team Description 01/12/2025 1:30 PM CDT Office Visit [facility], [facility] [address] [facility] [address] [place] [id number] Wade Bustillos DO Stage 3 chronic kidney disease, not otherwise specified (HCC) (Primary Dx); Persistent proteinuria; Diastolic dysfunction; Coronary artery disease due to calcified coronary lesion; Obstructive sleep apnea syndrome; Type 2 diabetes mellitus with diabetic chronic kidney disease (HCC); Pure hypercholesterolemia, not otherwise specified; Secondary hyperparathyroidism (HCC); Hypertensive chronic kidney disease 01/12/2025 Refill [facility], [facility] [address] [facility] [address] [place] [address] [place] 01/06/2025 Documentation Only [facility], [address] [address] Wade Bustillos DO 12/08/2024 Documentation Only [address] [address] Wade Bustillos DO from Last 3 [...] Sign Reading Time Taken Comments Blood Pressure 128/60 01/12/2025 1:39 PM CDT Pulse 75 01/12/2025 1:39 PM CDT Temperature 36.1 C (97 F) 01/12/2025 1:39 PM CDT Respiratory Rate 18 01/12/2025 1:39 PM CDT Oxygen Saturation 97% 01/12/2025 1:39 PM CDT Inhaled Oxygen Concentration - - Weight 74.7 kg (164 lb 9.6 oz) 01/12/2025 1:39 P M CDT Height 152.4 cm (5') 04/10/2022 2:01 PM PROFESSOR OF EDUCATION Body Mass Index 32.15 04/10/2022 2:01 PM PROFESSOR OF EDUCATION Plan of Treatment Upcoming Encounters Date Type Department Care Team (Late st Contact Info) Description 05/18/2025 1:15 PM PROFESSOR OF EDUCATION Office Visit [facility], [facility] [address] [facility] [address] [place] [address] Wade Bustillos DO [address] [place] [phone] Health Maintenance Due Date Last Done Comments Hepatitis B Vaccine (1 of 3 - Risk 3-dose series) 2008 Diabetes: Ophthalmology Exam 09/15/2020 Diabetes: Pedal Pulse Checked 09/15/2020 Diabetes: Sensory Foot Exam 09/15/2020 Diabetes: Visual Foot Exam 09/15/2020 Influenza Vaccine (#1) 2024 4, 02/02/2020, 02/18/2019, Additional history exists Diabetes: Hemoglobin A1C 01/27/2025 025, 07/14/2024, 05/11/2024, Additional history exists Pneumococcal Vaccine: 50+ Years Completed 03/20/2018, 01/27/2018, 10/13/2015 Colorectal Cancer Screening: Colonoscopy Discontinued 02/18/2019 Insurance Medicaid [place] U[employer] Medicare Care Teams Hard Candy Batch Mixer Relationship Specialty Start Date End Date Mckenna Carroll MD [address] [facility], [address] [place] [address] PCP - General Internal Medicine 01/24/21
--- NOTE | 2025-01-25 17:42 | ED.GENADULT ---
HPI - General Adult General Chief complaint: Recheck/Abnormal Lab/Rx <Clark Angel APRN - Last Filed: 01/25/25 17:43> Stated complaint: blood sugar issues <Clark Angel APRN - Last Filed: 01/25/25 17:43> Time Seen by Provider: 01/25/25 22:22 <Clark Angel APRN - Last Filed: 01/25/25 17:43> Focused HPI: 74-year-old female presents to the ER complaining labile blood sugars. Patient states her PCP recently decreased her Tresiba dose. Patient states that she has had multiple blood sugar readings of less than 70 over the past couple of weeks. GENERAL: Well-appearing, well-nourished, and in no acute distress. HEAD: Normocephalic, atraumatic. CHEST: Clear to auscultation. No respiratory distress. HEART: Regular rate and rhythm. NEURO: Alert and oriented x3. Patient screened in triage and initial orders placed. Additional care and disposition to be based upon diagnostic testing and treatment. <Clark Angel APRN - Last Filed: 01/25/25 17:43> Focused HPI: 74-year-old female presents to the ER complaining labile blood sugars. Patient states her PCP recently decreased her Tresiba dose. Patient states that she has had multiple blood sugar readings of less than 70 over the past week. This is largely occurring at night. Also reports her blood pressure has been low GENERAL: Well-appearing, well-nourished, and in no acute distress. HEAD: Normocephalic, atraumatic. CHEST: Clear to auscultation. No respiratory distress. HEART: Regular rate and rhythm. NEURO: Alert and oriented x3. Patient screened in triage and initial orders placed. Additional care and disposition to be based upon diagnostic testing and treatment. <Zaida Uribe PA-C - Last Filed: 01/26/25 02:46> Related Data Home medications: Home Medications ?Medication ?Instructions ?Recorded ?Confirmed ?Last Taken ?Type alendronate 70 mg tablet 70 mg PO WEEKLY 03/03/19 09/06/22 Unknown History aspirin 81 mg tablet,delayed 81 mg PO DAILY 03/03/19 09/06/22 Unknown History release (Aspir-) atorvastatin 40 mg tablet 40 mg PO DAILY 03/03/19 09/06/22 Unknown History docusate sodium 100 mg capsule 100 mg PO DAILY 03/03/19 09/06/22 Unknown History (Dulcolax Stool Softener (docusate)) duloxetine 60 mg capsule,delayed 60 mg PO DAILY 03/03/19 09/06/22 Unknown History release icosapent ethyl 1 gram capsule 2 g PO BID 03/03/19 09/06/22 Unknown History (Vascepa) levothyroxine 150 mcg tablet 150 mcg PO DAILY 03/03/19 09/06/22 Unknown History (Synthroid) lisinopril 10 mg tablet 20 mg PO DAILY 03/03/19 09/06/22 Unknown History metformin 500 mg tablet 1,000 mg PO BID 03/03/19 09/06/22 Unknown History ascorbic acid (vitamin C) 500 mg 1,000 mg PO DAILY 03/10/19 09/06/22 Unknown History tablet acetaminophen 500 mg tablet 1,000 mg PO DAILY PRN Pain 09/06/22 09/06/22 Unknown History (Acetaminophen Extra Strength) albuterol sulfate 90 mcg/actuation 2 puff inhalation QID PRN 09/06/22 09/06/22 Unknown History aerosol inhaler Shortness Of Breath cholecalciferol (vitamin D3) 125 125 mcg PO DAILY 09/06/22 09/06/22 Unknown History mcg (5,000 unit) tablet (Vitamin D3) cyanocobalamin (vitamin B-12) 1,000 mcg PO DAILY 09/06/22 09/06/22 Unknown History 1,000 mcg tablet,extended release (Vitamin B-12 ER) dapagliflozin propanediol 10 mg 10 mg PO DAILY 09/06/22 09/06/22 Unknown History tablet exenatide microspheres 2 mg/0.85 2 mg subcut WEEKLY 09/06/22 09/06/22 Unknown History mL subcutaneous auto-injector insulin degludec 200 unit/mL (3 unit subcut 09/06/22 Unknown History mL) subcutaneous pen magnesium oxide 400 mg PO DAILY 09/06/22 09/06/22 Unknown History mirabegron 50 mg tablet,extended 50 mg PO DAILY 09/06/22 09/06/22 Unknown History release 24 hr pregabalin 100 mg capsule 100 mg PO TID 09/06/22 09/06/22 Unknown History rivaroxaban 2.5 mg tablet 2.5 mg PO BID 09/06/22 09/06/22 Unknown History <Clark Angel APRN - Last Filed: 01/25/25 17:43> Allergies/adverse reactions: Allergies Allergy/AdvReac Type Severity Reaction Status Date / Time No Known Allergies Allergy Mild Verified 06/07/23 17:12 <Clark Angel APRN - Last Filed: 01/25/25 17:43> Review of Systems Review of Systems: All systems reviewed & are unremarkable except as noted in HPI and below <Zaida Uribe PA-C - Last Filed: 01/26/25 02:46> [facility] Past Medical History Medical History: Medical History (Updated 01/26/25 @ 02:45 by Zaida Uribe PA-C) Type 2 diabetes mellitus without complications Gastro-esophageal reflux disease without esophagitis Essential (primary) hypertension Hypothyroidism, unspecified <Clark Angel APRN - Last Filed: 01/25/25 17:43> Family History Family History: Family History (Updated 07/27/16 @ 23:56 by DOCTOR UNKNOWN) Father Acute myocardial infarction, Onset Age: 60 Patient's father is Mother Patient's mother is <Clark Angel APRN - Last Filed: 01/25/25 17:43> Social History Social History: Social History Smoking packs per day: 3 Smoking cigarettes per day: 60.0 Smoking status: Former smoker Tobacco type: cigarettes Second hand tobacco smoke exposure: No Smoking end date: 03/02/02 Alcohol intake: never Gender identity (if verbalized by the patient): Female Spiritual care concerns: No <Clark Angel APRN - Last Filed: 01/25/25 17:43> Exam Narrative: GENERAL: Well-appearing, well-nourished, and in no acute distress. HEAD: Normocephalic, atraumatic. EYES: EOMI. ENT: Nares clear, no rhinorrhea or epistaxis. Mucous membranes moist. Oropharynx without tonsillar hypertrophy exudate or other lesions. NECK: Supple. No adenopathy or masses. CHEST: Clear to auscultation. No respiratory distress. No wheezes rales or rhonchi HEART: Regular rate and rhythm. No murmur heard. Normal peripheral pulses. ABDOMEN: Soft, nontender, nondistended, normal active bowel sounds. EXTREMITIES: Normal range of motion. No edema. SKIN: Warm, dry, no rash. NEURO: No focal deficits. Alert and oriented x3. PSYCH: Normal mood and affect <Zaida Uribe PA-C - Last Filed: 01/26/25 02:46> Course Vital Signs Vital signs: Vital Signs Temperature 97.8 F 01/25/25 17:41 Pulse Rate 74 01/25/25 17:41 Respiratory Rate 18 01/25/25 17:41 Blood Pressure 95/68 L 01/25/25 17:41 Pulse Oximetry 98 01/25/25 17:41 Oxygen Delivery Room Air 01/25/25 17:41 Temperature 97.8 F 01/25/25 17:41 Pulse Rate 65 01/25/25 23:33 Respiratory Rate 19 01/25/25 23:33 Blood Pressure 97/53 L 01/25/25 23:32 Pulse Oximetry 98 01/25/25 23:33 Oxygen Delivery Room Air 01/25/25 17:41 <Clark Angel, [employer] - Last Filed: 01/25/25 17:43> Vital Signs Temperature 97.8 F 01/25/25 17:41 Pulse Rate 74 01/25/25 17:41 Respiratory Rate 18 01/25/25 17:41 Blood Pressure 95/68 L 01/25/25 17:41 Pulse Oximetry 98 01/25/25 17:41 Oxygen Delivery Room Air 01/25/25 17:41 Temperature 97.8 F 01/25/25 17:41 Pulse Rate 65 01/25/25 23:33 Respiratory Rate 19 01/25/25 23:33 Blood Pressure 97/53 L 01/25/25 23:32 Pulse Oximetry 98 01/25/25 23:33 Oxygen Delivery Room Air 01/25/25 17:41 <Zaida Uribe PA-C - Last Filed: 01/26/25 02:46> Medical Decision Making MDM Narrative Medical decision making narrative: Patient presents to the emergency department for hypoglycemic events. Ongoing over the last couple of days. Reports blood sugars dropping into the 40s. Patient takes Farxiga, Glipizide, Metformin, Insulin. Reports her insulin was actually recently decreased. Blood pressure soft upon arrival, this did respond to IV fluids. Patient is afebrile and nontoxic appearing. Cbc without leukocytosis. Hemoglobin likely around baseline. Metabolic panel without concerning findings. Patient did have a blood sugar drop into the 50s noted on her dexcom. She was fed. Will be admitted for further monitoring/management <Zaida Uribe PA-C - Last Filed: 01/26/25 02:46> Vital Signs Vital Signs: Vital Signs Temperature 97.8 F 01/25/25 17:41 Pulse Rate 74 01/25/25 17:41 Respiratory Rate 18 01/25/25 17:41 Blood Pressure 95/68 L 01/25/25 17:41 Pulse Oximetry 98 01/25/25 17:41 Oxygen Delivery Room Air 01/25/25 17:41 Temperature 97.8 F 01/25/25 17:41 Pulse Rate 65 01/25/25 23:33 Respiratory Rate 19 01/25/25 23:33 Blood Pressure 97/53 L 01/25/25 23:32 Pulse Oximetry 98 01/25/25 23:33 Oxygen Delivery Room Air 01/25/25 17:41 <Clark Angel, [employer] - Last Filed: 01/25/25 17:43> Vital Signs Temperature 97.8 F 01/25/25 17:41 Pulse Rate 74 01/25/25 17:41 Respiratory Rate 18 01/25/25 17:41 Blood Pressure 95/68 L 01/25/25 17:41 Pulse Oximetry 98 01/25/25 17:41 Oxygen Delivery Room Air 01/25/25 17:41 Temperature 97.8 F 01/25/25 17:41 Pulse Rate 65 01/25/25 23:33 Respiratory Rate 19 01/25/25 23:33 Blood Pressure 97/53 L 01/25/25 23:32 Pulse Oximetry 98 01/25/25 23:33 Oxygen Delivery Room Air 01/25/25 17:41 <Zaida Uribe PA-C - Last Filed: 01/26/25 02:46> Lab Data Lab results reviewed: Yes I reviewed the patient's lab results. <JENNIFER Hart Last Filed: 01/26/25 02:46> Result diagrams: 01/25/25 18:53 01/25/25 18:53 <Clark Angel, [employer] - Last Filed: 01/25/25 17:43> Labs: Lab Results 01/25/25 01/25/25 01/25/25 Range/Units 17:06 18:52 18:53 WBC 7.4 (4.5-10.0) K/mm3 RBC 3.75 L (4.2-5.4) M/mm3 Hgb 10.3 L (12.0-15.0) g/dL Hct 32.6 L (37.0-47.0) % MCV 86.9 (80-100) fl MCH 27.5 (26-34) pg MCHC 31.6 L (32-36) g/dl RDW 14.5 (11.5-14.5) % Plt Count 323 (150-375) k/mm3 MPV 11.1 H (7.4-10.4) fl Immature Gran % (Auto) 0.7 H (0-0.5) % Neut % (Auto) 48.8 (45.5-73.1) % Lymph % (Auto) 29.3 (18.3-44.2) % [place] % (Auto) 13.8 H (2.6-8.5) % Eos % (Auto) 6.6 H (0-4.4) % Baso % (Auto) 0.8 (0.2-1.2) % Lymph # (Auto) 2.17 (0.9-3.2) K/mm3 [place] # (Auto) 1.0 H (0.1-0.6) K/mm3 Eos # (Auto) 0.5 H (0-0.3) K/mm3 Baso # (Auto) 0.1 (0.0-0.1) K/mm3 Abs Immat Gran (auto) 0.05 H (0.00-0.031) K/mm3 Absolute Neuts (auto) 3.6 (1.3-6.7) K/mm3 Absolute Nucleated RBC 0.000 (0.0-0.012) K/mm3 Nucleated RBC % 0.0 (0.0-0.2) % Sodium 133 L (137-145) mmol/L Potassium 5.0 (3.4-5.0) mmol/L Chloride 102 (98-107) mmol/L Carbon Dioxide 23 (22-30) mmol/L Anion Gap 8 (4-12) mmol/L BUN 31 H D (7-17) mg/dL Creatinine 1.16 H (0.7-1.0) mg/dL Estim Creat Clear Calc 33 ml/min Estimated GFR 45 L (59 - ) Glucose 117 H (65-110) mg/dL POC Capillary Glucose 217 H 144 H (65-105) mg/dl Hemoglobin A1c 5.5 (<5.7) % Lactic Acid (0.7-2.0) mmol/L Calcium 9.3 (8.4-10.2) mg/dL Total Bilirubin 0.4 (0.2-1.3) mg/dL AST 26 (14-36) U/L ALT 14 (6-35) U/L Alkaline Phosphatase 64 (38-126) U/L C-Reactive Protein (<1.0) mg/dL Total Protein 7.9 (6.3-8.2) g/dL Albumin 4.3 (3.5-5.1) g/dL Beta-Hydroxybutyrate/Acetoacetate 0.20 (0.02-0.27) mmol/L Procalcitonin ng/mL Urine Color (Yellow) Urine Appearance (Clear) Urine pH (5.0-9.0) Ur Specific [place] (1.001-1.035) Urine Protein (Negative) mg/dL Urine Glucose (UA) (Negative) mg/dL Urine Ketones (Negative) mg/dL Ur Blood (Man) (Negative) Urine Nitrate (Negative) Urine Bilirubin (Negative) Urine Urobilinogen (<2.0) mg/dL Leukocyte Esterase Rfl (Negative) JEB/UL Urine RBC (0-2) /hpf Urine WBC (0-3) /hpf Ur Squamous Epith Cells (Few) /hpf Urine Bacteria /hpf Urine Casts Influenza A (RT-PCR) (Negative) Influenza B (RT-PCR) (Negative) RSV (RT-PCR) (Negative) SARS-CoV-2 RNA (RT-PCR) (Negative) 01/25/25 01/25/25 01/26/25 Range/Units 22:19 22:39 00:22 WBC (4.5-10.0) K/mm3 RBC (4.2-5.4) M/mm3 Hgb (12.0-15.0) g/dL Hct (37.0-47.0) % MCV (80-100) fl MCH (26-34) pg MCHC (32-36) g/dl RDW (11.5-14.5) % Plt Count (150-375) k/mm3 MPV (7.4-10.4) fl Immature Gran % (Auto) (0-0.5) % Neut % (Auto) (45.5-73.1) % Lymph % (Auto) (18.3-44.2) % [place] % (Auto) (2.6-8.5) % Eos % (Auto) (0-4.4) % Baso % (Auto) (0.2-1.2) % Lymph # (Auto) (0.9-3.2) K/mm3 [place] # (Auto) (0.1-0.6) K/mm3 Eos # (Auto) (0-0.3) K/mm3 Baso # (Auto) (0.0-0.1) K/mm3 Abs Immat Gran (auto) (0.00-0.031) K/mm3 Absolute Neuts (auto) (1.3-6.7) K/mm3 Absolute Nucleated RBC (0.0-0.012) K/mm3 Nucleated RBC % (0.0-0.2) % Sodium (137-145) mmol/L Potassium (3.4-5.0) mmol/L Chloride (98-107) mmol/L Carbon Dioxide (22-30) mmol/L Anion Gap (4-12) mmol/L BUN (7-17) mg/dL Creatinine (0.7-1.0) mg/dL Estim Creat Clear Calc ml/min Estimated GFR (59 - ) Glucose (65-110) mg/dL POC Capillary Glucose 83 73 (65-105) mg/dl Hemoglobin A1c (<5.7) % Lactic Acid (0.7-2.0) mmol/L Calcium (8.4-10.2) mg/dL Total Bilirubin (0.2-1.3) mg/dL AST (14-36) U/L ALT (6-35) U/L Alkaline Phosphatase (38-126) U/L C-Reactive Protein (<1.0) mg/dL Total Protein (6.3-8.2) g/dL Albumin (3.5-5.1) g/dL Beta-Hydroxybutyrate/Acetoacetate (0.02-0.27) mmol/L Procalcitonin ng/mL Urine Color Yellow (Yellow) Urine Appearance Clear (Clear) Urine pH 5.5 (5.0-9.0) Ur Specific [place] 1.011 (1.001-1.035) Urine Protein Negative (Negative) mg/dL Urine Glucose (UA) 2+ H (Negative) mg/dL Urine Ketones Negative (Negative) mg/dL Ur Blood (Man) Negative (Negative) Urine Nitrate Negative (Negative) Urine Bilirubin Negative (Negative) Urine Urobilinogen 0.2 (<2.0) mg/dL Leukocyte Esterase Rfl Trace H (Negative) JEB/UL Urine RBC 0-2 (0-2) /hpf Urine WBC 0-5 (0-3) /hpf Ur Squamous Epith Cells None seen (Few) /hpf Urine Bacteria None seen /hpf Urine Casts 0-2 Influenza A (RT-PCR) (Negative) Influenza B (RT-PCR) (Negative) RSV (RT-PCR) (Negative) SARS-CoV-2 RNA (RT-PCR) (Negative) 01/26/25 Range/Units 00:26 WBC (4.5-10.0) K/mm3 RBC (4.2-5.4) M/mm3 Hgb (12.0-15.0) g/dL Hct (37.0-47.0) % MCV (80-100) fl MCH (26-34) pg MCHC (32-36) g/dl RDW (11.5-14.5) % Plt Count (150-375) k/mm3 MPV (7.4-10.4) fl Immature Gran % (Auto) (0-0.5) % Neut % (Auto) (45.5-73.1) % Lymph % (Auto) (18.3-44.2) % [place] % (Auto) (2.6-8.5) % Eos % (Auto) (0-4.4) % Baso % (Auto) (0.2-1.2) % Lymph # (Auto) (0.9-3.2) K/mm3 [place] # (Auto) (0.1-0.6) K/mm3 Eos # (Auto) (0-0.3) K/mm3 Baso # (Auto) (0.0-0.1) K/mm3 Abs Immat Gran (auto) (0.00-0.031) K/mm3 Absolute Neuts (auto) (1.3-6.7) K/mm3 Absolute Nucleated RBC (0.0-0.012) K/mm3 Nucleated RBC % (0.0-0.2) % Sodium (137-145) mmol/L Potassium (3.4-5.0) mmol/L Chloride (98-107) mmol/L Carbon Dioxide (22-30) mmol/L Anion Gap (4-12) mmol/L BUN (7-17) mg/dL Creatinine (0.7-1.0) mg/dL Estim Creat Clear Calc ml/min Estimated GFR (59 - ) Glucose (65-110) mg/dL POC Capillary Glucose (65-105) mg/dl Hemoglobin A1c (<5.7) % Lactic Acid 1.1 (0.7-2.0) mmol/L Calcium (8.4-10.2) mg/dL Total Bilirubin (0.2-1.3) mg/dL AST (14-36) U/L ALT (6-35) U/L Alkaline Phosphatase (38-126) U/L C-Reactive Protein < 0.5 (<1.0) mg/dL Total Protein (6.3-8.2) g/dL Albumin (3.5-5.1) g/dL Beta-Hydroxybutyrate/Acetoacetate (0.02-0.27) mmol/L Procalcitonin 0.0 ng/mL Urine Color (Yellow) Urine Appearance (Clear) Urine pH (5.0-9.0) Ur Specific [place] (1.001-1.035) Urine Protein (Negative) mg/dL Urine Glucose (UA) (Negative) mg/dL Urine Ketones (Negative) mg/dL Ur Blood (Man) (Negative) Urine Nitrate (Negative) Urine Bilirubin (Negative) Urine Urobilinogen (<2.0) mg/dL Leukocyte Esterase Rfl (Negative) JEB/UL Urine RBC (0-2) /hpf Urine WBC (0-3) /hpf Ur Squamous Epith Cells (Few) /hpf Urine Bacteria /hpf Urine Casts Influenza A (RT-PCR) Negative (Negative) Influenza B (RT-PCR) Negative (Negative) RSV (RT-PCR) Negative (Negative) SARS-CoV-2 RNA (RT-PCR) Negative (Negative) <Clark Angel, [employer] - Last Filed: 01/25/25 17:43> Lab Results 01/25/25 01/25/25 01/25/25 Range/Units 17:06 18:52 18:53 WBC 7.4 (4.5-10.0) K/mm3 RBC 3.75 L (4.2-5.4) M/mm3 Hgb 10.3 L (12.0-15.0) g/dL Hct 32.6 L (37.0-47.0) % MCV 86.9 (80-100) fl MCH 27.5 (26-34) pg MCHC 31.6 L (32-36) g/dl RDW 14.5 (11.5-14.5) % Plt Count 323 (150-375) k/mm3 MPV 11.1 H (7.4-10.4) fl Immature Gran % (Auto) 0.7 H (0-0.5) % Neut % (Auto) 48.8 (45.5-73.1) % Lymph % (Auto) 29.3 (18.3-44.2) % [place] % (Auto) 13.8 H (2.6-8.5) % Eos % (Auto) 6.6 H (0-4.4) % Baso % (Auto) 0.8 (0.2-1.2) % Lymph # (Auto) 2.17 (0.9-3.2) K/mm3 [place] # (Auto) 1.0 H (0.1-0.6) K/mm3 Eos # (Auto) 0.5 H (0-0.3) K/mm3 Baso # (Auto) 0.1 (0.0-0.1) K/mm3 Abs Immat Gran (auto) 0.05 H (0.00-0.031) K/mm3 Absolute Neuts (auto) 3.6 (1.3-6.7) K/mm3 Absolute Nucleated RBC 0.000 (0.0-0.012) K/mm3 Nucleated RBC % 0.0 (0.0-0.2) % Sodium 133 L (137-145) mmol/L Potassium 5.0 (3.4-5.0) mmol/L Chloride 102 (98-107) mmol/L Carbon Dioxide 23 (22-30) mmol/L Anion Gap 8 (4-12) mmol/L BUN 31 H D (7-17) mg/dL Creatinine 1.16 H (0.7-1.0) mg/dL Estim Creat Clear Calc 33 ml/min Estimated GFR 45 L (59 - ) Glucose 117 H (65-110) mg/dL POC Capillary Glucose 217 H 144 H (65-105) mg/dl Hemoglobin A1c 5.5 (<5.7) % Lactic Acid (0.7-2.0) mmol/L Calcium 9.3 (8.4-10.2) mg/dL Total Bilirubin 0.4 (0.2-1.3) mg/dL AST 26 (14-36) U/L ALT 14 (6-35) U/L Alkaline Phosphatase 64 (38-126) U/L C-Reactive Protein (<1.0) mg/dL Total Protein 7.9 (6.3-8.2) g/dL Albumin 4.3 (3.5-5.1) g/dL Beta-Hydroxybutyrate/Acetoacetate 0.20 (0.02-0.27) mmol/L Procalcitonin ng/mL Urine Color (Yellow) Urine Appearance (Clear) Urine pH (5.0-9.0) Ur Specific [place] (1.001-1.035) Urine Protein (Negative) mg/dL Urine Glucose (UA) (Negative) mg/dL Urine Ketones (Negative) mg/dL Ur Blood (Man) (Negative) Urine Nitrate (Negative) Urine Bilirubin (Negative) Urine Urobilinogen (<2.0) mg/dL Leukocyte Esterase Rfl (Negative) JEB/UL Urine RBC (0-2) /hpf Urine WBC (0-3) /hpf Ur Squamous Epith Cells (Few) /hpf Urine Bacteria /hpf Urine Casts Influenza A (RT-PCR) (Negative) Influenza B (RT-PCR) (Negative) RSV (RT-PCR) (Negative) SARS-CoV-2 RNA (RT-PCR) (Negative) 01/25/25 01/25/25 01/26/25 Range/Units 22:19 22:39 00:22 WBC (4.5-10.0) K/mm3 RBC (4.2-5.4) M/mm3 Hgb (12.0-15.0) g/dL Hct (37.0-47.0) % MCV (80-100) fl MCH (26-34) pg MCHC (32-36) g/dl RDW (11.5-14.5) % Plt Count (150-375) k/mm3 MPV (7.4-10.4) fl Immature Gran % (Auto) (0-0.5) % Neut % (Auto) (45.5-73.1) % Lymph % (Auto) (18.3-44.2) % [place] % (Auto) (2.6-8.5) % Eos % (Auto) (0-4.4) % Baso % (Auto) (0.2-1.2) % Lymph # (Auto) (0.9-3.2) K/mm3 [place] # (Auto) (0.1-0.6) K/mm3 Eos # (Auto) (0-0.3) K/mm3 Baso # (Auto) (0.0-0.1) K/mm3 Abs Immat Gran (auto) (0.00-0.031) K/mm3 Absolute Neuts (auto) (1.3-6.7) K/mm3 Absolute Nucleated RBC (0.0-0.012) K/mm3 Nucleated RBC % (0.0-0.2) % Sodium (137-145) mmol/L Potassium (3.4-5.0) mmol/L Chloride (98-107) mmol/L Carbon Dioxide (22-30) mmol/L Anion Gap (4-12) mmol/L BUN (7-17) mg/dL Creatinine (0.7-1.0) mg/dL Estim Creat Clear Calc ml/min Estimated GFR (59 - ) Glucose (65-110) mg/dL POC Capillary Glucose 83 73 (65-105) mg/dl Hemoglobin A1c (<5.7) % Lactic Acid (0.7-2.0) mmol/L Calcium (8.4-10.2) mg/dL Total Bilirubin (0.2-1.3) mg/dL AST (14-36) U/L ALT (6-35) U/L Alkaline Phosphatase (38-126) U/L C-Reactive Protein (<1.0) mg/dL Total Protein (6.3-8.2) g/dL Albumin (3.5-5.1) g/dL Beta-Hydroxybutyrate/Acetoacetate (0.02-0.27) mmol/L Procalcitonin ng/mL Urine Color Yellow (Yellow) Urine Appearance Clear (Clear) Urine pH 5.5 (5.0-9.0) Ur Specific [place] 1.011 (1.001-1.035) Urine Protein Negative (Negative) mg/dL Urine Glucose (UA) 2+ H (Negative) mg/dL Urine Ketones Negative (Negative) mg/dL Ur Blood (Man) Negative (Negative) Urine Nitrate Negative (Negative) Urine Bilirubin Negative (Negative) Urine Urobilinogen 0.2 (<2.0) mg/dL Leukocyte Esterase Rfl Trace H (Negative) JEB/UL Urine RBC 0-2 (0-2) /hpf Urine WBC 0-5 (0-3) /hpf Ur Squamous Epith Cells None seen (Few) /hpf Urine Bacteria None seen /hpf Urine Casts 0-2 Influenza A (RT-PCR) (Negative) Influenza B (RT-PCR) (Negative) RSV (RT-PCR) (Negative) SARS-CoV-2 RNA (RT-PCR) (Negative) 01/26/25 Range/Units 00:26 WBC (4.5-10.0) K/mm3 RBC (4.2-5.4) M/mm3 Hgb (12.0-15.0) g/dL Hct (37.0-47.0) % MCV (80-100) fl MCH (26-34) pg MCHC (32-36) g/dl RDW (11.5-14.5) % Plt Count (150-375) k/mm3 MPV (7.4-10.4) fl Immature Gran % (Auto) (0-0.5) % Neut % (Auto) (45.5-73.1) % Lymph % (Auto) (18.3-44.2) % [place] % (Auto) (2.6-8.5) % Eos % (Auto) (0-4.4) % Baso % (Auto) (0.2-1.2) % Lymph # (Auto) (0.9-3.2) K/mm3 [place] # (Auto) (0.1-0.6) K/mm3 Eos # (Auto) (0-0.3) K/mm3 Baso # (Auto) (0.0-0.1) K/mm3 Abs Immat Gran (auto) (0.00-0.031) K/mm3 Absolute Neuts (auto) (1.3-6.7) K/mm3 Absolute Nucleated RBC (0.0-0.012) K/mm3 Nucleated RBC % (0.0-0.2) % Sodium (137-145) mmol/L Potassium (3.4-5.0) mmol/L Chloride (98-107) mmol/L Carbon Dioxide (22-30) mmol/L Anion Gap (4-12) mmol/L BUN (7-17) mg/dL Creatinine (0.7-1.0) mg/dL Estim Creat Clear Calc ml/min Estimated GFR (59 - ) Glucose (65-110) mg/dL POC Capillary Glucose (65-105) mg/dl Hemoglobin A1c (<5.7) % Lactic Acid 1.1 (0.7-2.0) mmol/L Calcium (8.4-10.2) mg/dL Total Bilirubin (0.2-1.3) mg/dL AST (14-36) U/L ALT (6-35) U/L Alkaline Phosphatase (38-126) U/L C-Reactive Protein < 0.5 (<1.0) mg/dL Total Protein (6.3-8.2) g/dL Albumin (3.5-5.1) g/dL Beta-Hydroxybutyrate/Acetoacetate (0.02-0.27) mmol/L Procalcitonin 0.0 ng/mL Urine Color (Yellow) Urine Appearance (Clear) Urine pH (5.0-9.0) Ur Specific [place] (1.001-1.035) Urine Protein (Negative) mg/dL Urine Glucose (UA) (Negative) mg/dL Urine Ketones (Negative) mg/dL Ur Blood (Man) (Negative) Urine Nitrate (Negative) Urine Bilirubin (Negative) Urine Urobilinogen (<2.0) mg/dL Leukocyte Esterase Rfl (Negative) JEB/UL Urine RBC (0-2) /hpf Urine WBC (0-3) /hpf Ur Squamous Epith Cells (Few) /hpf Urine Bacteria /hpf Urine Casts Influenza A (RT-PCR) Negative (Negative) Influenza B (RT-PCR) Negative (Negative) RSV (RT-PCR) Negative (Negative) SARS-CoV-2 RNA (RT-PCR) Negative (Negative) <Zaida Uribe PA-C - Last Filed: 01/26/25 02:46> Critical Care Time Critical Care Time Critical Care Time: No <Zaida Uribe PA-C - Last Filed: 01/26/25 02:46> Discharge Plan Discharge Clinical Impression: Hypoglycemia <Clark Angel APRN - Last Filed: 01/25/25 17:43> Patient Disposition: Still a Patient <Clark Angel APRN - Last Filed: 01/25/25 17:43> Condition: Stable <Clark Angel APRN - Last Filed: 01/25/25 17:43>
[2025-01-25 19:03] LABS: Hematocrit 32.6 % (37.0-47.0); Hemoglobin 10.3 g/dL (12.0-15.0); Immature Granulocyte Percent A 0.7 % (0-0.5); Lymphocytes Absolute Auto 2.17 K/mm3 (0.9-3.2); Mean Corpuscular HGB Conc 31.6 g/dl (32-36); Mean Corpuscular Hemoglobin 27.5 pg (26-34); Mean Corpuscular Volume 86.9 fl (80-100); Nucleated Red Blood Cells Absolute Auto 0.000 K/mm3 (0.0-0.012); Nucleated Red Blood Cells Perc 0.0 % (0.0-0.2); Platelet Count Result 323 k/mm3 (150-375); Red Blood Count 3.75 M/mm3 (4.2-5.4); White Blood Count 7.4 K/mm3 (4.5-10.0)
[2025-01-25 19:21] LABS: Alanine Aminotransferase 14 U/L (6-35); Albumin Level 4.3 g/dL (3.5-5.1); Alkaline Phosphatase 64 U/L (38-126); Anion Gap 8 mmol/L (4-12); Aspartate Amino Transferase 26 U/L (14-36); Bilirubin,Total 0.4 mg/dL (0.2-1.3); Blood Urea Nitrogen 31 mg/dL (7-17); Calcium 9.3 mg/dL (8.4-10.2); Carbon Dioxide 23 mmol/L (22-30); Chloride 102 mmol/L (98-107); Estimated CRCL calculation 33 ml/min; Estimated Glomerular Filt Rate 45; Glucose 117 mg/dL (65-110); Hemoglobin A1C 5.5 % (<5.7); Potassium 5.0 mmol/L (3.4-5.0); Sodium 133 mmol/L (137-145); Total Protein 7.9 g/dL (6.3-8.2)
[2025-01-25 19:22] LABS: Beta-Hydroxybutyrate/Acetoace. 0.20 mmol/L (0.02-0.27)
--- OUTSIDE RECORDS SUMMARY | 2025-01-25 22:40 | XMS_ITS | Clinical Summary ---
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 This disclosure is being madepursuant to the Care Everywhere program and may not contain all information available regarding this patient. 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
--- OUTSIDE RECORDS SUMMARY | 2025-01-25 22:40 | XMS_ITS | Clinical Summary ---
Author Organization [facility] Address [address] [place] [phone] Care Team Providers Care Scaffolding Helper Name Role Phone Ashleigh Carroll MD Primary Care Provide r Joao Eller MD Unavailable [phone] Juanpablo Toscano MD Unavailable [phone] Itzel Dixon NP Unavailable [phone] Allergies No known active allergies Medications atorvastatin [...] daily. Assessment & Plan (05/11/2024 12:57 PM ASSISTANT COMMUNITY MANAGER): Chronic problem. Controlled on current lisinopril [...] 2gm bid Last lipid panel: 01/20/24 LDL=51, QX=798. Will update labs. Does not mychart. Verified phone #/address to contact re: results. Assessment & Plan (07/14/2024 3:24 PM CDT): Chronic problem. Currently taking Atorvastatin 80mg & vascepa 2gm bid Last lipid panel: 01/20/24 LDL=51, IW=010. Assessment & Plan (05/11/2024 12:57 PM ASSISTANT COMMUNITY MANAGER): Chronic problem. Currently taking Atorvastatin 40mg & vascepa 2gm bid Last lipid panel: 01/20/24 LDL=51, CU=933. Assessment & Plan (01/20/2024 3:11 PM CDT): [...] re: results. DM eye exam 02/2024 appt [facility] in [place] [address] 2nd request letter sent to get [...] eye exam JENNIFER fall 2022; 02/2024 appt [facility]. 2nd request letter sent to get copy [...] infection. Assessment & Plan (05/11/2024 1:57 PM ASSISTANT COMMUNITY MANAGER): Chronic problem. A1c uncontrolled & greatly [...] eye exam JENNIFER fall 2022; 02/2024 appt [facility] in [place] on [address] Letter sent to get copy of [...] fall 2022; 02/2024 appt [facility] in [place] on [address] Letter sent to get copy of [...] barefoot. Assessment & Plan (05/11/2024 12:57 PM ASSISTANT COMMUNITY MANAGER): Chronic problem. Currently taking Lyrica 150mg [...] medications. Assessment & Plan (05/11/2024 12:58 PM ASSISTANT COMMUNITY MANAGER): Chronic problem. Currently taking levothyroxine 150 [...] Obesity 07/21/2018 Coronary artery disease invo [place] coronary artery [place] heart without angina pectoris 07/14/2018 Resolved Problems [...] Type Department Care Team Description 12/23/2024 Telephone [facility] [id number] [place] [address] [address], [place] [address] Dom De León MD 10/28/2024 Results Follow-Up [facility] Diabetes and Endocrinology [address] [place] [phone] Patito Oglesby NP T4, free, TSH, Lipid panel, Additional followed-up results: 3 10/27/2024 2:15 PM CDT Lab [facility] Outpatient Lab at [address] [phone] 10/27/2024 2:14 PM CDT - 10/27/2024 11:59 PM CDT Hospital Encounter [facility] [id number] [place] [phone] Hypothyroidism, unspecified type; Type 2 diabetes mellitus with hyperglycemia, with long-term current use of insulin (HCC); Hyperlipidemia associated with type 2 diabetes mellitus (HCC); Hypertension associated with type 2 diabetes mellitus (HCC) Discharge Disposition: Discharge to home or self care 10/27/2024 1:30 PM CDT Office Visit [facility] Diabetes [facility] Endocrinology [address] [place] [phone] Patito Oglesby NP Type 2 diabetes mellitus [...] on file Legal Sex Female 9:38 AM ASSISTANT COMMUNITY MANAGER Gender Identity Not on file Sexual Orientation Not on file 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 73 m2 Comment: [...] 10/27/2024 8:29 PM CDT us Patitoclinton Oglesby RESCUE WORKER LAB BLOOD ORDERABLES Yennifer l Result Performing Organization Address [facility] Co de Phone Number MAIDA [address] [address] [facility] [place] [address] * Albumin Creatinine Ratio, Urine (10/27/2024 2:14 [...] 10/27/2024 8:10 PM CDT us Patitoclinton Oglesby RESCUE WORKER LAB URINE ORDERABLES Yennifer l Result Performing Organization Address [facility] Co de Phone Number GRADYATTILA [address] [address] [facility] [place] [address] * TSH (10/27/2024 2:14 PM CDT) Pathologist [facility] Thyroid Stimulating Hormone 0.66 0.30 - 4.20 mcIUnit/mL Blood 10/27/2024 2:14 PM CDT 10/27/2024 8:10 PM CDT us Aptitoclinton Oglesby RESCUE WORKER LAB BLOOD ORDERABLES Yennifer l Result Performing Organization Address [facility] Co de Phone Number GRADYATTILA [address] [address] [facility] [place] [address] * T4, free (10/27/2024 2:14 PM CDT) Pathologist [facility] Free T4 1.28 0.90 - 1.70 ng/dL Blood 10/27/2024 2:14 PM CDT 10/27/2024 8:10 PM CDT us Patito Oglesby NP LAB BLOOD ORDERABLES Yennifer mcpherson Result MAIDA CONTRERAS [address] [place] [address] * (ABNORMAL) Lipid panel (10/27/2024 2:14 PM [...] BLOOD ORDERABLES Yennifer mcpherson Result MAIDA CONTRERAS [address] [address] [place] [address] * (ABNORMAL) Comprehensive metabolic panel (10/27/2024 2:14 [...] NP LAB BLOOD ORDERABLES Yennifer l Result [place] [address] [address] [place] [address] * (ABNORMAL) POCT hemoglobin A1c (10/27/2024 1:25 PM CDT) Hemoglobin A1C, POC 6.7(A) 4.0 - 5.6 % Blood 10/27/2024 1:25 PM CDT us Patitoclinton Oglesby RESCUE WORKER POINT OF CARE TEST ORDERA BLES Final Result * (ABNORMAL) POCT glucose (10/27/2024 1:25 PM CDT) Glucose Blood, POC 223 Normal Fasting 70 - 100, Random <200 mg/dL Blood 10/27/2024 1:25 PM CDT us Patitoclinton Oglesby RESCUE WORKER POINT OF CARE TEST ORDERA BLES Final Result from Last 3 Months Insurance [employer] MEDICARE PPO IDPA [facility] MEDICARE ADVANTAGE [facility] [place] [address] IDPA Care Teams Scaffolding Helper Relationship Specialty Start Date End Date Ashleigh Carroll MD PCP - General Internal Medicine 07/14/18 [place] [address] [facility] [address] [place] [address] Consulting Physician Pain Management 09/23/24 [place] [address] [facility] [address] [place] [address] Consulting Physician Cardiology 09/23/24 [place] [address] [facility] [address] [place] [address] Nurse Practitioner Shrub Grower 10/07/24
--- OUTSIDE RECORDS SUMMARY | 2025-01-25 22:40 | XMS_ITS | Clinical Summary ---
Author Organization [facility] Kristen alston [facility] Address [address] [place] [address] Care Team Providers Care Waiter/Waitress Dining Car Name Role Phone Mckenna Carroll MD Primary [...] 1 Tablet (150 mcg) by mouth daily boat wrapper. 60 Tablet 2 01/30/20 19 Active lancets (ACCU-CHEK SOFTCLIX LANCETS) Accu-Chek Softclix Lancets Active aspirin 1 mg/mL Suspension aspirin low dose 81mg ec Active alcohol (BD Single Use Swabs Regular) Pads, Medicated BD Alcohol Swabs Act nettie Insulin Skytop, Disposable, (BD ULTRA-FINE MINI PEN NEEDLE) 31 [...] Dihydroergotam ine 0.5 mg/pump act. (4 mg/mL) [place], Non-Aerosol dihydroergotamine 0.5 mg/pump act. (4 mg/mL) nasal spray Active docusate calcium (Stool Softener, docusate autumn,) 240 mg capsule [employer] STOOL SOFTENER CAPSULE 07/22/19 19 Active fluticasone propionate (FLONASE) 50 mcg/spray [place], Suspension nasal inhaler fluticasone propionate 50 mcg/actuation [...] 23 Active Dexcom G7 Sensor Device PER CASH POSTING SPECIALIST INSTRUCTIONS, CHANGE SENSOR EVERY 10 DAYS 06/11/19 [...] Abstract 12/07/2024 2:30 PM CDT Office Visit [facility] Oncology and Hematology - [address] [place] [address] César Giraldo MD Chronic anemia (Primary Dx) 12/02/2024 Orders Only [facility] - [address] [address] [place] [address] César Giraldo MD 12/01/2024 Orders Only [facility] - [place] [address] [place] [address] César Giraldo MD 11/30/2024 Orders Only [facility]ology - [place] [address] [place] [address] César Giraldo MD 11/27/2024 Orders Only [facility]ology - [address] [address] [place] [address] César Giraldo MD 11/27/2024 Telephone [facility]ology - [address] [place] [address] César Giraldo MD labs for appt 11/04/2024 [...] st Contact Info) Description 06/10/2025 1:00 PM PLANTING MATERIAL UNLOADER Office Visit [facility] Oncology and Hematology - [address] [facility] [address] [place] [address] César Giraldo MD [address] [facility] [address] [place] [address] Health Maintenance Due Date Last [...] Most Recently Relevant to Health Maintenance Insurance [facility] [id number] MEDICAID [place] Care Teams Waiter/Waitress Dining Car Relationship Specialty Start Date End Date Mckenna Carroll MD PCP - General Internal Medicine 01/12/19
--- OUTSIDE RECORDS SUMMARY | 2025-01-25 22:40 | XMS_ITS | Clinical Summary ---
Author Organization [facility] Facility Address [address] [facility] [facility] [place] [address] [place] [address] Care Team Providers Care Kennel Staff Member Name Role Phone Mckenna Carroll MD Primary Care Provider [phone] Medications alendronate (FOSAMAX) 35 MG tablet Take [...] Description 01/12/2025 1:30 PM CDT Office Visit [facility], [facility] [address] [facility] [address] [place] [phone] Wade Bustillos DO Stage 3 chronic kidney disease, not otherwise specified (HCC) (Primary Dx); Persistent proteinuria; Diastolic dysfunction; Coronary artery disease due to calcified coronary lesion; Obstructive sleep apnea syndrome; Type 2 diabetes mellitus with diabetic chronic kidney disease (HCC); Pure hypercholesterolemia, not otherwise specified; Secondary hyperparathyroidism (HCC); Hypertensive chronic kidney disease 01/12/2025 Refill [facility], [facility] [address] [facility] [address] [place] [address] [place] rivas[place] 01/06/2025 Documentation Only [facility], [address] [phone] Wade Bustillos DO 12/08/2024 Documentation Only [address] [phone] Wade Bustillos DO from Last [...] Height 152.4 cm (5') 04/10/2022 2:01 PM CRYSTALLOGRAPHY TEACHER Body Mass Index 32.15 04/10/2022 2:01 PM CRYSTALLOGRAPHY TEACHER Plan of Treatment Upcoming Encounters Date Type Department Care Team (Late st Contact Info) Description 05/18/2025 1:15 PM CRYSTALLOGRAPHY TEACHER Office Visit [facility], [facility] [address] [facility] [address] [place] [address] Wade Bustillos DO [address] [place] [phone] Health Maintenance Due Date Last Done [...] Insurance Medicaid [place] UHC Medicare Care Teams Kennel Staff Member Relationship Specialty Start Date End Date Mckenna Carroll MD [address] [facility], [address] [place] [address] PCP - General Internal Medicine 01/24/21
--- OUTSIDE RECORDS SUMMARY | 2025-01-25 22:40 | XMS_ITS | Clinical Summary ---
Author Organization [facility] Address [address] [place] [address] Care Team Providers Care Ornamental Rail Installer Name Role Phone Unavailable Primary Care Provider [...] Comments Blood Pressure 126/64 06/13/2016 9:[address] CREW MEMBER Pulse 80 06/13/2016 9:[address] CREW MEMBER Temperature - - Respiratory Rate - - Oxygen Saturation - - Inhaled Oxygen Concentration - - Weight 81.6 kg (180 lb) 06/13/2016 9:[address] CREW MEMBER Height 149.9 cm (4' 11) 06/13/2016 9:[address] CREW MEMBER Body Mass Index 36.36 06/13/2016 9:[address] CREW MEMBER Plan of Treatment Upcoming Encounters Date Type Department Care Team (Late st Contact Info) Description 02/18/2025 2:00 PM CDT Office Visit [facility] Multispecialty Care - [facility] [address] [facility], [address] [place] [phone] Amanda Barillas APRN [address] [facility] [address] [place] [address] Health Maintenance Due Date Last Done Comments Hepatitis C 1968 Dexa Scan (General) 2013 PHQ-2 (Physician [place]) 04/22/2024 COVID-19 Vaccine ( season) 2024 03/25/2021, [...]
[2025-01-25 22:50] LABS: Add Urine Microscopic? YES; Appearance Urine Clear (Clear); Glucose Urine UA 2+ mg/dL (Negative); Leukocyte Esterase Ur Trace LEU/UL (Negative); Nitrate Urine Negative (Negative); Non Pathogenic Casts 0-2; Specific Grav Ur 1.011 (1.001-1.035)
[2025-01-25] MEDS: LACTATED RINGERS 1,000 ML 999 ML IV CONT (22:51)
[2025-01-26] VITALS (9 sets, daily range): BP systolic 92–130; BP diastolic 50–58; PULSE 64–93; RESP 18–22; TEMP 36.5–36.7; O2SAT 65–100; BMI 32.1
[2025-01-26] MEDS: SODIUM CHLORIDE 0.9% IV 1,000 ML 999 ML IV CONT (00:32)
[2025-01-26 00:54] LABS: CRP < 0.5 mg/dL (<1.0)
[2025-01-26 01:08] LABS: Influenza A QL RT-PCR Negative (Negative); Influenza B QL RT-PCR Negative (Negative); RSV RNA, RT-PCR Negative (Negative); SARS-CoV-2 RNA PCR Negative (Negative)
[2025-01-26 01:09] LABS: Procalcitonin 0.0 ng/mL
--- NOTE | 2025-01-26 02:26 | ADMGEN ---
This patient, Leah Mariee, was admitted to IMU Room 205-02. Patient/family oriented to hospital policies and general routines including ID bracelet, bed and alarms, visiting hours, pain management, procedures, bathroom and other care routines, personal items, smoking policy, room service/diet, and visiting hours. Information on how to activate the Rapid Response Team has been discussed. Patient/Family are encouraged to report perceived risks to care and to ask questions if they do not understand what they are told or what they should do.
--- NOTE | 2025-01-26 02:27 | PC.NURSE ---
pt got to her room and blood sugar was 70. pt is a diabetic here for low blood sugar and has not been given anything to eat since 01/26 1600. pt given orange juice and a sandwich.
[2025-01-26 05:01] LABS: Hematocrit 31.9 % (37.0-47.0); Hemoglobin 9.7 g/dL (12.0-15.0); Mean Corpuscular HGB Conc 30.4 g/dl (32-36); Mean Corpuscular Hemoglobin 27.3 pg (26-34); Mean Corpuscular Volume 89.9 fl (80-100); Platelet Count Result 276 k/mm3 (150-375); Red Blood Count 3.55 M/mm3 (4.2-5.4); White Blood Count 6.7 K/mm3 (4.5-10.0)
[2025-01-26 05:15] LABS: Alanine Aminotransferase 13 U/L (6-35); Albumin Level 4.0 g/dL (3.5-5.1); Alkaline Phosphatase 65 U/L (38-126); Anion Gap 8 mmol/L (4-12); Aspartate Amino Transferase 18 U/L (14-36); Bilirubin,Total < 0.1 mg/dL (0.2-1.3); Blood Urea Nitrogen 28 mg/dL (7-17); Calcium 9.0 mg/dL (8.4-10.2); Carbon Dioxide 27 mmol/L (22-30); Chloride 103 mmol/L (98-107); Estimated CRCL calculation 33 ml/min; Estimated Glomerular Filt Rate 45; Glucose 114 mg/dL (65-110); Magnesium 2.1 mg/dL (1.6-2.3); Potassium 5.0 mmol/L (3.4-5.0); Sodium 138 mmol/L (137-145); Total Protein 7.1 g/dL (6.3-8.2)
--- NOTE | 2025-01-26 07:57 | PM.IMHP ---
H&P: HPI History of Present Illness Date/Time: 01/26/25 07:57 Chief Complaint: Low blood sugar Narrative: This is a 74-year-old female who presents to the ED complaining of labile blood sugar. Patient stated her PCP recently decrease her Tresiba does. She had multiple blood sugar readings less than 70 with a past couple of weeks. Drops to less than 40. She also reports having low blood pressure at home. Sees on Tresiba along with Farxiga and weekly GLP 1 receptor agonist. In the ED her blood pressure was borderline otherwise afebrile. She received IV fluids. Laboratory workup revealed WBC of 7.4 hemoglobin 10.3 platelet count of 323. Chem panel showed sodium 133 potassium 5 chloride 102 bicarbonate 23 BUN 31 creatinine 1.16 blood glucose 170. LFTs within normal. Beta hydroxybutyrate normal at 0.2. Urinalysis negative for UTI. Lactate was normal at 1.1 CRP less than 0.5 procalcitonin is 0 influenza RSV and COVID swab was negative. She is admitted this in the setting for further treatment. Review of Systems Review of Systems: - CONSTITUTIONAL: Denies weight loss, fever and chills. - HEENT: Denies changes in vision and hearing - RESPIRATORY: Denies SOB and cough. - CV: Denies palpitations and CP. - GI: Denies abdominal pain, nausea, vomiting and diarrhea. - : Denies dysuria and urinary frequency. - MSK: Denies myalgia and joint pain. - SKIN: Denies rash and pruritus. - NEUROLOGICAL: Denies headache and syncope. - PSYCHIATRIC: Denies recent changes in mood. Denies anxiety and depression. [facility] Past Medical History Medical History (Updated 01/26/25 @ 11:17 by Derick Green MD) Type 2 diabetes mellitus without complications Gastro-esophageal reflux disease without esophagitis Essential (primary) hypertension Hypothyroidism, unspecified Family History Family History Father Acute myocardial infarction, Onset Age: 60 Patient's father is Mother Patient's mother is Social History Social History Smoking packs per day: 3 Smoking cigarettes per day: 60.0 Smoking status: Former smoker Tobacco type: cigarettes Second hand tobacco smoke exposure: No Smoking end date: 03/02/02 Alcohol intake: current Drinks per week: 3 Substance use: never Lack of Transportation: No Lack of Food: Never True Current Housing: I Have Housing Concerned About Future Housing: No Difficulty Paying Gas/Electric Bills: No Difficulty Paying for Meds: No Currently Unemployed: No Education: Don't Know Difficulty w/ Childcare or Family Care: No Gender identity (if verbalized by the patient): Female Spiritual care concerns: No Meds Home Medications and Allergies Home Medications ?Medication ?Instructions ?Recorded ?Confirmed ?Type alendronate 70 mg tablet 70 mg PO WEEKLY 03/03/19 01/26/25 History aspirin 81 mg tablet,delayed 81 mg PO DAILY 03/03/19 01/26/25 History release (Aspir-) docusate sodium 100 mg capsule 100 mg PO DAILY 03/03/19 01/26/25 History (Dulcolax Stool Softener (docusate)) duloxetine 60 mg capsule,delayed 60 mg PO DAILY 03/03/19 01/26/25 History release icosapent ethyl 1 gram capsule 2 g PO BID 03/03/19 01/26/25 History (Vascepa) levothyroxine 150 mcg tablet 150 mcg PO DAILY 03/03/19 01/26/25 History (Synthroid) lisinopril 10 mg tablet 20 mg PO DAILY 03/03/19 01/26/25 History metformin 500 mg tablet 1,000 mg PO BID 03/03/19 01/26/25 History ascorbic acid (vitamin C) 500 mg 1,000 mg PO DAILY 03/10/19 01/26/25 History tablet acetaminophen 500 mg tablet 1,000 mg PO DAILY PRN Pain 09/06/22 01/26/25 History (Acetaminophen Extra Strength) albuterol sulfate 90 mcg/actuation 2 puff inhalation QID PRN 09/06/22 01/26/25 History aerosol inhaler Shortness Of Breath cholecalciferol (vitamin D3) 125 125 mcg PO DAILY 09/06/22 01/26/25 History mcg (5,000 unit) tablet (Vitamin D3) cyanocobalamin (vitamin B-12) 1,000 mcg PO DAILY 09/06/22 01/26/25 History 1,000 mcg tablet,extended release (Vitamin B-12 ER) dapagliflozin propanediol 10 mg 10 mg PO DAILY 09/06/22 01/26/25 History tablet magnesium oxide 400 mg PO DAILY 09/06/22 01/26/25 History mirabegron 50 mg tablet,extended 50 mg PO DAILY 09/06/22 01/26/25 History release 24 hr pregabalin 100 mg capsule 100 mg PO TID 09/06/22 01/26/25 History rivaroxaban 2.5 mg tablet 2.5 mg PO BID 09/06/22 01/26/25 History atorvastatin 80 mg tablet 80 mg PO QPM 01/26/25 01/26/25 History insulin degludec 100 unit/mL (3 34 unit subcut HS 01/26/25 01/26/25 History mL) subcutaneous pen (Tresiba FlexTouch U-100 insulin) semaglutide 1 mg/dose (4 mg/3 mL) 4 mg subcut WEEKLY 01/26/25 01/26/25 History subcutaneous pen injector (Ozempic) Allergies Allergy/AdvReac Type Severity Reaction Status Date / Time No Known Allergies Allergy Mild Verified 06/07/23 17:12 Vital Signs Vital Signs - 24 hr 01/25/25 17:41 01/25/25 22:21 01/25/25 22:29 Temperature 97.8 F Pulse Rate 74 71 67 Respiratory Rate 18 16 Blood Pressure 95/68 L 87/55 L Pulse Oximetry 98 96 Oxygen Delivery Room Air 01/25/25 22:30 01/25/25 22:31 01/25/25 22:40 Temperature Pulse Rate 68 66 68 Respiratory Rate 16 16 17 Blood Pressure 93/70 L 113/59 L Pulse Oximetry 97 100 Oxygen Delivery 01/25/25 22:43 01/25/25 22:45 01/25/25 22:47 Temperature Pulse Rate 67 69 67 Respiratory Rate 18 21 H 18 Blood Pressure 87/39 L 102/63 Pulse Oximetry 98 100 98 Oxygen Delivery 01/25/25 23:00 01/25/25 23:02 01/25/25 23:15 Temperature Pulse Rate 74 70 66 Respiratory Rate 21 H 19 18 Blood Pressure 114/84 Pulse Oximetry 97 98 96 Oxygen Delivery 01/25/25 23:17 01/25/25 23:32 01/25/25 23:33 Temperature Pulse Rate 67 66 65 Respiratory Rate 18 19 19 Blood Pressure 92/71 L 97/53 L Pulse Oximetry 97 96 98 Oxygen Delivery 01/26/25 02:12 01/26/25 03:24 01/26/25 03:45 Temperature 97.7 F Pulse Rate 71 Respiratory Rate 18 Blood Pressure 118/58 L Pulse Oximetry 98 Oxygen Delivery Room Air Autopap 01/26/25 04:00 01/26/25 04:00 01/26/25 06:00 Temperature 98.0 F Pulse Rate 66 67 73 Respiratory Rate 18 Blood Pressure 114/57 L Pulse Oximetry 100 Oxygen Delivery Exam Narrative: GENERAL: The patient is well developed, not in acute distress HEENT: Nonicteric sclerae, PERRLA, EOMI. Oropharynx clear. Moist mucous membranes. Conjunctivae appear well perfused. CHEST: Chest wall is nontender. HEART: Regular rate and rhythm without murmur, rubs, or gallops LUNGS: Clear to auscultation bilaterally. no respiratory distress ABDOMEN: Soft, positive bowel sounds, non-tender, no organomegaly. SKIN: No rash, no excessive bruising, petechiae, or purpura. NEUROLOGIC: Cranial nerves II-XII intact, alert and oriented x 3, no gross motor deficits EXTREMITIES: no edema, cyanosis or clubbing H&P: Results Labs Labs: Short CBC 01/25/25 01/26/25 Range/Units 18:53 04:34 WBC 7.4 6.7 (4.5-10.0) K/mm3 Hgb 10.3 L 9.7 L (12.0-15.0) g/dL Hct 32.6 L 31.9 L (37.0-47.0) % Plt Count 323 276 (150-375) k/mm3 BMP 01/25/25 01/26/25 18:53 04:34 Sodium 133 L 138 Potassium 5.0 5.0 Chloride 102 103 Carbon Dioxide 23 27 BUN 31 H D 28 H Creatinine 1.16 H 1.17 H Glucose 117 H 114 H Calcium 9.3 9.0 Liver Function 01/25/25 01/26/25 Range/Units 18:53 04:34 Total Bilirubin 0.4 < 0.1 L (0.2-1.3) mg/dL AST 26 18 (14-36) U/L ALT 14 13 (6-35) U/L Alkaline Phosphatase 64 65 (38-126) U/L Albumin 4.3 4.0 (3.5-5.1) g/dL Urine 10/06/25 Range/Units 22:39 Urine Color Yellow (Yellow) Urine Appearance Clear (Clear) Urine pH 5.5 (5.0-9.0) Ur Specific [place] 1.011 (1.001-1.035) Urine Protein Negative (Negative) mg/dL Urine Glucose (UA) 2+ H (Negative) mg/dL Assessment and Plan Assessment and plan (1) Hypoglycemia: Code(s): E16.2 - Hypoglycemia, unspecified Status: Acute (2) Chronic anemia: Code(s): D64.9 - Anemia, unspecified Status: Acute (3) Essential (primary) hypertension: Code(s): I10 - Essential (primary) hypertension Status: Acute (4) Type 2 diabetes mellitus without complications: Code(s): E11.9 - Type 2 diabetes mellitus without complications Status: Acute (5) Hypothyroidism, unspecified: Code(s): E03.9 - Hypothyroidism, unspecified Status: Acute (6) Gastro-esophageal reflux disease without esophagitis: Code(s): K21.9 - Gastro-esophageal reflux disease without esophagitis Status: Acute Plan This is a 74-year-old female who presents to the ED complaining of labile blood sugar. Patient stated her PCP recently decrease her Tresiba does. She had multiple blood sugar readings less than 70 with a past couple of weeks. Drops to less than 40. She also reports having low blood pressure at home. Sees on Tresiba along with Farxiga and weekly GLP 1 receptor agonist. In the ED her blood pressure was borderline otherwise afebrile. She received IV fluids. Laboratory workup revealed WBC of 7.4 hemoglobin 10.3 platelet count of 323. Chem panel showed sodium 133 potassium 5 chloride 102 bicarbonate 23 BUN 31 creatinine 1.16 blood glucose 170. LFTs within normal. Beta hydroxybutyrate normal at 0.2. Urinalysis negative for UTI. Lactate was normal at 1.1 CRP less than 0.5 procalcitonin is 0 influenza RSV and COVID swab was negative. She is admitted this in the setting for further treatment. Recurrent hypoglycemia no signs of infection. Patient on multiple different anti hyperglycemic medications. Adjust doses and monitor. A1c came back as 5.5. She was recently switched to Ozempic from October 2024 from [facility]. Some weight loss. Could have contributed to hypoglycemia as. Currently on Tresiba 25 units daily. A1c has lowered down to normal now. Will hold Tresiba and monitor blood sugar Hypertension borderline blood pressure. Responded well to IV fluids. On lisinopril 20 mg daily at home. Which is currently on hold Hypertension Hyperlipidemia Hypothyroidism Type 2 diabetes insulin DUYEN on CPAP Obesity Asthma Osteopenia/osteoporosis History of Vertebral compression fractures DVT prophylaxis on her Xarelto 2.5 mg b.i.d. Code status full code Hospitalist [facility] Advance Care Plan I have confirmed that the patient's Advanced Care Plan is present, code status is documented, or surrogate decision maker is listed in patient medical record.: Yes Medication Reconciliation I have utilized all available resources to obtain, update and review the patients current medications (includes all prescriptions, OTC, herbals, cannabis, and nutritional supplements).: Yes
[2025-01-26] MEDS: ASCORBIC ACID 500 MG TABLET 1000 MG PO (09:21)
[2025-01-26] MEDS: MAGNESIUM OXIDE 400 MG TABLET PO (09:21)
[2025-01-26] MEDS: OMEGA 3 POLYUNSAT FATTY ACIDS 1 GM CAP 2 GM PO ×2 (09:21→17:28)
[2025-01-26] MEDS: PREGABALIN (*CRX) 50 MG CAPSULE 100 MG PO ×3 (09:22→17:28)
[2025-01-26] MEDS: DOCUSATE SODIUM 100 MG CAPSULE PO (09:22)
[2025-01-26] MEDS: DULoxetine HCL 60 MG CAPSULE.DR PO (09:22)
[2025-01-26] MEDS: RIVAROXABAN 2.5 MG TABLET PO ×2 (09:22→17:28)
[2025-01-26] MEDS: CHOLECALCIFEROL (VITAMIN D3) 125 MCG (5,000 UNITS) TABLET PO (09:23)
[2025-01-26] MEDS: CYANOCOBALAMIN 1,000 MCG TABLET 1000 MCG PO (09:23)
[2025-01-26] MEDS: MIRABEGRON 50 MG ER TABLET PO (09:23)
[2025-01-26] MEDS: LEVOTHYROXINE SODIUM 150 MCG TABLET PO (09:23)
[2025-01-26] MEDS: ASPIRIN 81 MG ENTERIC TABLET PO (09:23)
--- NOTE | 2025-01-26 11:19 | PC.NURSE ---
pt status changed from IMU to med surg. dianeticist removed.
[2025-01-26] MEDS: ATORVASTATIN 40 MG TABLET 80 MG PO (17:28)
--- NOTE | 2025-01-26 17:56 | PC.NURSE ---
This patient, Leah Mariee, was received from IMU on 01/26/25 at 1756. Patient/family oriented to unit policies and routines
--- NOTE | 2025-01-26 18:02 | PC.NURSE ---
This patient, Leah Mariee, was transferred to [[facility] ] on 01/26/25 at 1802. Personal belongings sent with patient. Report given to [marie ]. Appropriate documentation sent with patient.
[2025-01-27] VITALS: BP 109/54; PULSE 66; RESP 18; TEMP 36.4; O2SAT 96
[2025-01-27 04:40] VITALS: PULSE 93; O2SAT 67
[2025-01-27] MEDS: LEVOTHYROXINE SODIUM 150 MCG TABLET PO (06:17)
[2025-01-27 06:20] VITALS: BP 110/59; PULSE 68; RESP 18; TEMP 36.4; O2SAT 96
[2025-01-27] MEDS: ASPIRIN 81 MG ENTERIC TABLET PO (08:21)
[2025-01-27] MEDS: ASCORBIC ACID 500 MG TABLET 1000 MG PO (08:21)
[2025-01-27] MEDS: MIRABEGRON 50 MG ER TABLET PO (08:22)
[2025-01-27] MEDS: CYANOCOBALAMIN 1,000 MCG TABLET 1000 MCG PO (08:22)
[2025-01-27] MEDS: OMEGA 3 POLYUNSAT FATTY ACIDS 1 GM CAP 2 GM PO ×2 (08:22→17:19)
[2025-01-27] MEDS: CHOLECALCIFEROL (VITAMIN D3) 125 MCG (5,000 UNITS) TABLET PO (08:22)
[2025-01-27] MEDS: DOCUSATE SODIUM 100 MG CAPSULE PO (08:22)
[2025-01-27] MEDS: MAGNESIUM OXIDE 400 MG TABLET PO (08:22)
[2025-01-27] MEDS: DULoxetine HCL 60 MG CAPSULE.DR PO (08:22)
[2025-01-27] MEDS: PREGABALIN (*CRX) 50 MG CAPSULE 100 MG PO ×3 (08:22→17:19)
[2025-01-27] MEDS: RIVAROXABAN 2.5 MG TABLET PO ×2 (08:22→17:19)
[2025-01-27 11:05] VITALS: BMI 34.2
[2025-01-27 14:00] VITALS: BP 111/75; PULSE 72; RESP 18; TEMP 36.2; O2SAT 100
--- NOTE | 2025-01-27 16:53 | P.PNIM_ITS ---
Progress Note: A&P Assessment and Plan (1) Hypoglycemia: Code(s): E16.2 - Hypoglycemia, unspecified Status: Acute (2) Chronic anemia: Code(s): D64.9 - Anemia, unspecified Status: Acute (3) Essential (primary) hypertension: Code(s): I10 - Essential (primary) hypertension Status: Acute (4) Type 2 diabetes mellitus without complications: Code(s): E11.9 - Type 2 diabetes mellitus without complications Status: Acute (5) Hypothyroidism, unspecified: Code(s): E03.9 - Hypothyroidism, unspecified Status: Acute (6) Gastro-esophageal reflux disease without esophagitis: Code(s): K21.9 - Gastro-esophageal reflux disease without esophagitis Status: Acute Plan Patient with history of diabetes was seen by her primary care provider and patient had episodes of hypoglycemia most likely 2/2 as patient has lost some wt, and taking several medications which can cause hypoglycemia, currently patient patient antidiabetes medication are on hold, will monitor patient blood sugars with sliding scale and plan. patient remains clinically stable, will monitor. This is a 74-year-old female who presents to the ED complaining of labile blood sugar. Patient stated her PCP recently decrease her Tresiba does. She had multiple blood sugar readings less than 70 with a past couple of weeks. Drops to less than 40. She also reports having low blood pressure at home. Sees on Tresiba along with Farxiga and weekly GLP 1 receptor agonist. In the ED her blood pressure was borderline otherwise afebrile. She received IV fluids. Laboratory workup revealed WBC of 7.4 hemoglobin 10.3 platelet count of 323. Chem panel showed sodium 133 potassium 5 chloride 102 bicarbonate 23 BUN 31 creatinine 1.16 blood glucose 170. LFTs within normal. Beta hydroxybutyrate normal at 0.2. Urinalysis negative for UTI. Lactate was normal at 1.1 CRP less than 0.5 procalcitonin is 0 influenza RSV and COVID swab was negative. She is admitted this in the setting for further treatment. Recurrent hypoglycemia no signs of infection. Patient on multiple different anti hyperglycemic medications. Adjust doses and monitor. A1c came back as 5.5. She was recently switched to Ozempic from October 2024 from [facility]. Some weight loss. Could have contributed to hypoglycemia as. Currently on Tresiba 25 units daily. A1c has lowered down to normal now. Will hold Tresiba and monitor blood sugar Hypertension borderline blood pressure. Responded well to IV fluids. On lisinopril 20 mg daily at home. Which is currently on hold Hypertension Hyperlipidemia Hypothyroidism Type 2 diabetes insulin DUYEN on CPAP Obesity Asthma Osteopenia/osteoporosis History of Vertebral compression fractures DVT prophylaxis on her Xarelto 2.5 mg b.i.d. Code status full code Subjective Date/time seen: 01/27/25 16:53 Interval history: Chief Complaint: Low blood sugar H&P-Narrative: This is a 74-year-old female who presents to the ED complaining of labile blood sugar. Patient stated her PCP recently decrease her Tresiba does. She had multiple blood sugar readings less than 70 with a past couple of weeks. Drops to less than 40. She also reports having low blood pressure at home. Sees on Tresiba along with Farxiga and weekly GLP 1 receptor agonist. In the ED her blood pressure was borderline otherwise afebrile. She received IV fluids. Laboratory workup revealed WBC of 7.4 hemoglobin 10.3 platelet count of 323. Chem panel showed sodium 133 potassium 5 chloride 102 bicarbonate 23 BUN 31 creatinine 1.16 blood glucose 170. LFTs within normal. Beta hydroxybutyrate normal at 0.2. Urinalysis negative for UTI. Lactate was normal at 1.1 CRP less than 0.5 procalcitonin is 0 influenza RSV and COVID swab was negative. She is admitted this in the setting for further treatment. Patient with history of diabetes was seen by her primary care provider and patient had episodes of hypoglycemia most likely 2/2 as patient has lost some wt, and taking several medications which can cause hypoglycemia, currently patient patient antidiabetes medication are on hold, will monitor patient blood sugars with sliding scale and plan. patient remains clinically stable, will monitor. Review of Systems Review of Systems: - CONSTITUTIONAL: Denies weight loss, fe amirah and chills. - HEENT: Denies changes in vision and he aring - RESPIRATORY: Denies SOB and cough. - CV: Denies palpitations and CP. - GI: Denies abdominal pain, nausea, vom iting and diarrhea. - : Denies dysuria and urinary frequen cy. - MSK: Denies myalgia and joint pain. - SKIN: Denies rash and pruritus. - NEUROLOGICAL: Denies headache and sync ope. - PSYCHIATRIC: Denies recent changes in mood. Denies anxiety and depression. Exam Narrative: Patient is comfortable, NAD HEENT: eyes are clear and none icteric LUNGS:CTA HEART: RR S1S2 ABD: BS+, Soft and nontender Lower extremities: no edema SKIN: nonjaundiced Neuro: grossly intact. Objective Data Vital Signs Vital Signs: Vital Signs - 24 hr 01/26/25 18:05 01/26/25 19:49 01/26/25 19:49 Temperature Pulse Rate 68 93 Respiratory Rate 20 Blood Pressure Pulse Oximetry 93 68 L Oxygen Delivery Room Air Room Air Autopap Fraction of Inspired Oxygen 21 01/26/25 22:14 01/27/25 00:00 01/27/25 04:40 Temperature 36.4 C Pulse Rate 93 66 93 Respiratory Rate 18 Blood Pressure 109/54 L Pulse Oximetry 65 L 96 67 L Oxygen Delivery Autopap Autopap Fraction of Inspired Oxygen 01/27/25 06:20 01/27/25 08:00 01/27/25 14:00 Temperature 36.4 C L 36.2 C L Pulse Rate 68 72 Respiratory Rate 18 18 Blood Pressure 110/59 L 111/75 Pulse Oximetry 96 100 Oxygen Delivery Room Air Fraction of Inspired Oxygen Intake/Output Intake/Output: Intake & Output 01/24/25 01/25/25 01/26/25 01/27/25 23:59 23:59 23:59 23:59 Intake Total 3450 1202 Output Total 1999 Balance 1450 1202 Meds/Results Medications: Active Medications Generic Name Dose Route Start Last Admin Trade Name Freq PRN Reason Stop Dose Admin Acetaminophen 1,000 mg 01/26/25 08:06 Acetaminophen 500 Mg Tablet PO DAILY PRN Pain Albuterol 2 puff 01/26/25 08:06 Albuterol Sulfate (*Sp) Aerosol 1 Puff INHALATION QID PRN Shortness Of Breath Alendronate Sodium 70 mg 01/31/25 06:30 Alendronate Sodium 70 Mg Tablet PO Mccauley@0630 EDUARDO Ascorbic Acid 1,000 mg 01/26/25 09:00 01/27/25 08:21 Ascorbic Acid 500 Mg Tablet PO 1,000 mg DAILY EDUARDO Administration Aspirin 81 mg 01/26/25 09:00 01/27/25 08:21 Aspirin 81 Mg Enteric Tablet PO 81 mg DAILY EDUARDO Administration Atorvastatin Calcium 80 mg 01/26/25 18:00 01/26/25 17:28 Atorvastatin 40 Mg Tablet PO 80 mg QPM EDUARDO Administration Cyanocobalamin 1,000 mcg 01/26/25 09:00 01/27/25 08:22 Cyanocobalamin 1,000 Mcg Tablet PO 1,000 mcg DAILY EDUARDO Administration Dextrose 12.5 gm 01/26/25 04:26 Dextrose 50% 25 Gm/50 Ml Syringe IV PUSH PRN PRN Hypoglycemia Protocol Docusate Sodium 100 mg 01/26/25 09:00 01/27/25 08:22 Docusate Sodium 100 Mg Capsule PO 100 mg DAILY EDUARDO Administration Duloxetine HCl 60 mg 01/26/25 09:00 01/27/25 08:22 Duloxetine Hcl 60 Mg Capsule. PO 60 mg DAILY EDUARDO Administration Empagliflozin 25 mg 01/28/25 09:00 Empagliflozin 25 Mg Tablet PO 02/27/25 08:59 DAILY EDUARDO Fish Oil 2 gm 01/26/25 09:00 01/27/25 08:22 [place] 3 Polyunsat Fatty Acids 1 Gm Cap PO 2 gm BID EDUARDO Administration Glucagon 1 mg 01/27/25 12:29 Glucagon For Inj 1 Mg Vial IM PRN PRN Hypoglycemia Protocol Glucose 15 gm 01/26/25 04:26 Glucose Oral Gel 15 Gm Of Glucse In 37.5 Gm Tube PO PRN PRN Hypoglycemia Protocol Dextrose 1,000 mls @ 100 mls/hr 01/26/25 04:26 Dextrose 5% 1,000 Ml IVPB PRN PRN Hypoglycemia Protocol Insulin Aspart 2 - 5 units 01/27/25 17:00 01/27/25 16:49 Insulin Aspart (*Bkc) 100 Units/Ml SUB-Q Not Given TIDWM [facility] Protocol Insulin Aspart 1 - 2 units 01/27/25 21:00 Insulin Aspart (*Bkc) 100 Units/Ml SUB-Q HS [facility] Protocol Levothyroxine Sodium 150 mcg 01/26/25 08:15 01/27/25 06:17 Levothyroxine Sodium 150 Mcg Tablet PO 150 mcg DAILY@0630 EDUARDO Administration Magnesium Oxide 400 mg 01/26/25 09:00 01/27/25 08:22 Magnesium Oxide 400 Mg Tablet PO 400 mg DAILY EDUARDO Administration Mirabegron 50 mg 01/26/25 09:00 01/27/25 08:22 Mirabegron 50 Mg Er Tablet PO 50 mg DAILY EDUARDO Administration Miscellaneous Information 1 each 01/26/25 00:01 Levothyroxine Daily Ordered. External Med Link Looks Like Rx Is 6x/Week. Clarify Schedule XX 02/25/25 00:00 CLARIFY [facility] Pregabalin 100 mg 01/26/25 09:00 01/27/25 12:05 Pregabalin (*Crx) 50 Mg Capsule PO 100 mg TID EDUARDO Administration Rivaroxaban 2.5 mg 01/26/25 09:00 01/27/25 08:22 Rivaroxaban 2.5 Mg Tablet PO 2.5 mg BID EDUARDO Administration Vitamin D 125 mcg 01/26/25 09:00 01/27/25 08:22 Cholecalciferol (Vitamin D3) 125 Mcg (5,000 Units) Tablet PO 125 mcg DAILY EDUARDO Administration Labs Labs: Laboratory Results - last 24 hr 01/25/25 01/26/25 01/27/25 18:53 20:14 08:10 POC Capillary Glucose 120 H 127 H Hemoglobin A1c Cancelled 01/27/25 01/27/25 11:37 16:37 POC Capillary Glucose 220 H 147 H Hemoglobin A1c
[2025-01-27] MEDS: ATORVASTATIN 40 MG TABLET 80 MG PO (17:19)
[2025-01-27 22:00] VITALS: BP 103/71; PULSE 75; RESP 18; TEMP 36.5; O2SAT 97
[2025-01-28 04:26] LABS: Hematocrit 33.8 % (37.0-47.0); Hemoglobin 10.3 g/dL (12.0-15.0); Mean Corpuscular HGB Conc 30.5 g/dl (32-36); Mean Corpuscular Hemoglobin 26.9 pg (26-34); Mean Corpuscular Volume 88.3 fl (80-100); Platelet Count Result 324 k/mm3 (150-375); Red Blood Count 3.83 M/mm3 (4.2-5.4); White Blood Count 8.1 K/mm3 (4.5-10.0)
[2025-01-28 04:38] LABS: Magnesium 2.3 mg/dL (1.6-2.3)
[2025-01-28 06:00] VITALS: BP 104/51; PULSE 64; RESP 18; TEMP 36.2; O2SAT 98
[2025-01-28] MEDS: LEVOTHYROXINE SODIUM 150 MCG TABLET PO (06:35)
[2025-01-28 09:22] VITALS: BP 102/51; PULSE 73; RESP 16; TEMP 36.8; O2SAT 98
[2025-01-28] MEDS: ASCORBIC ACID 500 MG TABLET 1000 MG PO (09:25)
[2025-01-28] MEDS: ASPIRIN 81 MG ENTERIC TABLET PO (09:25)
[2025-01-28] MEDS: CHOLECALCIFEROL (VITAMIN D3) 125 MCG (5,000 UNITS) TABLET PO (09:26)
[2025-01-28] MEDS: DULoxetine HCL 60 MG CAPSULE.DR PO (09:26)
[2025-01-28] MEDS: DOCUSATE SODIUM 100 MG CAPSULE PO (09:26)
[2025-01-28] MEDS: EMPAGLIFLOZIN 25 MG TABLET PO (09:26)
[2025-01-28] MEDS: CYANOCOBALAMIN 1,000 MCG TABLET 1000 MCG PO (09:26)
[2025-01-28 09:27] VITALS: PULSE 84; RESP 16; O2SAT 99
[2025-01-28] MEDS: MIRABEGRON 50 MG ER TABLET PO (09:27)
[2025-01-28] MEDS: RIVAROXABAN 2.5 MG TABLET PO ×2 (09:27→17:11)
[2025-01-28] MEDS: OMEGA 3 POLYUNSAT FATTY ACIDS 1 GM CAP 2 GM PO ×2 (09:27→17:09)
[2025-01-28] MEDS: PREGABALIN (*CRX) 50 MG CAPSULE 100 MG PO ×3 (09:27→17:11)
[2025-01-28] MEDS: MAGNESIUM OXIDE 400 MG TABLET PO (09:27)
[2025-01-28 14:06] LABS: Anion Gap 10 mmol/L (4-12); Blood Urea Nitrogen 27 mg/dL (7-17); Calcium 9.3 mg/dL (8.4-10.2); Carbon Dioxide 27 mmol/L (22-30); Chloride 98 mmol/L (98-107); Estimated CRCL calculation 31 ml/min; Estimated Glomerular Filt Rate 41; Glucose 156 mg/dL (65-110); Potassium 4.5 mmol/L (3.4-5.0); Sodium 135 mmol/L (137-145)
[2025-01-28 14:26] VITALS: BP 100/45; PULSE 72; RESP 16; TEMP 36.5; O2SAT 97
--- NOTE | 2025-01-28 15:20 | PM.IMPN ---
Progress Note: A&P Assessment and Plan (1) Hypoglycemia: Code(s): E16.2 - Hypoglycemia, unspecified Status: Acute (2) Chronic anemia: Code(s): D64.9 - Anemia, unspecified Status: Acute (3) Essential (primary) hypertension: Code(s): I10 - Essential (primary) hypertension Status: Acute (4) Type 2 diabetes mellitus without complications: Code(s): E11.9 - Type 2 diabetes mellitus without complications Status: Acute (5) Hypothyroidism, unspecified: Code(s): E03.9 - Hypothyroidism, unspecified Status: Acute (6) Gastro-esophageal reflux disease without esophagitis: Code(s): K21.9 - Gastro-esophageal reflux disease without esophagitis Status: Acute Plan Patient with history of diabetes was seen by her primary care provider and patient had episodes of hypoglycemia most likely 2/2 as patient has lost some wt, and taking several medications which can cause hypoglycemia, currently patient's antidiabetes medication are on hold except Jardiance, we are monitoring patient blood sugars with sliding scale and her blood sugars are below 200, GFR is 45 and unable to resume low dose metformin, unable to restrat insulin due to risk of hypoglycemia, will monitor one more day and possible discharge tomorrow, patient remains clinically stable, will monitor. This is a 74-year-old female who presents to the ED complaining of labile blood sugar. Patient stated her PCP recently decrease her Tresiba does. She had multiple blood sugar readings less than 70 with a past couple of weeks. Drops to less than 40. She also reports having low blood pressure at home. Sees on Tresiba along with Farxiga and weekly GLP 1 receptor agonist. In the ED her blood pressure was borderline otherwise afebrile. She received IV fluids. Laboratory workup revealed WBC of 7.4 hemoglobin 10.3 platelet count of 323. Chem panel showed sodium 133 potassium 5 chloride 102 bicarbonate 23 BUN 31 creatinine 1.16 blood glucose 170. LFTs within normal. Beta hydroxybutyrate normal at 0.2. Urinalysis negative for UTI. Lactate was normal at 1.1 CRP less than 0.5 procalcitonin is 0 influenza RSV and COVID swab was negative. She is admitted this in the setting for further treatment. Recurrent hypoglycemia no signs of infection. Patient on multiple different anti hyperglycemic medications. Adjust doses and monitor. A1c came back as 5.5. She was recently switched to Ozempic from October 2024 from [facility]. Some weight loss. Could have contributed to hypoglycemia as. Currently on Tresiba 25 units daily. A1c has lowered down to normal now. Will hold Tresiba and monitor blood sugar Hypertension borderline blood pressure. Responded well to IV fluids. On lisinopril 20 mg daily at home. Which is currently on hold Hypertension Hyperlipidemia Hypothyroidism Type 2 diabetes insulin DUYEN on CPAP Obesity Asthma Osteopenia/osteoporosis History of Vertebral compression fractures DVT prophylaxis on her Xarelto 2.5 mg b.i.d. Code status full code Subjective Date/time seen: 01/28/25 15:20 Interval history: Chief Complaint: Low blood sugar H&P-Narrative: This is a 74-year-old female who presents to the ED complaining of labile blood sugar. Patient stated her PCP recently decrease her Tresiba does. She had multiple blood sugar readings less than 70 with a past couple of weeks. Drops to less than 40. She also reports having low blood pressure at home. Sees on Tresiba along with Farxiga and weekly GLP 1 receptor agonist. In the ED her blood pressure was borderline otherwise afebrile. She received IV fluids. Laboratory workup revealed WBC of 7.4 hemoglobin 10.3 platelet count of 323. Chem panel showed sodium 133 potassium 5 chloride 102 bicarbonate 23 BUN 31 creatinine 1.16 blood glucose 170. LFTs within normal. Beta hydroxybutyrate normal at 0.2. Urinalysis negative for UTI. Lactate was normal at 1.1 CRP less than 0.5 procalcitonin is 0 influenza RSV and COVID swab was negative. She is admitted this in the setting for further treatment. Patient with history of diabetes was seen by her primary care provider and patient had episodes of hypoglycemia most likely 2/2 as patient has lost some wt, and taking several medications which can cause hypoglycemia, currently patient's antidiabetes medication are on hold except Jardiance, we are monitoring patient blood sugars with sliding scale and her blood sugars are below 200, GFR is 45 and unable to resume low dose metformin, unable to restrat insulin due to risk of hypoglycemia, will monitor one more day and possible discharge tomorrow, patient remains clinically stable, will monitor. Review of Systems Review of Systems: - CONSTITUTIONAL: Denies weight loss, fever and chills. - HEENT: Denies changes in vision and hearing - RESPIRATORY: Denies SOB and cough. - CV: Denies palpitations and CP. - GI: Denies abdominal pain, nausea, vomiting and diarrhea. - : Denies dysuria and urinary frequency. - MSK: Denies myalgia and joint pain. - SKIN: Denies rash and pruritus. - NEUROLOGICAL: Denies headache and syncope. - PSYCHIATRIC: Denies recent changes in mood. Denies anxiety and depression. Exam Narrative: Patient is comfortable, NAD HEENT: eyes are clear and none icteric LUNGS:CTA HEART: RR S1S2 ABD: BS+, Soft and nontender Lower extremities: no edema SKIN: nonjaundiced Neuro: grossly intact. Objective Data Vital Signs Vital Signs: Vital Signs - 24 hr 01/27/25 22:00 01/27/25 22:11 01/28/25 02:12 Temperature 36.5 C Pulse Rate 75 Respiratory Rate 18 Blood Pressure 103/71 Pulse Oximetry 97 Oxygen Delivery Autopap Autopap 01/28/25 06:00 01/28/25 09:22 01/28/25 09:27 Temperature 36.2 C L 36.8 C Pulse Rate 64 73 84 Respiratory Rate 18 16 16 Blood Pressure 104/51 L 102/51 L Pulse Oximetry 98 98 99 Oxygen Delivery Autopap 01/28/25 14:26 Temperature 36.5 C Pulse Rate 72 Respiratory Rate 16 Blood Pressure 100/45 L Pulse Oximetry 97 Oxygen Delivery Intake/Output Intake/Output: Intake & Output 01/25/25 01/26/25 01/27/25 01/28/25 23:59 23:59 23:59 23:59 Intake Total 3450 2062 1030 Output Total 1999 Balance 1450 2062 1030 Meds/Results Medications: Active Medications Generic Name Dose Route Start Last Admin Trade Name Freq PRN Reason Stop Dose Admin Acetaminophen 1,000 mg 01/26/25 08:06 Acetaminophen 500 Mg Tablet PO DAILY PRN Pain Albuterol 2 puff 01/26/25 08:06 Albuterol Sulfate (*Sp) Aerosol 1 Puff INHALATION QID PRN Shortness Of Breath Alendronate Sodium 70 mg 01/31/25 06:30 Alendronate Sodium 70 Mg Tablet PO Mccauley@0630 [facility] Ascorbic Acid 1,000 mg 01/26/25 09:00 01/28/25 09:25 Ascorbic Acid 500 Mg Tablet PO 1,000 mg DAILY EDUARDO Administration Aspirin 81 mg 01/26/25 09:00 01/28/25 09:25 Aspirin 81 Mg Enteric Tablet PO 81 mg DAILY EDUARDO Administration Atorvastatin Calcium 80 mg 01/26/25 18:00 01/27/25 17:19 Atorvastatin 40 Mg Tablet PO 80 mg QPM EDUARDO Administration Cyanocobalamin 1,000 mcg 01/26/25 09:00 01/28/25 09:26 Cyanocobalamin 1,000 Mcg Tablet PO 1,000 mcg DAILY EDUARDO Administration Dextrose 12.5 gm 01/26/25 04:26 Dextrose 50% 25 Gm/50 Ml Syringe IV PUSH PRN PRN Hypoglycemia Protocol Docusate Sodium 100 mg 01/26/25 09:00 01/28/25 09:26 Docusate Sodium 100 Mg Capsule PO 100 mg DAILY EDUARDO Administration Duloxetine HCl 60 mg 01/26/25 09:00 01/28/25 09:26 Duloxetine Hcl 60 Mg Capsule.Dr PO 60 mg DAILY EDUARDO Administration Empagliflozin 25 mg 01/28/25 09:00 01/28/25 09:26 Empagliflozin 25 Mg Tablet PO 02/27/25 08:59 25 mg DAILY EDUARDO Administration Fish Oil 2 gm 01/26/25 09:00 01/28/25 09:27 [place] 3 Polyunsat Fatty Acids 1 Gm Cap PO 2 gm BID EDUARDO Administration Glucagon 1 mg 01/27/25 12:29 Glucagon For Inj 1 Mg Vial IM PRN PRN Hypoglycemia Protocol Glucose 15 gm 01/26/25 04:26 Glucose Oral Gel 15 Gm Of Glucse In 37.5 Gm Tube PO PRN PRN Hypoglycemia Protocol Dextrose 1,000 mls @ 100 mls/hr 01/26/25 04:26 Dextrose 5% 1,000 Ml IVPB PRN PRN Hypoglycemia Protocol Insulin Aspart 2 - 5 units 01/27/25 17:00 01/28/25 12:14 Insulin Aspart (*Bkc) 100 Units/Ml SUB-Q Not Given TIDWM [facility] Protocol Insulin Aspart 1 - 2 units 01/27/25 21:00 01/27/25 20:36 Insulin Aspart (*Bkc) 100 Units/Ml SUB-Q Not Given HS EDUARDO Protocol Levothyroxine Sodium 150 mcg 01/26/25 08:15 01/28/25 06:35 Levothyroxine Sodium 150 Mcg Tablet PO 150 mcg DAILY@0630 EDUARDO Administration Magnesium Oxide 400 mg 01/26/25 09:00 01/28/25 09:27 Magnesium Oxide 400 Mg Tablet PO 400 mg DAILY EDUARDO Administration Mirabegron 50 mg 01/26/25 09:00 01/28/25 09:27 Mirabegron 50 Mg Er Tablet PO 50 mg DAILY EDUARDO Administration Miscellaneous Information 1 each 01/26/25 00:01 Levothyroxine Daily Ordered. External Med Link Looks Like Rx Is 6x/Week. Clarify Schedule XX 02/25/25 00:00 CLARIFY [facility] Pregabalin 100 mg 01/26/25 09:00 01/28/25 12:18 Pregabalin (*Crx) 50 Mg Capsule PO 100 mg TID EDUARDO Administration Rivaroxaban 2.5 mg 01/26/25 09:00 01/28/25 09:27 Rivaroxaban 2.5 Mg Tablet PO 2.5 mg BID EDUARDO Administration Vitamin D 125 mcg 01/26/25 09:00 01/28/25 09:26 Cholecalciferol (Vitamin D3) 125 Mcg (5,000 Units) Tablet PO 125 mcg DAILY EDUARDO Administration Labs Labs: Laboratory Results - last 24 hr 01/27/25 01/27/25 01/28/25 16:37 20:10 03:55 WBC 8.1 RBC 3.83 L Hgb 10.3 L Hct 33.8 L MCV 88.3 MCH 26.9 MCHC 30.5 L RDW 14.2 Plt Count 324 MPV 11.2 H Sodium Potassium Chloride Carbon Dioxide Anion Gap BUN Creatinine Estim Creat Clear Calc Estimated GFR Glucose POC Capillary Glucose 147 H 167 H Calcium Magnesium 2.3 01/28/25 01/28/25 01/28/25 08:04 11:51 13:34 WBC RBC Hgb Hct MCV MCH MCHC RDW Plt Count MPV Sodium 135 L Potassium 4.5 Chloride 98 Carbon Dioxide 27 Anion Gap 10 BUN 27 H Creatinine 1.27 H Estim Creat Clear Calc 31 Estimated GFR 41 L Glucose 156 H POC Capillary Glucose 177 H 135 H Calcium 9.3 Magnesium 01/28/25 13:44 WBC RBC Hgb Hct MCV MCH MCHC RDW Plt Count MPV Sodium Potassium Chloride Carbon Dioxide Anion Gap BUN Creatinine Estim Creat Clear Calc Estimated GFR Glucose POC Capillary Glucose 169 H Calcium Magnesium
[2025-01-28] MEDS: ATORVASTATIN 40 MG TABLET 80 MG PO (17:13)
[2025-01-28 22:46] VITALS: BP 97/59; PULSE 65; RESP 16; TEMP 36.9; O2SAT 98
[2025-01-28] MEDS: INSULIN ASPART (*BKC) 100 UNITS/ML SUB-Q (22:58)
[2025-01-29 05:27] VITALS: BP 115/56; PULSE 67; RESP 14; TEMP 36.8; O2SAT 97
[2025-01-29] MEDS: LEVOTHYROXINE SODIUM 150 MCG TABLET PO (05:37)
[2025-01-29 05:49] LABS: Hematocrit 32.4 % (37.0-47.0); Hemoglobin 10.0 g/dL (12.0-15.0); Mean Corpuscular HGB Conc 30.9 g/dl (32-36); Mean Corpuscular Hemoglobin 27.3 pg (26-34); Mean Corpuscular Volume 88.5 fl (80-100); Platelet Count Result 290 k/mm3 (150-375); Red Blood Count 3.66 M/mm3 (4.2-5.4); White Blood Count 7.5 K/mm3 (4.5-10.0)
[2025-01-29 06:10] LABS: Anion Gap 8 mmol/L (4-12); Blood Urea Nitrogen 27 mg/dL (7-17); Calcium 9.4 mg/dL (8.4-10.2); Carbon Dioxide 27 mmol/L (22-30); Chloride 100 mmol/L (98-107); Estimated CRCL calculation 35 ml/min; Estimated Glomerular Filt Rate 47; Glucose 151 mg/dL (65-110); Magnesium 2.2 mg/dL (1.6-2.3); Potassium 4.6 mmol/L (3.4-5.0); Sodium 135 mmol/L (137-145)
[2025-01-29] MEDS: MAGNESIUM OXIDE 400 MG TABLET PO (08:37)
[2025-01-29] MEDS: CYANOCOBALAMIN 1,000 MCG TABLET 1000 MCG PO (08:37)
[2025-01-29] MEDS: OMEGA 3 POLYUNSAT FATTY ACIDS 1 GM CAP 2 GM PO (08:37)
[2025-01-29] MEDS: RIVAROXABAN 2.5 MG TABLET PO (08:38)
[2025-01-29] MEDS: ASCORBIC ACID 500 MG TABLET 1000 MG PO (08:38)
[2025-01-29] MEDS: DULoxetine HCL 60 MG CAPSULE.DR PO (08:38)
[2025-01-29] MEDS: EMPAGLIFLOZIN 25 MG TABLET PO (08:39)
[2025-01-29] MEDS: CHOLECALCIFEROL (VITAMIN D3) 125 MCG (5,000 UNITS) TABLET PO (08:39)
[2025-01-29] MEDS: PREGABALIN (*CRX) 50 MG CAPSULE 100 MG PO ×2 (08:39→12:03)
[2025-01-29] MEDS: DOCUSATE SODIUM 100 MG CAPSULE PO (08:39)
[2025-01-29] MEDS: MIRABEGRON 50 MG ER TABLET PO (08:39)
[2025-01-29] MEDS: ASPIRIN 81 MG ENTERIC TABLET PO (08:39)
[2025-01-29 08:40] VITALS: O2SAT 99
--- NOTE | 2025-01-29 13:22 | PM.DS ---
DS: Admitting Diagnosis Discharge Date 01/29/25 Admitting Diagnosis Low blood sugar DS: Discharge Diagnosis Discharge Diagnosis (1) Hypoglycemia: Code(s): E16.2 - Hypoglycemia, unspecified Status: Acute (2) Chronic anemia: Code(s): D64.9 - Anemia, unspecified Status: Acute (3) Essential (primary) hypertension: Code(s): I10 - Essential (primary) hypertension Status: Acute (4) Type 2 diabetes mellitus without complications: Code(s): E11.9 - Type 2 diabetes mellitus without complications Status: Acute (5) Hypothyroidism, unspecified: Code(s): E03.9 - Hypothyroidism, unspecified Status: Acute (6) Gastro-esophageal reflux disease without esophagitis: Code(s): K21.9 - Gastro-esophageal reflux disease without esophagitis Status: Acute Plan Patient with history of diabetes was seen by her primary care provider and patient had episodes of hypoglycemia most likely 2/2 as patient has lost some wt, and taking several medications which can cause hypoglycemia, currently patient's antidiabetes medication are on hold except Jardiance, we are monitoring patient blood sugars with sliding scale and her blood sugars are below 200, GFR is 45 and unable to resume low dose metformin, unable to restrat insulin due to risk of hypoglycemia, will monitor one more day and possible discharge tomorrow, patient remains clinically stable, will monitor. This is a 74-year-old female who presents to the ED complaining of labile blood sugar. Patient stated her PCP recently decrease her Tresiba does. She had multiple blood sugar readings less than 70 with a past couple of weeks. Drops to less than 40. She also reports having low blood pressure at home. Sees on Tresiba along with Farxiga and weekly GLP 1 receptor agonist. In the ED her blood pressure was borderline otherwise afebrile. She received IV fluids. Laboratory workup revealed WBC of 7.4 hemoglobin 10.3 platelet count of 323. Chem panel showed sodium 133 potassium 5 chloride 102 bicarbonate 23 BUN 31 creatinine 1.16 blood glucose 170. LFTs within normal. Beta hydroxybutyrate normal at 0.2. Urinalysis negative for UTI. Lactate was normal at 1.1 CRP less than 0.5 procalcitonin is 0 influenza RSV and COVID swab was negative. She is admitted this in the setting for further treatment. Recurrent hypoglycemia no signs of infection. Patient on multiple different anti hyperglycemic medications. Adjust doses and monitor. A1c came back as 5.5. She was recently switched to Ozempic from October [address] [facility]. Some weight loss. Could have contributed to hypoglycemia as. Currently on Tresiba 25 units daily. A1c has lowered down to normal now. Will hold Tresiba and monitor blood sugar Hypertension borderline blood pressure. Responded well to IV fluids. On lisinopril 20 mg daily at home. Which is currently on hold Hypertension Hyperlipidemia Hypothyroidism Type 2 diabetes insulin DUYEN on CPAP Obesity Asthma Osteopenia/osteoporosis History of Vertebral compression fractures DVT prophylaxis on her Xarelto 2.5 mg b.i.d. Code status full code DS: Summary Hospital Course Hospital Course: Recurrent hypoglycemia no signs of infection. Patient on multiple different anti hyperglycemic medications. Adjust doses and monitor. A1c came back as 5.5. She was recently switched to Ozempic from October 2024 from [facility]. Some weight loss. Could have contributed to hypoglycemia as. Currently on Tresiba 25 units daily. A1c has lowered down to normal now. Will hold Tresiba and monitor blood sugar Hypertension borderline blood pressure. Responded well to IV fluids. On lisinopril 20 mg daily at home. Which is currently on hold started patient on metformin 500mg BID compared to her home dose of 1000mg BID and continued Jardiance 10mg and her blood sugars are close to normal, will discharge patient today to follow up her primary care provider. Time Spent with Patient Time attestation: Total time spent providing and/or coordinating discharge services: Exam Narrative: Patient is comfortable, NAD HEENT: eyes are clear and none icteric LUNGS:CTA HEART: RR S1S2 ABD: BS+, Soft and nontender Lower extremities: no edema SKIN: nonjaundiced Neuro: grossly intact. DS: Data Data Completed and Pending Labs on day of discharge: Labs from last 24 hours 01/29/25 01/29/25 01/29/25 11:29 08:01 05:02 WBC 7.5 RBC 3.66 L Hgb 10.0 L Hct 32.4 L MCV 88.5 MCH 27.3 MCHC 30.9 L RDW 14.1 Plt Count 290 MPV 11.2 H Sodium 135 L Potassium 4.6 Chloride 100 Carbon Dioxide 27 Anion Gap 8 BUN 27 H Creatinine 1.13 H Estim Creat Clear Calc 35 Estimated GFR 47 L Glucose 151 H POC Capillary Glucose 137 H 173 H Calcium 9.4 Magnesium 2.2 01/28/25 01/28/25 01/28/25 22:50 16:59 13:44 WBC RBC Hgb Hct MCV MCH MCHC RDW Plt Count MPV Sodium Potassium Chloride Carbon Dioxide Anion Gap BUN Creatinine Estim Creat Clear Calc Estimated GFR Glucose POC Capillary Glucose 218 H 183 H 169 H Calcium Magnesium 01/28/25 13:34 WBC RBC Hgb Hct MCV MCH MCHC RDW Plt Count MPV Sodium 135 L Potassium 4.5 Chloride 98 Carbon Dioxide 27 Anion Gap 10 BUN 27 H Creatinine 1.27 H Estim Creat Clear Calc 31 Estimated GFR 41 L Glucose 156 H POC Capillary Glucose Calcium 9.3 Magnesium Discharge Plan Discharge Attending physician on discharge: Tara Hernandes Discharging Clinician: Renée Alvarez Patient Disposition: Home Activity: as tolerated Diet: diabetic Discharge Instructions: patient to take her medications as prescribed and follow up with her primary care provider as soon as possible, patient is instructed if any symptoms worsen to go to nearest ER. Patient Instructions: Antibiotic Form, Hypoglycemia in a Person with Diabetes (GEN) Patient Language: [place] Stand Alone Forms: General Discharge Information Follow-up/Referrals: Carly,MD Mckenna [Primary Care Provider, Unknown] Discharge Medications: New dextrose [Glutose-15] 40 % Gel 15 g PO PRN PRN (Reason: Hypoglycemia) Qty: 112.5 0RF Continued acetaminophen [Acetaminophen Extra Strength] 500 mg Tablet 1,000 mg PO DAILY PRN (Reason: Pain) albuterol sulfate 90 mcg/actuation Hfa Aerosol Inhaler 2 puff INHALATION QID PRN (Reason: Shortness Of Breath) cyanocobalamin (vitamin B-12) [Vitamin B-12] 1,000 mcg Tablet Extended Release 1,000 mcg PO DAILY pregabalin 100 mg Capsule 100 mg PO TID cholecalciferol (vitamin D3) [Vitamin D3] 125 mcg (5,000 unit) Tablet 125 mcg PO DAILY mirabegron 50 mg Tablet Extended Release 24 Hr 50 mg PO DAILY dapagliflozin propanediol 10 mg Tablet 10 mg PO DAILY rivaroxaban 2.5 mg Tablet 2.5 mg PO BID magnesium oxide 400 mg magnesium Tablet 400 mg PO DAILY alendronate 70 mg Tablet 70 mg PO WEEKLY aspirin [Aspir-81] 81 mg Tablet,Delayed Release (Dr/Ec) 81 mg PO DAILY duloxetine 60 mg Capsule,Delayed Release(Dr/Ec) 60 mg PO DAILY lisinopril 10 mg Tablet 20 mg PO DAILY levothyroxine [Synthroid] 150 mcg Tablet 150 mcg PO DAILY docusate sodium [Dulcolax Stool Softener (dss)] 100 mg Capsule 100 mg PO DAILY icosapent ethyl [Vascepa] 1 gram Capsule 2 g PO BID ascorbic acid (vitamin C) 500 mg Tablet 1,000 mg PO DAILY atorvastatin 80 mg tablet 80 mg PO QPM Held insulin degludec [Tresiba FlexTouch U-100] 100 unit/mL (3 mL) insulin pen 34 unit subcut HS Hold Instructions: until seen by her primary care provider Ozempic 1 mg/dose (4 mg/3 mL) pen injector 4 mg SUBCUT WEEKLY Hold Instructions: until seen by her primary care provider Discontinued metformin 500 mg Tablet 1,000 mg PO BID Patient Comments: after breakfast 9am and after dinner 5pm Date of admission: 01/26/25 00:44 Primary Care Provider: Carly,Mckenna Admitting Provider: Tara Hernandes Attending physician on admission: Tara Hernandes Condition: Stable
== END 2025-01-29 14:35 | disposition home or self-care (01) ==
LOC: ANHED 01-26 02:12 → ANHIMU 01-26 02:45 → ANH2MED 01-27 10:18 → ANHIMU 02-01 07:53
PROVIDERS: Nurse Practitioner Family; Admitting Provider General Practice; Emergency Provider Physician Assistant; PCP Internal Medicine; Visit Provider Family Medicine
DX: E11.649 Type 2 diabetes mellitus with hypoglycemia without coma (principal); D64.9 Anemia, unspecified; I10 Essential (primary) hypertension; E78.5 Hyperlipidemia, unspecified; E03.9 Hypothyroidism, unspecified; K21.9 Gastro-esophageal reflux disease without esophagitis; E66.9 Obesity, unspecified; Z68.33 Body mass index [BMI] 33.0-33.9, adult; Z79.85 Long-term (current) use of injectable non-insulin antidiabetic drugs; Z79.84 Long term (current) use of oral hypoglycemic drugs; Z79.4 Long term (current) use of insulin; G47.33 Obstructive sleep apnea (adult) (pediatric); Z99.89 Dependence on other enabling machines and devices; J45.909 Unspecified asthma, uncomplicated; M85.80 Other specified disorders of bone density and structure, unspecified site; M81.0 Age-related osteoporosis without current pathological fracture; Z87.311 Personal history of (healed) other pathological fracture; Z20.822 Contact with and (suspected) exposure to COVID-19; Z79.83 Long term (current) use of bisphosphonates; Z79.82 Long term (current) use of aspirin; Z79.01 Long term (current) use of anticoagulants; Z79.899 Other long term (current) drug therapy; Z82.49 Family history of ischemic heart disease and other diseases of the circulatory system
CPT/HCPCS: 36415; 80048; 80053; 81001; 82010; 82948; 83036; 83605; 83735; 84145; 85025; 85027; 86140; 87637; 96360; 96361; 99285; A9270; G0378; J1815; J7030; J7120